=== PATIENT | female | born 1935 | race Caucasian/White ===

== ENCOUNTER → 2016-06-01 | Outpatient (CLI) | payer MEDICARE ==
[2016-01-25 19:45] VITALS: BP 131/50
[~2016-06-01] MED LIST: ASPI81TA50 PO; BUDE10.2 IH; FURO-68 PO; HYDR12.53 PO; LOSA100T6 PO; METO25TA4 PO; MORP15TA3 PO; MORP30TA83 PO; NITR0.4T SL; POLY255P PO; PROAIR HFA8.5 GM IH; SERT100T PO; TEMA15CA PO; TRAM50TA PO
--- NOTE | 2016-06-01 11:06 | KCIC ---
PROCEDURE Left breast diagnostic mammogram; left breast sonogram. HISTORY 80-year-old female presents for six-month followup evaluation a suspected lymph node within the posterior lateral left breast demonstrate on a mammogram and sonogram dated 09/30/2015. TECHNIQUE Full field digital craniocaudal and mediolateral oblique views of the left breast are obtained. Sonographic imaging of the left breast targeted to the 3 o'clock position was also performed. COMPARISON 09/30/2015, 09/18/2015 FINDINGS Breast parenchymal composition: Level B - Scattered fibroglandular densities. There is nodular density with indistinct margins within the posterior 3 o'clock position of the left breast. This is slightly more prominent compared to the prior studies. There is no new suspicious mass. There are benign calcifications. There is no architectural distortion. Sonographic imaging of the left breast demonstrates a hypoechoic lesion at the posterior 3 o'clock position 12 cm from the nipple, measuring 9 x 8 x 4 mm. There is a focus of increased echogenicity within this lesion. This is slightly more conspicuous compared to the prior study. There is no suspicious posterior shadowing. No additional lesion is seen. IMPRESSION 1. Slight interval increase in nodular density within the posterior 3 o'clock position of the left breast, with sonographic features favoring a lymph node. Given the slight interval change and indistinct margins of this lesion, repeat short-term follow-up is recommended to to confirm benignity. 2. BI-RADS Category 3: Probably benign finding. Short-term follow-up with a bilateral diagnostic mammogram and left breast sonogram in 4 months is recommended to correspond with a previously established bilateral mammography interval. Electronically signed by: Anna Marks (Jun 01, 2016 11:04:26)
== END | disposition home or self-care (01) ==
LOC: KCIC MAMMO 09:17
PROVIDERS: ATTEND Internal Medicine
DX: R92.8 Other abnormal and inconclusive findings on diagnostic imaging of breast (principal); N63 Unspecified lump in breast
CPT/HCPCS: 76641; G0206; 77065

== ENCOUNTER 2016-10-13 21:00 | Emergency (ER) | payer MEDICARE ==
[2016-10-13 23:00] VITALS: BP 177/81
[2016-10-13] MEDS ORDERED: KETOROLAC TROMETHAMINE 30 MG/ML INJ. IV ONE (23:30)
--- NOTE | 2016-10-13 23:54 | RAD ---
Left lower extremity venous duplex study 10/13/2016 Clinical History: Left leg pain. Technique: Using a combination of real time ultrasound imaging and color-flow and pulse Doppler imaging techniques along with graded compression and augmentation, duplex evaluation of the deep venous system of the left lower extremity was performed. Multiple images were obtained. Findings: There is no sonographic evidence of deep venous thrombosis involving the visualized deep venous structures of left lower extremity. Impression: Negative study. Electronically signed by: Dov Palmer MD (10/13/2016 11:51 PM) [facility]
[2016-10-14] MEDS ORDERED: PRED50TA PO (00:15)
--- NOTE | 2016-10-14 00:16 | PHYS DOC ---
Past Medical History Past Medical History: Anxiety, Arthritis, Bronchitis, CAD, COPD, CVA, Depression, Heart Disease, Hypertension, Liver Disease, ID, Pneumonia, Stroke, Other Additional Past Medical Histor: LEGALLY BLIND Past Surgical History: Angioplasty, Coronary Bypass Surgery, Hysterectomy, Tonsillectomy, Other Additional Past Surgical Histo: cysts and tumors removed from stomach Alcohol Use: None Drug Use: None Adult General Chief Complaint Chief Complaint: HIP PAIN HPI HPI 80-year-old female with a past medical history of anxiety depression coronary artery disease with ID CVA COPD hypertension now presents to the emergency department complaining of pain in the left low back area radiating down her left leg. She had no injury. It does not hurt to bear weight. She denies a known history of sciatica however she states and told she had some herniated disks. Patient denies numbness or weakness of the legs. No incontinence. Normal bowel and bladder habits Review of Systems Review of Systems Constitutional: Denies fever or chills [] Eyes: Denies change in visual acuity, redness, or eye pain [] HENT: Denies nasal congestion or sore throat [] Respiratory: Denies cough or shortness of breath [] Cardiovascular: No additional information not addressed in HPI [] GI: Denies abdominal pain, nausea, vomiting, bloody stools or diarrhea [] : Denies dysuria or hematuria [] Musculoskeletal: Denies back pain or joint pain [] Integument: Denies rash or skin lesions [] Neurologic: Denies headache, focal weakness or sensory changes [] Endocrine: Denies polyuria or polydipsia [] Current Medications Current Medications Current Medications Medications (Trade) Dose Ordered Sig/Conrad Start Time Stop Time Status Last Admin Dose Admin Ketorolac Tromethamine (Toradol) 30 mg 1X ONCE 10/13/16 23:30 10/13/16 23:31 DC 10/13/16 22:59 30 MG Allergies Allergies Allergies Coded Allergies Type Severity Reaction Last Updated Verified MIGUEL ANGEL Inhibitors Allergy Intermediate Unknown 04/25/14 Yes Penicillins Allergy Intermediate 03/11/14 Yes Sulfa (Sulfonamide Antibiotics) Allergy Intermediate Unknown 04/25/14 Yes adhesive Allergy Intermediate 03/11/14 Yes influenza virus vaccine, specific Allergy Intermediate 03/11/14 Yes mercury (elemental) Allergy Intermediate 03/11/14 Yes methylprednisolone Allergy Intermediate 03/11/14 Yes trazodone Allergy Intermediate Unknown 04/25/14 Yes zolpidem Allergy Intermediate 03/11/14 Yes Physical Exam Physical Exam Well-appearing elderly female no acute distress. Nontender stable pelvis no hip tenderness. Mild soft tissue tenderness left lumbar paraspinal. Positive straight leg raise left lower extremity. Soft compartments of the leg with no abnormality of that extremity. No cords. Normal color neurovascularly intact Constitutional: Well developed, well nourished, no acute distress, non-toxic appearance. [] HENT: Normocephalic, atraumatic, bilateral external ears normal, oropharynx moist, no oral exudates, nose normal. [] Eyes: PERRLA, EOMI, conjunctiva normal, no discharge. [] Neck: Normal range of motion, no tenderness, supple, no stridor. [] Cardiovascular:Heart rate regular rhythm, no murmur [] Lungs & Thorax: Bilateral breath sounds clear to auscultation [] Abdomen: Bowel sounds normal, soft, no tenderness, no masses, no pulsatile masses. [] Skin: Warm, dry, no erythema, no rash. [] Back: Left lumbar paraspinal soft tissue tenderness no midline or bony tenderness., no CVA tenderness. [] Extremities: No tenderness, no cyanosis, no clubbing, ROM intact, no edema. [] Neurologic: Alert and oriented X 3, normal motor function, normal sensory function, no focal deficits noted. [] Psychologic: Affect normal, judgement normal, mood normal. [] Current Patient Data Vital Signs Vital Signs Date Time Temp Pulse Resp B/P (MAP) Pulse Ox O2 Delivery O2 Flow Rate FiO2 10/13/16 21:00 98.8 54 20 165/80 (108) 97 Room Air 98.8 EKG EKG [] Radiology/Procedures Radiology/Procedures [] Course & Med Decision Making Course & Med Decision Making Pertinent Labs and Imaging studies reviewed. (See chart for details) Signs and symptoms consistent with sciatica left lower extremity. Normal left lower extremity exam positive straight leg raise. Neurovascularly intact. Pelvis x-ray done which was unremarkable. Doppler left lower extremity negative. No further workup or treatment indicated. We'll prescribe a short course of prednisone and patient were to use NSAIDs and follow up with PCP for reevaluation and further workup and treatment as needed. She agrees with outpatient follow-up and strict return precautions given [] Dragon Disclaimer Dragon Disclaimer This electronic medical record was generated, in whole or in part, using a voice recognition dictation system. Departure Departure Impression: Primary Impression: Sciatica of left side Disposition: 01 HOME, SELF-CARE Condition: STABLE Referrals: PRITESH BRAGA MD (PCP) Patient Instructions: Sciatica Additional Instructions: The pain radiating down her left leg is consistent with sciatica. This means inflammation of the sciatic nerve in the low back or buttock which causes pain in the leg him in this case her left leg. Take ibuprofen every 6 hours and finish prednisone as prescribed once a day for the next 5 days. Follow-up with your doctor for reevaluation and to discuss further workup and treatment including possible MRI of the low back as needed. Scripts Prednisone (PREDNISONE) 50 Mg Tablet 1 TAB PO DAILY, #5 TAB Prov: TJ LÓPEZ MD 10/14/16 TJ LÓPEZ MD Oct 14, 2016 00:16
[2016-10-14] MEDS ORDERED: predniSONE 20 MG TABLET PO ONE (01:00)
--- NOTE | 2016-10-14 08:06 | RAD ---
Portable pelvis, 10/13/2016: History: Left hip pain No fracture or dislocation is identified. There is moderate narrowing of the left hip joint with subchondral sclerosis and mild spurring. There is mild narrowing of the right hip joint. Surgical clips are present medially in the left upper thigh. IMPRESSION: Moderate osteoarthritis at the left hip.
== END 2016-10-14 00:50 | disposition home or self-care (01) ==
LOC: ER 21:00
DX: M54.42 Lumbago with sciatica, left side (principal); M79.605 Pain in left leg; F41.9 Anxiety disorder, unspecified; M19.90 Unspecified osteoarthritis, unspecified site; I25.10 Atherosclerotic heart disease of native coronary artery without angina pectoris; J44.9 Chronic obstructive pulmonary disease, unspecified; I11.9 Hypertensive heart disease without heart failure; I25.2 Old myocardial infarction; F32.9 Major depressive disorder, single episode, unspecified; H54.8 Legal blindness, as defined in USA; Z87.01 Personal history of pneumonia (recurrent); Z95.1 Presence of aortocoronary bypass graft; Z90.710 Acquired absence of both cervix and uterus; Z98.61 Coronary angioplasty status; Z88.5 Allergy status to narcotic agent; Z86.73 Personal history of transient ischemic attack (TIA), and cerebral infarction without residual deficits; Z88.8 Allergy status to other drugs, medicaments and biological substances; Z91.048 Other nonmedicinal substance allergy status; Z88.0 Allergy status to penicillin; Z88.2 Allergy status to sulfonamides
CPT/HCPCS: 72170; 93971; 96374; 99284; J1885; J7512

== ENCOUNTER → 2016-11-09 | Outpatient (CLI) | payer MEDICARE ==
[2016-10-25 10:49] VITALS: BP 132/63
[~2016-11-09] MED LIST changes: +AMLO10TA2 PO; +GABA600T2 PO; +IOHEXOL 180 MG/ML 10 ML VIAL. ONE; +MELA3TAB2 PO; +OXYC-323 PO; +POTA20TA82 PO; +PRED50TA PO; +SIMV20TA3 PO; +methylPREDNISolone ACETATE 40 MG/ML VIAL. ONE; +methylPREDNISolone ACETATE 80 MG/ML VIAL. ONE
--- NOTE | 2016-11-10 00:18 | PAIN ---
DATE OF SERVICE: 11/09/2016 PROGRESS NOTE FOR PAIN CLINIC DIAGNOSES: Lumbar radiculopathy with lumbar degenerative disk disease and lumbar spinal stenosis. HISTORY OF PRESENT ILLNESS: The patient is a 80-year-old female who returns for followup status post lumbar epidural steroid injection x 1 as inpatient on 10/24/2016. The patient did very well with about a 50% improvement in her pain in low back and left lower extremity. The patient reports still some significant pain returning now over the past week or so, increasing in the low back radiating to the posterior gluteus, posterolateral thigh, lateral anterior thigh, medial thigh, medial lower leg into the ankle and foot on the left side. The patient reports it is a 6 on a scale 10 currently. It can be as high as 10 on scale of 10. It has been waking her from sleep occasionally, but much better with lying down. The patient reports not every night this is a bother. The patient reports no new motor or sensory deficits, no new bowel or bladder incontinence, describes pain as aching, dull, radiating, constant and becoming more unbearable, worse with activity, standing and walking. PHYSICAL EXAMINATION: VITAL SIGNS: The patient's blood pressure 111/66, pulse is ____, respirations 18, temperature 99.0 degrees Fahrenheit, weight is 139 pounds. GENERAL: The patient is awake, alert, oriented, appropriate, very pleasant demeanor. HEENT: Shows normocephalic, atraumatic. Extraocular movements are intact and symmetrical. Oral cavity, mucous membranes are moist and pink. Dentition intact. NECK: Shows anterior throat supple without palpable lymphadenopathy noted. Swallow reflex is symmetrical. CHEST: Shows normal on inspection. Breath sounds clear to auscultation bilaterally. HEART: Shows S1 and S2 clear. ABDOMEN: Soft, nontender, nondistended. No palpable organomegaly. No rebound or guarding demonstrated. BACK: Shows spine grossly in the midline. Normal appearing thoracic kyphosis and lumbar lordotic curvature. Well-healed surgical scars are noted in the upper part of the lumbar distribution as well as over the right gluteus, with palpation shows moderate tenderness with inferior aspect of the lumbar paraspinous musculature bilaterally with palpation diffusely without radiation, without trigger points. No tenderness over the sacrum or sacroiliac regions. The patient has good rotational motion of the lumbar spine, both laterally as well as extension and flexion without difficulty. EXTREMITIES: Lower extremities showed deep tendon reflexes at 1+ in the patellar and tendo calcaneus tendons are equal. Motor exam is 4 on a scale 5 with left dorsiflexion and extension and 5/5 on the right. Peripheral pulses are 1+ posterior tibial bilaterally. Options were discussed with the patient. We will proceed with a second lumbar epidural steroid injection today with fluoroscopic guidance. Risks were again discussed including, but not limited to bleeding, infection, possibility of epidural hematoma and subsequent neurologic compromise, dural puncture, headaches, spinal cord and/or nerve damage, side effects of steroid medication and poor results regarding pain control. The patient understands and wishes to proceed. The patient will return to the clinic in approximately 2 weeks for followup, was counseled on return appointment, activity level and side effects to be aware of. DIAGNOSIS: Lumbar radiculopathy with lumbar spinal stenosis, lumbar degenerative disk disease. PROCEDURE: Lumbar epidural steroid injection in translaminar approach at the L4-L5 level, using C-arm fluoroscopic guidance under sterile prep and drape using local anesthetic. MEDICATIONS INJECTED: Total of 120 mg of Depo-Medrol, plus 10 mL of preservative-free normal saline and 2 mL of Isovue for contrast. CONDITION AT DISCHARGE: Stable. The patient tolerated procedure well, had no complications. JAK RO MD DR: JUDY/cathryn JOB#: [id number] / [id number]
== END | disposition home or self-care (01) ==
LOC: PNCL 13:41
PROVIDERS: ATTEND Nurse Anesthetist, Certified Registered
DX: M51.16 Intervertebral disc disorders with radiculopathy, lumbar region (principal); M48.06 Spinal stenosis, lumbar region; I25.10 Atherosclerotic heart disease of native coronary artery without angina pectoris; I10 Essential (primary) hypertension; J44.9 Chronic obstructive pulmonary disease, unspecified; K21.9 Gastro-esophageal reflux disease without esophagitis; M19.90 Unspecified osteoarthritis, unspecified site; F32.9 Major depressive disorder, single episode, unspecified; Z86.69 Personal history of other diseases of the nervous system and sense organs; Z98.41 Cataract extraction status, right eye; Z98.42 Cataract extraction status, left eye; Z86.73 Personal history of transient ischemic attack (TIA), and cerebral infarction without residual deficits; Z87.39 Personal history of other diseases of the musculoskeletal system and connective tissue; Z88.0 Allergy status to penicillin; Z88.2 Allergy status to sulfonamides; Z88.7 Allergy status to serum and vaccine; Z88.8 Allergy status to other drugs, medicaments and biological substances; Z91.048 Other nonmedicinal substance allergy status
CPT/HCPCS: 62323; J1030; J1040

== ENCOUNTER 2017-02-21 18:48 | Inpatient (IN) | payer MEDICARE ==
[~2017-02-21] VITALS: Ht 149.9 cm; Wt 65.9 kg
[~2017-02-21 18:48] MED LIST changes: -IOHEXOL 180 MG/ML 10 ML VIAL. ONE; -methylPREDNISolone ACETATE 40 MG/ML VIAL. ONE; -methylPREDNISolone ACETATE 80 MG/ML VIAL. ONE
--- NOTE | 2017-02-21 19:21 | PHYS DOC ---
Past Medical History Past Medical History: Anxiety, Arthritis, Bronchitis, CAD, COPD, CVA, Depression, Heart Disease, Hypertension, NC, Stroke, Other Additional Past Medical Histor: LEGALLY BLIND Past Surgical History: Angioplasty, Coronary Bypass Surgery, Hysterectomy, Tonsillectomy, Other Additional Past Surgical Histo: cysts and tumors removed from stomach Alcohol Use: None Drug Use: None Adult General Chief Complaint Chief Complaint: CHEST PAIN HPI HPI Patient is a 81 year old F who presents with chest pain and cough. Patient states she was seen by her PCP last week as diagnosed with a viral URI however today it hurts take deep breaths and she's having rib pain on both sides she states. Patient had an operative cough. Patient denies any fevers. Patient is a cardiac history with bypass surgery. Patient states this pain is not similar to her previous cardiac disease. Patient denies any shortness of breath. Patient denies any nausea/vomiting/diarrhea. Patient has no other complaints. Review of Systems Review of Systems GEN: Denies fevers, chills, sweats HEENT: Denies blurred vision, sore throat CV: Chest pain RESP cough GI: Denies n/v/d NEURO: Denies confusion, dizziness MSK: Denies weakness, joint pain/swelling All other systems were reviewed and found to be within normal limits, except as documented in this note. Allergies Allergies Allergies Coded Allergies Type Severity Reaction Last Updated Verified MIGUEL ANGEL Inhibitors Allergy Intermediate Unknown 04/25/14 Yes Penicillins Allergy Intermediate 03/11/14 Yes Sulfa (Sulfonamide Antibiotics) Allergy Intermediate Unknown 04/25/14 Yes adhesive Allergy Intermediate 03/11/14 Yes influenza virus vaccine, specific Allergy Intermediate 03/11/14 Yes mercury (elemental) Allergy Intermediate 03/11/14 Yes methylprednisolone Allergy Intermediate 03/11/14 Yes trazodone Allergy Intermediate Unknown 04/25/14 Yes zolpidem Allergy Intermediate 03/11/14 Yes Physical Exam Physical Exam GEN.: No apparent distress. Alert and oriented. HEENT: Head is normocephalic, atraumatic NECK: Supple. LUNGS: CTAB. HEART: RRR, S1, S2 present. Peripheral pulses intact ABDOMEN: Soft, nontender. Positive bowel sounds. EXTREMITIES: Without any cyanosis. NEUROLOGIC: Normal speech, normal tone PSYCHIATRIC: Normal affect, normal mood. SKIN: No ulcerations Current Patient Data Vital Signs Vital Signs Date Time Temp Pulse Resp B/P (MAP) Pulse Ox O2 Delivery O2 Flow Rate FiO2 02/21/17 18:56 98.1 64 18 143/65 (91) 98 Room Air 98.1 Lab Values Laboratory Tests Test 02/21/17 19:34 02/21/17 20:45 White Blood Count 5.4 x10^3/uL (4.0-11.0) Red Blood Count 4.26 x10^6/uL (3.50-5.40) Hemoglobin 12.7 g/dL (12.0-15.5) Hematocrit 38.1 % (36.0-47.0) Mean Corpuscular Volume 89 fL (79-100) Mean Corpuscular Hemoglobin 30 pg (25-35) Mean Corpuscular Hemoglobin Concent 33 g/dL (31-37) Red Cell Distribution Width 13.2 % (11.5-14.5) Platelet Count 220 x10^3/uL (140-400) Neutrophils (%) (Auto) 55 % (31-73) Lymphocytes (%) (Auto) 27 % (24-48) Monocytes (%) (Auto) 17 % (0-9) H Eosinophils (%) (Auto) 1 % (0-3) Basophils (%) (Auto) 1 % (0-3) Neutrophils # (Auto) 3.0 x10^3uL (1.8-7.7) Lymphocytes # (Auto) 1.5 x10^3/uL (1.0-4.8) Monocytes # (Auto) 0.9 x10^3/uL (0.0-1.1) Eosinophils # (Auto) 0.0 x10^3/uL (0.0-0.7) Basophils # (Auto) 0.0 x10^3/uL (0.0-0.2) Sodium Level 141 mmol/L (136-145) Potassium Level 3.8 mmol/L (3.5-5.1) Chloride Level 103 mmol/L (98-107) Carbon Dioxide Level 31 mmol/L (21-32) Anion Gap 7 (6-14) Blood Urea Nitrogen 24 mg/dL (7-20) H Creatinine 0.7 mg/dL (0.6-1.0) Estimated GFR (Cockcroft-Gault) 80.5 BUN/Creatinine Ratio 34 (6-20) H Glucose Level 130 mg/dL (70-99) H Calcium Level 9.5 mg/dL (8.5-10.1) Total Bilirubin 0.2 mg/dL (0.2-1.0) Aspartate Amino Transferase (AST) 17 U/L (15-37) Alanine Aminotransferase (ALT) 17 U/L (14-59) Alkaline Phosphatase 80 U/L (46-116) Troponin I Quantitative < 0.017 ng/mL (0.000-0.055) Total Protein 7.9 g/dL (6.4-8.2) Albumin 3.5 g/dL (3.4-5.0) Albumin/Globulin Ratio 0.8 (1.0-1.7) L Urine Collection Type Unknown Urine Color Yellow Urine Clarity Clear Urine pH 6.5 Urine Specific [place] 1.020 Urine Protein Negative mg/dL (NEG-TRACE) Urine Glucose (UA) Negative mg/dL (NEG) Urine Ketones (Stick) Negative mg/dL (NEG) Urine Blood Small (NEG) Urine Nitrite Negative (NEG) Urine Bilirubin Negative (NEG) Urine Urobilinogen Dipstick 0.2 mg/dL (0.2 mg/dL) Urine Leukocyte Esterase Moderate (NEG) Urine RBC 6-10 /HPF (0-2) Urine WBC 11-20 /HPF (0-4) Urine Squamous Epithelial Cells Occ /LPF Urine Bacteria Moderate /HPF (0-FEW) Urine Hyaline Casts Moderate /HPF Urine Mucus Mod /LPF Laboratory Tests 02/21/17 19:34 Laboratory Tests 02/21/17 19:34 EKG EKG 1850: EKG shows normal sinus rhythm rate of 62 no STEMI[] Radiology/Procedures Radiology/Procedures Chest x-ray NAD[] Course & Med Decision Making Course & Med Decision Making Pertinent Labs and Imaging studies reviewed. (See chart for details) ED course: Patient was seen and examined emergency room cardiac workup is ordered along with UA 2125: On reexamination the patient still having chest pain and updated her on her UA and the plan to admit, Dr. 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 Ibarra and recommends admit [] MDM: After reviewing the chart, CC/HPI/PMH, physical exam, [lab results], [ radiological results], I do not believe the patient's having a STEMI however given the patient's cardiac risk factors I believe the patient needs to be minute for further cardiac workup. I have low suspicion for PE with a well's score of 0, and low suspicion for acute thoracic aortic dissection. Patient will be started on IV antibiotics for her UTI. Dragon Disclaimer Dragon Disclaimer This electronic medical record was generated, in whole or in part, using a voice recognition dictation system. Departure Departure Impression: Primary Impression: Chest pain Additional Impression: UTI (urinary tract infection) Disposition: ADMITTED INPATIENT Admitting Physician: Renetta Ibarra Condition: STABLE Referrals: PRITESH BRAGA MD (PCP) Problem Qualifiers RICHARD CRAWLEY DO Feb 21, 2017 19:21
[2017-02-21 20:05] LABS: BASO % 1 % (0-3); EOS % 1 % (0-3); HEMATOCRIT 38.1 % (36.0-47.0); HEMOGLOBIN 12.7 g/dL (12.0-15.5); LYMPH # 1.5 x10^3/uL (1.0-4.8); LYMPH % 27 % (24-48); MEAN CORPUSCULAR HEMOGLOBIN 30 pg (25-35); MEAN CORPUSCULAR HGB CONC 33 g/dL (31-37); MEAN CORPUSCULAR VOLUME 89 fL (79-100); MONO % 17 % (0-9); NEUT % 55 % (31-73); PLATELET COUNT 220 x10^3/uL (140-400); RED BLOOD COUNT 4.26 x10^6/uL (3.50-5.40); RED CELL DISTRIBUTION WIDTH 13.2 % (11.5-14.5); WHITE BLOOD COUNT 5.4 x10^3/uL (4.0-11.0)
[2017-02-21 20:11] LABS: CALCIUM 9.5 mg/dL (8.5-10.1); CREATININE 0.7 mg/dL (0.6-1.0); GFR 80.5; POTASSIUM 3.8 mmol/L (3.5-5.1)
[2017-02-21 20:18] LABS: ALBUMIN 3.5 g/dL (3.4-5.0); ALBUMIN/GLOBULIN RATIO 0.8 (1.0-1.7); TOTAL BILIRUBIN 0.2 mg/dL (0.2-1.0); TOTAL PROTEIN 7.9 g/dL (6.4-8.2)
[2017-02-21 20:51] LABS: BILIRUBIN,URINE NEGATIVE (NEG); GLUCOSE,URINE NEGATIVE (NEG); NITRITE,URINE NEGATIVE (NEG); PH,URINE 6.5; PROTEIN,URINE NEGATIVE (NEG-TRACE); UROBILINOGEN,URINE 0.2 mg/dL (0.2 mg/dL)
[2017-02-21 21:01] LABS: BACTERIA,URINE MODERATE /HPF (0-FEW); SQUAMOUS EPITHELIAL CELL,UR OCC /LPF
[2017-02-21] MEDS ORDERED: ONDANSETRON PF 4 MG/2 ML VIAL. IV PRN (21:45)
[2017-02-21] MEDS ORDERED: NITROGLYCERIN SUBLINGUAL 0.4 MG BOTTLE OF 25. SL PRN ×2 (21:45→22:45)
[2017-02-21] MEDS ORDERED: ACETAMINOPHEN 325 MG TABLET. PO PRN (21:45)
[2017-02-21] MEDS ORDERED: ASPIRIN CHEWABLE 81 MG TABLET. PO ONE (22:00)
[2017-02-21 22:20] VITALS: BP 165/66
[2017-02-21] MEDS ORDERED: GABAPENTIN 100 MG CAPSULE. PO ONE (23:00)
[2017-02-21] MEDS ORDERED: METOPROLOL TART IMMED RELEASE 25 MG TABLET. PO ONE (23:00)
[2017-02-21] MEDS: GABAPENTIN 300 MG CAPSULE. PO SCH (23:08)
[2017-02-21] MEDS: METOPROLOL TART IMMED RELEASE 25 MG TABLET. PO SCH (23:09)
[2017-02-21] MEDS: traMADol 50 MG TABLET PO SCH (23:09)
[2017-02-21] MEDS: ATORVASTATIN CALCIUM 10 MG TABLET. PO SCH (23:09)
[2017-02-22] MEDS ORDERED: PNEUMOCOCCAL VAX SCREEN BY RX. MC PRN (01:30)
[2017-02-22 03:10] VITALS: BP 133/57
[2017-02-22 06:30] LABS: BASO % 1 % (0-3); EOS % 3 % (0-3); HEMATOCRIT 34.8 % (36.0-47.0); HEMOGLOBIN 11.5 g/dL (12.0-15.5); LYMPH # 2.2 x10^3/uL (1.0-4.8); LYMPH % 44 % (24-48); MEAN CORPUSCULAR HEMOGLOBIN 29 pg (25-35); MEAN CORPUSCULAR HGB CONC 33 g/dL (31-37); MEAN CORPUSCULAR VOLUME 89 fL (79-100); MONO % 13 % (0-9); NEUT % 40 % (31-73); PLATELET COUNT 205 x10^3/uL (140-400); RED BLOOD COUNT 3.91 x10^6/uL (3.50-5.40); RED CELL DISTRIBUTION WIDTH 13.2 % (11.5-14.5); WHITE BLOOD COUNT 5.1 x10^3/uL (4.0-11.0)
[2017-02-22 06:39] LABS: CALCIUM 9.1 mg/dL (8.5-10.1); CREATININE 0.6 mg/dL (0.6-1.0); GFR 96.2; POTASSIUM 3.4 mmol/L (3.5-5.1)
--- NOTE | 2017-02-22 06:48 | EKG ---
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
--- NOTE | 2017-02-22 07:15 | PDOC1 ---
HISTORY AND PHYSICAL Chief Complaint Chief Complaint This 81 year old male has been admitted with a chief complaint of chest pain. She had been seeing another PCP and recently returned to our office to re-establish medical care. She reported a cough that had been ongoing for years. Her symptoms were positive for allergic rhinitis and Singulair was added to her current Zyrtec 10mg at [facility]. She also reported a burning type cough. Several days later she contacted this MUSIC EDUCATION DIRECTOR with report she was not able to tolerate Singulair and had stopped it. The cough continued and she was hoarse. The cough was non productive, there were no fever, chills or body aches. She was offered an appointment and declined. Tessalon Perles were prescribed and she was to make appointment if her symptoms persisted. She presented to the ED last evening with c/o chest pain and cough. Upon interview this morning she has poor memory recall of events from appointment and phone call. She reports a fever 100.5F when she checked her temperature after our phone call. She attempted to call this to the office but did not leave a message. Her cough has been persistent and she is able to cough up a scant amount of light green sputum. Her chest pain is bilateral lower rib pain anteriorly. This is a chronic pain that has been going on for years. The pain is reproducible with palpation. Labs in the ED were unremarkable. Troponin and EKG negative for acute changes. She is admitted to the [facility] for ongoing treatment. Problem List Problems Medical Problems: (1) Chest pain Status: Acute (2) UTI (urinary tract infection) Status: Acute Past Medical History Cardiovascular: CAD, HTN, AR, Hyperlipidemia Pulmonary: COPD CENTRAL NERVOUS SYSTEM: Other GI: GERD Musculoskeletal: low back pain (chronic ), Osteoarthritis (multiple joints) Past Surgical History Past Surgical History: Total hip replacement Past Family History Family History: Hypertension Past Social History PSH She lives alone. No h/o tobacco, ETOH, or illicit drug use. Review of Symptoms Review of Symptoms A 14 point ROS was completed with the following noted as positive: Other systems reviewed and negative. Medications Medications reviewed and reconciled. Allergy Allergies Coded Allergies Type Severity Reaction Last Updated Verified MIGUEL ANGEL Inhibitors Allergy Intermediate 02/21/17 Yes Penicillins Allergy Intermediate 03/11/14 Yes Sulfa (Sulfonamide Antibiotics) Allergy Intermediate 02/21/17 Yes adhesive Allergy Intermediate 03/11/14 Yes influenza virus vaccine, specific Allergy Intermediate 03/11/14 Yes mercury (elemental) Allergy Intermediate 03/11/14 Yes methylprednisolone Allergy Intermediate 03/11/14 Yes trazodone Allergy Intermediate 02/21/17 Yes zolpidem Allergy Intermediate 03/11/14 Yes Physical Exam Physical Exam General appearance - alert, chronically ill appearing, and in mild distress Mental Status - alert, oriented to person, place, and time, anxious Head - normal Chest - clear to auscultation, no wheezes, rales or rhonchi, symmetric air entry Heart - S1 and S2 normal Abdomen - soft, nontender, nondistended, BS+ Neurological -no acute focal neurological deficit noted. Poor memory recall chronic Musculoskeletal - no muscular tenderness noted Extremities - no pedal edema Skin - warm and dry VTE Prophylaxis Ordered VTE Prophylaxis Devices: Yes VTE Pharmacological Prophylaxi: No Assessment Labs Laboratory Tests Test 02/21/17 19:34 02/21/17 20:45 02/22/17 05:35 White Blood Count 5.4 x10^3/uL (4.0-11.0) 5.1 x10^3/uL (4.0-11.0) Red Blood Count 4.26 x10^6/uL (3.50-5.40) 3.91 x10^6/uL (3.50-5.40) Hemoglobin 12.7 g/dL (12.0-15.5) 11.5 g/dL (12.0-15.5) Hematocrit 38.1 % (36.0-47.0) 34.8 % (36.0-47.0) Mean Corpuscular Volume 89 fL (79-100) 89 fL (79-100) Mean Corpuscular Hemoglobin 30 pg (25-35) 29 pg (25-35) Mean Corpuscular Hemoglobin Concent 33 g/dL (31-37) 33 g/dL (31-37) Red Cell Distribution Width 13.2 % (11.5-14.5) 13.2 % (11.5-14.5) Platelet Count 220 x10^3/uL (140-400) 205 x10^3/uL (140-400) Neutrophils (%) (Auto) 55 % (31-73) 40 % (31-73) Lymphocytes (%) (Auto) 27 % (24-48) 44 % (24-48) Monocytes (%) (Auto) 17 % (0-9) 13 % (0-9) Eosinophils (%) (Auto) 1 % (0-3) 3 % (0-3) Basophils (%) (Auto) 1 % (0-3) 1 % (0-3) Neutrophils # (Auto) 3.0 x10^3uL (1.8-7.7) 2.0 x10^3uL (1.8-7.7) Lymphocytes # (Auto) 1.5 x10^3/uL (1.0-4.8) 2.2 x10^3/uL (1.0-4.8) Monocytes # (Auto) 0.9 x10^3/uL (0.0-1.1) 0.7 x10^3/uL (0.0-1.1) Eosinophils # (Auto) 0.0 x10^3/uL (0.0-0.7) 0.1 x10^3/uL (0.0-0.7) Basophils # (Auto) 0.0 x10^3/uL (0.0-0.2) 0.0 x10^3/uL (0.0-0.2) Sodium Level 141 mmol/L (136-145) 143 mmol/L (136-145) Potassium Level 3.8 mmol/L (3.5-5.1) 3.4 mmol/L (3.5-5.1) Chloride Level 103 mmol/L (98-107) 107 mmol/L (98-107) Carbon Dioxide Level 31 mmol/L (21-32) 29 mmol/L (21-32) Anion Gap 7 (6-14) 7 (6-14) Blood Urea Nitrogen 24 mg/dL (7-20) 19 mg/dL (7-20) Creatinine 0.7 mg/dL (0.6-1.0) 0.6 mg/dL (0.6-1.0) Estimated GFR (Cockcroft-Gault) 80.5 96.2 BUN/Creatinine Ratio 34 (6-20) Glucose Level 130 mg/dL (70-99) 101 mg/dL (70-99) Calcium Level 9.5 mg/dL (8.5-10.1) 9.1 mg/dL (8.5-10.1) Total Bilirubin 0.2 mg/dL (0.2-1.0) Aspartate Amino Transf (AST/SGOT) 17 U/L (15-37) Alanine Aminotransferase (ALT/SGPT) 17 U/L (14-59) Alkaline Phosphatase 80 U/L (46-116) Troponin I Quantitative < 0.017 ng/mL (0.000-0.055) Total Protein 7.9 g/dL (6.4-8.2) Albumin 3.5 g/dL (3.4-5.0) Albumin/Globulin Ratio 0.8 (1.0-1.7) Urine Collection Type Unknown Urine Color Yellow Urine Clarity Clear Urine pH 6.5 Urine Specific [place] 1.020 Urine Protein Negative mg/dL (NEG-TRACE) Urine Glucose (UA) Negative mg/dL (NEG) Urine Ketones (Stick) Negative mg/dL (NEG) Urine Blood Small (NEG) Urine Nitrite Negative (NEG) Urine Bilirubin Negative (NEG) Urine Urobilinogen Dipstick 0.2 mg/dL (0.2 mg/dL) Urine Leukocyte Esterase Moderate (NEG) Urine RBC 6-10 /HPF (0-2) Urine WBC 11-20 /HPF (0-4) Urine Squamous Epithelial Cells Occ /LPF Urine Bacteria Moderate /HPF (0-FEW) Urine Hyaline Casts Moderate /HPF Urine Mucus Mod /LPF Laboratory Tests Test 02/21/17 19:34 02/21/17 20:45 02/22/17 05:35 White Blood Count 5.4 x10^3/uL (4.0-11.0) 5.1 x10^3/uL (4.0-11.0) Red Blood Count 4.26 x10^6/uL (3.50-5.40) 3.91 x10^6/uL (3.50-5.40) Hemoglobin 12.7 g/dL (12.0-15.5) 11.5 g/dL (12.0-15.5) Hematocrit 38.1 % (36.0-47.0) 34.8 % (36.0-47.0) Mean Corpuscular Volume 89 fL (79-100) 89 fL (79-100) Mean Corpuscular Hemoglobin 30 pg (25-35) 29 pg (25-35) Mean Corpuscular Hemoglobin Concent 33 g/dL (31-37) 33 g/dL (31-37) Red Cell Distribution Width 13.2 % (11.5-14.5) 13.2 % (11.5-14.5) Platelet Count 220 x10^3/uL (140-400) 205 x10^3/uL (140-400) Neutrophils (%) (Auto) 55 % (31-73) 40 % (31-73) Lymphocytes (%) (Auto) 27 % (24-48) 44 % (24-48) Monocytes (%) (Auto) 17 % (0-9) 13 % (0-9) Eosinophils (%) (Auto) 1 % (0-3) 3 % (0-3) Basophils (%) (Auto) 1 % (0-3) 1 % (0-3) Neutrophils # (Auto) 3.0 x10^3uL (1.8-7.7) 2.0 x10^3uL (1.8-7.7) Lymphocytes # (Auto) 1.5 x10^3/uL (1.0-4.8) 2.2 x10^3/uL (1.0-4.8) Monocytes # (Auto) 0.9 x10^3/uL (0.0-1.1) 0.7 x10^3/uL (0.0-1.1) Eosinophils # (Auto) 0.0 x10^3/uL (0.0-0.7) 0.1 x10^3/uL (0.0-0.7) Basophils # (Auto) 0.0 x10^3/uL (0.0-0.2) 0.0 x10^3/uL (0.0-0.2) Sodium Level 141 mmol/L (136-145) 143 mmol/L (136-145) Potassium Level 3.8 mmol/L (3.5-5.1) 3.4 mmol/L (3.5-5.1) Chloride Level 103 mmol/L (98-107) 107 mmol/L (98-107) Carbon Dioxide Level 31 mmol/L (21-32) 29 mmol/L (21-32) Anion Gap 7 (6-14) 7 (6-14) Blood Urea Nitrogen 24 mg/dL (7-20) 19 mg/dL (7-20) Creatinine 0.7 mg/dL (0.6-1.0) 0.6 mg/dL (0.6-1.0) Estimated GFR (Cockcroft-Gault) 80.5 96.2 BUN/Creatinine Ratio 34 (6-20) Glucose Level 130 mg/dL (70-99) 101 mg/dL (70-99) Calcium Level 9.5 mg/dL (8.5-10.1) 9.1 mg/dL (8.5-10.1) Total Bilirubin 0.2 mg/dL (0.2-1.0) Aspartate Amino Transf (AST/SGOT) 17 U/L (15-37) Alanine Aminotransferase (ALT/SGPT) 17 U/L (14-59) Alkaline Phosphatase 80 U/L (46-116) Troponin I Quantitative < 0.017 ng/mL (0.000-0.055) Total Protein 7.9 g/dL (6.4-8.2) Albumin 3.5 g/dL (3.4-5.0) Albumin/Globulin Ratio 0.8 (1.0-1.7) Urine Collection Type Unknown Urine Color Yellow Urine Clarity Clear Urine pH 6.5 Urine Specific [place] 1.020 Urine Protein Negative mg/dL (NEG-TRACE) Urine Glucose (UA) Negative mg/dL (NEG) Urine Ketones (Stick) Negative mg/dL (NEG) Urine Blood Small (NEG) Urine Nitrite Negative (NEG) Urine Bilirubin Negative (NEG) Urine Urobilinogen Dipstick 0.2 mg/dL (0.2 mg/dL) Urine Leukocyte Esterase Moderate (NEG) Urine RBC 6-10 /HPF (0-2) Urine WBC 11-20 /HPF (0-4) Urine Squamous Epithelial Cells Occ /LPF Urine Bacteria Moderate /HPF (0-FEW) Urine Hyaline Casts Moderate /HPF Urine Mucus Mod /LPF Plan Plan IMPRESSION: 1. chest pain 2. Acute bronchitis post Viral URI 3. UTI suspected 3. Anterior lower rib MS tenderness PLAN: chest pain - cardiology consult - ER eval negative AB - continue Rocephin IV - nebulizer treatment - mucinex UTI - continue Rocephin IV Rib pain - continue out patient pain meds. She has a h/o narcotic abuse. LBP - chronic - had to cancel appt with Dr. Pagan for injection. hypokalemia - Admit 3.8 - K 3.4 this AM. chronic K replacement. Give additional 10meq x 1 For more details regarding further plans, please refer to the orders. JADE JAMES APRN Feb 22, 2017 07:14
[2017-02-22 07:46] VITALS: BP 142/60
--- NOTE | 2017-02-22 07:52 | RAD ---
Chest, 2 views, 02/21/2017: History: Chest pain Comparison is made to a study from 03/07/2014. There has been a previous median sternotomy. The heart size is normal. A coronary artery stent overlies the left side of the heart. There is calcific plaquing of the aorta. The pulmonary vascularity is normal. A lateral right upper lobe opacity is probably a granuloma. No acute infiltrates are seen. There is flattening of the hemidiaphragms compatible with hyperexpansion due to COPD. No pleural fluid is evident. The bony structures are demineralized. IMPRESSION: 1. Chronic findings as described above. 2. No acute cardiopulmonary abnormality is detected.
[2017-02-22] MEDS: ALBUTEROL SULFATE 2.5 MG/3 ML NEBU. NEB SCH ×2 (08:00→12:06)
[2017-02-22] MEDS ORDERED: POTASSIUM CHLORIDE 10 MEQ TABLET.ER. PO ONE (08:30)
[2017-02-22] MEDS: GABAPENTIN 300 MG CAPSULE. PO SCH ×2 (09:25→20:51)
[2017-02-22] MEDS: BENZONATATE 100 MG CAPSULE. PO SCH ×3 (09:26→20:51)
[2017-02-22] MEDS: SERTRALINE 50 MG TABLET. PO SCH (09:26)
[2017-02-22] MEDS: ASPIRIN ENTERIC COATED 81 MG TABLET.DR. PO SCH (09:26)
[2017-02-22] MEDS: FUROSEMIDE 40 MG TABLET. PO SCH (09:26)
[2017-02-22] MEDS: amLODIPine BESYLATE 10 MG TABLET PO SCH (09:26)
[2017-02-22] MEDS: traMADol 50 MG TABLET PO SCH ×2 (09:27→20:51)
[2017-02-22] MEDS: LOSARTAN POTASSIUM 50 MG TABLET. PO SCH (09:27)
[2017-02-22] MEDS: POTASSIUM CHLORIDE 20 MEQ TABLET.ER. PO SCH (09:28)
[2017-02-22] MEDS: POLYETHYLENE GLYCOL 3350 17 GM PACKET. PO SCH (09:30)
--- NOTE | 2017-02-22 09:41 | RAD ---
CT chest without contrast 02/22/2017 Clinical indication: Cough. Comparison: CT chest 05/02/2006, chest radiograph 02/21/2017 Technique: Multiple CT images of the chest were obtained without contrast according to standard protocol. PQRS Compliance Statement: One or more of the following individualized dose reduction techniques were utilized for this examination: 1. Automated exposure control 2. Adjustment of the mA and/or kV according to patient size 3. Use of iterative reconstruction technique Findings: There is mild generalized cardiomegaly without significant pericardial effusion. Prior median sternotomy and CABG. There are retained mediastinal cardiac pacer wires. Three-vessel sun'aq coronary artery calcifications. No axillary, mediastinal or obvious hilar lymphadenopathy, though evaluation is limited in the absence of intravenous contrast. There are mediastinal and right hilar calcified granulomas. The central airways are patent. Development of clustered tree-in-bud opacities in the deep left lower lobe as seen on series 2/image 37 and to a lesser extent in the dependent right lower lobe series 2/30 image. There is a stable calcified pleural plaque at the right upper lobe. There are no destructive osseous lesions. Limited images of the upper abdomen grossly unremarkable part from calcified atheromatous disease of the abdominal aorta and sequela of prior granulomatous disease. Impression: 1. Mild dependent lower lobe tree in bud opacities which may represent aspiration or infectious bronchiolitis. 2. Mild generalized cardiomegaly and prior CABG.
--- NOTE | 2017-02-22 10:02 | PDOC ---
Provider Note Provider Note Patient seen. see History and Physical. Acute bronchitis UTI Anxiety Opioid use disorder. The patient was seen and examined by me. Chart reviewed and plan of care formulated. Discussed with, reviewed and agree with ELECT[employer] OFFICER's notes, plan of care and orders with modifications as necessary. For more details regarding further plans, please refer to the orders. KAI WHITFIELD MD Feb 22, 2017 10:02
[2017-02-22 10:24] VITALS: BP 133/59
[2017-02-22] MEDS ORDERED: ALBUTEROL SULFATE 2.5 MG/3 ML NEBU. NEB PRN (13:00)
[2017-02-22 14:43] VITALS: BP 140/68
--- NOTE | 2017-02-22 14:51 | PDOC ---
PROGRESS NOTES Subjective Subjective Ms. Castro is an 81 year old female patient who presents with chest pain and cough. Patient seen in cardiology clinic before and has a cardiac history of CAD , MS. HTN, [employer], and is s/p bypass surgery. States that she came to the hospital due to pain around both her of her ribs. The pain occurs when patient tries to take a deep breath. She was recently diagnosed with a viral URI last week and continues to have a cough and green sputum. She denies any chest pain or shortness of breath. Patient does not believe that this pain is similar to pain she has had in previous cardiac episodes. She was worked up in the ER and was found to have a sinus rhythm on ECG with non specific ST/T changes. Troponin was normal. No additional concerns at this time. Objective Objective Vital Signs Date Time Temp Pulse Resp B/P (MAP) Pulse Ox O2 Delivery O2 Flow Rate FiO2 02/22/17 12:08 93 Room Air 02/22/17 10:27 16 02/22/17 10:24 97.8 66 133/59 (83) 97.8 Intake and Output 02/22/17 07:00 Intake Total 240 ml Output Total 250 ml Balance -10 ml Intake Oral 240 ml Output Urine Total 250 ml Physical Exam Heart: Regular rate, Normal S1, Normal S2 Extremities: No cyanosis, No edema General: Alert, Oriented X3, No acute distress Lungs: Normal air movement MUSCULOSKELETAL: Other (tender to palpation of anterior and lateral aspects of middle/lower rib cage bilaterally) Neck: No JVD Neuro: Normal speech Diagnosis RESPIRATORY INFECTION: Sinusitis Assessment Assessment Problems Medical Problems: (1) Chest pain Status: Acute (2) UTI (urinary tract infection) Status: Acute Plan Plan of Care 1. Chest Pain- ECG and cardiac workup all negative at this time. Unlikely STEMI or other cardiac issue. Patient is TTP on anterior/lateral aspects of ribs bilaterally. Chest pain likely musculoskeletal in origin due to continued coughing from acute bronchitis. Tylenol prn for msk pain. Cardiology will continue to follow patient during hospitalization given cardiac history. 2. Acute Bronchitis- Continue IV Rocephin 3. UTI- Continue IV Rocephin Thank you for asking me to participate in the care of this pt. Comment Review of Relevant I have reviewed the following items saji (where applicable) has been applied. Labs Laboratory Tests Test 02/21/17 19:34 02/21/17 20:45 02/22/17 05:35 White Blood Count 5.4 x10^3/uL (4.0-11.0) 5.1 x10^3/uL (4.0-11.0) Red Blood Count 4.26 x10^6/uL (3.50-5.40) 3.91 x10^6/uL (3.50-5.40) Hemoglobin 12.7 g/dL (12.0-15.5) 11.5 g/dL (12.0-15.5) Hematocrit 38.1 % (36.0-47.0) 34.8 % (36.0-47.0) Mean Corpuscular Volume 89 fL (79-100) 89 fL (79-100) Mean Corpuscular Hemoglobin 30 pg (25-35) 29 pg (25-35) Mean Corpuscular Hemoglobin Concent 33 g/dL (31-37) 33 g/dL (31-37) Red Cell Distribution Width 13.2 % (11.5-14.5) 13.2 % (11.5-14.5) Platelet Count 220 x10^3/uL (140-400) 205 x10^3/uL (140-400) Neutrophils (%) (Auto) 55 % (31-73) 40 % (31-73) Lymphocytes (%) (Auto) 27 % (24-48) 44 % (24-48) Monocytes (%) (Auto) 17 % (0-9) 13 % (0-9) Eosinophils (%) (Auto) 1 % (0-3) 3 % (0-3) Basophils (%) (Auto) 1 % (0-3) 1 % (0-3) Neutrophils # (Auto) 3.0 x10^3uL (1.8-7.7) 2.0 x10^3uL (1.8-7.7) Lymphocytes # (Auto) 1.5 x10^3/uL (1.0-4.8) 2.2 x10^3/uL (1.0-4.8) Monocytes # (Auto) 0.9 x10^3/uL (0.0-1.1) 0.7 x10^3/uL (0.0-1.1) Eosinophils # (Auto) 0.0 x10^3/uL (0.0-0.7) 0.1 x10^3/uL (0.0-0.7) Basophils # (Auto) 0.0 x10^3/uL (0.0-0.2) 0.0 x10^3/uL (0.0-0.2) Sodium Level 141 mmol/L (136-145) 143 mmol/L (136-145) Potassium Level 3.8 mmol/L (3.5-5.1) 3.4 mmol/L (3.5-5.1) Chloride Level 103 mmol/L (98-107) 107 mmol/L (98-107) Carbon Dioxide Level 31 mmol/L (21-32) 29 mmol/L (21-32) Anion Gap 7 (6-14) 7 (6-14) Blood Urea Nitrogen 24 mg/dL (7-20) 19 mg/dL (7-20) Creatinine 0.7 mg/dL (0.6-1.0) 0.6 mg/dL (0.6-1.0) Estimated GFR (Cockcroft-Gault) 80.5 96.2 BUN/Creatinine Ratio 34 (6-20) Glucose Level 130 mg/dL (70-99) 101 mg/dL (70-99) Calcium Level 9.5 mg/dL (8.5-10.1) 9.1 mg/dL (8.5-10.1) Total Bilirubin 0.2 mg/dL (0.2-1.0) Aspartate Amino Transf (AST/SGOT) 17 U/L (15-37) Alanine Aminotransferase (ALT/SGPT) 17 U/L (14-59) Alkaline Phosphatase 80 U/L (46-116) Troponin I Quantitative < 0.017 ng/mL (0.000-0.055) Total Protein 7.9 g/dL (6.4-8.2) Albumin 3.5 g/dL (3.4-5.0) Albumin/Globulin Ratio 0.8 (1.0-1.7) Urine Collection Type Unknown Urine Color Yellow Urine Clarity Clear Urine pH 6.5 Urine Specific [place] 1.020 Urine Protein Negative mg/dL (NEG-TRACE) Urine Glucose (UA) Negative mg/dL (NEG) Urine Ketones (Stick) Negative mg/dL (NEG) Urine Blood Small (NEG) Urine Nitrite Negative (NEG) Urine Bilirubin Negative (NEG) Urine Urobilinogen Dipstick 0.2 mg/dL (0.2 mg/dL) Urine Leukocyte Esterase Moderate (NEG) Urine RBC 6-10 /HPF (0-2) Urine WBC 11-20 /HPF (0-4) Urine Squamous Epithelial Cells Occ /LPF Urine Bacteria Moderate /HPF (0-FEW) Urine Hyaline Casts Moderate /HPF Urine Mucus Mod /LPF Laboratory Tests Test 02/21/17 19:34 02/21/17 20:45 02/22/17 05:35 White Blood Count 5.4 x10^3/uL (4.0-11.0) 5.1 x10^3/uL (4.0-11.0) Red Blood Count 4.26 x10^6/uL (3.50-5.40) 3.91 x10^6/uL (3.50-5.40) Hemoglobin 12.7 g/dL (12.0-15.5) 11.5 g/dL (12.0-15.5) Hematocrit 38.1 % (36.0-47.0) 34.8 % (36.0-47.0) Mean Corpuscular Volume 89 fL (79-100) 89 fL (79-100) Mean Corpuscular Hemoglobin 30 pg (25-35) 29 pg (25-35) Mean Corpuscular Hemoglobin Concent 33 g/dL (31-37) 33 g/dL (31-37) Red Cell Distribution Width 13.2 % (11.5-14.5) 13.2 % (11.5-14.5) Platelet Count 220 x10^3/uL (140-400) 205 x10^3/uL (140-400) Neutrophils (%) (Auto) 55 % (31-73) 40 % (31-73) Lymphocytes (%) (Auto) 27 % (24-48) 44 % (24-48) Monocytes (%) (Auto) 17 % (0-9) 13 % (0-9) Eosinophils (%) (Auto) 1 % (0-3) 3 % (0-3) Basophils (%) (Auto) 1 % (0-3) 1 % (0-3) Neutrophils # (Auto) 3.0 x10^3uL (1.8-7.7) 2.0 x10^3uL (1.8-7.7) Lymphocytes # (Auto) 1.5 x10^3/uL (1.0-4.8) 2.2 x10^3/uL (1.0-4.8) Monocytes # (Auto) 0.9 x10^3/uL (0.0-1.1) 0.7 x10^3/uL (0.0-1.1) Eosinophils # (Auto) 0.0 x10^3/uL (0.0-0.7) 0.1 x10^3/uL (0.0-0.7) Basophils # (Auto) 0.0 x10^3/uL (0.0-0.2) 0.0 x10^3/uL (0.0-0.2) Sodium Level 141 mmol/L (136-145) 143 mmol/L (136-145) Potassium Level 3.8 mmol/L (3.5-5.1) 3.4 mmol/L (3.5-5.1) Chloride Level 103 mmol/L (98-107) 107 mmol/L (98-107) Carbon Dioxide Level 31 mmol/L (21-32) 29 mmol/L (21-32) Anion Gap 7 (6-14) 7 (6-14) Blood Urea Nitrogen 24 mg/dL (7-20) 19 mg/dL (7-20) Creatinine 0.7 mg/dL (0.6-1.0) 0.6 mg/dL (0.6-1.0) Estimated GFR (Cockcroft-Gault) 80.5 96.2 BUN/Creatinine Ratio 34 (6-20) Glucose Level 130 mg/dL (70-99) 101 mg/dL (70-99) Calcium Level 9.5 mg/dL (8.5-10.1) 9.1 mg/dL (8.5-10.1) Total Bilirubin 0.2 mg/dL (0.2-1.0) Aspartate Amino Transf (AST/SGOT) 17 U/L (15-37) Alanine Aminotransferase (ALT/SGPT) 17 U/L (14-59) Alkaline Phosphatase 80 U/L (46-116) Troponin I Quantitative < 0.017 ng/mL (0.000-0.055) Total Protein 7.9 g/dL (6.4-8.2) Albumin 3.5 g/dL (3.4-5.0) Albumin/Globulin Ratio 0.8 (1.0-1.7) Urine Collection Type Unknown Urine Color Yellow Urine Clarity Clear Urine pH 6.5 Urine Specific [place] 1.020 Urine Protein Negative mg/dL (NEG-TRACE) Urine Glucose (UA) Negative mg/dL (NEG) Urine Ketones (Stick) Negative mg/dL (NEG) Urine Blood Small (NEG) Urine Nitrite Negative (NEG) Urine Bilirubin Negative (NEG) Urine Urobilinogen Dipstick 0.2 mg/dL (0.2 mg/dL) Urine Leukocyte Esterase Moderate (NEG) Urine RBC 6-10 /HPF (0-2) Urine WBC 11-20 /HPF (0-4) Urine Squamous Epithelial Cells Occ /LPF Urine Bacteria Moderate /HPF (0-FEW) Urine Hyaline Casts Moderate /HPF Urine Mucus Mod /LPF Microbiology 02/21/17 Urine Culture - Preliminary, Resulted 02/21/17 Urine Culture Result 1 (CRISTIANO) - Preliminary, Resulted Medications Current Medications Ondansetron HCl (Zofran) 4 mg PRN Q8HRS PRN IV NAUSEA/VOMITING; Start at 21:45; Stop 02/22/17 at 21:44 Acetaminophen (Tylenol) 650 mg PRN Q4HRS PRN PO FEVER; Start 02/21/17 at 21:45 ; Stop 02/22/17 at 21:44 Nitroglycerin (Nitrostat) 0.4 mg PRN Q5MIN PRN SL CHEST PAIN; Start 02/21/17 at 21:45; Stop 02/21/17 at 22:58; Status DC Aspirin (Children'S Aspirin) 324 mg 1X ONCE PO Last administered on 21:46; Start 02/21/17 at 22:00; Stop 02/21/17 at 22:01; Status DC Ceftriaxone Sodium 50 ml @ 100 mls/hr 1X ONCE IV Last administered on 21:47; Start 02/21/17 at 22:00; Stop 02/21/17 at 22:29; Status DC Amlodipine Besylate (Norvasc) 10 mg DAILY PO Last administered on 02/22/17 09 :26; Start 02/22/17 at 09:00 Aspirin (Ecotrin) 81 mg DAILY PO Last administered on 02/22/17 09:26; Start 02/22/17 at 09:00 Furosemide (Lasix) 40 mg DAILY PO Last administered on 02/22/17 09:26; Start 02/22/17 at 09:00 Metoprolol Tartrate (Lopressor) 25 mg HS PO Last administered on 02/21/17 23: 09; Start 02/21/17 at 23:00 Nitroglycerin (Nitrostat) 0.4 mg PRN Q5MIN PRN SL CHEST PAIN; Start 02/21/17 at 22:45 Polyethylene Glycol (miraLAX PACKET) 17 gm DAILY PO Last administered on 09:30; Start 02/22/17 at 09:00 Atorvastatin Calcium (Lipitor) 10 mg QHS PO Last administered on 02/21/17 23: 09; Start 02/21/17 at 23:00 Tramadol HCl (Ultram) 100 mg BID PO Last administered on 02/22/17 09:27; Start 02/21/17 at 23:00 Gabapentin (Neurontin) 600 mg BID PO Last administered on 02/22/17 09:25; Start 02/21/17 at 23:00 Losartan Potassium (Cozaar) 100 mg DAILY PO Last administered on 02/22/17 09: 27; Start 02/22/17 at 09:00 Non-Formulary Medication 20 mg HS PO ; Start 02/22/17 at 21:00; Status UNV Potassium Chloride (Klor-Con) 20 meq DAILYWBKFT PO Last administered on 09:28; Start 02/22/17 at 08:00 Sertraline HCl (Zoloft) 100 mg DAILY PO Last administered on 02/22/17 09:26; Start 02/22/17 at 09:00 Gabapentin (Neurontin) 600 mg 1X ONCE PO ; Start 02/21/17 at 23:00; Stop at 23:01; Status UNV Metoprolol Tartrate (Lopressor) 25 mg 1X ONCE PO ; Start 02/21/17 at 23:00; Stop 02/21/17 at 23:01; Status UNV Pneumococcal Polyvalent Vaccine (Do NOT chart on this placeholder) 1 each PRN DAILY PRN MC CONFLICTING INFORMATION; Start 02/22/17 at 01:30; Status Cancel Ceftriaxone Sodium 1 gm/ Dextrose 50 ml @ 100 mls/hr Q24H IV ; Start 02/22/17 at 07:30; Status UNV Guaifenesin (Mucinex) 600 mg BID PO Last administered on 02/22/17 09:26; Start 02/22/17 at 09:00 Albuterol Sulfate (Ventolin Neb Soln) 2.5 mg RTQID NEB Last administered on 12:06; Start 02/22/17 at 08:00; Stop 02/22/17 at 12:38; Status DC Cetirizine HCl (ZyrTEC) 10 mg HS PO ; Start 02/22/17 at 21:00 Montelukast Sodium (Singulair) 10 mg QHS PO ; Start 02/22/17 at 21:00 Benzonatate (Tessalon Perle) 100 mg [id number] PO Last administered on 02/22/17 14:01; Start 02/22/17 at 09:00 Ceftriaxone Sodium (Rocephin) 1 gm Q24H IVP ; Start 02/22/17 at 22:00 Potassium Chloride (Klor-Con) 10 meq 1X ONCE PO Last administered on 09:25; Start 02/22/17 at 08:30; Stop 02/22/17 at 08:31; Status DC Albuterol Sulfate (Ventolin Neb Soln) 2.5 mg PRN Q6HRS PRN NEB SHORTNESS OF BREATH; Start 02/22/17 at 13:00 Active Scripts Active Reported Melatonin 3 Mg Tablet 20 Mg PO HS Simvastatin 20 Mg Tablet 1 Tab PO QHS Gabapentin 600 Mg Tablet 600 Mg PO TID Potassium Chloride 20 Meq Tablet.er 20 Meq PO DAILY Amlodipine Besylate 10 Mg Tablet 10 Mg PO DAILY Tramadol Hcl 50 Mg Tablet 2 Tab PO BID Lasix (Furosemide) 40 Mg Tablet 1 Tab PO DAILY Nitrostat (Nitroglycerin) 0.4 Mg Tab.subl 1 Tab SL UD PRN Polyethylene Glycol 3350 255 Gm Powder 17 Gm PO DAILY Losartan Potassium 100 Mg Tablet 1 Tab PO DAILY Metoprolol Tartrate 25 Mg Tablet 1 Tab PO HS Aspir-Low (Aspirin) 81 Mg Tablet.dr 1 Tab PO DAILY Zoloft (Sertraline Hcl) 100 Mg Tablet 1 Tab PO DAILY Vitals/I & O Vital Sign - Last 24 Hours 02/21/17 02/21/17 02/21/17 02/21/17 18:56 19:36 19:56 20:26 Temp 98.1 98.1 Pulse 64 54 54 54 Resp 18 15 20 16 B/P (MAP) 143/65 (91) 155/69 (97) 143/67 (92) 149/70 (96) Pulse Ox 98 97 96 95 O2 Delivery Room Air Room Air Room Air Room Air 02/21/17 02/21/17 02/21/17 02/21/17 20:56 21:11 21:50 22:20 Temp 98.3 98.3 Pulse 56 50 62 65 Resp 22 17 13 18 B/P (MAP) 160/71 (100) 147/65 (92) 159/74 (102) 165/66 (99) Pulse Ox 97 96 97 98 O2 Delivery Room Air Room Air Room Air Room Air 02/21/17 02/21/17 02/21/17 02/22/17 22:20 23:09 23:53 03:10 Temp 98.3 97.8 98.3 97.8 Pulse 65 65 49 Resp 18 18 B/P (MAP) 165/66 (99) 165/66 133/57 (82) Pulse Ox 98 97 O2 Delivery Room Air Room Air Room Air 02/22/17 02/22/17 02/22/17 02/22/17 07:46 08:00 09:26 09:27 Temp 98.4 98.4 Pulse 56 72 Resp 18 18 B/P (MAP) 142/60 (87) 142/60 Pulse Ox 96 O2 Delivery Room Air Room Air Room Air 02/22/17 02/22/17 02/22/17 02/22/17 09:27 10:24 10:27 12:08 Temp 97.8 97.8 Pulse 72 66 Resp 19 16 B/P (MAP) 142/60 133/59 (83) Pulse Ox 96 93 O2 Delivery Room Air Room Air Room Air Intake and Output 02/21/17 02/21/17 02/22/17 15:00 23:00 07:00 Intake Total 240 ml Output Total 100 ml 150 ml Balance -100 ml 90 ml ARACELI HERNANDEZ MD Feb 22, 2017 14:51
[2017-02-22 19:00] VITALS: BP 142/59
[2017-02-22] MEDS: METOPROLOL TART IMMED RELEASE 25 MG TABLET. PO SCH (20:51)
[2017-02-22] MEDS: LACTOBACILLUS RHAMNOSUS GG 1 CAPSULE. PO SCH (20:51)
[2017-02-22] MEDS: ATORVASTATIN CALCIUM 10 MG TABLET. PO SCH (20:51)
[2017-02-22] MEDS ORDERED: NON FORMULARY ITEM (Melatonin 20 MG) PO SCH (21:00)
[2017-02-22] MEDS ORDERED: CETIRIZINE HCL 10 MG TABLET. PO SCH (21:00)
[2017-02-22] MEDS ORDERED: MONTELUKAST SODIUM 10 MG TABLET. PO SCH (21:00)
[2017-02-22] MEDS ORDERED: cefTRIAXone IV Push 1 GM VIAL. IVP SCH (22:00)
[2017-02-22 23:18] VITALS: BP 141/54
[2017-02-23 03:30] VITALS: BP 139/58
[2017-02-23 07:00] VITALS: BP 139/59
--- NOTE | 2017-02-23 07:05 | PDOC3 ---
ESTELITAAntoinetteJADE JOHN MANAGER OPERATIONS AND PROCUREMENT 02/23/17 0705: IM DISCHARGE & PROGRESS NOTES Date of Admission Date of Admission Date of Admission: Feb 21, 2017 at 21:36 Date of Discharge Date of Discharge 02/23/17 Primary Diagnosis Primary Diagnosis Final Diagnosis 1. chest pain - MS secondary to coughing 2. Acute bronchitis post Viral URI 3. UTI negative 3. Anterior lower rib MS tenderness secondary to coughing 4. CAD with h/o CO CABG 5. CKD II 6. chronic pain syndrome back and multiple joints 7. anxiety/depression 8. anemia CD 9. moderate chronic PCL malnutrition 10. allergic rhinitis 11. GERD 12. polyarthralgia 13. memory loss short term and superintendent terminal chronic -work up in process out patient Consults Consults Erick Vásquez MD Procedures Procedures None Labs Labs Laboratory Tests Test 02/21/17 19:34 02/21/17 20:45 02/22/17 05:35 White Blood Count 5.4 x10^3/uL (4.0-11.0) 5.1 x10^3/uL (4.0-11.0) Red Blood Count 4.26 x10^6/uL (3.50-5.40) 3.91 x10^6/uL (3.50-5.40) Hemoglobin 12.7 g/dL (12.0-15.5) 11.5 g/dL (12.0-15.5) Hematocrit 38.1 % (36.0-47.0) 34.8 % (36.0-47.0) Mean Corpuscular Volume 89 fL (79-100) 89 fL (79-100) Mean Corpuscular Hemoglobin 30 pg (25-35) 29 pg (25-35) Mean Corpuscular Hemoglobin Concent 33 g/dL (31-37) 33 g/dL (31-37) Red Cell Distribution Width 13.2 % (11.5-14.5) 13.2 % (11.5-14.5) Platelet Count 220 x10^3/uL (140-400) 205 x10^3/uL (140-400) Neutrophils (%) (Auto) 55 % (31-73) 40 % (31-73) Lymphocytes (%) (Auto) 27 % (24-48) 44 % (24-48) Monocytes (%) (Auto) 17 % (0-9) 13 % (0-9) Eosinophils (%) (Auto) 1 % (0-3) 3 % (0-3) Basophils (%) (Auto) 1 % (0-3) 1 % (0-3) Neutrophils # (Auto) 3.0 x10^3uL (1.8-7.7) 2.0 x10^3uL (1.8-7.7) Lymphocytes # (Auto) 1.5 x10^3/uL (1.0-4.8) 2.2 x10^3/uL (1.0-4.8) Monocytes # (Auto) 0.9 x10^3/uL (0.0-1.1) 0.7 x10^3/uL (0.0-1.1) Eosinophils # (Auto) 0.0 x10^3/uL (0.0-0.7) 0.1 x10^3/uL (0.0-0.7) Basophils # (Auto) 0.0 x10^3/uL (0.0-0.2) 0.0 x10^3/uL (0.0-0.2) Sodium Level 141 mmol/L (136-145) 143 mmol/L (136-145) Potassium Level 3.8 mmol/L (3.5-5.1) 3.4 mmol/L (3.5-5.1) Chloride Level 103 mmol/L (98-107) 107 mmol/L (98-107) Carbon Dioxide Level 31 mmol/L (21-32) 29 mmol/L (21-32) Anion Gap 7 (6-14) 7 (6-14) Blood Urea Nitrogen 24 mg/dL (7-20) 19 mg/dL (7-20) Creatinine 0.7 mg/dL (0.6-1.0) 0.6 mg/dL (0.6-1.0) Estimated GFR (Cockcroft-Gault) 80.5 96.2 BUN/Creatinine Ratio 34 (6-20) Glucose Level 130 mg/dL (70-99) 101 mg/dL (70-99) Calcium Level 9.5 mg/dL (8.5-10.1) 9.1 mg/dL (8.5-10.1) Total Bilirubin 0.2 mg/dL (0.2-1.0) Aspartate Amino Transf (AST/SGOT) 17 U/L (15-37) Alanine Aminotransferase (ALT/SGPT) 17 U/L (14-59) Alkaline Phosphatase 80 U/L (46-116) Troponin I Quantitative < 0.017 ng/mL (0.000-0.055) Total Protein 7.9 g/dL (6.4-8.2) Albumin 3.5 g/dL (3.4-5.0) Albumin/Globulin Ratio 0.8 (1.0-1.7) Urine Collection Type Unknown Urine Color Yellow Urine Clarity Clear Urine pH 6.5 Urine Specific [place] 1.020 Urine Protein Negative mg/dL (NEG-TRACE) Urine Glucose (UA) Negative mg/dL (NEG) Urine Ketones (Stick) Negative mg/dL (NEG) Urine Blood Small (NEG) Urine Nitrite Negative (NEG) Urine Bilirubin Negative (NEG) Urine Urobilinogen Dipstick 0.2 mg/dL (0.2 mg/dL) Urine Leukocyte Esterase Moderate (NEG) Urine RBC 6-10 /HPF (0-2) Urine WBC 11-20 /HPF (0-4) Urine Squamous Epithelial Cells Occ /LPF Urine Bacteria Moderate /HPF (0-FEW) Urine Hyaline Casts Moderate /HPF Urine Mucus Mod /LPF Medications Medications Medications reviewed and reconciled for discharge. Brief hospital course Brief hospital course This 81 year old female who presented with chest pain and cough was admitted. CT chest 02/22/17: Impression: 1. Mild dependent lower lobe tree in bud opacities which may represent aspiration or infectious bronchiolitis. 2. Mild generalized cardiomegaly and prior CABG. PLAN: 02/23/17 chest pain - lower anterior rib pain secondary to cough - cardiac eval negative per cardiology note AB - rocephin IV - CT chest AB - ?aspiration (suspect due to paroxysmal cough and near vomiting)- speech therapy to eval prior to discharge - did not tolerate nebulizer - vantin at DC and continue mucinex - repeat CT chest to eval out patient UTI - culture negative -no UTI hypokalemia - lab pending anemia - lab pending Plan DC home with HHN PT OT- please see DC orders. 02/22/17 chest pain - cardiology consult - ER eval negative AB - continue Rocephin IV - nebulizer treatment - mucinex -CT chest UTI - continue Rocephin IV Rib pain - continue out patient pain meds. She has a h/o narcotic abuse. LBP - chronic - had to cancel appt with Dr. Pagan for injection. hypokalemia - Admit 3.8 - K 3.4 this AM. chronic K replacement. Give additional 10meq x 1 For more details regarding the past history, family history, social history, surgical history and other details, please refer to History and Physical. Please see discharge orders. Subjective did not tolerate albuterol treatment - shaking all over. cough is better. Objective no distress Vitals Vital Signs Date Time Temp Pulse Resp B/P (MAP) Pulse Ox O2 Delivery O2 Flow Rate FiO2 02/23/17 03:30 98.1 58 20 139/58 (85) 97 Room Air 98.1 Physical Exam General appearance - alert, chronically ill appearing, and in no distress Mental Status - alert, oriented to person, place, and time, affect appropriate to mood Head - normal Chest - clear to auscultation, no wheezes, rales or rhonchi Heart - S1 and S2 normal Abdomen - soft, nontender, nondistended, no masses or organomegaly Neurological - no acute neurological deficits noted. Poor recall of pre hospital admit-chronic memory loss Musculoskeletal - bilateral anterior costal margin tenderness with palpation Extremities - no pedal edema Skin - warm and dry Medications Medications reviewed. Allergy Allergies Coded Allergies Type Severity Reaction Last Updated Verified MIGUEL ANGEL Inhibitors Allergy Intermediate 02/21/17 Yes Penicillins Allergy Intermediate 02/22/17 Yes Sulfa (Sulfonamide Antibiotics) Allergy Intermediate 02/21/17 Yes adhesive Allergy Intermediate 03/11/14 Yes influenza virus vaccine, specific Allergy Intermediate 03/11/14 Yes mercury (elemental) Allergy Intermediate 03/11/14 Yes methylprednisolone Allergy Intermediate 03/11/14 Yes trazodone Allergy Intermediate 02/21/17 Yes zolpidem Allergy Intermediate 03/11/14 Yes albuterol Adverse Reaction Intermediate 02/22/17 Yes Follow up Monday Disposition: Home health services Comments Discharge Management - 35 minutes. For other details please refer to discharge instructions KAI WHITFIELD MD 02/23/17 1029: IM DISCHARGE & PROGRESS NOTES Brief hospital course Brief hospital course Patient does not want to go home stating she has lot of cardiac issues.D/w her about her tests and condition. Discharge today when ok with . See in office Monday.- in 5 days. Speech Terapy evaluation is normal. The patient was seen and examined by me. Chart reviewed and plan of care formulated. Discussed with, reviewed and agree with AUTOBODY TECHNICIAN's notes, plan of care and orders with modifications as necessary. For more details regarding further plans, please refer to the orders. JADE JAMES APRN Feb 23, 2017 07:05 KAI WHITFIELD MD Feb 23, 2017 10:29
--- NOTE | 2017-02-23 07:25 | DISCH ---
DISCHARGE FINAL DIAGNOSIS Problems Medical Problems: (1) Chest pain Status: Acute (2) UTI (urinary tract infection) Status: Acute CONDITION ON DISCHARGE: Stable HOME HEALTH: Yes PT. HAS FUNCTIONAL LIMITATIONS: Yes FACE TO FACE ENCOUNTER: Yes POST DISCHARGE ORDERS ACTIVITY ORDERS: Activity as tolerated WEIGHT BEARING STATUS: As tolerated DIET AFTER DISCHARGE: Cardiac WOUND/INCISION CARE: May get incision wet FOLLOW-UP PHYSICIAN FOLLOW-UP: Dr. Fred Brock Monday TREATMENT/EQUIPMENT ORDERS ADAPTIVE EQUIPMENT NEEDED: JADE Real APRN Feb 23, 2017 07:25
[2017-02-23] MEDS ORDERED: CEFP200T PO (07:26)
[2017-02-23] MEDS ORDERED: GUAI-108 PO (07:27)
--- NOTE | 2017-02-23 07:30 | DISCH ---
DISCHARGE WITH HOME HEALTH DISCHARGE INFORMATION: Final Diagnosis: Problems Medical Problems: (1) Chest pain Status: Acute (2) UTI (urinary tract infection) Status: Acute Condition on Discharge: Stable HOME HEALTH: Face to Face: I certify this patient is under my care and that I or my nurse praticitioner working with me, had a face to face encounter that meets the physician face to face encounter requirements with this patient on [02/23/17]. Medical Condition(s): COPD Fpc For: Assess/Skilled Observatio Physical Therapy For: Evalulation/Treatment Occupational Therapy For: Evaluation/Treatment Patient meets Homebound Statu: Limited distance walking FOLLOW-UP: Follow up with: Dr. Ibarra or Vinod Monday TREATMENT/EQUIPMENT ORDERS Adaptive Equipment Issued: Wally CERTIFICATION STATEMENT: Certification Statement: Certification Statement: Based on the above finding, I certify that this patient is confined to the home and needs intermittent nursing home care, physical therapy and/or speech therapy, or continues to need occupational therapy.~ This patient is under my care, and I have initiated the establishment of the plan of care.~ This patient will be followed by myself or a community physician who will periodically review the plan of care. JADE JAMES APRN Feb 23, 2017 07:30
[2017-02-23 08:01] LABS: BASO % 1 % (0-3); EOS % 4 % (0-3); HEMATOCRIT 38.6 % (36.0-47.0); HEMOGLOBIN 12.3 g/dL (12.0-15.5); LYMPH # 2.8 x10^3/uL (1.0-4.8); LYMPH % 43 % (24-48); MEAN CORPUSCULAR HEMOGLOBIN 29 pg (25-35); MEAN CORPUSCULAR HGB CONC 32 g/dL (31-37); MEAN CORPUSCULAR VOLUME 91 fL (79-100); MONO % 12 % (0-9); NEUT % 41 % (31-73); PLATELET COUNT 210 x10^3/uL (140-400); RED BLOOD COUNT 4.23 x10^6/uL (3.50-5.40); RED CELL DISTRIBUTION WIDTH 13.3 % (11.5-14.5); WHITE BLOOD COUNT 6.4 x10^3/uL (4.0-11.0)
[2017-02-23 09:41] LABS: CALCIUM 9.1 mg/dL (8.5-10.1); CREATININE 0.6 mg/dL (0.6-1.0); GFR 96.2; POTASSIUM 4.4 mmol/L (3.5-5.1)
[2017-02-23] MEDS: BENZONATATE 100 MG CAPSULE. PO SCH ×2 (10:17→14:38)
[2017-02-23] MEDS: GABAPENTIN 300 MG CAPSULE. PO SCH (10:17)
[2017-02-23] MEDS: FUROSEMIDE 40 MG TABLET. PO SCH (10:17)
[2017-02-23] MEDS: traMADol 50 MG TABLET PO SCH (10:18)
[2017-02-23] MEDS: ASPIRIN ENTERIC COATED 81 MG TABLET.DR. PO SCH (10:18)
[2017-02-23] MEDS: LACTOBACILLUS RHAMNOSUS GG 1 CAPSULE. PO SCH (10:18)
[2017-02-23] MEDS: POTASSIUM CHLORIDE 20 MEQ TABLET.ER. PO SCH (10:19)
[2017-02-23] MEDS: LOSARTAN POTASSIUM 50 MG TABLET. PO SCH (10:21)
[2017-02-23] MEDS: POLYETHYLENE GLYCOL 3350 17 GM PACKET. PO SCH (10:22)
[2017-02-23] MEDS: amLODIPine BESYLATE 10 MG TABLET PO SCH (10:22)
--- NOTE | 2017-02-23 10:22 | RAD ---
Chest single view 02/23/2017 Clinical indication: Chest pain Comparison: Chest 02/21/2017 Findings: Heart size upper limits of normal without pulmonary venous congestion. Coronary arterial calcifications noted. Calcified atheromatous disease of the thoracic aorta. No pleural effusion, pneumothorax or focal consolidation. Impression: 1. No acute cardiopulmonary abnormality. 2. Stable mild cardiomegaly and coronary artery calcifications.
[2017-02-23] MEDS: SERTRALINE 50 MG TABLET. PO SCH (10:30)
[2017-02-23 11:00] VITALS: BP 128/80
[2017-02-23 15:00] VITALS: BP 123/79
--- NOTE | 2017-02-23 16:41 | PDOC ---
PROGRESS NOTES Subjective Subjective Patient is feeling better today. Continues to have a cough and it hurts to cough. Objective Objective Vital Signs Date Time Temp Pulse Resp B/P (MAP) Pulse Ox O2 Delivery O2 Flow Rate FiO2 02/23/17 15:00 98.5 56 16 123/79 (94) 96 Room Air 98.5 Physical Exam Physical Exam No significant changes in cardiac exam Assessment Assessment The patient is stable cardiac-thomas. Her chest pain is secondary to vascular skeletal muscle from all the coughing that she has been doing with her bronchitis. From a cardiac standpoint she may be discharged today. Problems Medical Problems: (1) Chest pain Status: Acute (2) UTI (urinary tract infection) Status: Acute Comment Review of Relevant I have reviewed the following items saji (where applicable) has been applied. Labs Laboratory Tests Test 02/21/17 19:34 02/21/17 20:45 02/22/17 05:35 02/23/17 07:30 White Blood Count 5.4 x10^3/uL (4.0-11.0) 5.1 x10^3/uL (4.0-11.0) 6.4 x10^3/uL (4.0-11.0) Red Blood Count 4.26 x10^6/uL (3.50-5.40) 3.91 x10^6/uL (3.50-5.40) 4.23 x10^6/uL (3.50-5.40) Hemoglobin 12.7 g/dL (12.0-15.5) 11.5 g/dL (12.0-15.5) 12.3 g/dL (12.0-15.5) Hematocrit 38.1 % (36.0-47.0) 34.8 % (36.0-47.0) 38.6 % (36.0-47.0) Mean Corpuscular Volume 89 fL (79-100) 89 fL (79-100) 91 fL (79-100) Mean Corpuscular Hemoglobin 30 pg (25-35) 29 pg (25-35) 29 pg (25-35) Mean Corpuscular Hemoglobin Concent 33 g/dL (31-37) 33 g/dL (31-37) 32 g/dL (31-37) Red Cell Distribution Width 13.2 % (11.5-14.5) 13.2 % (11.5-14.5) 13.3 % (11.5-14.5) Platelet Count 220 x10^3/uL (140-400) 205 x10^3/uL (140-400) 210 x10^3/uL (140-400) Neutrophils (%) (Auto) 55 % (31-73) 40 % (31-73) 41 % (31-73) Lymphocytes (%) (Auto) 27 % (24-48) 44 % (24-48) 43 % (24-48) Monocytes (%) (Auto) 17 % (0-9) 13 % (0-9) 12 % (0-9) Eosinophils (%) (Auto) 1 % (0-3) 3 % (0-3) 4 % (0-3) Basophils (%) (Auto) 1 % (0-3) 1 % (0-3) 1 % (0-3) Neutrophils # (Auto) 3.0 x10^3uL (1.8-7.7) 2.0 x10^3uL (1.8-7.7) 2.6 x10^3uL (1.8-7.7) Lymphocytes # (Auto) 1.5 x10^3/uL (1.0-4.8) 2.2 x10^3/uL (1.0-4.8) 2.8 x10^3/uL (1.0-4.8) Monocytes # (Auto) 0.9 x10^3/uL (0.0-1.1) 0.7 x10^3/uL (0.0-1.1) 0.7 x10^3/uL (0.0-1.1) Eosinophils # (Auto) 0.0 x10^3/uL (0.0-0.7) 0.1 x10^3/uL (0.0-0.7) 0.2 x10^3/uL (0.0-0.7) Basophils # (Auto) 0.0 x10^3/uL (0.0-0.2) 0.0 x10^3/uL (0.0-0.2) 0.0 x10^3/uL (0.0-0.2) Sodium Level 141 mmol/L (136-145) 143 mmol/L (136-145) Potassium Level 3.8 mmol/L (3.5-5.1) 3.4 mmol/L (3.5-5.1) Chloride Level 103 mmol/L (98-107) 107 mmol/L (98-107) Carbon Dioxide Level 31 mmol/L (21-32) 29 mmol/L (21-32) Anion Gap 7 (6-14) 7 (6-14) Blood Urea Nitrogen 24 mg/dL (7-20) 19 mg/dL (7-20) Creatinine 0.7 mg/dL (0.6-1.0) 0.6 mg/dL (0.6-1.0) Estimated GFR (Cockcroft-Gault) 80.5 96.2 BUN/Creatinine Ratio 34 (6-20) Glucose Level 130 mg/dL (70-99) 101 mg/dL (70-99) Calcium Level 9.5 mg/dL (8.5-10.1) 9.1 mg/dL (8.5-10.1) Total Bilirubin 0.2 mg/dL (0.2-1.0) Aspartate Amino Transf (AST/SGOT) 17 U/L (15-37) Alanine Aminotransferase (ALT/SGPT) 17 U/L (14-59) Alkaline Phosphatase 80 U/L (46-116) Troponin I Quantitative < 0.017 ng/mL (0.000-0.055) Total Protein 7.9 g/dL (6.4-8.2) Albumin 3.5 g/dL (3.4-5.0) Albumin/Globulin Ratio 0.8 (1.0-1.7) Urine Collection Type Unknown Urine Color Yellow Urine Clarity Clear Urine pH 6.5 Urine Specific [place] 1.020 Urine Protein Negative mg/dL (NEG-TRACE) Urine Glucose (UA) Negative mg/dL (NEG) Urine Ketones (Stick) Negative mg/dL (NEG) Urine Blood Small (NEG) Urine Nitrite Negative (NEG) Urine Bilirubin Negative (NEG) Urine Urobilinogen Dipstick 0.2 mg/dL (0.2 mg/dL) Urine Leukocyte Esterase Moderate (NEG) Urine RBC 6-10 /HPF (0-2) Urine WBC 11-20 /HPF (0-4) Urine Squamous Epithelial Cells Occ /LPF Urine Bacteria Moderate /HPF (0-FEW) Urine Hyaline Casts Moderate /HPF Urine Mucus Mod /LPF Test 02/23/17 09:00 Sodium Level 142 mmol/L (136-145) Potassium Level 4.4 mmol/L (3.5-5.1) Chloride Level 104 mmol/L (98-107) Carbon Dioxide Level 32 mmol/L (21-32) Anion Gap 6 (6-14) Blood Urea Nitrogen 15 mg/dL (7-20) Creatinine 0.6 mg/dL (0.6-1.0) Estimated GFR (Cockcroft-Gault) 96.2 Glucose Level 92 mg/dL (70-99) Calcium Level 9.1 mg/dL (8.5-10.1) Laboratory Tests Test 02/23/17 07:30 02/23/17 09:00 White Blood Count 6.4 x10^3/uL (4.0-11.0) Red Blood Count 4.23 x10^6/uL (3.50-5.40) Hemoglobin 12.3 g/dL (12.0-15.5) Hematocrit 38.6 % (36.0-47.0) Mean Corpuscular Volume 91 fL (79-100) Mean Corpuscular Hemoglobin 29 pg (25-35) Mean Corpuscular Hemoglobin Concent 32 g/dL (31-37) Red Cell Distribution Width 13.3 % (11.5-14.5) Platelet Count 210 x10^3/uL (140-400) Neutrophils (%) (Auto) 41 % (31-73) Lymphocytes (%) (Auto) 43 % (24-48) Monocytes (%) (Auto) 12 % (0-9) Eosinophils (%) (Auto) 4 % (0-3) Basophils (%) (Auto) 1 % (0-3) Neutrophils # (Auto) 2.6 x10^3uL (1.8-7.7) Lymphocytes # (Auto) 2.8 x10^3/uL (1.0-4.8) Monocytes # (Auto) 0.7 x10^3/uL (0.0-1.1) Eosinophils # (Auto) 0.2 x10^3/uL (0.0-0.7) Basophils # (Auto) 0.0 x10^3/uL (0.0-0.2) Sodium Level 142 mmol/L (136-145) Potassium Level 4.4 mmol/L (3.5-5.1) Chloride Level 104 mmol/L (98-107) Carbon Dioxide Level 32 mmol/L (21-32) Anion Gap 6 (6-14) Blood Urea Nitrogen 15 mg/dL (7-20) Creatinine 0.6 mg/dL (0.6-1.0) Estimated GFR (Cockcroft-Gault) 96.2 Glucose Level 92 mg/dL (70-99) Calcium Level 9.1 mg/dL (8.5-10.1) Microbiology 02/21/17 Urine Culture - Preliminary, Resulted 02/21/17 Urine Culture Result 1 (CRISTIANO) - Preliminary, Resulted Medications Current Medications Ondansetron HCl (Zofran) 4 mg PRN Q8HRS PRN IV NAUSEA/VOMITING; Start at 21:45; Stop 02/22/17 at 21:44; Status DC Acetaminophen (Tylenol) 650 mg PRN Q4HRS PRN PO FEVER; Start 02/21/17 at 21:45 ; Stop 02/22/17 at 21:44; Status DC Nitroglycerin (Nitrostat) 0.4 mg PRN Q5MIN PRN SL CHEST PAIN; Start 02/21/17 at 21:45; Stop 02/21/17 at 22:58; Status DC Aspirin (Children'S Aspirin) 324 mg 1X ONCE PO Last administered on 21:46; Start 02/21/17 at 22:00; Stop 02/21/17 at 22:01; Status DC Ceftriaxone Sodium 50 ml @ 100 mls/hr 1X ONCE IV Last administered on 21:47; Start 02/21/17 at 22:00; Stop 02/21/17 at 22:29; Status DC Amlodipine Besylate (Norvasc) 10 mg DAILY PO Last administered on 02/23/17 10 :22; Start 02/22/17 at 09:00 Aspirin (Ecotrin) 81 mg DAILY PO Last administered on 02/23/17 10:18; Start 02/22/17 at 09:00 Furosemide (Lasix) 40 mg DAILY PO Last administered on 02/23/17 10:17; Start 02/22/17 at 09:00 Metoprolol Tartrate (Lopressor) 25 mg HS PO Last administered on 02/22/17 20: 51; Start 02/21/17 at 23:00 Nitroglycerin (Nitrostat) 0.4 mg PRN Q5MIN PRN SL CHEST PAIN; Start 02/21/17 at 22:45 Polyethylene Glycol (miraLAX PACKET) 17 gm DAILY PO Last administered on 10:22; Start 02/22/17 at 09:00 Atorvastatin Calcium (Lipitor) 10 mg QHS PO Last administered on 02/22/17 20: 51; Start 02/21/17 at 23:00 Tramadol HCl (Ultram) 100 mg BID PO Last administered on 02/23/17 10:18; Start 02/21/17 at 23:00 Gabapentin (Neurontin) 600 mg BID PO Last administered on 02/23/17 10:17; Start 02/21/17 at 23:00 Losartan Potassium (Cozaar) 100 mg DAILY PO Last administered on 02/23/17 10: 21; Start 02/22/17 at 09:00 Non-Formulary Medication 20 mg HS PO ; Start 02/22/17 at 21:00; Status UNV Potassium Chloride (Klor-Con) 20 meq DAILYWBKFT PO Last administered on 10:19; Start 02/22/17 at 08:00 Sertraline HCl (Zoloft) 100 mg DAILY PO Last administered on 02/23/17 10:30; Start 02/22/17 at 09:00 Gabapentin (Neurontin) 600 mg 1X ONCE PO ; Start 02/21/17 at 23:00; Stop at 23:01; Status UNV Metoprolol Tartrate (Lopressor) 25 mg 1X ONCE PO ; Start 02/21/17 at 23:00; Stop 02/21/17 at 23:01; Status UNV Pneumococcal Polyvalent Vaccine (Do NOT chart on this placeholder) 1 each PRN DAILY PRN MC CONFLICTING INFORMATION; Start 02/22/17 at 01:30; Status Cancel Ceftriaxone Sodium 1 gm/ Dextrose 50 ml @ 100 mls/hr Q24H IV ; Start 02/22/17 at 07:30; Status UNV Guaifenesin (Mucinex) 600 mg BID PO Last administered on 02/23/17 10:18; Start 02/22/17 at 09:00 Albuterol Sulfate (Ventolin Neb Soln) 2.5 mg RTQID NEB Last administered on 12:06; Start 02/22/17 at 08:00; Stop 02/22/17 at 12:38; Status DC Cetirizine HCl (ZyrTEC) 10 mg HS PO Last administered on 02/22/17 20:51; Start 02/22/17 at 21:00 Montelukast Sodium (Singulair) 10 mg QHS PO Last administered on 02/22/17 20: 51; Start 02/22/17 at 21:00 Benzonatate (Tessalon Perle) 100 mg [id number] PO Last administered on 02/23/17 14:38; Start 02/22/17 at 09:00 Ceftriaxone Sodium (Rocephin) 1 gm Q24H IVP Last administered on 02/22/17 21: 08; Start 02/22/17 at 22:00 Potassium Chloride (Klor-Con) 10 meq 1X ONCE PO Last administered on 09:25; Start 02/22/17 at 08:30; Stop 02/22/17 at 08:31; Status DC Albuterol Sulfate (Ventolin Neb Soln) 2.5 mg PRN Q6HRS PRN NEB SHORTNESS OF BREATH; Start 02/22/17 at 13:00 Lactobacillus Rhamnosus (Culturelle) 1 cap BID PO Last administered on 10:18; Start 02/22/17 at 21:00 Active Scripts Active Mucinex Dm Er 600-30 Mg Tablet (Guaifenesin/Dextromethorphan) 1 Each Tab.er.12h 1 Each PO BID Cefpodoxime Proxetil 200 Mg Tablet 1 Tab PO BID Reported Melatonin 3 Mg Tablet 20 Mg PO HS Simvastatin 20 Mg Tablet 1 Tab PO QHS Gabapentin 600 Mg Tablet 600 Mg PO TID Potassium Chloride 20 Meq Tablet.er 20 Meq PO DAILY Amlodipine Besylate 10 Mg Tablet 10 Mg PO DAILY Tramadol Hcl 50 Mg Tablet 2 Tab PO BID Lasix (Furosemide) 40 Mg Tablet 1 Tab PO DAILY Nitrostat (Nitroglycerin) 0.4 Mg Tab.subl 1 Tab SL UD PRN Polyethylene Glycol 3350 255 Gm Powder 17 Gm PO DAILY Losartan Potassium 100 Mg Tablet 1 Tab PO DAILY Metoprolol Tartrate 25 Mg Tablet 1 Tab PO HS Aspir-Low (Aspirin) 81 Mg Tablet.dr 1 Tab PO DAILY Zoloft (Sertraline Hcl) 100 Mg Tablet 1 Tab PO DAILY Vitals/I & O Vital Sign - Last 24 Hours 02/22/17 02/22/17 02/22/17 02/22/17 19:00 20:05 20:51 23:18 Temp 98.7 98.4 98.7 98.4 Pulse 67 67 61 Resp 22 B/P (MAP) 142/59 (86) 142/59 141/54 (83) Pulse Ox 97 97 O2 Delivery Room Air Room Air Room Air 02/23/17 02/23/17 02/23/17 02/23/17 03:30 07:00 08:00 10:18 Temp 98.1 97.2 98.1 97.2 Pulse 58 55 Resp 20 18 16 B/P (MAP) 139/58 (85) 139/59 (85) Pulse Ox 97 98 O2 Delivery Room Air Room Air Room Air Room Air 02/23/17 02/23/17 02/23/17 02/23/17 10:21 10:22 11:00 11:18 Temp 98.3 98.3 Pulse 58 58 55 Resp 16 16 B/P (MAP) 188/97 188/97 128/80 (96) Pulse Ox 96 O2 Delivery Room Air Room Air 02/23/17 15:00 Temp 98.5 98.5 Pulse 56 Resp 16 B/P (MAP) 123/79 (94) Pulse Ox 96 O2 Delivery Room Air ARACELI HERNANDEZ MD Feb 23, 2017 16:41
== END 2017-02-23 17:36 | disposition home health service (06) | DRG 202 ==
LOC: ER 18:48 → 2 SOUTH 21:36
PROVIDERS: ADMIT Internal Medicine; ATTEND Internal Medicine
DX: J20.9 Acute bronchitis, unspecified (principal); N39.0 Urinary tract infection, site not specified; E44.0 Moderate protein-calorie malnutrition; I12.0 Hypertensive chronic kidney disease with stage 5 chronic kidney disease or end stage renal disease; J44.0 Chronic obstructive pulmonary disease with (acute) lower respiratory infection; D63.8 Anemia in other chronic diseases classified elsewhere; I25.10 Atherosclerotic heart disease of native coronary artery without angina pectoris; N18.2 Chronic kidney disease, stage 2 (mild); G89.4 Chronic pain syndrome; F32.9 Major depressive disorder, single episode, unspecified; F41.9 Anxiety disorder, unspecified; J30.9 Allergic rhinitis, unspecified; K21.9 Gastro-esophageal reflux disease without esophagitis; M25.50 Pain in unspecified joint; R41.3 Other amnesia; M19.90 Unspecified osteoarthritis, unspecified site; E78.5 Hyperlipidemia, unspecified; Z96.649 Presence of unspecified artificial hip joint; M17.0 Bilateral primary osteoarthritis of knee; M51.26 Other intervertebral disc displacement, lumbar region; Z96.1 Presence of intraocular lens; F11.90 Opioid use, unspecified, uncomplicated; H54.8 Legal blindness, as defined in USA; M46.02 Spinal enthesopathy, cervical region; E87.6 Hypokalemia; Z95.1 Presence of aortocoronary bypass graft; I25.2 Old myocardial infarction; Z86.73 Personal history of transient ischemic attack (TIA), and cerebral infarction without residual deficits; Z90.710 Acquired absence of both cervix and uterus; Z90.89 Acquired absence of other organs; Z95.5 Presence of coronary angioplasty implant and graft; Z88.8 Allergy status to other drugs, medicaments and biological substances; Z88.2 Allergy status to sulfonamides; Z88.0 Allergy status to penicillin; Z88.7 Allergy status to serum and vaccine; Z91.048 Other nonmedicinal substance allergy status; Z82.49 Family history of ischemic heart disease and other diseases of the circulatory system; Z98.42 Cataract extraction status, left eye; Z98.41 Cataract extraction status, right eye; R07.89 Other chest pain
CPT/HCPCS: 36415; 71010; 71020; 71250; 80048; 80053; 81001; 84484; 85025; 87086; 93005; 94640; J0690; J0696; J7613; 92610; 99285-25

== ENCOUNTER → 2017-03-15 | Outpatient (CLI) | payer MEDICARE ==
[2017-02-23 15:00] VITALS: BP 123/79
[~2017-03-15] MED LIST changes: +CEFP200T PO; +GUAI-108 PO; +IOHEXOL 180 MG/ML 10 ML VIAL. ONE; +methylPREDNISolone ACETATE 40 MG/ML VIAL. ONE; +methylPREDNISolone ACETATE 80 MG/ML VIAL. ONE
--- NOTE | 2017-03-16 06:14 | PAIN ---
DATE OF SERVICE: 03/15/2017 PROGRESS NOTE FOR PAIN CLINIC DIAGNOSES: Lumbar radiculopathy with lumbar degenerative disk disease and lumbar spinal stenosis. HISTORY OF PRESENT ILLNESS: The patient is an 81-year-old female who returns for followup status post lumbar epidural steroid injection x 2, most recent injection was 11/09/2016. The patient did very well with this with near 100% improvement with the pain returning to about 50% level that is over the past month or so. The patient had rescheduled due to some illness and now returns with significant report of pain in the low back and the bilateral lower extremities, left mildly greater than right, but present bilaterally in the lateral anterior aspect of the thighs, medial thighs, medial lower leg to the ankle and across the low back bilaterally. The patient reports it is 10 on a scale of 10 at its worst, 9 on average and 8 at its least and is an 8 on a scale of 10 today. The patient reports it is sharp, stabbing, radiating, constant, becoming more stabbing and burning at times as well, worse with standing, walking and changing positions, better with lying down, but sporadically awakens her from sleep, but not every night. Usually she sleeps about 6-8 hours at night without difficulty. The patient does have a history of insomnia, which does not help as well. The patient reports no new motor or sensory deficits, no new bowel or bladder incontinence or other complaints. OBJECTIVE: VITAL SIGNS: Today, blood pressure is 114/76, pulse 56, respirations are 16, temperature is 98.5 degrees Fahrenheit and weight is 139 pounds. GENERAL: The patient is awake, alert, oriented, appropriate, very pleasant demeanor. HEENT: Head shows normocephalic and atraumatic. Extraocular movements are intact, symmetrical. Oral cavity: Mucous membranes are moist and pink. NECK: Shows anterior throat supple without palpable lymphadenopathy noted. Swallow reflex symmetrical. CHEST: Shows normal on inspection. Breath sounds are clear to auscultation bilaterally. HEART: Shows S1 and S2 clear. No murmurs are auscultated. ABDOMEN: Soft, nontender and nondistended. No palpable organomegaly is noted. No rebound or guarding demonstrated. MUSCULOSKELETAL: Back shows spine grossly in the midline. The patient's neck shows normal cervical lordotic curvature, normal thoracic kyphotic curvature with a slight exaggeration of the kyphosis and normal lumbar lordotic curvature. No previous bruises, lesions, rashes or scars are noted. Lumbar paraspinous musculature shows symmetrical on inspection with palpation shows some mild tenderness to moderate tenderness in the low lumbar distribution only without radiation and without trigger points. The patient shows good rotational motion of the lumbar spine both laterally as well as extension and flexion without difficulty or pain reported. Lower extremities show deep tendon reflexes of 1+ in the patellar and tendo calcaneus tendons. Motor exam is approximately 4 on a scale of 5 with left dorsiflexion and extension, 5/5 with right dorsiflexion and extension and quadriceps and hamstring flexion are 5/5 and equal bilaterally. Peripheral pulses are 1+ posterior tibial. No peripheral edema is noted. No clubbing and no cyanosis. Lower extremities are warm and dry to touch, equal in color and appearance. Options were discussed with the patient. The patient's old chart was reviewed as her current medication regimen updated. Current review of systems updated today as well. We will proceed with a third in the series of lumbar epidural steroid injection today with fluoroscopic guidance. Risks were again discussed including, but not limited to bleeding, infection, possibility of epidural hematoma, subsequent neurologic compromise, dural puncture, headaches, spinal cord and/or nerve damage, side effects of steroid medication and poor results regarding pain control. The patient understands and wished to proceed. The patient will return to the clinic in approximately 2 weeks for followup. She was counseled as to return appointment, activity level and side effects to be aware of. DIAGNOSIS: Lumbar radiculopathy with lumbar degenerative disk disease, lumbar spinal stenosis. PROCEDURE: Lumbar epidural steroid injection, translaminar approach at the L4-L5 level using C-arm fluoroscopic guidance under sterile prep and drape using local anesthetic. Medication injected a total of 120 mg of Depo-Medrol plus 10 mL of preservative free normal saline and 2 mL of Isovue for contrast. CONDITION AT DISCHARGE: Stable. The patient tolerated the procedure well and had no complications. JAK RO MD DR: JUDY/cathryn JOB#: [id number] / [id number]
== END | disposition home or self-care (01) ==
LOC: PNCL 13:56
PROVIDERS: ATTEND Anesthesiology
DX: M51.16 Intervertebral disc disorders with radiculopathy, lumbar region (principal); M48.061 Spinal stenosis, lumbar region without neurogenic claudication; J44.9 Chronic obstructive pulmonary disease, unspecified; I10 Essential (primary) hypertension; M19.91 Primary osteoarthritis, unspecified site; F32.9 Major depressive disorder, single episode, unspecified; Z86.69 Personal history of other diseases of the nervous system and sense organs; Z86.73 Personal history of transient ischemic attack (TIA), and cerebral infarction without residual deficits; Z95.1 Presence of aortocoronary bypass graft; Z98.890 Other specified postprocedural states; Z90.710 Acquired absence of both cervix and uterus; Z87.39 Personal history of other diseases of the musculoskeletal system and connective tissue; Z88.0 Allergy status to penicillin; Z88.2 Allergy status to sulfonamides; Z88.8 Allergy status to other drugs, medicaments and biological substances; Z91.048 Other nonmedicinal substance allergy status
CPT/HCPCS: 62323; J1030; J1040

== ENCOUNTER → 2017-03-16 | Outpatient (CLI) | payer MEDICARE ==
[2017-02-23 15:00] VITALS: BP 123/79
[~2017-03-16] MED LIST changes: -IOHEXOL 180 MG/ML 10 ML VIAL. ONE; -methylPREDNISolone ACETATE 40 MG/ML VIAL. ONE; -methylPREDNISolone ACETATE 80 MG/ML VIAL. ONE
--- NOTE | 2017-03-16 13:36 | KCIC ---
Left breast diagnostic ultrasound History: Follow-up benign-appearing lesion 3:00 left breast Sonographic examination was performed of the 3:00 left breast and left axilla and multiple static images are obtained. Direct Comparison is made to the June 01, 2016 study. There is a normal-appearing lymph node in the 3:00 left breast.. This is much easier seen than in the prior study. There are normal-appearing lymph nodes in the left axilla as well. Impression: Normal lymph node. Recommend the patient return to routine screening with bilateral mammogram in one year. These results were given to the patient in person. BI-RADS 2: Benign.
--- NOTE | 2017-03-16 13:40 | KCIC ---
DATE: March 16, 2017 EXAM: MAMMO LATHA DIAG BILAT HISTORY: Follow-up asymmetric tissue density left breast COMPARISON: September 18, 2015 TECHNIQUE: 3D tomographic digital mammographic views were obtained. This study was interpreted with the benefit of Computerized Aided Detection (CAD). The breast parenchyma shows scattered fibroglandular densities. Breast parenchyma level B. FINDINGS: There is no suspicious findings. IMPRESSION: No suspicious findings. Recommend the patient return to routine screening mammography. BI-RADS CATEGORY: 1 NEGATIVE RECOMMENDED FOLLOW-UP: 12M 12 MONTH FOLLOW-UP PQRS compliance statement: Patient information was entered into a reminder system with a target due date March 16, 2018 for the next mammogram. Mammography is a sensitive method for finding small breast cancers, but it does not detect them all and is not a substitute for careful clinical examination. A negative mammogram does not negate a clinically suspicious finding and should not result in delay in biopsying a clinically suspicious abnormality. "Our facility is accredited by the [employer] Mammography Program."
== END | disposition home or self-care (01) ==
LOC: KCIC MAMMO 12:10
PROVIDERS: ATTEND Internal Medicine
DX: N64.89 Other specified disorders of breast (principal); R92.8 Other abnormal and inconclusive findings on diagnostic imaging of breast
CPT/HCPCS: 76641; G0204; G0279; 77062; 77066

== ENCOUNTER → 2017-05-09 | Outpatient (CLI) | payer MEDICARE ==
[~2017-05-09] MED LIST changes: -AMLO10TA2 PO; -ASPI81TA50 PO; -BUDE10.2 IH; -CEFP200T PO; -FURO-68 PO; -GABA600T2 PO; -GUAI-108 PO; -HYDR12.53 PO; +IOHEXOL 180 MG/ML 10 ML VIAL.; -LOSA100T6 PO; -MELA3TAB2 PO; -METO25TA4 PO; -MORP15TA3 PO; -MORP30TA83 PO; -NITR0.4T SL; -OXYC-323 PO; -POLY255P PO; -POTA20TA82 PO; -PRED50TA PO; -PROAIR HFA8.5 GM IH; -SERT100T PO; -SIMV20TA3 PO; -TEMA15CA PO; -TRAM50TA PO; +methylPREDNISolone ACETATE 40 MG/ML VIAL.; +methylPREDNISolone ACETATE 80 MG/ML VIAL.
== END | disposition home or self-care (01) ==
LOC: PNCL 12:47
DX: M50.123 Cervical disc disorder at C6-C7 level with radiculopathy (principal); M51.16 Intervertebral disc disorders with radiculopathy, lumbar region; M48.061 Spinal stenosis, lumbar region without neurogenic claudication; I25.10 Atherosclerotic heart disease of native coronary artery without angina pectoris; I10 Essential (primary) hypertension; J44.9 Chronic obstructive pulmonary disease, unspecified; M19.90 Unspecified osteoarthritis, unspecified site; F32.9 Major depressive disorder, single episode, unspecified; Z87.39 Personal history of other diseases of the musculoskeletal system and connective tissue; Z86.69 Personal history of other diseases of the nervous system and sense organs; Z86.73 Personal history of transient ischemic attack (TIA), and cerebral infarction without residual deficits; Z90.710 Acquired absence of both cervix and uterus; Z98.890 Other specified postprocedural states; Z88.0 Allergy status to penicillin; Z88.2 Allergy status to sulfonamides; Z88.7 Allergy status to serum and vaccine; Z91.048 Other nonmedicinal substance allergy status
CPT/HCPCS: 62321; J1030; J1040

== ENCOUNTER 2017-05-17 17:36 | Inpatient (IN) | payer MEDICARE ==
[2017-05-17 19:00] LABS: ADD MAN DIFF? NO
[2017-05-17 19:04] LABS: BASO # 0.1 x10^3/uL (0.0-0.2); BASO % 1 % (0-3); EOS # 0.1 x10^3/uL (0.0-0.7); EOS % 1 % (0-3); HEMOGLOBIN 12.2 g/dL (12.0-15.5); LYMPH # 1.7 x10^3/uL (1.0-4.8); LYMPH % 18 % (24-48); MEAN CORPUSCULAR HEMOGLOBIN 29 pg (25-35); MEAN CORPUSCULAR HGB CONC 33 g/dL (31-37); MEAN CORPUSCULAR VOLUME 86 fL (79-100); MONO # 0.8 x10^3/uL (0.0-1.1); MONO % 8 % (0-9); NEUT # 6.9 x10^3uL (1.8-7.7); NEUT % 72 % (31-73); PLATELET COUNT 189 x10^3/uL (140-400); RED CELL DISTRIBUTION WIDTH 15.8 % (11.5-14.5); WHITE BLOOD COUNT 9.6 x10^3/uL (4.0-11.0)
[2017-05-17 19:13] LABS: PROTHROMBIN TIME PATIENT 12.7 SEC (11.7-14.0)
[2017-05-17 19:23] LABS: TROPONINI < 0.017 ng/mL (0.000-0.055)
[2017-05-17 19:26] LABS: CKMB MASS 0.9 ng/mL (0.0-3.6)
[2017-05-17 19:26] LABS: NT-PRO BNP 459 pg/mL (0-449)
[2017-05-17 19:27] LABS: CREATINE KINASE 48 U/L (26-192)
[2017-05-17 19:59] LABS: ANION GAP 7 (6-14); BLOOD UREA NITROGEN 30 mg/dL (7-20); BUN/CREATININE RATIO 33 (6-20); CALCIUM 9.2 mg/dL (8.5-10.1); CARBON DIOXIDE 31 mmol/L (21-32); CHLORIDE 99 mmol/L (98-107); CREATININE 0.9 mg/dL (0.6-1.0); GFR 60.2; GLUCOSE 115 mg/dL (70-99); POTASSIUM 5.1 mmol/L (3.5-5.1); SODIUM 137 mmol/L (136-145)
[2017-05-17 20:05] LABS: ALBUMIN 3.6 g/dL (3.4-5.0); ALBUMIN/GLOBULIN RATIO 0.9 (1.0-1.7); ALK PHOS 71 U/L (46-116); ALT (SGPT) 17 U/L (14-59); AST (SGOT) 16 U/L (15-37); TOTAL BILIRUBIN 0.2 mg/dL (0.2-1.0); TOTAL PROTEIN 7.5 g/dL (6.4-8.2)
[2017-05-18 04:41] LABS: TROPONINI < 0.017 ng/mL (0.000-0.055)
[2017-05-18] MEDS: traMADol 50 MG TABLET PO ×2 (06:01→13:08)
[2017-05-18] MEDS ORDERED: NITROGLYCERIN SUBLINGUAL 0.4 MG BOTTLE OF 25. SL (09:30)
[2017-05-18] MEDS: FLUTICASONE 50MCG/NASAL SPRAY 16GM BOTTLE. NS (09:42)
[2017-05-18] MEDS: POLYETHYLENE GLYCOL 3350 17 GM PACKET. PO (09:42)
[2017-05-18] MEDS: amLODIPine BESYLATE 10 MG TABLET PO (09:43)
[2017-05-18] MEDS: MULTIVITAMIN with MINERAL TABLET. PO (09:43)
[2017-05-18] MEDS: ASPIRIN ENTERIC COATED 81 MG TABLET.DR. PO (09:43)
[2017-05-18] MEDS: FUROSEMIDE 40 MG TABLET. PO (09:44)
[2017-05-18] MEDS: GABAPENTIN 300 MG CAPSULE. PO ×2 (09:44→13:08)
[2017-05-18] MEDS: CETIRIZINE HCL 10 MG TABLET. PO (09:44)
[2017-05-18] MEDS: LOSARTAN POTASSIUM 50 MG TABLET. PO (09:44)
[2017-05-18] MEDS: METOPROLOL TART IMMED RELEASE 25 MG TABLET. PO (09:44)
[2017-05-18 10:12] LABS: TROPONINI < 0.017 ng/mL (0.000-0.055)
[2017-05-18] MEDS ORDERED: SERTRALINE 50 MG TABLET. PO (21:00)
[2017-05-18] MEDS ORDERED: SIMVASTATIN 20 MG TABLET PO (21:00)
[2017-05-19] MEDS ORDERED: POTASSIUM CHLORIDE 10 MEQ TABLET.ER. PO (08:00)
== END 2017-05-18 18:38 | disposition home or self-care (01) | DRG 552 ==
LOC: ER 17:36 → 6 SOUTH 20:02
DX: M54.6 Pain in thoracic spine (principal); E46 Unspecified protein-calorie malnutrition; G62.9 Polyneuropathy, unspecified; I13.0 Hypertensive heart and chronic kidney disease with heart failure and stage 1 through stage 4 chronic kidney disease, or unspecified chronic kidney disease; I50.9 Heart failure, unspecified; D64.9 Anemia, unspecified; J44.9 Chronic obstructive pulmonary disease, unspecified; E78.5 Hyperlipidemia, unspecified; Z68.27 Body mass index [BMI] 27.0-27.9, adult; G89.4 Chronic pain syndrome; H54.8 Legal blindness, as defined in USA; I25.10 Atherosclerotic heart disease of native coronary artery without angina pectoris; I25.2 Old myocardial infarction; F32.9 Major depressive disorder, single episode, unspecified; F41.9 Anxiety disorder, unspecified; M19.90 Unspecified osteoarthritis, unspecified site; J30.9 Allergic rhinitis, unspecified; K21.9 Gastro-esophageal reflux disease without esophagitis; Z96.649 Presence of unspecified artificial hip joint; M17.0 Bilateral primary osteoarthritis of knee; N18.2 Chronic kidney disease, stage 2 (mild); Z96.1 Presence of intraocular lens; Z82.49 Family history of ischemic heart disease and other diseases of the circulatory system; Z86.73 Personal history of transient ischemic attack (TIA), and cerebral infarction without residual deficits; Z90.710 Acquired absence of both cervix and uterus; Z95.1 Presence of aortocoronary bypass graft; Z95.5 Presence of coronary angioplasty implant and graft; Z88.6 Allergy status to analgesic agent; Z88.1 Allergy status to other antibiotic agents; Z88.0 Allergy status to penicillin; Z88.2 Allergy status to sulfonamides; Z88.7 Allergy status to serum and vaccine; Z88.8 Allergy status to other drugs, medicaments and biological substances; Z98.42 Cataract extraction status, left eye; Z98.41 Cataract extraction status, right eye
CPT/HCPCS: 36415; 71045; 72072; 80053; 82553; 83880; 84484; 85025; 85610; 93005; 99285-25

== ENCOUNTER → 2017-06-15 | Outpatient (CLI) | payer MEDICARE | END | disposition home or self-care (01) | LOC: PNCL 13:36 | DX: M51.16 Intervertebral disc disorders with radiculopathy, lumbar region (principal); Z88.8 Allergy status to other drugs, medicaments and biological substances; Z88.0 Allergy status to penicillin; Z88.1 Allergy status to other antibiotic agents; Z88.2 Allergy status to sulfonamides; I63.9 Cerebral infarction, unspecified; F03.90 Unspecified dementia, unspecified severity, without behavioral disturbance, psychotic disturbance, mood disturbance, and anxiety; I50.9 Heart failure, unspecified; I25.10 Atherosclerotic heart disease of native coronary artery without angina pectoris; Z95.1 Presence of aortocoronary bypass graft; I10 Essential (primary) hypertension; J44.9 Chronic obstructive pulmonary disease, unspecified; Z90.49 Acquired absence of other specified parts of digestive tract; K21.9 Gastro-esophageal reflux disease without esophagitis; Z90.710 Acquired absence of both cervix and uterus; Z90.721 Acquired absence of ovaries, unilateral; M19.90 Unspecified osteoarthritis, unspecified site; M81.0 Age-related osteoporosis without current pathological fracture; F32.9 Major depressive disorder, single episode, unspecified | CPT/HCPCS: 62323; J1030; J1040; Q9965 ==

== ENCOUNTER → 2017-06-26 | Outpatient (CLI) | payer MEDICARE | END | disposition home or self-care (01) | LOC: PNCL 10:44 | DX: M51.16 Intervertebral disc disorders with radiculopathy, lumbar region (principal); M50.10 Cervical disc disorder with radiculopathy, unspecified cervical region; Z88.8 Allergy status to other drugs, medicaments and biological substances; Z88.0 Allergy status to penicillin; Z88.1 Allergy status to other antibiotic agents; Z88.2 Allergy status to sulfonamides; I63.9 Cerebral infarction, unspecified; F03.90 Unspecified dementia, unspecified severity, without behavioral disturbance, psychotic disturbance, mood disturbance, and anxiety; I25.10 Atherosclerotic heart disease of native coronary artery without angina pectoris; Z95.1 Presence of aortocoronary bypass graft; I10 Essential (primary) hypertension; J44.9 Chronic obstructive pulmonary disease, unspecified; J40 Bronchitis, not specified as acute or chronic; Z90.49 Acquired absence of other specified parts of digestive tract; K21.9 Gastro-esophageal reflux disease without esophagitis; Z90.710 Acquired absence of both cervix and uterus; Z90.721 Acquired absence of ovaries, unilateral; M19.90 Unspecified osteoarthritis, unspecified site; M81.0 Age-related osteoporosis without current pathological fracture; F32.9 Major depressive disorder, single episode, unspecified | CPT/HCPCS: 62323; J1030; J1040; Q9965 ==

== ENCOUNTER → 2017-12-01 | Outpatient (CLI) | payer MEDICARE ==
[2017-05-18 15:27] VITALS: BP 111/51
[~2017-12-01] MED LIST changes: +AMLO10TA2 PO; +ASPI81TA50 PO; +BUDE10.2 IH; +CEFP200T PO; +CETI10TA22 PO; +FLUT9.9S NS; +FURO-68 PO; +GABA600T2 PO; +GUAI-108 PO; +HYDR12.53 PO; -IOHEXOL 180 MG/ML 10 ML VIAL.; +LOSA100T6 PO; +MELA3TAB2 PO; +METO25TA4 PO; +MORP15TA3 PO; +MORP30TA83 PO; +MULT-496 PO; +NITR0.4T SL; +OXYC-323 PO; +POLY255P PO; +POTA10TA12 PO; +POTA20TA82 PO; +PRED50TA PO; +PROAIR HFA8.5 GM IH; +SERT100T PO; +SIMV20TA3 PO; +TEMA15CA PO; +TRAM50TA PO; -methylPREDNISolone ACETATE 40 MG/ML VIAL.; -methylPREDNISolone ACETATE 80 MG/ML VIAL.
[2017-12-01] MEDS: REGADENOSON 0.4 MG/5 ML DISP.SYRIN. IV ONE (10:15)
--- NOTE | 2017-12-01 12:26 | RAD ---
MR#: [id number] Date of Study: 12/01/2017 Ordering Physician: ARACELI HERNNADEZ, Referring Physician: JASWINDER BOONE Tech: RT Nica (R) (N) APPROVED REPORT Test Type: Pharmacological Stress Nurse/Tech: Stefany Boyd RN Test Indications: chest pain, dyspnea Cardiac History: COPD, CAD, [place], CABG, HTN, CVA Medications: See Electronic Medical Record Medical History: See Electronic Medical Record Resting ECG: SR Resting Heart Rate: 55 bpm Resting Blood Pressure: 142/56mmHg Pretest Chest Pain: None Nurse/Tech Notes Lungs CTA, S1S2 Consent: The procedure was explained to the patient in lay terms. Informed consent was witnessed. Justino eout was entered into [facility] [facility]. History and Stress Test performed by Stefany Boyd RN Pharm. Details Pharmacologic stress testing was performed using 0.4mg per 5ml of regadenoson given intravenously ove r 7-10 seconds. Stress Symptoms nausea, no chest pain POST EXERCISE Reason for Termination: Infusion complete Max HR: 81 bpm Max Blood Pressure: 140/45mmHg Blood Pressure response to exercise: Normal blood pressure response during stress. Heart Rate response to exercise: normal response Chest Pain: No. Arrhythmia: Yes. PVC ST Change: No. INTERPRETATION Stress EKG Conclusion: Baseline EKG showed sinus rhythm with RBBB. No ischemic changes at peak stres s. No arrhythmias. Imaging Protocol IMAGE PROTOCOL: Rest Tc-99m/stress Tc-99m 1 day Rest: Stress: Viability: Radiopharm.Tc99m [id number] Sestamibi [id number] 34mCi Duration 13min. 12min. Img Date 12/01/2017 12/01/2017 Inj-Img [id number]. 60min. Rest Admin Site:IV - Right AntecubitalAdministrator:Scott Hernandez RT (R)(N) Stress Admin Site: IV - Right AntecubitalAdministrator: RT Beto (R)(N) STRESS DATA End Diast. Vol.93.0mlLVEDV index BSA59.0ml End Syst. Vol.26.0mlLVESV index BSA16.0ml Myocardial Fdup365.0gEject. Tywuvdwj61.0% Stress Scores Regional WT0.00Summed WT5.00 Regional WM0.00Summed WM0.00 LV Perfusion Scintigraphic images showed small predominantly fixed defect involving the apical wall consistent wi th previous myocardial infarction with very small amount of reversibility consistent with brisa-infarc t ischemia. Wall Motion Normal left ventricle systolic function with ejection fraction calculated at 72%. LV Perf. Quant 17 Seg. SSS2.00 17 Seg. SRS5.00 17 Seg. SDS0.00 Stress Defect Extent (% LAD)15.00Rest Defect Extent (% LAD)18.10Rev. Defect Extent (% LAD)5.60 Stress Defect Extent (% LCX) 0.00Rest Defect Extent (% LCX)0.00Rev. Defect Extent (% LCX)0.00 Stress Defect Extent (% RCA)0.00Rest Defect Extent (% RCA)0.00Rev. Defect Extent (% RCA)0.00 Stress Defect Extent (% ELLY)6.50Rest Defect Extent (% ELLY)10.70Rev. Defect Extent (% ELLY)2.40 Conclusion 1. Regadenoson cardioisotope stress test showed small apical wall infarct with very small amount of p nico-infarct ischemia. 2. Normal left ventricular systolic function with ejection fraction calculated at 72%. 3. Low risk for cardiac events. Signed by : Robin Kaur, Electronically Approved : 12/01/2017 12:26:10
== END | disposition home or self-care (01) ==
LOC: NM 08:50
PROVIDERS: ATTEND Internal Medicine Cardiovascular Disease
DX: I25.10 Atherosclerotic heart disease of native coronary artery without angina pectoris (principal); M62.28 Nontraumatic ischemic infarction of muscle, other site; I25.2 Old myocardial infarction; I13.2 Hypertensive heart and chronic kidney disease with heart failure and with stage 5 chronic kidney disease, or end stage renal disease; E11.22 Type 2 diabetes mellitus with diabetic chronic kidney disease; I50.9 Heart failure, unspecified; N18.5 Chronic kidney disease, stage 5; K21.9 Gastro-esophageal reflux disease without esophagitis; E87.6 Hypokalemia; E78.00 Pure hypercholesterolemia, unspecified; Z86.73 Personal history of transient ischemic attack (TIA), and cerebral infarction without residual deficits; Z87.39 Personal history of other diseases of the musculoskeletal system and connective tissue; Z86.69 Personal history of other diseases of the nervous system and sense organs; Z90.49 Acquired absence of other specified parts of digestive tract; Z90.710 Acquired absence of both cervix and uterus; Z88.2 Allergy status to sulfonamides; Z88.6 Allergy status to analgesic agent; Z88.8 Allergy status to other drugs, medicaments and biological substances; Z88.5 Allergy status to narcotic agent; Z88.1 Allergy status to other antibiotic agents; Z88.0 Allergy status to penicillin; Z88.7 Allergy status to serum and vaccine; Z82.49 Family history of ischemic heart disease and other diseases of the circulatory system
CPT/HCPCS: 78452; 93017; 96374; 96375; 96376; A9500; J2785

== ENCOUNTER → 2018-04-13 | Outpatient (CLI) | payer MEDICARE ==
[2017-05-18 15:27] VITALS: BP 111/51
[~2018-04-13] MED LIST changes: +ALBU2.5V8 IH; -AMLO10TA2 PO; +AMLO10TA6 PO; -HYDR12.53 PO; +HYDR12.575 PO; +LOSA100T14 PO; -LOSA100T6 PO; -OXYC-323 PO; +OXYC1TAB15 PO; -POLY255P PO; +POLY255P11 PO; -PROAIR HFA8.5 GM IH
--- NOTE | 2018-04-13 18:03 | PAIN ---
DATE OF SERVICE: 04/13/2018 DIAGNOSES: 1. Lumbar radiculopathy with lumbar degenerative disk disease, lumbar spinal stenosis. 2. Cervical radiculopathy with cervical degenerative disk disease. HISTORY OF PRESENT ILLNESS: The patient is an 82-year-old female who returns for followup status post both cervical and lumbar epidural steroid injections, most recently had lumbar epidural steroid injection in 06/26/2017. The patient did very well with about 75% improvement, but the pain has returned now since roughly 01/2018. The patient has had difficulty with transportation issues and getting back to the office, presents today and would like to proceed with additional lumbar epidural steroid injections as her low back is her main complaint, radiating to her left lower extremity greater than right, but present bilaterally, mostly in the posterior gluteus, posterior thigh, lateral thigh, lateral anterior thigh, medial thigh, medial lower leg into the foot and toes, worse on the left than the right, but present bilaterally. The patient reports it is stabbing, shooting, radiating, unbearable at times, worse with walking, standing, better with sitting or lying down, does awakening her from sleep about every 3-4 hours, however, when the pain in the low back and left or right leg. The patient reports she is using a walker. She feels unstable because the pain is limiting her ability to walk effectively and disturbing her gait fairly significantly. The patient does have a walker with her today. The patient reports the pain is a 10 on a scale of 10 at average, worst and at least and is a 10/10 today as well. PHYSICAL EXAMINATION: VITAL SIGNS: The patient's blood pressure is 157/92, pulse 66, respirations 18, temperature 98.1 degrees Fahrenheit, height is 4 feet 11 inches, weighs 140 pounds. GENERAL: The patient is awake, alert, oriented, appropriate, very pleasant demeanor. HEENT: Shows normocephalic, atraumatic. Extraocular movements are intact and symmetrical. Oral cavity: Mucous membranes moist and pink. Dentition is intact. NECK: Shows anterior throat supple without palpable lymphadenopathy noted. Swallow reflex is symmetrical. CHEST: Shows normal on inspection. Breath sounds are clear to auscultation bilaterally. HEART: Shows S1, S2 clear. No murmurs auscultated. ABDOMEN: Soft, nontender, nondistended. No palpable organomegaly is noted. No rebound or guarding demonstrated. BACK: Shows spine grossly in the midline. Slight exaggeration of thoracic kyphosis and minor flattening of lumbar lordotic curvature. Lumbar paraspinous muscle shows symmetrical on inspection. On palpation, shows some moderate tenderness diffusely bilaterally, but only diffusely without radiation. EXTREMITIES: The patient's lower extremities show deep tendon reflexes at 1+ in the patellar and tendo calcaneus tendons are equal. Motor exam is approximately 4 on a scale of 5, but equal and symmetrical dorsiflexion and extension bilaterally. Peripheral pulses are 1+ posterior tibia. No peripheral edema is noted bilaterally. Options were discussed with the patient. The patient's old chart was reviewed as is her current medication regimen updated. Current review of systems is updated today as well. We proceed with lumbar epidural steroid injection today with fluoroscopic guidance. Risks were again discussed including, but not limited to bleeding, infection, possibility of epidural hematoma, subsequent neurological compromise, dural puncture, headaches, spinal cord and/or nerve damage, side effects of steroid medication and poor results regarding pain control. The patient understands and wished to proceed. The patient will return to the clinic in approximately 2 weeks for followup, was counseled on return appointment, activity level, and side effects to be aware of. DIAGNOSIS: Lumbar radiculopathy with lumbar degenerative disk disease, lumbar spinal stenosis. PROCEDURE: Lumbar epidural steroid injection, translaminar approach at L4-L5 level using C-arm fluoroscopic guidance under sterile prep and drape using local anesthetic. MEDICATION INJECTED: A total of 120 mg Depo-Medrol plus 10 mL of preservative-free normal saline and 2 mL of Isovue for contrast. CONDITION AT DISCHARGE: Stable. The patient tolerated the procedure well, had no complications. JAK RO MD DR: JUDY/cathryn JOB#: [id number] / [id number]
== END | disposition home or self-care (01) ==
LOC: PNCL 10:15
PROVIDERS: ATTEND Anesthesiology
DX: M51.16 Intervertebral disc disorders with radiculopathy, lumbar region (principal); M48.061 Spinal stenosis, lumbar region without neurogenic claudication; M50.10 Cervical disc disorder with radiculopathy, unspecified cervical region; Z88.0 Allergy status to penicillin; Z88.2 Allergy status to sulfonamides; Z88.7 Allergy status to serum and vaccine; Z88.8 Allergy status to other drugs, medicaments and biological substances
CPT/HCPCS: 62323

== ENCOUNTER → 2018-04-30 | Outpatient (CLI) | payer MEDICARE ==
[2017-05-18 15:27] VITALS: BP 111/51
[~2018-04-30] MED LIST changes: +AMLO5TAB7 PO; +ATOR20TA58 PO; +GABA300C18 PO; +IOHEXOL 180 MG/ML 10 ML VIAL. ONE; +methylPREDNISolone ACETATE 40 MG/ML VIAL. ONE; +methylPREDNISolone ACETATE 80 MG/ML VIAL. ONE
--- NOTE | 2018-04-30 12:19 | PAIN ---
DATE OF SERVICE: 04/30/2018 PROGRESS NOTE FOR PAIN CLINIC DIAGNOSES: 1. Lumbar radiculopathy with lumbar degenerative disk disease and lumbar spinal stenosis. 2. Cervical radiculopathy with cervical degenerative disk disease. HISTORY OF PRESENT ILLNESS: The patient is an 82-year-old female who returns for followup status post lumbar epidural steroid injection x 1 on 04/13/2018. The patient did very well, with about a 60% improvement. The patient reports pain is still doing better, but for the first 4-5 days, it had been doing much better. The patient reports she has increased her activity around the house, walking greater distances, sleeping well and continues to sleep well without disturbing her sleep from the pain. The patient reports the pain is a 9 on a scale of 10 at its worst, 8 on average, 8 at its least and is an 8 today in the low back, left lower extremity, posterior gluteus, posterior lateral thigh, lateral anterior thigh, medial thigh, into the medial lower leg on the left side as well as in the calf and the foot with numbness and tingling in the toes. The patient reports it as radiating, severe, sharp, aching, dull in the back itself. The patient reports no new motor or sensory deficits. No new bowel or bladder incontinence or other complaints. PHYSICAL EXAMINATION: VITAL SIGNS: The patient's blood pressure is 123/53, pulse 59, respirations 20 and temperature is 98.4 degrees Fahrenheit. Weight is 132 pounds. GENERAL: The patient is awake, alert, oriented, appropriate, very pleasant demeanor. The patient is accompanied by her daughter. HEENT EXAMINATION: Shows normocephalic, atraumatic. Extraocular movements are intact and symmetrical. Oral cavity, mucous membranes moist and pink. Dentition is intact. NECK: Shows anterior throat supple, without palpable lymphadenopathy noted. Swallow reflex is symmetrical. CHEST: Shows normal on inspection. Breath sounds clear to auscultation bilaterally. HEART: Shows S1, S2 clear. No murmurs auscultated. ABDOMEN: Soft, nontender and nondistended. No palpable organomegaly is noted. No rebound or guarding demonstrated. BACK: Shows spine grossly in the midline. Some slight exaggeration of the thoracic kyphosis actually and some minor flattening of lumbar lordotic curvature. Lumbar paraspinous muscle shows symmetrical on inspection. On palpation, it shows some moderate tenderness only diffusely without radiation. EXTREMITIES: The patient's lower extremities show deep tendon reflexes at 1+ in the patellar and tendo calcaneus tendons and equal. Motor exam is approximately 4 on a scale of 5, but symmetrical and equal with dorsiflexion, extension, quadriceps and hamstring flexion bilaterally. Options were discussed with the patient. The patient's old chart was reviewed as was her current medication regimen updated. Current review of system updated as well. We will proceed with a lumbar epidural steroid injections today, a second in series with fluoroscopic guidance. Risks were again discussed including, but not limited to bleeding, infection, possibility of epidural hematoma, subsequent neurologic compromise, dural puncture, headaches, spinal cord and/or nerve damage, side effects of steroid medication and poor results regarding pain control. The patient understands and wishes to proceed. The patient will return to the clinic in approximately 2 weeks for followup. She was counseled on her return appointment, activity level and side effects to be aware of. DIAGNOSES: Lumbar radiculopathy with lumbar degenerative disk disease and lumbar spinal stenosis. PROCEDURE: Lumbar epidural steroid injection in translaminar approach at L4-L5 level using C-arm fluoroscopic guidance under sterile prep and drape using local anesthetic. MEDICATION INJECTED: A total of 120 mg Depo-Medrol plus 10 mL of preservative-free normal saline and 2 mL of Isovue for contrast. CONDITION AT DISCHARGE: Stable. The patient tolerated the procedure well, had no complications. JAK RO MD DR: JUDY/cathryn JOB#: [id number] / [id number]
== END | disposition home or self-care (01) ==
LOC: PNCL 10:26
PROVIDERS: ATTEND Anesthesiology
DX: M51.16 Intervertebral disc disorders with radiculopathy, lumbar region (principal); M48.061 Spinal stenosis, lumbar region without neurogenic claudication; M50.10 Cervical disc disorder with radiculopathy, unspecified cervical region; Z88.0 Allergy status to penicillin; Z88.2 Allergy status to sulfonamides; Z88.7 Allergy status to serum and vaccine; Z88.8 Allergy status to other drugs, medicaments and biological substances
CPT/HCPCS: 62323; J1030; J1040; Q9965

== ENCOUNTER 2018-06-12 08:54 | Emergency (ER) | payer MEDICARE ==
[~2018-06-12] VITALS: Ht 152.4 cm; Wt 61.2 kg
[~2018-06-12 08:54] MED LIST changes: -AMLO10TA6 PO; +AMLO10TA8 PO; +AMLO5TAB10 PO; -AMLO5TAB7 PO; -GABA600T2 PO; +GABA600T7 PO; -IOHEXOL 180 MG/ML 10 ML VIAL. ONE; -methylPREDNISolone ACETATE 40 MG/ML VIAL. ONE; -methylPREDNISolone ACETATE 80 MG/ML VIAL. ONE
[2018-06-12 09:26] LABS: BASO % 1 % (0-3); EOS # 0.1 x10^3/uL (0.0-0.7); EOS % 2 % (0-3); HEMATOCRIT 32.5 % (36.0-47.0); HEMOGLOBIN 10.8 g/dL (12.0-15.5); LYMPH # 1.7 x10^3/uL (1.0-4.8); LYMPH % 35 % (24-48); MEAN CORPUSCULAR HEMOGLOBIN 29 pg (25-35); MEAN CORPUSCULAR HGB CONC 33 g/dL (31-37); MEAN CORPUSCULAR VOLUME 88 fL (79-100); MONO # 0.6 x10^3/uL (0.0-1.1); MONO % 12 % (0-9); NEUT # 2.5 x10^3uL (1.8-7.7); NEUT % 51 % (31-73); PLATELET COUNT 159 x10^3/uL (140-400); RED CELL DISTRIBUTION WIDTH 16.1 % (11.5-14.5); WHITE BLOOD COUNT 4.9 x10^3/uL (4.0-11.0)
--- NOTE | 2018-06-12 09:31 | RAD ---
EXAM: PA and Lateral Views of the Chest DATE: 06/12/2018 9:06 AM INDICATION: CHEST PAIN AND SHORTNESS OF BREATH COMPARISON: 02/23/2017 FINDINGS: The heart is not enlarged. Atherosclerotic calcifications of the tortuous aorta are seen. Changes of cardiothoracic surgery are seen with median sternotomy wires and associated surgical clips. Patchy right perihilar opacities are seen, possibly developing consolidation. Radiographic follow-up to resolution is recommended. Right midlung pleural-based calcifications are seen, stable. No pleural effusion or pneumothorax. Diffusely decreased bone mineral density. IMPRESSION: Patchy right perihilar opacities are seen, possibly developing consolidation. Radiographic follow-up to resolution is recommended. Electronically signed by: Sudeep Martinez MD (06/12/2018 9:28 AM) [facility], [place]
[2018-06-12 09:37] LABS: CALCIUM 9.1 mg/dL (8.5-10.1); CREATININE 0.8 mg/dL (0.6-1.0); GFR 68.8; POTASSIUM 3.8 mmol/L (3.5-5.1)
[2018-06-12 09:41] LABS: ALBUMIN 3.5 g/dL (3.4-5.0); ALBUMIN/GLOBULIN RATIO 0.9 (1.0-1.7); MAGNESIUM 2.3 mg/dL (1.8-2.4); TOTAL BILIRUBIN 0.4 mg/dL (0.2-1.0); TOTAL PROTEIN 7.6 g/dL (6.4-8.2)
[2018-06-12] MEDS ORDERED: ASPIRIN CHEWABLE 81 MG TABLET. PO ONE (09:45)
[2018-06-12 09:48] LABS: CREATINE KINASE 72 U/L (26-192)
--- NOTE | 2018-06-12 09:54 | EKG ---
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
[2018-06-12 09:56] LABS: PROTHROMBIN TIME PATIENT 12.9 SEC (11.7-14.0)
[2018-06-12 09:59] LABS: D-DIMER 0.92 ug/mlFEU (0.00-0.50)
[2018-06-12 10:04] LABS: INFLUENZA A PATIENT NEGATIVE (NEGATIVE); INFLUENZA B PATIENT NEGATIVE (NEGATIVE)
[2018-06-12] MEDS ORDERED: IV NORMAL SALINE 500ML BAG 500 ML IV ONE (11:00)
[2018-06-12 11:25] VITALS: BP 182/79
[2018-06-12] MEDS ORDERED: AZIT250T PO (11:29)
[2018-06-12] MEDS ORDERED: METH4TAB2 PO (11:29)
[2018-06-12] MEDS ORDERED: ALBU2.5V8 INH (11:29)
[2018-06-12] MEDS ORDERED: cefTRIAXone IV Push 1 GM VIAL. IVP ONE (11:30)
--- NOTE | 2018-06-12 11:30 | PHYS DOC ---
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 Patient states for the last 1 week she has had episodes of exertional wheezing and shortness of breath without cough. Patient complaining of nasal congestion, sore throat, earache, subjective fever and chills, generalized weakness. Patient's daughter stated that she had audible wheezing the last few days. Patient complaining of episodes of substernal tightness with shortness of breath that last for a few seconds. Patient denies focal neuro deficit, diarrhea and constipation, nausea and vomiting. Review of Systems Review of Systems Constitutional: Denies fever or chills [] Eyes: Denies change in visual acuity, redness, or eye pain [] HENT: Reports nasal congestion or sore throat Respiratory: Denies cough, reports shortness of breath [] Cardiovascular: No additional information not addressed in HPI [] GI: Denies abdominal pain, nausea, vomiting, bloody stools or diarrhea [] : Denies dysuria or hematuria [] Musculoskeletal: Denies back pain or joint pain [] Integument: Denies rash or skin lesions [] Neurologic: Denies headache, focal weakness or sensory changes [] Endocrine: Denies polyuria or polydipsia [] All other systems were reviewed and found to be within normal limits, except as documented in this note. Current Medications Current Medications Current Medications Medications (Trade) Dose Ordered Sig/Conrad Start Time Stop Time Status Last Admin Dose Admin Aspirin (Children'S Aspirin) 324 mg 1X ONCE 06/12/18 09:45 06/12/18 09:46 DC 06/12/18 09:36 324 MG Ceftriaxone Sodium (Rocephin) 1 gm 1X ONCE 06/12/18 11:30 06/12/18 11:31 DC 06/12/18 11:33 1 GM Sodium Chloride 500 ml @ 500 mls/hr 1X ONCE 06/12/18 11:00 06/12/18 11:59 DC 06/12/18 11:34 500 MLS/HR Allergies Allergies Allergies Coded Allergies Type Severity Reaction Last Updated Verified MIGUEL ANGEL Inhibitors Allergy Intermediate 02/21/17 Yes Penicillins Allergy Intermediate 02/22/17 Yes Sulfa (Sulfonamide Antibiotics) Allergy Intermediate 02/21/17 Yes adhesive Allergy Intermediate 03/11/14 Yes influenza virus vaccine, specific Allergy Intermediate 03/11/14 Yes mercury (elemental) Allergy Intermediate 03/11/14 Yes methadone Allergy Intermediate 05/17/17 Yes methylprednisolone Allergy Intermediate 03/11/14 Yes theophylline Allergy Intermediate 05/17/17 Yes trazodone Allergy Intermediate 02/21/17 Yes zolpidem Allergy Intermediate 03/11/14 Yes albuterol Adverse Reaction Intermediate 02/22/17 Yes Physical Exam Physical Exam Constitutional: Well developed, well nourished, no acute distress, non-toxic appearance. [] HENT: Normocephalic, atraumatic, bilateral external ears normal, oropharynx moist, no oral exudates, nose normal. [] Eyes: PERRLA, EOMI, conjunctiva normal, no discharge. [] Neck: Normal range of motion, no tenderness, supple, no stridor. [] Cardiovascular: Bradycardia, no murmur [] Lungs & Thorax: Bilateral mild expiratory wheezing without respiratory distress Abdomen: Bowel sounds normal, soft, no tenderness, no masses, no pulsatile masses. [] Skin: Warm, dry, no erythema, no rash. [] Back: No tenderness, no CVA tenderness. [] Extremities: No tenderness, no cyanosis, no clubbing, ROM intact, no edema. [] Neurologic: Alert and oriented X 3, normal motor function, normal sensory function, no focal deficits noted. [] Psychologic: Affect normal, judgement normal, mood normal. [] Current Patient Data Vital Signs Vital Signs Date Time Temp Pulse Resp B/P (MAP) Pulse Ox O2 Delivery O2 Flow Rate FiO2 06/12/18 11:25 46 182/79 (113) 97 Room Air 06/12/18 11:15 16 06/12/18 09:10 97.8 97.8 Lab Values Laboratory Tests Test 06/12/18 09:18 06/12/18 09:30 06/12/18 09:40 White Blood Count 4.9 x10^3/uL (4.0-11.0) Red Blood Count 3.70 x10^6/uL (3.50-5.40) Hemoglobin 10.8 g/dL (12.0-15.5) L Hematocrit 32.5 % (36.0-47.0) L Mean Corpuscular Volume 88 fL (79-100) Mean Corpuscular Hemoglobin 29 pg (25-35) Mean Corpuscular Hemoglobin Concent 33 g/dL (31-37) Red Cell Distribution Width 16.1 % (11.5-14.5) H Platelet Count 159 x10^3/uL (140-400) Neutrophils (%) (Auto) 51 % (31-73) Lymphocytes (%) (Auto) 35 % (24-48) Monocytes (%) (Auto) 12 % (0-9) H Eosinophils (%) (Auto) 2 % (0-3) Basophils (%) (Auto) 1 % (0-3) Neutrophils # (Auto) 2.5 x10^3uL (1.8-7.7) Lymphocytes # (Auto) 1.7 x10^3/uL (1.0-4.8) Monocytes # (Auto) 0.6 x10^3/uL (0.0-1.1) Eosinophils # (Auto) 0.1 x10^3/uL (0.0-0.7) Basophils # (Auto) 0.0 x10^3/uL (0.0-0.2) Prothrombin Time 12.9 SEC (11.7-14.0) Prothrombin Time INR 1.0 (0.8-1.1) D-Dimer (Juanita) 0.92 ug/mlFEU (0.00-0.50) H Sodium Level 142 mmol/L (136-145) Potassium Level 3.8 mmol/L (3.5-5.1) Chloride Level 102 mmol/L (98-107) Carbon Dioxide Level 29 mmol/L (21-32) Anion Gap 11 (6-14) Blood Urea Nitrogen 21 mg/dL (7-20) H Creatinine 0.8 mg/dL (0.6-1.0) Estimated GFR (Cockcroft-Gault) 68.8 BUN/Creatinine Ratio 26 (6-20) H Glucose Level 113 mg/dL (70-99) H Calcium Level 9.1 mg/dL (8.5-10.1) Magnesium Level 2.3 mg/dL (1.8-2.4) Total Bilirubin 0.4 mg/dL (0.2-1.0) Aspartate Amino Transferase (AST) 17 U/L (15-37) Alanine Aminotransferase (ALT) 18 U/L (14-59) Alkaline Phosphatase 87 U/L (46-116) Creatine Kinase 72 U/L (26-192) Creatine Kinase MB (Mass) 0.8 ng/mL (0.0-3.6) Creatine Kinase MB Relative Index % (0-4) Troponin I Quantitative < 0.017 ng/mL (0.000-0.055) XI-Aon-W-Type Natriuretic Peptide 1232 pg/mL (0-449) H Total Protein 7.6 g/dL (6.4-8.2) Albumin 3.5 g/dL (3.4-5.0) Albumin/Globulin Ratio 0.9 (1.0-1.7) L Lipase 86 U/L (73-393) Lactic Acid Level 0.9 mmol/L (0.4-2.0) Influenza Type A Antigen Negative (NEGATIVE) Influenza Type B Antigen Negative (NEGATIVE) Laboratory Tests 06/12/18 09:18 Laboratory Tests 06/12/18 09:18 EKG EKG EKG interpreted by me. EKG at 0909 showed sinus bradycardia at rate of 42, abnormal left axis deviation, left anterior fascicular block, right bundle branch block, bifascicular block, Q waves in inferior leads, no acute ST and T- wave abnormalities. Radiology/Procedures Radiology/Procedures [][facility] [address] [place] [address] IMAGING REPORT Signed PATIENT: PRUDENCE SALINAS ACCOUNT: [id number] : 1935 LOCATION: ER AGE: 82 SEX: F EXAM STATUS: PRE ER ORD. PHYSICIAN: ROBYN DUNCAN MD REASON: chest pain and shortness of breath PROCEDURE: CHEST PA & LATERAL EXAM: PA and Lateral Views of the Chest DATE: 06/12/2018 9:06 AM INDICATION: CHEST PAIN AND SHORTNESS OF BREATH COMPARISON: 02/23/2017 FINDINGS: The heart is not enlarged. Atherosclerotic calcifications of the tortuous aorta are seen. Changes of cardiothoracic surgery are seen with median sternotomy wires and associated surgical clips. Patchy right perihilar opacities are seen, possibly developing consolidation. Radiographic follow-up to resolution is recommended. Right midlung pleural-based calcifications are seen, stable. No pleural effusion or pneumothorax. Diffusely decreased bone mineral density. IMPRESSION: Patchy right perihilar opacities are seen, possibly developing consolidation. Radiographic follow-up to resolution is recommended. Electronically signed by: Sudeep Salazar MD (06/12/2018 9:28 AM) [facility] DICTATED and SIGNED BY: SUDEEP SALAZAR MD DATE: 06/12/18924 Course & Med Decision Making Course & Med Decision Making Pertinent Labs and Imaging studies reviewed. (See chart for details) Evaluation of patient in ER showed 82-year-old female patient brought in by EMS because of audible wheezing and shortness of breath. Patient had stable vital signs except for bradycardia and currently taking metoprolol. Patient had negative flu test and lactic acid without leukocytosis. Chest x-ray showing consolidation. Patient hospitalization or outpatient treatment for any pneumonia and she decided to go home and follow up with her primary care physician. Patient treated with IV fluid and Rocephin in ER and plan to give prescription of Zithromax and albuterol inhaler. Patient had mild elevation of d -dimer that could be related to pneumonia without concern for PE. 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 Dragon Disclaimer Dragon Disclaimer This electronic medical record was generated, in whole or in part, using a voice recognition dictation system. Departure Departure Impression: Primary Impression: CAP (community acquired pneumonia) Additional Impressions: COPD exacerbation Dehydration Sinus bradycardia Disposition: HOME, SELF-CARE (at 1127) Condition: IMPROVED Referrals: PRITESH BRAGA MD (PCP) Patient Instructions: Dehydration, Adult, Pneumonia, Adult Additional Instructions: Drink plenty of liquids Follow-up with your primary care physician in 2-3 days Return to ER if not getting better Scripts Azithromycin (ZITHROMAX) 250 Mg Tablet 1 PKG PO UD for infection, #1 PKG Prov: ROBYN DUNCAN MD 06/12/18 Albuterol Sulfate (PROAIR HFA INHALER) 8.5 Gm Hfa.aer.ad 2 PUFF INH PRN Q6HRS PRN for SHORTNESS OF BREATH, #1 INHALER 0 Refills Prov: ROBYN DUNCAN MD 06/12/18 Methylprednisolone (MEDROL) 4 Mg Tab.ds.pk 1 PKG PO UD for inflammation, #1 PKG Prov: ROBYN DUNCAN MD 06/12/18 Problem Qualifiers Primary Impression: CAP (community acquired pneumonia) Laterality: unspecified laterality Qualified Codes: J18.9 - Pneumonia, unspecified organism ROBYN DUNCAN MD Jun 12, 2018 11:30
== END 2018-06-12 12:15 | disposition home or self-care (01) ==
LOC: ER 08:54
DX: J18.9 Pneumonia, unspecified organism (principal); J44.1 Chronic obstructive pulmonary disease with (acute) exacerbation; E86.0 Dehydration; R00.1 Bradycardia, unspecified; I25.10 Atherosclerotic heart disease of native coronary artery without angina pectoris; I11.0 Hypertensive heart disease with heart failure; I50.9 Heart failure, unspecified; Z86.73 Personal history of transient ischemic attack (TIA), and cerebral infarction without residual deficits; I25.2 Old myocardial infarction; Z95.5 Presence of coronary angioplasty implant and graft; Z95.1 Presence of aortocoronary bypass graft; Z90.710 Acquired absence of both cervix and uterus; Z88.0 Allergy status to penicillin; Z88.2 Allergy status to sulfonamides; Z88.8 Allergy status to other drugs, medicaments and biological substances; Z88.7 Allergy status to serum and vaccine
CPT/HCPCS: 36415; 71046; 80053; 82553; 83605; 83690; 83735; 83880; 84484; 85025; 85379; 85610; 87040; 87804; 93005; 96361; 96374; 99284; J0696; J7040

== ENCOUNTER → 2018-06-27 | Outpatient (CLI) | payer MEDICARE ==
[2018-06-12 11:25] VITALS: BP 182/79
[~2018-06-27] MED LIST changes: +ALBU2.5V8 INH; +AZIT250T PO; +IOHEXOL 180 MG/ML 10 ML VIAL. ONE; +METH4TAB2 PO; +methylPREDNISolone ACETATE 40 MG/ML VIAL. ONE; +methylPREDNISolone ACETATE 80 MG/ML VIAL. ONE
--- NOTE | 2018-06-27 20:29 | PAIN ---
DATE OF SERVICE: 06/27/2018 DIAGNOSES: Lumbar radiculopathy with lumbar degenerative disk disease and lumbar spinal stenosis. HISTORY OF PRESENT ILLNESS: The patient is an 82-year-old female who returns for followup status post lumbar epidural steroid injection x 2. The patient reports about 65% improvement for about the first 7 weeks. The patient reports pain is returning now in the low back, left lower extremity, mostly in the posterior gluteus, posterior lateral thigh, lateral anterior thigh, anterior medial thigh and lower leg to the ankle and foot on the left side greater than right, but across the low back as well as some pain in the mid back. The patient reports it is 8 on a scale of 10 at its worst, 8 on average, 6 at its least and is 8 today. The patient reports it is stabbing, sharp, shooting, radiating, becoming more severe, more noticeable and unbearable with walking and standing. Initially, the patient was walking greater distances, doing activities at home, sleeping better at night and is still sleeping well without disturbance from sleep at night for the pain. The patient reports no new motor or sensory deficits, no new bowel or bladder incontinence or other complaints. PHYSICAL EXAMINATION: VITAL SIGNS: The patient's blood pressure 117/52, pulse 44, respirations 18, temperature 98.2 degrees Fahrenheit. Height is 4 feet 11 inches, weighs 134 pounds. GENERAL: The patient is awake, alert, oriented, appropriate, very pleasant demeanor. HEENT: Head shows normocephalic, atraumatic. Extraocular movements are intact and symmetrical. Oral cavity: Mucous membranes moist and pink. Dentition is intact. NECK: Shows anterior throat supple without palpable lymphadenopathy noted. Swallow reflex is symmetrical. Neck shows full rotational motion of the cervical spine without difficulty or pain reported. CHEST: Shows breath sounds clear to auscultation bilaterally, normal on inspection. HEART: Shows S1, S2 clear. No murmurs auscultated. ABDOMEN: Soft, nontender, nondistended. No palpable organomegaly is noted. No rebound or guarding demonstrated. BACK: The patient's back shows spine grossly in the midline. Slight exaggeration of thoracic kyphosis and minor flattening of the lordotic curvature. The patient's back shows good rotational motion of lumbar spine, both laterally as well as extension and flexion without significant difficulty. EXTREMITIES: Lower extremities show deep tendon reflexes 1+ in the patellar and tendo-calcaneus tendons. Motor exam is approximately 4 on a scale 5, but equal and symmetrical with dorsiflexion and extension bilaterally. Peripheral pulses are 1+ posterior tibial. No peripheral edema is noted. Options were discussed with the patient. The patient's old chart was reviewed as was her current medication regimen updated. Current review of systems updated today as well. We will proceed with a third in the series of lumbar epidural steroid injection today with fluoroscopic guidance. Risks were again discussed including, but not limited to bleeding, infection, possibility of epidural hematoma and subsequent neurological compromise, dural puncture, headaches, spinal cord and/or nerve damage, side effects of steroid medication and poor results regarding pain control. The patient understands and wished to proceed. The patient to return to clinic in approximately 2 weeks for followup, was counseled on return appointment, activity level and side effects to be aware of. DIAGNOSIS: Lumbar radiculopathy with lumbar degenerative disk disease, lumbar spinal stenosis. PROCEDURE: Lumbar epidural steroid injection, translaminar approach at L4-L5 level using C-arm fluoroscopic guidance under sterile prep and drape using local anesthetic. MEDICATION INJECTED: A total of 120 mg Depo-Medrol plus 10 mL of preservative-free normal saline and 2 mL of Isovue for contrast. CONDITION AT DISCHARGE: Stable. The patient tolerated procedure well, had no complications. JAK RO MD DR: JUDY/cathryn JOB#: [id number] / [id number]
== END | disposition home or self-care (01) ==
LOC: PNCL 10:10
PROVIDERS: ATTEND Anesthesiology
DX: M51.16 Intervertebral disc disorders with radiculopathy, lumbar region (principal); M48.061 Spinal stenosis, lumbar region without neurogenic claudication; M54.5 Low back pain; Z98.890 Other specified postprocedural states; Z88.0 Allergy status to penicillin; Z88.1 Allergy status to other antibiotic agents; Z88.8 Allergy status to other drugs, medicaments and biological substances
CPT/HCPCS: 62323; J1030; J1040; Q9965

== ENCOUNTER 2018-07-11 12:00 | Emergency (ER) | payer MEDICARE ==
[~2018-07-11] VITALS: Ht 149.9 cm; Wt 61.2 kg
[~2018-07-11 12:00] MED LIST changes: -IOHEXOL 180 MG/ML 10 ML VIAL. ONE; -methylPREDNISolone ACETATE 40 MG/ML VIAL. ONE; -methylPREDNISolone ACETATE 80 MG/ML VIAL. ONE
[2018-07-11 13:40] LABS: BASO % 0 % (0-3); EOS # 0.2 x10^3/uL (0.0-0.7); EOS % 3 % (0-3); HEMATOCRIT 38.3 % (36.0-47.0); HEMOGLOBIN 12.8 g/dL (12.0-15.5); LYMPH # 1.4 x10^3/uL (1.0-4.8); LYMPH % 22 % (24-48); MEAN CORPUSCULAR HEMOGLOBIN 30 pg (25-35); MEAN CORPUSCULAR HGB CONC 33 g/dL (31-37); MEAN CORPUSCULAR VOLUME 89 fL (79-100); MONO # 0.5 x10^3/uL (0.0-1.1); MONO % 7 % (0-9); NEUT # 4.4 x10^3uL (1.8-7.7); NEUT % 68 % (31-73); PLATELET COUNT 209 x10^3/uL (140-400); RED BLOOD COUNT 4.33 x10^6/uL (3.50-5.40); RED CELL DISTRIBUTION WIDTH 15.3 % (11.5-14.5); WHITE BLOOD COUNT 6.5 x10^3/uL (4.0-11.0)
[2018-07-11 13:50] LABS: PROTHROMBIN TIME PATIENT 12.5 SEC (11.7-14.0)
[2018-07-11 13:50] LABS: BILIRUBIN,URINE NEGATIVE (NEG); CLARITY,URINE CLEAR; COLOR,URINE YELLOW; NITRITE,URINE NEGATIVE (NEG); PH,URINE 7.5; PROTEIN,URINE NEGATIVE (NEG-TRACE); UROBILINOGEN,URINE 0.2 mg/dL (0.2 mg/dL)
[2018-07-11 14:02] LABS: BACTERIA,URINE 0 /HPF (0-FEW)
[2018-07-11 14:03] LABS: WBC,URINE RARE /HPF (0-4)
--- NOTE | 2018-07-11 14:06 | RAD ---
Portable chest, 07/11/2018: HISTORY: Weakness, cough Comparison is made to a study from 06/12/2018. There has been a previous median sternotomy. The heart is enlarged. There is calcific plaquing the aorta. The pulmonary vascularity is normal. No pulmonary infiltrate is seen. The vague right parahilar shadow seen on the previous study has resolved. There is no evidence of pleural fluid. IMPRESSION: 1. Cardiomegaly and aortic atherosclerosis. 2. No acute infiltrates. Electronically signed by: Tim Phillips MD (07/11/2018 2:03 PM) [facility]
--- NOTE | 2018-07-11 14:07 | PHYS DOC ---
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 She is accompanied by her daughter who provides additional history. She reports that she recently was placed on Versicare for bladder incontinence, however, she was has stopped this medication following direction from her PCP. Today she is in pain and uncomfortable, with lower abdominal/pelvic distention and tenderness. She reports that she has had retention before, but never this bad. She states that previous episodes were relieved with catheterization. She does not catheterize at home. She reports chills and shakes but denies fever, n/ v. She also reports increased shortness of breath and increased thick, white, mucus production. She reports that she has a history of COPD. [] Review of Systems Review of Systems Constitutional: Reports chills. Denies fever. [] Eyes: Denies change in visual acuity, redness, or eye pain [] HENT: Denies nasal congestion or sore throat [] Respiratory: Reports productive cough and shortness of breath [] Cardiovascular: Reports CABG x3, CHF[] GI: Reports lower abdominal pain, lower abdominal distention. Denies nausea, vomiting, bloody stools or diarrhea [] : Reports retention, denies dysuria or hematuria [] Musculoskeletal: Reports chronic back pain [] Integument: Reports facial flushing[] Neurologic: Denies headache, focal weakness or sensory changes [] Endocrine: Denies polydipsia[] All other systems were reviewed and found to be within normal limits, except as documented in this note. Current Medications Current Medications See medication list Allergies Allergies Allergies Coded Allergies Type Severity Reaction Last Updated Verified MIGUEL ANGEL Inhibitors Allergy Intermediate 02/21/17 Yes Penicillins Allergy Intermediate 02/22/17 Yes Sulfa (Sulfonamide Antibiotics) Allergy Intermediate 02/21/17 Yes adhesive Allergy Intermediate 03/11/14 Yes influenza virus vaccine, specific Allergy Intermediate 03/11/14 Yes mercury (elemental) Allergy Intermediate 03/11/14 Yes methadone Allergy Intermediate 05/17/17 Yes methylprednisolone Allergy Intermediate 03/11/14 Yes theophylline Allergy Intermediate 05/17/17 Yes trazodone Allergy Intermediate 02/21/17 Yes zolpidem Allergy Intermediate 03/11/14 Yes albuterol Adverse Reaction Intermediate 02/22/17 Yes Physical Exam Physical Exam Constitutional: Well developed, well nourished, appears uncomfortable, non- toxic appearance. [] HENT: Normocephalic, atraumatic, bilateral external ears normal, oropharynx moist, no oral exudates, nose normal. [] Eyes: PERRLA, EOMI, conjunctiva normal, no discharge. [] Neck: Normal range of motion, no tenderness, supple, no stridor. [] Cardiovascular:Heart rate regular rate and rhythm, 2/6 systolic murmur [] Lungs & Thorax: Bilateral breath sounds clear to auscultation, no wheezes, rales, crackles[] Abdomen: Bowel sounds normal, soft, TTP for supra pubic, lower abdominal distention. [] Skin: Warm, dry, with facial flushing, no rash. [] Back: No tenderness, no CVA tenderness. [] Extremities: No tenderness, no cyanosis, no clubbing, ROM intact, 1/4 b/l LE edema. [] Neurologic: Alert and oriented X 3, normal motor function, normal sensory function, no focal deficits noted. [] Psychologic: Affect normal, judgement normal, mood normal. [] Current Patient Data Vital Signs Vital Signs Date Time Temp Pulse Resp B/P (MAP) Pulse Ox O2 Delivery O2 Flow Rate FiO2 07/11/18 12:31 98.2 72 18 211/84 (126) 98 Room Air 98.2 Lab Values Laboratory Tests Test 07/11/18 12:27 07/11/18 13:40 07/11/18 13:50 White Blood Count 6.5 x10^3/uL (4.0-11.0) Red Blood Count 4.33 x10^6/uL (3.50-5.40) Hemoglobin 12.8 g/dL (12.0-15.5) Hematocrit 38.3 % (36.0-47.0) Mean Corpuscular Volume 89 fL (79-100) Mean Corpuscular Hemoglobin 30 pg (25-35) Mean Corpuscular Hemoglobin Concent 33 g/dL (31-37) Red Cell Distribution Width 15.3 % (11.5-14.5) H Platelet Count 209 x10^3/uL (140-400) Neutrophils (%) (Auto) 68 % (31-73) Lymphocytes (%) (Auto) 22 % (24-48) L Monocytes (%) (Auto) 7 % (0-9) Eosinophils (%) (Auto) 3 % (0-3) Basophils (%) (Auto) 0 % (0-3) Neutrophils # (Auto) 4.4 x10^3uL (1.8-7.7) Lymphocytes # (Auto) 1.4 x10^3/uL (1.0-4.8) Monocytes # (Auto) 0.5 x10^3/uL (0.0-1.1) Eosinophils # (Auto) 0.2 x10^3/uL (0.0-0.7) Basophils # (Auto) 0.0 x10^3/uL (0.0-0.2) Prothrombin Time 12.5 SEC (11.7-14.0) Prothrombin Time INR 1.0 (0.8-1.1) Urine Collection Type Unknown Urine Color Yellow Urine Clarity Clear Urine pH 7.5 Urine Specific [place] 1.010 Urine Protein Negative mg/dL (NEG-TRACE) Urine Glucose (UA) Negative mg/dL (NEG) Urine Ketones (Stick) Negative mg/dL (NEG) Urine Blood Trace (NEG) Urine Nitrite Negative (NEG) Urine Bilirubin Negative (NEG) Urine Urobilinogen Dipstick 0.2 mg/dL (0.2 mg/dL) Urine Leukocyte Esterase Negative (NEG) Urine RBC 3-5 /HPF (0-2) Urine WBC Rare /HPF (0-4) Urine Squamous Epithelial Cells None /LPF Urine Bacteria 0 /HPF (0-FEW) Sodium Level 143 mmol/L (136-145) Potassium Level 3.7 mmol/L (3.5-5.1) Chloride Level 104 mmol/L (98-107) Carbon Dioxide Level 27 mmol/L (21-32) Anion Gap 12 (6-14) Blood Urea Nitrogen 13 mg/dL (7-20) Creatinine 0.5 mg/dL (0.6-1.0) L Estimated GFR (Cockcroft-Gault) 118.4 BUN/Creatinine Ratio 26 (6-20) H Glucose Level 106 mg/dL (70-99) H Calcium Level 9.1 mg/dL (8.5-10.1) Total Bilirubin 0.3 mg/dL (0.2-1.0) Aspartate Amino Transferase (AST) 22 U/L (15-37) Alanine Aminotransferase (ALT) 19 U/L (14-59) Alkaline Phosphatase 88 U/L (46-116) Troponin I Quantitative < 0.017 ng/mL (0.000-0.055) BY-Mwl-J-Type Natriuretic Peptide 1412 pg/mL (0-449) H Total Protein 7.3 g/dL (6.4-8.2) Albumin 3.8 g/dL (3.4-5.0) Albumin/Globulin Ratio 1.1 (1.0-1.7) Laboratory Tests 07/11/18 12:27 Laboratory Tests 07/11/18 13:50 EKG EKG [] her office. Normal sinus rhythm rate of 70 normal sinus rhythm right bundle branch block pattern Radiology/Procedures Radiology/Procedures [] Impressions: IMPRESSION: 1. Cardiomegaly and aortic atherosclerosis. 2. No acute infiltrates. Electronically signed by: Tim Phillips MD (07/11/2018 2:03 PM) [facility] DICTATED and SIGNED BY: TIM PHILLIPS MD DATE: 07/11/18 1407 Course & Med Decision Making Course & Med Decision Making Pertinent Labs and Imaging studies reviewed. (See chart for details) Urinary retention per bladder scan 325 ML's on a straight catheter. We checked labs this is a 82-year-old female with a history of overactive bladder COPD recent pneumonia presenting with leaking of urine some dribbling and then also a cough and started just not feeling that well over the last few days. Workup in the emergency room showed no acute pathology creatinine is essentially normal no pneumonia troponin negative urinalysis showed no infection I spoke with Larisa Carmichael a nurse practitioner from urology who did suggest that we try to see if the patient can urinate fairly well in the emergency room and if so probably no Barcenas is okay although if she is having trouble urinating a Barcenas would also be reasonable really no right answer exactly. I get the patient up to the bathroom she never urinated another 50 ML and she felt like her bladder was pretty empty and so as such no Barcenas was placed. I recommended that she stop Vesicare and follow-up with urology. Anastacioon Disclaimer Dragon Disclaimer This electronic medical record was generated, in whole or in part, using a voice recognition dictation system. Departure Departure Impression: Primary Impression: Urinary retention Disposition: HOME, SELF-CARE Condition: STABLE Referrals: GEOFF FERREIRA M.D. (PCP) ELIAZAR BROWN MD Jul 11, 2018 14:07
[2018-07-11 14:12] LABS: CALCIUM 9.1 mg/dL (8.5-10.1); CREATININE 0.5 mg/dL (0.6-1.0); GFR 118.4; POTASSIUM 3.7 mmol/L (3.5-5.1)
[2018-07-11 14:18] LABS: ALBUMIN 3.8 g/dL (3.4-5.0); ALBUMIN/GLOBULIN RATIO 1.1 (1.0-1.7); TOTAL BILIRUBIN 0.3 mg/dL (0.2-1.0); TOTAL PROTEIN 7.3 g/dL (6.4-8.2)
[2018-07-11 15:30] VITALS: BP 168/77
--- NOTE | 2018-07-11 16:08 | EKG ---
[facility] [address] [place] [address] Test Date: 2018-07-11 Test Time: 14:06:33 Pat Name: PRUDENCE SALINAS Department: Room: Gender: F Rn Child: : 1935 Requested By: ELIAZAR BROWN Order Number: [id number] Reading MD: Taj Blankenship MD Measurements Intervals Horatio Rate: 70 P: 90 [place]: 156 QRS: -74 QRSD: 130 T: 47 QT: 440 QTc: 478 Interpretive Statements SR RBBB LAFB Electronically Signed On 07-12-2018 9:56:48 CDT by Taj Blankenship MD
== END 2018-07-11 16:00 | disposition home or self-care (01) ==
LOC: ER 12:00
DX: R33.9 Retention of urine, unspecified (principal); I51.7 Cardiomegaly; I70.0 Atherosclerosis of aorta; I11.0 Hypertensive heart disease with heart failure; I50.9 Heart failure, unspecified; I25.2 Old myocardial infarction; I25.10 Atherosclerotic heart disease of native coronary artery without angina pectoris; F32.9 Major depressive disorder, single episode, unspecified; F41.9 Anxiety disorder, unspecified; J44.9 Chronic obstructive pulmonary disease, unspecified; Z95.1 Presence of aortocoronary bypass graft; Z95.5 Presence of coronary angioplasty implant and graft; Z90.710 Acquired absence of both cervix and uterus; Z88.0 Allergy status to penicillin; Z88.2 Allergy status to sulfonamides; Z88.5 Allergy status to narcotic agent; Z88.8 Allergy status to other drugs, medicaments and biological substances; Z88.7 Allergy status to serum and vaccine
CPT/HCPCS: 36415; 71045; 80053; 81001; 83880; 84484; 85025; 85610; 93005; 99285-25

== ENCOUNTER → 2018-07-24 | Outpatient (CLI) | payer MEDICARE ==
[2018-07-11 15:30] VITALS: BP 168/77
--- NOTE | 2018-07-24 11:04 | CARD ---
MR#: [id number] Date of Study: 07/24/2018 Ordering Physician: ERIKA MURRAY, Referring Physician: ERIKA MURRAY, Tech: Florence Murray APPROVED REPORT EXAM: Two-dimensional and M-mode echocardiogram with Doppler and color Doppler. Other Information Quality : AverageHR: 79bpm INDICATION COPD CAD Surgery/Intervention CABG: RISK FACTORS Hypertension Hyperlipidemia 2D DIMENSIONS RVDd2.4 (2.9-3.5cm)Left Atrium(2D)3.5 (1.6-4.0cm) IVSd0.9 (0.7-1.1cm)Aortic Root(2D)2.8 (2.0-3.7cm) LVDd4.9 (3.9-5.9cm)LVOT Diameter1.8 (1.8-2.4cm) PWd1.0 (0.7-1.1cm)LVDs2.7 (2.5-4.0cm) FS (%) 45.6 %SV86.6 ml LVEF(%)76.8 (>50%) Aortic Valve AoV Peak Ramesh.153.5cm/sAoV VTI30.5cm AO Peak GR.9.4mmHgLVOT Peak Ramesh.107.4cm/s LVOT VTI 24.12cmAO Mean GR.5mmHg ANAYELI (VMAX)1.51za9OLS (VTI)1.93cm2 Mitral Valve MV E Jugnpcgf49.4cm/sMV DECEL [id number] MV A Zvnxmqva91.0cm/sMV IBR95zt E/A Ratio1.5MVA (PHT)5.18cm2 TDI E/Lateral E'9.8E/Medial E'14.7 Pulmonary Valve PV Peak Jbtvqmra051.8cm/sPV Peak Grad.6mmHg Tricuspid Valve TR P. Praaeurc786ug/sRAP COVHNBTU1njXj TR Peak Gr.96svUzQQUA69wdLx Pulmonary Vein S1 Kdxxrmhn05.8cm/sD2 Ewfhaufp13.4cm/s PVa [id number] LEFT VENTRICLE The left ventricle is normal size. There is normal left ventricular wall thickness. The left ventricu lar systolic function is normal. The Ejection Fraction is 55%. Abnormal septal motion probably from p ost-op state. Transmitral Doppler flow pattern is Grade II-pseudonormal filling dynamics. RIGHT VENTRICLE The right ventricle is normal size. There is normal right ventricular wall thickness. The right ventr icular systolic function is normal. ATRIA The left atrium is mildly dilated. The right atrium size is normal. The interatrial septum is intact with no evidence for an atrial septal defect or patent foramen ovale as noted on 2-D or Doppler imagi ng. AORTIC VALVE The aortic valve is thickened but opens well. Doppler and Color Flow revealed no significant aortic r egurgitation. There is no significant aortic valvular stenosis. MITRAL VALVE The mitral valve is thickened but opens well. There is no evidence of mitral valve prolapse. There is no mitral valve stenosis. Doppler and Color-flow revealed trace mitral regurgitation. TRICUSPID VALVE The tricuspid valve is normal in structure and function. Doppler and Color Flow revealed trace tricus pid regurgitation with an estimated PAP of 40 mmHg. There is mild pulmonary hypertension. There is no tricuspid valve stenosis. PULMONIC VALVE The pulmonic valve is not well visualized. Doppler and Color Flow revealed no pulmonic valvular regur gitation. GREAT VESSELS The aortic root is normal in size. The IVC is normal in size and collapses >50% with inspiration. PERICARDIAL EFFUSION There is no evidence of significant pericardial effusion. Critical Notification Critical Value: No <Conclusion> The left ventricular systolic function is normal. The Ejection Fraction is 55%. Abnormal septal motion probably from post-op state. The left atrium is mildly dilated. Trace mitral regurgitation. Trace tricuspid regurgitation with an estimated PAP of 40 mmHg. There is no evidence of significant pericardial effusion. Signed by : Robin Kaur, Electronically Approved : 07/24/2018 11:04:02
== END | disposition home or self-care (01) ==
LOC: ECHO 09:48
PROVIDERS: ATTEND Internal Medicine Cardiovascular Disease
DX: I27.20 Pulmonary hypertension, unspecified (principal); I25.708 Atherosclerosis of coronary artery bypass graft(s), unspecified, with other forms of angina pectoris
CPT/HCPCS: 93306

== ENCOUNTER → 2018-11-08 | Outpatient (CLI) | payer MEDICARE ==
[~2018-11-08] MED LIST changes: +IOHEXOL 180 MG/ML 10 ML VIAL. ONE; +methylPREDNISolone ACETATE 40 MG/ML VIAL. ONE; +methylPREDNISolone ACETATE 80 MG/ML VIAL. ONE
--- NOTE | 2018-11-09 03:49 | PAIN ---
DATE OF SERVICE: 11/08/2018 PROGRESS NOTE FOR PAIN CLINIC DIAGNOSES: Lumbar radiculopathy with lumbar degenerative disk disease and lumbar spinal stenosis. HISTORY OF PRESENT ILLNESS: The patient is an 82-year-old female who returns for followup status post lumbar epidural steroid injections, most recently seen in June of this year, did very well with about a 50% improvement at least in the low back and left lower extremity. The patient reports the pain is returning now over the past 2-3 weeks in the low back, lower hip on the left side, lateral anterior thigh, anterior medial thigh, medial lower leg into the ankle on the left side, some pain in the right but mostly on the left. The patient reports it is sharp, shooting, constant, severe, unbearable with walking, standing, better with sitting or lying down, does not awaken her from sleep at night generally. The patient reports it is a 10 on a scale of 10 at its worst over the past week, 8 on average, 2 at its least and is a 4 today. The patient reports no new motor or sensory deficits and no new bowel or bladder incontinence or other complaints. PHYSICAL EXAMINATION: VITAL SIGNS: The patient's blood pressure 151/91, pulse 54, respirations 16 and temperature 97.4 degrees Fahrenheit. Weight is 139 pounds. GENERAL: The patient is awake, alert, oriented, appropriate and very pleasant demeanor. HEENT: Head is normocephalic and atraumatic. Extraocular movements are intact and symmetrical. Oral cavity, mucous membranes are moist and pink. Dentition intact. NECK: Shows anterior throat supple without palpable lymphadenopathy noted. Swallow reflex symmetrical. CHEST: Shows normal on inspection. Breath sounds are clear to auscultation bilaterally. HEART: Shows S1 and S2 clear. No murmurs auscultated. ABDOMEN: Soft, nontender and nondistended. No palpable organomegaly is noted. No rebound or guarding demonstrated. BACK: Shows spine grossly in the midline. Normal appearing thoracic kyphosis and some minor flattening of lumbar lordotic curvature. Lumbar paraspinous musculature shows symmetrical on inspection with palpation shows some moderate tenderness diffusely bilaterally without radiation. The patient shows good rotational motion of the lumbar spine laterally as well as extension and flexion without difficulty. EXTREMITIES: Lower extremities show deep tendon reflexes at 1+ in the patellar and tendo-calcaneus tendons. Motor exam is approximately 4 on a scale 5 but symmetrical with dorsiflexion, extension, quadriceps and hamstring flexion and equal. Peripheral pulses are 1+ posterior tibia. No peripheral edema is noted. Options were discussed with the patient. The patient's old chart was reviewed as well as her current medication regimen updated. Current review of systems updated today as well. We will proceed with a first in this series of lumbar epidural steroid injection today with fluoroscopic guidance. Risks were again discussed including, but not limited to bleeding, infection, possibility of epidural hematoma, subsequent neurologic compromise, dural puncture, headaches, spinal cord and/or nerve damage, side effects of steroid medication and poor results regarding pain control. The patient understands and wished to proceed. The patient will return to the clinic in approximately 2 weeks for followup, was counseled as to return appointment, activity level and side effects to be aware of. DIAGNOSES: Lumbar radiculopathy with lumbar degenerative disk disease and lumbar spinal stenosis. PROCEDURE: Lumbar epidural steroid injection, translaminar approach at the L4-L5 level using C-arm fluoroscopic guidance under sterile prep and drape using local anesthetic. MEDICATION INJECTED: A total of 120 mg Depo-Medrol plus 10 mL of preservative-free normal saline and 2 mL of contrast. CONDITION AT DISCHARGE: Stable. The patient tolerated the procedure well and had no complications. JAK RO MD DR: JUDY/cathryn JOB#: [id number] / [id number]
== END ==
LOC: PNCL 14:03
PROVIDERS: ATTEND Anesthesiology
DX: M51.16 Intervertebral disc disorders with radiculopathy, lumbar region (principal); M48.061 Spinal stenosis, lumbar region without neurogenic claudication
CPT/HCPCS: 62323; J1030; J1040; Q9965

== ENCOUNTER → 2018-12-24 | Outpatient (CLI) | payer MEDICARE ==
[~2018-12-24] MED LIST changes: +CHOL10003 PO; +LACT20SO PO; -MELA3TAB2 PO; +MELA3TAB56 PO; +MORP-15 PO; -MORP15TA3 PO; +SERT50TA8 PO
--- NOTE | 2018-12-25 06:56 | PN ---
DATE: 12/24/2018 PROGRESS NOTE FOR PAIN CLINIC DIAGNOSES: Lumbar radiculopathy with lumbar degenerative disk disease and lumbar spinal stenosis. HISTORY OF PRESENT ILLNESS: The patient is an 83-year-old female, who returns for followup status post lumbar epidural steroid injection x 1. The patient reports she got 1-1/2 weeks of decreased pain, but only about 50% in the low back and bilateral lower extremities. The patient reports that last summer, her left side was much worse, but now the right side is equally as painful in the low back and bilateral lower extremity, posterior gluteus, posterolateral thigh, lateral anterior thigh, anterior right thigh, medial right lower leg with numbness and tingling in both feet. The patient reports it is tight, burning, radiating, becoming more constant, more severe and unbearable. The patient has fallen twice at home in her bathroom. She fell on the hard tile floor she reports and indeed has some significant bruising about the eyes and the forehead as well as her left lower anterior leg and her right arm. The patient reports her pain is a 9 on a scale of 10 at its worst over the past week, 3 at its least and is 6 on average and is 6 today. PHYSICAL EXAMINATION: VITAL SIGNS: The patient's blood pressure is 121/55, pulse 59, respirations are 24, temperature 98.4 degrees Fahrenheit, and weight 140 pounds. GENERAL: The patient is awake, alert, oriented, appropriate, very pleasant demeanor. HEENT: Shows normocephalic, atraumatic. Extraocular movements are intact and symmetrical. Oral cavity, mucous membranes are moist and pink. Dentition is intact. NECK: Shows anterior throat supple without palpable lymphadenopathy noted. Swallow reflex symmetrical. CHEST: Shows normal on inspection. Breath sounds clear to auscultation bilaterally. HEART: Shows S1, S2 clear. No murmurs auscultated. ABDOMEN: Soft, nontender, nondistended. No palpable organomegaly is noted. No rebound or guarding demonstrated. BACK: Shows spine grossly in the midline. Normal appearing thoracic kyphosis and some flattening of lumbar lordotic curvature. Lumbar paraspinous muscle shows symmetrical on inspection and with palpation shows some moderate tenderness diffusely bilaterally, but only diffusely without radiation. The patient shows good rotational motion of the lumbar spine, both laterally as well as extension and flexion without significant difficulty. EXTREMITIES: Lower extremities show deep tendon reflexes at 1+ in the patellar and tendo calcaneus tendons. Motor exam is approximately 4 on a scale of 5, but equal and symmetrical with dorsiflexion, extension, quadriceps, and hamstring flexion. Peripheral pulses are 1+ at posterior tibial. There is some significant bruising over the left anterior tibia as well as bruising on the right arm and bruising on the bilateral inferior occipital regions and the right side of the forehead. Options were discussed with the patient. The patient's old chart was reviewed as her current medication regimen updated. Current review of systems updated today as well. We will proceed with a lumbar epidural steroid injection, a second in a series today with fluoroscopic guidance. Risks were again discussed including, but not limited to bleeding, infection, possibility of epidural hematoma, subsequent neurological compromise, dural puncture, headaches, spinal cord and/or nerve damage, side effects of steroid medication, and poor results regarding pain control. The patient understands and wished to proceed. The patient will return to clinic in approximately 2 weeks for followup. She was counseled on return appointment, activity level, and side effects to be aware of. DIAGNOSES: Lumbar radiculopathy with lumbar degenerative disk disease, lumbar spinal stenosis. PROCEDURE: Lumbar epidural steroid injection, translaminar approach at L4-5 level using C-arm fluoroscopic guidance under sterile prep and drape using local anesthetic. MEDICATION INJECTED: A total of 120 mg Depo-Medrol plus 10 mL of preservative-free normal saline and 2 mL of contrast. CONDITION AT DISCHARGE: Stable. The patient tolerated the procedure well, had no complications. JAK RO MD DR: JUDY/cathryn JOB#: [id number] / [id number]
== END ==
LOC: PNCL 14:40
PROVIDERS: ATTEND Anesthesiology
DX: M51.16 Intervertebral disc disorders with radiculopathy, lumbar region (principal); M48.061 Spinal stenosis, lumbar region without neurogenic claudication
CPT/HCPCS: 62323; J1030; J1040; Q9965

== ENCOUNTER → 2019-01-02 | Outpatient (CLI) | payer MEDICARE ==
[~2019-01-02] MED LIST changes: -IOHEXOL 180 MG/ML 10 ML VIAL. ONE; -NITR0.4T SL; +NITR0.4T24 SL; -methylPREDNISolone ACETATE 40 MG/ML VIAL. ONE; -methylPREDNISolone ACETATE 80 MG/ML VIAL. ONE
--- NOTE | 2019-01-04 13:53 | CARD ---
MR#: [id number] Date of Study: 01/02/2019 Ordering Physician: ERIKA MURRAY, Referring Physician: ERIKA MURRAY, Tech: Sunshine Altman COLE APPROVED REPORT EXAM: Two-dimensional and M-mode echocardiogram with Doppler and color Doppler. Other Information Quality : Good INDICATION Murmur 2D DIMENSIONS RVDd3.0 (2.9-3.5cm)Left Atrium(2D)3.6 (1.6-4.0cm) IVSd0.9 (0.7-1.1cm)Aortic Root(2D)2.7 (2.0-3.7cm) LVDd4.4 (3.9-5.9cm)LVOT Diameter1.7 (1.8-2.4cm) PWd0.8 (0.7-1.1cm)LVDs2.3 (2.5-4.0cm) FS (%) 30.0 %SV69.7 ml LVEF(%)60.0 (>50%) Aortic Valve AoV Peak Ramesh.170.3cm/sAoV VTI36.0cm AO Peak GR.11.6mmHgLVOT Peak Ramesh.119.8cm/s LVOT VTI 27.37cmAO Mean GR.6mmHg ANAYELI (VMAX)1.06in5WZI (VTI)1.82cm2 Mitral Valve MV E Ilkbnfrt200.4cm/sMV DECEL YYVM107hs MV A Kdwxnrwr51.8cm/sMV GCN38fy E/A Ratio1.6MVA (PHT)4.10cm2 TDI E/Lateral E'26.3E/Medial E'20.0 Tricuspid Valve TR P. Ywklorgh865zg/sRAP PNSXZADF2doMc TR Peak Gr.36mfOtKQKO45uqBp Pulmonary Vein S1 Ciqobkxt56.6cm/sD2 Mjljiogr65.3cm/s LEFT VENTRICLE The left ventricle is normal size. There is normal left ventricular wall thickness. The left ventricu lar systolic function is normal. The Ejection Fraction is 55-60%. There is normal LV segmental wall m otion. Transmitral Doppler flow pattern is Grade II-pseudonormal filling dynamics. RIGHT VENTRICLE The right ventricle is normal size. The right ventricular systolic function is normal. ATRIA The left atrium size is normal. The right atrium size is normal. The interatrial septum is intact wit h no evidence for an atrial septal defect or patent foramen ovale as noted on 2-D or Doppler imaging. AORTIC VALVE The aortic valve is calcified but opens well. Doppler and Color Flow revealed no significant aortic r egurgitation. There is no significant aortic valvular stenosis. MITRAL VALVE The mitral valve is calcified but opens well. There is no evidence of mitral valve prolapse. There is no mitral valve stenosis. Doppler and Color-flow revealed trace to mild mitral regurgitation. TRICUSPID VALVE The tricuspid valve is normal in structure and function. Doppler and Color Flow revealed mild tricusp id regurgitation. There is moderate pulmonary hypertension. The PA pressure was estimated at 48 mmHg. There is no tricuspid valve stenosis. PULMONIC VALVE The pulmonic valve is not well visualized. Doppler and Color Flow revealed no pulmonic valvular regur gitation. There is no pulmonic valvular stenosis. GREAT VESSELS The aortic root is normal in size. The ascending aorta is not well seen. The IVC is normal in size an d collapses >50% with inspiration. PERICARDIAL EFFUSION There is no evidence of significant pericardial effusion. Critical Notification Critical Value: No <Conclusion> The left ventricular systolic function is normal. The Ejection Fraction is 55-60%. There is normal LV segmental wall motion. Trace to mild mitral regurgitation. Mild tricuspid regurgitation. There is moderate pulmonary hypertension. The PA pressure was estimated at 48 mmHg. There is no evidence of significant pericardial effusion. Signed by : Robin Kaur, Electronically Approved : 01/02/2019 16:22:50
== END | disposition home or self-care (01) ==
LOC: ECHO 13:41
PROVIDERS: ATTEND Internal Medicine Cardiovascular Disease
DX: I08.3 Combined rheumatic disorders of mitral, aortic and tricuspid valves (principal); I27.20 Pulmonary hypertension, unspecified
CPT/HCPCS: 93306

== ENCOUNTER 2019-01-21 16:28 | Inpatient (IN) | payer MEDICARE ==
[~2019-01-21] VITALS: Ht 149.9 cm; Wt 65.3 kg
--- NOTE | 2019-01-21 16:47 | PHYS DOC ---
Past Medical History Past Medical History: Anxiety, Arthritis, Bronchitis, CAD, CHF, COPD, CVA, Depression, Heart Disease, Hypertension, GA, Stroke, Other Additional Past Medical Histor: LEGALLY BLIND, NEUROPATHY, HERNIATED DISC, SPURS NECK, DDD Past Surgical History: Angioplasty, Coronary Bypass Surgery, Hysterectomy, T onsillectomy, Other Additional Past Surgical Histo: cysts and tumors removed from stomach, SINUS Alcohol Use: None Drug Use: None Adult General Chief Complaint Chief Complaint: CHEST PAIN HPI HPI 83-year-old female presents to the emergency Department complaints of chest pain, shortness of breath. She describes the pain was a pressure sensation across his inner aspect of her chest without radiation. Patient denies any nausea, vomiting or diaphoresis. She states her pain is worse with exertion. She takes aspirin 81 mg daily, patient was provided with a 324 mg of aspirin and a spray of nitroglycerin per EMS. Patient with a history of HTN, CAD, CABG. Review of Systems Review of Systems Constitutional: Denies fever or chills [] HENT: Denies nasal congestion or sore throat [] Respiratory: Positive shortness of breath Cardiovascular: No additional information not addressed in HPI [] GI: Denies abdominal pain, nausea, vomiting, bloody stools or diarrhea [] : Denies dysuria or hematuria [] Musculoskeletal: Denies back pain or joint pain [] Neurologic: Denies headache, focal weakness or sensory changes [] All other systems were reviewed and found to be within normal limits, except as documented in this note. Current Medications Current Medications Current Medications Medications (Trade) Dose Ordered Sig/Conrad Start Time Stop Time Status Last Admin Dose Admin Nitroglycerin (Nitrostat) 0.4 mg PRN Q5MIN PRN 01/21/19 17:30 01/22/19 17:29 UNV Allergies Allergies Allergies Coded Allergies Type Severity Reaction Last Updated Verified MIGUEL ANGEL Inhibitors Allergy Intermediate 02/21/17 Yes Penicillins Allergy Intermediate 02/22/17 Yes Sulfa (Sulfonamide Antibiotics) Allergy Intermediate 02/21/17 Yes adhesive Allergy Intermediate 03/11/14 Yes influenza virus vaccine, specific Allergy Intermediate 03/11/14 Yes mercury (elemental) Allergy Intermediate 03/11/14 Yes methadone Allergy Intermediate 05/17/17 Yes methylprednisolone Allergy Intermediate 03/11/14 Yes theophylline Allergy Intermediate 05/17/17 Yes trazodone Allergy Intermediate 02/21/17 Yes zolpidem Allergy Intermediate 03/11/14 Yes albuterol Adverse Reaction Intermediate 02/22/17 Yes Physical Exam Physical Exam Constitutional: Well developed, well nourished, no acute distress, non-toxic appearance. [] HENT: Normocephalic, atraumatic, bilateral external ears normal, oropharynx moist, no oral exudates, nose normal. [] Eyes: PERRLA, EOMI, conjunctiva normal, no discharge. [] Cardiovascular:Heart rate regular rhythm, no murmur [] Lungs & Thorax: Bilateral breath sounds clear to auscultation [] Abdomen: Bowel sounds normal, soft, no tenderness, no masses, no pulsatile masses. [] Skin: Warm, dry, no erythema, no rash. [] Extremities: No tenderness, no edema. [] Neurologic: Alert and oriented X 3, no focal deficits noted. [] Psychologic: Affect normal, judgement normal, mood normal. [] Current Patient Data Vital Signs Vital Signs Date Time Temp Pulse Resp B/P (MAP) Pulse Ox O2 Delivery O2 Flow Rate FiO2 01/21/19 16:38 98.6 48 14 152/68 (96) 96 Room Air 98.6 Lab Values Laboratory Tests Test 01/21/19 16:45 White Blood Count 7.0 x10^3/uL (4.0-11.0) Red Blood Count 3.87 x10^6/uL (3.50-5.40) Hemoglobin 12.1 g/dL (12.0-15.5) Hematocrit 35.1 % (36.0-47.0) L Mean Corpuscular Volume 91 fL (79-100) Mean Corpuscular Hemoglobin 31 pg (25-35) Mean Corpuscular Hemoglobin Concent 34 g/dL (31-37) Red Cell Distribution Width 16.5 % (11.5-14.5) H Platelet Count 173 x10^3/uL (140-400) Neutrophils (%) (Auto) 57 % (31-73) Lymphocytes (%) (Auto) 30 % (24-48) Monocytes (%) (Auto) 11 % (0-9) H Eosinophils (%) (Auto) 1 % (0-3) Basophils (%) (Auto) 1 % (0-3) Neutrophils # (Auto) 4.0 x10^3/uL (1.8-7.7) Lymphocytes # (Auto) 2.1 x10^3/uL (1.0-4.8) Monocytes # (Auto) 0.8 x10^3/uL (0.0-1.1) Eosinophils # (Auto) 0.1 x10^3/uL (0.0-0.7) Basophils # (Auto) 0.0 x10^3/uL (0.0-0.2) Sodium Level 143 mmol/L (136-145) Potassium Level 4.1 mmol/L (3.5-5.1) Chloride Level 104 mmol/L (98-107) Carbon Dioxide Level 33 mmol/L (21-32) H Anion Gap 6 (6-14) Blood Urea Nitrogen 22 mg/dL (7-20) H Creatinine 0.8 mg/dL (0.6-1.0) Estimated GFR (Cockcroft-Gault) 68.7 BUN/Creatinine Ratio 28 (6-20) H Glucose Level 116 mg/dL (70-99) H Calcium Level 8.6 mg/dL (8.5-10.1) Total Bilirubin 0.2 mg/dL (0.2-1.0) Aspartate Amino Transferase (AST) 16 U/L (15-37) Alanine Aminotransferase (ALT) 20 U/L (14-59) Alkaline Phosphatase 62 U/L (46-116) Troponin I Quantitative < 0.017 ng/mL (0.000-0.055) Total Protein 6.5 g/dL (6.4-8.2) Albumin 3.3 g/dL (3.4-5.0) L Albumin/Globulin Ratio 1.0 (1.0-1.7) Laboratory Tests 01/21/19 16:45 Laboratory Tests 01/21/19 16:45 EKG EKG EKG reviewed, heart rate 54, no evidence of acute elevation GA left axis deviation appreciated[] Interpretation Time: Interpretation time 1641 Radiology/Procedures Radiology/Procedures [facility] [address] [place] [address] IMAGING REPORT Signed PATIENT: PRUDENCE SALINASCOUNT: [id number] : 1935 LOCATION: ER AGE: 83 SEX: F EXAM STATUS: REG ER ORD. PHYSICIAN: HANS SEWELL MD REASON: chest pain PROCEDURE: CHEST AP ONLY AP chest x-ray HISTORY: Chest pain. COMPARISON: Chest x-ray July 11, 2018. FINDINGS: Median sternotomy and coronary bypass. Cardiomegaly stable. Left coronary stents. Aortic arch calcified plaque. Calcified granuloma right upper lobe. No pneumothorax, pulmonary opacities or pleural effusions. Left shoulder rotator cuff calcific tendinitis stable. IMPRESSION: No acute process. Stable exam. Electronically signed by: Johnny Mcclain MD (01/21/2019 5:28 PM) [facility] DICTATED and SIGNED BY: JOHNNY MCCLAIN MD DATE: 01/21/191727 [] Course & Med Decision Making Course & Med Decision Making Pertinent Labs and Imaging studies reviewed. (See chart for details) []83-year-old female presents to the emergency Department complaints of chest pain, shortness of breath. She describes the pain was a pressure sensation across his inner aspect of her chest without radiation. Patient denies any nausea, vomiting or diaphoresis. She states her pain is worse with exertion. She takes aspirin 81 mg daily, patient was provided with a 24 mg of aspirin and a spray of nitroglycerin per EMS. Patient received NTG/ASA prior to her arrival Labs reviewed without evidence of elevated troponin CXR negative for acute process Discussed admission with Hospitalist for admission Consult cardiology HEART Score 6 Dragon Disclaimer Dragon Disclaimer This electronic medical record was generated, in whole or in part, using a voice recognition dictation system. The HEART Score for CP Pts HEART Score for Chest Pain: HEART Score for Chest Pain Response (Comments) Value History Moderately Suspicious 1 ECG Nonspecific Repolarizatio 1 Age > 65 2 Risk Factors >3 Risk Factors or Hx CAD 2 Troponin < Normal Limit 0 Total 6 Risk Factors: Risk Factors: DM, Current or recent (<one month) smoker, HTN, HLP, family history of CAD, obesity. Risk Scores: Score 0 - 3: 2.5% MACE over next 6 weeks - Discharge Home Score 4 - 6: 20.3% MACE over next 6 weeks - Admit for Clinical Observation Score 7 - 10: 72.7% MACE over next 6 weeks - Early Invasive Strategies Departure Departure Impression: Primary Impression: Chest pain Disposition: 09 ADMITTED INPATIENT Admitting Physician: TIERA Condition: STABLE Referrals: HARI KNOWLES MD (PCP) Problem Qualifiers Primary Impression: Chest pain Chest pain type: unspecified Qualified Codes: R07.9 - Chest pain, unspecified HANS SEWELL MD Jan 21, 2019 16:47
[2019-01-21 16:53] LABS: BASO % 1 % (0-3); EOS # 0.1 x10^3/uL (0.0-0.7); EOS % 1 % (0-3); HEMATOCRIT 35.1 % (36.0-47.0); HEMOGLOBIN 12.1 g/dL (12.0-15.5); LYMPH # 2.1 x10^3/uL (1.0-4.8); LYMPH % 30 % (24-48); MEAN CORPUSCULAR HEMOGLOBIN 31 pg (25-35); MEAN CORPUSCULAR HGB CONC 34 g/dL (31-37); MEAN CORPUSCULAR VOLUME 91 fL (79-100); MONO # 0.8 x10^3/uL (0.0-1.1); MONO % 11 % (0-9); NEUT % 57 % (31-73); PLATELET COUNT 173 x10^3/uL (140-400); RED BLOOD COUNT 3.87 x10^6/uL (3.50-5.40); RED CELL DISTRIBUTION WIDTH 16.5 % (11.5-14.5)
[2019-01-21 17:11] LABS: CALCIUM 8.6 mg/dL (8.5-10.1); CREATININE 0.8 mg/dL (0.6-1.0); GFR 68.7; POTASSIUM 4.1 mmol/L (3.5-5.1)
[2019-01-21 17:21] LABS: ALBUMIN 3.3 g/dL (3.4-5.0); TOTAL BILIRUBIN 0.2 mg/dL (0.2-1.0); TOTAL PROTEIN 6.5 g/dL (6.4-8.2)
--- NOTE | 2019-01-21 17:29 | EKG ---
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
[2019-01-21] MEDS ORDERED: NITROGLYCERIN SUBLINGUAL 0.4 MG BOTTLE OF 25. SL PRN (17:30)
[2019-01-21] MEDS ORDERED: MORPHINE SULFATE 2 MG/ML VIAL. IV ONE (17:30)
--- NOTE | 2019-01-21 17:30 | RAD ---
AP chest x-ray HISTORY: Chest pain. COMPARISON: Chest x-ray July 11, 2018. FINDINGS: Median sternotomy and coronary bypass. Cardiomegaly stable. Left coronary stents. Aortic arch calcified plaque. Calcified granuloma right upper lobe. No pneumothorax, pulmonary opacities or pleural effusions. Left shoulder rotator cuff calcific tendinitis stable. IMPRESSION: No acute process. Stable exam. Electronically signed by: Puneet Mcclain MD (01/21/2019 5:28 PM) [facility]
[2019-01-21] MEDS ORDERED: ONDANSETRON PF 4 MG/2 ML VIAL. IV PRN (17:45)
[2019-01-21] MEDS ORDERED: ACETAMINOPHEN 325 MG TABLET. PO PRN (17:45)
[2019-01-21 19:00] VITALS: BP 148/76
[2019-01-21 19:50] VITALS: BP 135/51
--- NOTE | 2019-01-21 19:59 | HP ---
ADMIT DATE: 01/21/2019 CHIEF COMPLAINT: Chest pain. HISTORY OF PRESENT ILLNESS: The patient is a pleasant middle-aged female who presented with chest pain. She has a previous known history of bypass surgery 15 years ago. I discussed the case with the ER physician. We are going to admit the patient and consult Cardiology. PAST MEDICAL HISTORY: Bypass surgery 15 years ago, hypertension, hyperlipidemia, bronchitis, arthritis, anxiety, CHF, COPD, stroke, depression, myocardial infarction, legally blind, neuropathy, herniated disk She has spurs on her neck, degenerative joint disease, hysterectomy, tonsillectomy, stomach cyst and tumors removed, sinus surgery. ALLERGIES: MULTIPLE INCLUDING MIGUEL ANGEL INHIBITORS, PENICILLIN, SULFA, ADHESIVE, ALBUTEROL, INFLUENZA, VACCINE, MERCURY, METHADONE, METHYLPREDNISOLONE, THEOPHYLLINE, TRAZODONE, AND AMBIEN. FAMILY HISTORY: Coronary artery disease. SOCIAL HISTORY: She is retired. She does not drink, smoke or take drugs. MEDICATIONS: Reviewed, please refer to the MRAD. REVIEW OF SYSTEMS: GENERAL: No history of weight change, weakness or fevers. SKIN: No bruising, hair changes or rashes. EYES: No blurred, double or loss of vision. NOSE AND THROAT: No history of nosebleeds, hoarseness or sore throat. HEART: No history of palpitations, or shortness of breath on exertion. She complains of chest. LUNGS: Denies cough, hemoptysis, wheezing or shortness of breath. GASTROINTESTINAL: Denies changes in appetite, nausea, vomiting, diarrhea or constipation. GENITOURINARY: No history of frequency, urgency, hesitancy or nocturia. NEUROLOGIC: Denies history of numbness, tingling, tremor or weakness. PSYCHIATRIC: No history of panic, anxiety or depression. ENDOCRINE: No history of heat or cold intolerance, polyuria or polydipsia. EXTREMITIES: Denies muscle weakness, joint pain, pain on walking or stiffness. PHYSICAL EXAMINATION: VITALS: Within normal limits and are stable. GENERAL: No apparent distress. Alert and oriented. HEENT: Head is normocephalic, atraumatic, pupils were equally round and reactive to light and accommodation. She has some bruising both eyes. NECK: Supple, no JVD, no thyromegaly was noted. LUNGS: Clear to auscultation in all lung dinh without rhonchi or wheezing. HEART: RRR, S1, S2 present. Peripheral pulses intact, no obvious murmurs were noted. ABDOMEN: Soft, nontender. Positive bowel sounds no organomegaly, normal bowel sounds. EXTREMITIES: Without any cyanosis, clubbing, or edema. Pedal pulses intact, Homans sign is negative. NEUROLOGIC: Normal speech, normal tone. A & O x3, moves all extremities, no obvious focal deficits. PSYCHIATRIC: Normal affect, normal mood. Stable. SKIN: No ulcerations or rashes, good skin turgor, no jaundice. VASCULAR: Good capillary refill, neurovascular bundle appears to be intact. LABORATORY DATA: Hematology is normal. Electrolytes are normal. Troponin is 0. ASSESSMENT AND PLAN: Chest pain in a middle-aged female who has known coronary artery disease. The patient is being admitted. We will consult Cardiology, serial enzymes, serial EKGs, echocardiogram. DVT prophylaxis, home meds. Full code. SHARONA MARTI DO DR: RANDI/cathryn JOB#: [id number] / [id number]
--- NOTE | 2019-01-21 20:00 | NUR ---
Admit from ED via [facility] to room 248. A/O x 4. VSS. Transferred from [place] to bed with 3 person lift. Patient has history of arthritis and DDD. Admits to being able to stand for short periods of time but has become unsteady on her feet. Lives at [place] in [facility], a retirement apartment. States that she started having chest pain prior to arrival to ED. Denies CP at this time. History of CAD with Cardiac stents and CABG. Orientated to unit and call light. Reviewed POC to include serial troponins and tele monitor. Patient verbalized understanding. Resting in bed with call light at hand.
[2019-01-21] MEDS ORDERED: GABA-585 PO (22:02)
[2019-01-21] MEDS ORDERED: GABA300C18 PO (22:04)
[2019-01-21] MEDS ORDERED: ALBUTEROL SULFATE 2.5 MG/3 ML NEBU. INH PRN ×2 (22:30→23:00)
[2019-01-21] MEDS ORDERED: METOPROLOL TART IMMED RELEASE 25 MG TABLET. PO PRN (22:30)
[2019-01-21] MEDS ORDERED: LACTULOSE 20 GM/30 ML SOLUTION. PO PRN (22:30)
[2019-01-21 23:00] VITALS: BP 104/39
[2019-01-21] MEDS: GABAPENTIN 300 MG CAPSULE. PO SCH (23:05)
[2019-01-21] MEDS: traMADol 50 MG TABLET PO PRN (23:05)
[2019-01-21] MEDS: ATORVASTATIN CALCIUM 20 MG TABLET PO SCH (23:05)
[2019-01-22 03:00] VITALS: BP 145/52
[2019-01-22 04:57] LABS: BASO % 0 % (0-3); EOS # 0.1 x10^3/uL (0.0-0.7); EOS % 2 % (0-3); HEMATOCRIT 34.7 % (36.0-47.0); HEMOGLOBIN 11.7 g/dL (12.0-15.5); LYMPH # 1.8 x10^3/uL (1.0-4.8); LYMPH % 34 % (24-48); MEAN CORPUSCULAR HEMOGLOBIN 31 pg (25-35); MEAN CORPUSCULAR HGB CONC 34 g/dL (31-37); MEAN CORPUSCULAR VOLUME 91 fL (79-100); MONO # 0.7 x10^3/uL (0.0-1.1); MONO % 14 % (0-9); NEUT # 2.6 x10^3/uL (1.8-7.7); NEUT % 50 % (31-73); PLATELET COUNT 149 x10^3/uL (140-400); RED CELL DISTRIBUTION WIDTH 16.7 % (11.5-14.5); WHITE BLOOD COUNT 5.1 x10^3/uL (4.0-11.0)
[2019-01-22 05:17] LABS: ALBUMIN/GLOBULIN RATIO 0.9 (1.0-1.7); CALCIUM 8.7 mg/dL (8.5-10.1); CREATININE 0.8 mg/dL (0.6-1.0); GFR 68.7; POTASSIUM 3.9 mmol/L (3.5-5.1); TOTAL BILIRUBIN 0.1 mg/dL (0.2-1.0); TOTAL PROTEIN 6.4 g/dL (6.4-8.2)
[2019-01-22 07:00] VITALS: BP 167/67
[2019-01-22] MEDS: traMADol 50 MG TABLET PO PRN ×3 (07:17→20:37)
--- NOTE | 2019-01-22 08:14 | PDOC ---
PROGRESS NOTES Chief Complaint Chief Complaint A/P: Chest pain CAD s/p CABG 15 years ago Hypertension Hyperlipidemia Arthritis Anxiety with depression chronic diastoli CHF COPD H/o stroke Legally blind Peripheral neuropathy herniated disk History of Present Illness History of Present Illness Ms Castro is an 83yo F w/ PMHx CAD s/p CABG 15 years ago, hypertension, hyperlipidemia, bronchitis, arthritis, anxiety, CHF, COPD, stroke, depression, legally blind, neuropathy, herniated disk who presented with acute onset chest pain on 01/21 that was relieved with NTG. Her EKG showed bradycardia with no ST segment or Twave changes, did show left axis deviation. Negative troponin x2 Still having some substernal CP today. She has not c/o shortness of breath or GI symptoms. Tolerating food well. Vitals Vitals Vital Signs Date Time Temp Pulse Resp B/P (MAP) Pulse Ox O2 Delivery O2 Flow Rate FiO2 01/22/19 07:17 18 96 Room Air 01/22/19 03:00 97.8 49 145/52 (83) 97.8 Physical Exam General: Alert, Cooperative Heart: Normal S1 Lungs: Clear Abdomen: Normal bowel sounds, Soft Labs LABS Laboratory Tests Test 01/21/19 16:45 01/21/19 20:15 01/22/19 04:25 White Blood Count 7.0 x10^3/uL (4.0-11.0) 5.1 x10^3/uL (4.0-11.0) Red Blood Count 3.87 x10^6/uL (3.50-5.40) 3.80 x10^6/uL (3.50-5.40) Hemoglobin 12.1 g/dL (12.0-15.5) 11.7 g/dL (12.0-15.5) Hematocrit 35.1 % (36.0-47.0) 34.7 % (36.0-47.0) Mean Corpuscular Volume 91 fL (79-100) 91 fL (79-100) Mean Corpuscular Hemoglobin 31 pg (25-35) 31 pg (25-35) Mean Corpuscular Hemoglobin Concent 34 g/dL (31-37) 34 g/dL (31-37) Red Cell Distribution Width 16.5 % (11.5-14.5) 16.7 % (11.5-14.5) Platelet Count 173 x10^3/uL (140-400) 149 x10^3/uL (140-400) Neutrophils (%) (Auto) 57 % (31-73) 50 % (31-73) Lymphocytes (%) (Auto) 30 % (24-48) 34 % (24-48) Monocytes (%) (Auto) 11 % (0-9) 14 % (0-9) Eosinophils (%) (Auto) 1 % (0-3) 2 % (0-3) Basophils (%) (Auto) 1 % (0-3) 0 % (0-3) Neutrophils # (Auto) 4.0 x10^3/uL (1.8-7.7) 2.6 x10^3/uL (1.8-7.7) Lymphocytes # (Auto) 2.1 x10^3/uL (1.0-4.8) 1.8 x10^3/uL (1.0-4.8) Monocytes # (Auto) 0.8 x10^3/uL (0.0-1.1) 0.7 x10^3/uL (0.0-1.1) Eosinophils # (Auto) 0.1 x10^3/uL (0.0-0.7) 0.1 x10^3/uL (0.0-0.7) Basophils # (Auto) 0.0 x10^3/uL (0.0-0.2) 0.0 x10^3/uL (0.0-0.2) Sodium Level 143 mmol/L (136-145) 144 mmol/L (136-145) Potassium Level 4.1 mmol/L (3.5-5.1) 3.9 mmol/L (3.5-5.1) Chloride Level 104 mmol/L (98-107) 106 mmol/L (98-107) Carbon Dioxide Level 33 mmol/L (21-32) 32 mmol/L (21-32) Anion Gap 6 (6-14) 6 (6-14) Blood Urea Nitrogen 22 mg/dL (7-20) 21 mg/dL (7-20) Creatinine 0.8 mg/dL (0.6-1.0) 0.8 mg/dL (0.6-1.0) Estimated GFR (Cockcroft-Gault) 68.7 68.7 BUN/Creatinine Ratio 28 (6-20) 26 (6-20) Glucose Level 116 mg/dL (70-99) 104 mg/dL (70-99) Calcium Level 8.6 mg/dL (8.5-10.1) 8.7 mg/dL (8.5-10.1) Total Bilirubin 0.2 mg/dL (0.2-1.0) 0.1 mg/dL (0.2-1.0) Aspartate Amino Transf (AST/SGOT) 16 U/L (15-37) 13 U/L (15-37) Alanine Aminotransferase (ALT/SGPT) 20 U/L (14-59) 18 U/L (14-59) Alkaline Phosphatase 62 U/L (46-116) 58 U/L (46-116) Troponin I Quantitative < 0.017 ng/mL (0.000-0.055) < 0.017 ng/mL (0.000-0.055) Total Protein 6.5 g/dL (6.4-8.2) 6.4 g/dL (6.4-8.2) Albumin 3.3 g/dL (3.4-5.0) 3.0 g/dL (3.4-5.0) Albumin/Globulin Ratio 1.0 (1.0-1.7) 0.9 (1.0-1.7) Assessment and Plan Assessmemt and Plan Problems Medical Problems: (1) Chest pain Status: Acute Comment Review of Relevant I have reviewed the following items saji (where applicable) has been applied. Labs Laboratory Tests Test 01/21/19 16:45 01/21/19 20:15 01/22/19 04:25 White Blood Count 7.0 x10^3/uL (4.0-11.0) 5.1 x10^3/uL (4.0-11.0) Red Blood Count 3.87 x10^6/uL (3.50-5.40) 3.80 x10^6/uL (3.50-5.40) Hemoglobin 12.1 g/dL (12.0-15.5) 11.7 g/dL (12.0-15.5) Hematocrit 35.1 % (36.0-47.0) 34.7 % (36.0-47.0) Mean Corpuscular Volume 91 fL (79-100) 91 fL (79-100) Mean Corpuscular Hemoglobin 31 pg (25-35) 31 pg (25-35) Mean Corpuscular Hemoglobin Concent 34 g/dL (31-37) 34 g/dL (31-37) Red Cell Distribution Width 16.5 % (11.5-14.5) 16.7 % (11.5-14.5) Platelet Count 173 x10^3/uL (140-400) 149 x10^3/uL (140-400) Neutrophils (%) (Auto) 57 % (31-73) 50 % (31-73) Lymphocytes (%) (Auto) 30 % (24-48) 34 % (24-48) Monocytes (%) (Auto) 11 % (0-9) 14 % (0-9) Eosinophils (%) (Auto) 1 % (0-3) 2 % (0-3) Basophils (%) (Auto) 1 % (0-3) 0 % (0-3) Neutrophils # (Auto) 4.0 x10^3/uL (1.8-7.7) 2.6 x10^3/uL (1.8-7.7) Lymphocytes # (Auto) 2.1 x10^3/uL (1.0-4.8) 1.8 x10^3/uL (1.0-4.8) Monocytes # (Auto) 0.8 x10^3/uL (0.0-1.1) 0.7 x10^3/uL (0.0-1.1) Eosinophils # (Auto) 0.1 x10^3/uL (0.0-0.7) 0.1 x10^3/uL (0.0-0.7) Basophils # (Auto) 0.0 x10^3/uL (0.0-0.2) 0.0 x10^3/uL (0.0-0.2) Sodium Level 143 mmol/L (136-145) 144 mmol/L (136-145) Potassium Level 4.1 mmol/L (3.5-5.1) 3.9 mmol/L (3.5-5.1) Chloride Level 104 mmol/L (98-107) 106 mmol/L (98-107) Carbon Dioxide Level 33 mmol/L (21-32) 32 mmol/L (21-32) Anion Gap 6 (6-14) 6 (6-14) Blood Urea Nitrogen 22 mg/dL (7-20) 21 mg/dL (7-20) Creatinine 0.8 mg/dL (0.6-1.0) 0.8 mg/dL (0.6-1.0) Estimated GFR (Cockcroft-Gault) 68.7 68.7 BUN/Creatinine Ratio 28 (6-20) 26 (6-20) Glucose Level 116 mg/dL (70-99) 104 mg/dL (70-99) Calcium Level 8.6 mg/dL (8.5-10.1) 8.7 mg/dL (8.5-10.1) Total Bilirubin 0.2 mg/dL (0.2-1.0) 0.1 mg/dL (0.2-1.0) Aspartate Amino Transf (AST/SGOT) 16 U/L (15-37) 13 U/L (15-37) Alanine Aminotransferase (ALT/SGPT) 20 U/L (14-59) 18 U/L (14-59) Alkaline Phosphatase 62 U/L (46-116) 58 U/L (46-116) Troponin I Quantitative < 0.017 ng/mL (0.000-0.055) < 0.017 ng/mL (0.000-0.055) Total Protein 6.5 g/dL (6.4-8.2) 6.4 g/dL (6.4-8.2) Albumin 3.3 g/dL (3.4-5.0) 3.0 g/dL (3.4-5.0) Albumin/Globulin Ratio 1.0 (1.0-1.7) 0.9 (1.0-1.7) Laboratory Tests Test 01/21/19 16:45 01/21/19 20:15 01/22/19 04:25 White Blood Count 7.0 x10^3/uL (4.0-11.0) 5.1 x10^3/uL (4.0-11.0) Red Blood Count 3.87 x10^6/uL (3.50-5.40) 3.80 x10^6/uL (3.50-5.40) Hemoglobin 12.1 g/dL (12.0-15.5) 11.7 g/dL (12.0-15.5) Hematocrit 35.1 % (36.0-47.0) 34.7 % (36.0-47.0) Mean Corpuscular Volume 91 fL (79-100) 91 fL (79-100) Mean Corpuscular Hemoglobin 31 pg (25-35) 31 pg (25-35) Mean Corpuscular Hemoglobin Concent 34 g/dL (31-37) 34 g/dL (31-37) Red Cell Distribution Width 16.5 % (11.5-14.5) 16.7 % (11.5-14.5) Platelet Count 173 x10^3/uL (140-400) 149 x10^3/uL (140-400) Neutrophils (%) (Auto) 57 % (31-73) 50 % (31-73) Lymphocytes (%) (Auto) 30 % (24-48) 34 % (24-48) Monocytes (%) (Auto) 11 % (0-9) 14 % (0-9) Eosinophils (%) (Auto) 1 % (0-3) 2 % (0-3) Basophils (%) (Auto) 1 % (0-3) 0 % (0-3) Neutrophils # (Auto) 4.0 x10^3/uL (1.8-7.7) 2.6 x10^3/uL (1.8-7.7) Lymphocytes # (Auto) 2.1 x10^3/uL (1.0-4.8) 1.8 x10^3/uL (1.0-4.8) Monocytes # (Auto) 0.8 x10^3/uL (0.0-1.1) 0.7 x10^3/uL (0.0-1.1) Eosinophils # (Auto) 0.1 x10^3/uL (0.0-0.7) 0.1 x10^3/uL (0.0-0.7) Basophils # (Auto) 0.0 x10^3/uL (0.0-0.2) 0.0 x10^3/uL (0.0-0.2) Sodium Level 143 mmol/L (136-145) 144 mmol/L (136-145) Potassium Level 4.1 mmol/L (3.5-5.1) 3.9 mmol/L (3.5-5.1) Chloride Level 104 mmol/L (98-107) 106 mmol/L (98-107) Carbon Dioxide Level 33 mmol/L (21-32) 32 mmol/L (21-32) Anion Gap 6 (6-14) 6 (6-14) Blood Urea Nitrogen 22 mg/dL (7-20) 21 mg/dL (7-20) Creatinine 0.8 mg/dL (0.6-1.0) 0.8 mg/dL (0.6-1.0) Estimated GFR (Cockcroft-Gault) 68.7 68.7 BUN/Creatinine Ratio 28 (6-20) 26 (6-20) Glucose Level 116 mg/dL (70-99) 104 mg/dL (70-99) Calcium Level 8.6 mg/dL (8.5-10.1) 8.7 mg/dL (8.5-10.1) Total Bilirubin 0.2 mg/dL (0.2-1.0) 0.1 mg/dL (0.2-1.0) Aspartate Amino Transf (AST/SGOT) 16 U/L (15-37) 13 U/L (15-37) Alanine Aminotransferase (ALT/SGPT) 20 U/L (14-59) 18 U/L (14-59) Alkaline Phosphatase 62 U/L (46-116) 58 U/L (46-116) Troponin I Quantitative < 0.017 ng/mL (0.000-0.055) < 0.017 ng/mL (0.000-0.055) Total Protein 6.5 g/dL (6.4-8.2) 6.4 g/dL (6.4-8.2) Albumin 3.3 g/dL (3.4-5.0) 3.0 g/dL (3.4-5.0) Albumin/Globulin Ratio 1.0 (1.0-1.7) 0.9 (1.0-1.7) Medications Current Medications Nitroglycerin (Nitrostat) 0.4 mg PRN Q5MIN PRN SL CP RATING > 1/10; Start 01/21/19 at 17:30; Stop 01/22/19 at 17:29 Morphine Sulfate (Morphine Sulfate) 2 mg 1X ONCE IV Last administered on 01/21/19at 18:08; Start 01/21/19 at 17:30; Stop 01/21/19 at 17:31; Status DC Ondansetron HCl (Zofran) 4 mg PRN Q8HRS PRN IV NAUSEA/VOMITING; Start 01/21/19 at 17:45; Stop 01/22/19 at 17:44 Acetaminophen (Tylenol) 650 mg PRN Q4HRS PRN PO FEVER; Start 01/21/19 at 17:45; Stop 01/22/19 at 17:44 Albuterol Sulfate (Ventolin Neb Soln) 0.5 mg PRN Q6HRS PRN INH SHORTNESS OF BREATH; Start 01/21/19 at 22:30; Stop 01/21/19 at 22:47; Status DC Amlodipine Besylate (Norvasc) 10 mg DAILY PO ; Start 01/22/19 at 09:00 Aspirin (Ecotrin) 81 mg DAILY PO ; Start 01/22/19 at 09:00 Atorvastatin Calcium (Lipitor) 20 mg HS PO ; Start 01/22/19 at 21:00; Stop 01/21/19 at 22:29; Status DC Cetirizine HCl (ZyrTEC) 10 mg DAILY PO ; Start 01/22/19 at 09:00 Vitamin D (Vitamin D3) 2,000 unit DAILY PO ; Start 01/22/19 at 09:00 Furosemide (Lasix) 40 mg DAILY PO ; Start 01/22/19 at 09:00 Gabapentin (Neurontin) 300 mg TID PO ; Start 01/22/19 at 09:00; Stop 01/21/19 at 22:29; Status DC Lactulose (Lactulose) 10 gm PRN BID PRN PO CONSTIPATION 1ST CHOICE; Start 01/21/19 at 22:30 Metoprolol Tartrate (Lopressor) 25 mg DAILY PRN PO TACHYCARDIA; Start 01/21/19 at 22:30; Status UNV Sertraline HCl (Zoloft) 50 mg DAILY PO ; Start 01/22/19 at 09:00 Tramadol HCl (Ultram) 100 mg PRN Q6HRS PRN PO MODERATE PAIN 4-6 Last adminis tered on 01/22/19at 07:17; Start 01/21/19 at 22:30 Losartan Potassium (Cozaar) 100 mg DAILY PO ; Start 01/22/19 at 09:00 Potassium Chloride (Klor-Con) 20 meq DAILYWBKFT PO ; Start 01/22/19 at 08:00 Atorvastatin Calcium (Lipitor) 20 mg HS PO ; Start 01/22/20 at 23:00; Status Cancel Gabapentin (Neurontin) 300 mg BID PO Last administered on 01/21/19at 23:05; Start 01/21/19 at 23:00 Albuterol Sulfate (Ventolin Neb Soln) 2.5 mg PRN Q6HRS PRN INH SHORTNESS OF BREATH; Start 01/21/19 at 23:00 Atorvastatin Calcium (Lipitor) 20 mg HS PO Last administered on 01/21/19at 23:05; Start 01/21/19 at 23:30 Active Scripts Active Proair Hfa Inhaler (Albuterol Sulfate) 8.5 Gm Hfa.aer.ad 2 Puff INH PRN Q6HRS PRN Reported Gabapentin (Gabapentin) 300 Mg Capsule 300 Mg PO TID Lactulose 20 Gm/30 Ml Solution 10 Gm PO BID PRN Vitamin D3 (Cholecalciferol (Vitamin D3)) 1,000 Unit Tablet 2,000 Unit PO DAILY Potassium Chloride 20 Meq Tablet.er 20 Meq PO DAILY Amlodipine Besylate 10 Mg Tablet 10 Mg PO DAILY Sertraline Hcl 50 Mg Tablet 50 Mg PO DAILY Atorvastatin Calcium 20 Mg Tablet 1 Tab PO HS Zyrtec (Cetirizine Hcl) 10 Mg Tablet 1 Tab PO DAILY Tramadol Hcl 50 Mg Tablet 2 Tab PO PRN Q6HRS PRN Lasix (Furosemide) 40 Mg Tablet 1 Tab PO DAILY Losartan Potassium 100 Mg Tablet 1 Tab PO DAILY Metoprolol Tartrate 25 Mg Tablet 1 Tab PO DAILY PRN Take as needed for HR greater then 50 bpm Aspir-Low (Aspirin) 81 Mg Tablet. 1 Tab PO DAILY Vitals/I & O Vital Sign - Last 24 Hours 01/21/19 01/21/19 01/21/19 01/21/19 16:38 16:47 17:17 18:08 Temp 98.6 98.6 Pulse 48 100 98 Resp 14 14 14 B/P (MAP) 152/68 (96) 153/73 (99) 140/81 (100) Pulse Ox 96 100 100 O2 Delivery Room Air Room Air Room Air Room Air 01/21/19 01/21/19 01/21/19 01/21/19 19:00 19:50 20:00 23:00 Temp 97.9 98.4 98.1 97.9 98.4 98.1 Pulse 70 53 51 Resp 18 18 18 B/P (MAP) 148/76 (100) 135/51 (79) 104/39 (60) Pulse Ox 98 96 95 O2 Delivery Room Air Room Air Room Air Room Air 01/21/19 01/22/19 01/22/19 01/22/19 23:05 00:05 03:00 07:17 Temp 97.8 97.8 Pulse 49 Resp 18 18 18 18 B/P (MAP) 145/52 (83) Pulse Ox 96 96 96 96 O2 Delivery Room Air Room Air Room Air Room Air Intake and Output 01/21/19 01/21/19 01/22/19 15:00 23:00 07:00 Intake Total 200 ml 400 ml Output Total 250 ml 300 ml Balance -50 ml 100 ml DANE VILLASEÑOR MD Jan 22, 2019 08:14
[2019-01-22] MEDS ORDERED: GABAPENTIN 300 MG CAPSULE. PO SCH (09:00)
[2019-01-22] MEDS: amLODIPine BESYLATE 10 MG TABLET PO SCH (09:29)
[2019-01-22] MEDS: CETIRIZINE HCL 10 MG TABLET. PO SCH (09:29)
[2019-01-22] MEDS: FUROSEMIDE 40 MG TABLET. PO SCH (09:29)
[2019-01-22] MEDS: LOSARTAN POTASSIUM 50 MG TABLET. PO SCH (09:29)
[2019-01-22] MEDS: SERTRALINE 50 MG TABLET. PO SCH (09:30)
[2019-01-22] MEDS: ASPIRIN ENTERIC COATED 81 MG TABLET.DR. PO SCH (09:30)
[2019-01-22] MEDS: POTASSIUM CHLORIDE 20 MEQ TABLET.ER. PO SCH (09:30)
[2019-01-22] MEDS: GABAPENTIN 300 MG CAPSULE. PO SCH ×2 (09:30→20:37)
[2019-01-22] MEDS: CHOLECALCIFEROL (VITAMIN D3) 1,000 UNIT TABLET PO SCH (09:30)
[2019-01-22 11:00] VITALS: BP 110/53
--- NOTE | 2019-01-22 12:24 | PDOC2 ---
CARDIAC CONSULT DATE OF CONSULT Date of Consult DATE: 01/22/19 TIME: 12:18 REASON FOR CONSULT Reason for Consult: Chest pain REFERRING PHYSICIAN Referring Physician: Dr. Rogers SOURCE Source: Chart review, Patient HISTORY OF PRESENT ILLNESS HISTORY OF PRESENT ILLNESS This is an 83 yo female who presented secondary to chest pain and shortness of breath. Patient reports pain began yesterday while talking of the phone. Located across her central chest. Describes as stabbing in nature. Was associated with shortness of breath and dizziness. No palpitations, diaphoresis, or nausea/vomiting. Pain persisted so she came to the ED for further evaluation and treatment. Pain resolved with morphine. No further pain overnight. PAST MEDICAL HISTORY Cardiovascular: CAD, CHF, HTN, Hyperlipidemia Pulmonary: COPD CENTRAL NERVOUS SYSTEM: CVA, Dementia GI: GERD Psych: Anxiety, Depression Musculoskeletal: Osteoarthritis PAST SURGICAL HISTORY Past Surgical History: CABG (2001), Tonsillectomy, Hysterectomy FAMILY HISTORY Family History: Coronary Artery Disease (mother ) SOCIAL HISTORY Smoke: No ALCOHOL: none Drugs: None Lives: Alone CURRENT MEDICATIONS CURRENT MEDICATIONS Current Medications Medications (Trade) Dose Ordered Sig/Conrad Route PRN Reason Start Time Stop Time Status Last Admin Dose Admin Morphine Sulfate (Morphine Sulfate) 2 mg 1X ONCE IV 01/21/19 17:30 01/21/19 17:31 DC 01/21/19 18:08 Amlodipine Besylate (Norvasc) 10 mg DAILY PO 01/22/19 09:00 01/22/19 09:29 Aspirin (Ecotrin) 81 mg DAILY PO 01/22/19 09:00 01/22/19 09:30 Cetirizine HCl (ZyrTEC) 10 mg DAILY PO 01/22/19 09:00 01/22/19 09:29 Vitamin D (Vitamin D3) 2,000 unit DAILY PO 01/22/19 09:00 01/22/19 09:30 Furosemide (Lasix) 40 mg DAILY PO 01/22/19 09:00 01/22/19 09:29 Sertraline HCl (Zoloft) 50 mg DAILY PO 01/22/19 09:00 01/22/19 09:30 Tramadol HCl (Ultram) 100 mg PRN Q6HRS PRN PO MODERATE PAIN 4-6 01/21/19 22:30 01/22/19 07:17 Losartan Potassium (Cozaar) 100 mg DAILY PO 01/22/19 09:00 01/22/19 09:29 Potassium Chloride (Klor-Con) 20 meq DAILYWBKFT PO 01/22/19 08:00 01/22/19 09:30 Gabapentin (Neurontin) 300 mg BID PO 01/21/19 23:00 01/22/19 09:30 Atorvastatin Calcium (Lipitor) 20 mg HS PO 01/21/19 23:30 01/21/19 23:05 ALLERGIES ALLERGIES: Coded Allergies: MIGUEL ANGEL Inhibitors (Verified Allergy, Intermediate, 02/21/17) Penicillins (Verified Allergy, Intermediate, 02/22/17) TOLERATES ROCEPHIN Sulfa (Sulfonamide Antibiotics) (Verified Allergy, Intermediate, 02/21/17) adhesive (Verified Allergy, Intermediate, 03/11/14) influenza virus vaccine, specific (Verified Allergy, Intermediate, 03/11/14) mercury (elemental) (Verified Allergy, Intermediate, 03/11/14) methadone (Verified Allergy, Intermediate, 05/17/17) methylprednisolone (Verified Allergy, Intermediate, 03/11/14) theophylline (Verified Allergy, Intermediate, 05/17/17) trazodone (Verified Allergy, Intermediate, 02/21/17) zolpidem (Verified Allergy, Intermediate, 03/11/14) albuterol (Verified Adverse Reaction, Intermediate, 02/22/17) Shaking ROS Review of System 14 point ROS conducted with pertinent positives noted above in HPI PHYSICAL EXAM General: Alert, Oriented X3, Cooperative, No acute distress HEENT: Atraumatic, Mucous membr. moist/pink Lungs: Clear to auscultation Heart: Regular rate, Normal S1, Normal S2, Other (2/6 systolic murmur ) Abdomen: Soft, No tenderness Extremities: No edema, Normal pulses Skin: No significant lesion Neuro: Normal speech, Sensation intact Psych/Mental Status: Mental status NL, Mood NL MUSCULOSKELETAL: Osteoarthritic changes both hands VITALS/I&O VITALS/I&O: Vital Signs Date Time Temp Pulse Resp B/P (MAP) Pulse Ox O2 Delivery O2 Flow Rate FiO2 01/22/19 11:00 97.9 50 18 110/53 (72) 97 Room Air 97.9 I & O 01/21/19 01/21/19 01/22/19 14:59 22:59 06:59 Intake Total 200 ml 400 ml Output Total 250 ml 300 ml Balance -50 ml 100 ml LABS Lab: Laboratory Tests Test 01/21/19 16:45 01/21/19 20:15 01/22/19 04:25 White Blood Count 7.0 x10^3/uL (4.0-11.0) 5.1 x10^3/uL (4.0-11.0) Red Blood Count 3.87 x10^6/uL (3.50-5.40) 3.80 x10^6/uL (3.50-5.40) Hemoglobin 12.1 g/dL (12.0-15.5) 11.7 g/dL (12.0-15.5) L Hematocrit 35.1 % (36.0-47.0) L 34.7 % (36.0-47.0) L Mean Corpuscular Volume 91 fL (79-100) 91 fL (79-100) Mean Corpuscular Hemoglobin 31 pg (25-35) 31 pg (25-35) Mean Corpuscular Hemoglobin Concent 34 g/dL (31-37) 34 g/dL (31-37) Red Cell Distribution Width 16.5 % (11.5-14.5) H 16.7 % (11.5-14.5) H Platelet Count 173 x10^3/uL (140-400) 149 x10^3/uL (140-400) Neutrophils (%) (Auto) 57 % (31-73) 50 % (31-73) Lymphocytes (%) (Auto) 30 % (24-48) 34 % (24-48) Monocytes (%) (Auto) 11 % (0-9) H 14 % (0-9) H Eosinophils (%) (Auto) 1 % (0-3) 2 % (0-3) Basophils (%) (Auto) 1 % (0-3) 0 % (0-3) Neutrophils # (Auto) 4.0 x10^3/uL (1.8-7.7) 2.6 x10^3/uL (1.8-7.7) Lymphocytes # (Auto) 2.1 x10^3/uL (1.0-4.8) 1.8 x10^3/uL (1.0-4.8) Monocytes # (Auto) 0.8 x10^3/uL (0.0-1.1) 0.7 x10^3/uL (0.0-1.1) Eosinophils # (Auto) 0.1 x10^3/uL (0.0-0.7) 0.1 x10^3/uL (0.0-0.7) Basophils # (Auto) 0.0 x10^3/uL (0.0-0.2) 0.0 x10^3/uL (0.0-0.2) Sodium Level 143 mmol/L (136-145) 144 mmol/L (136-145) Potassium Level 4.1 mmol/L (3.5-5.1) 3.9 mmol/L (3.5-5.1) Chloride Level 104 mmol/L (98-107) 106 mmol/L (98-107) Carbon Dioxide Level 33 mmol/L (21-32) H 32 mmol/L (21-32) Anion Gap 6 (6-14) 6 (6-14) Blood Urea Nitrogen 22 mg/dL (7-20) H 21 mg/dL (7-20) H Creatinine 0.8 mg/dL (0.6-1.0) 0.8 mg/dL (0.6-1.0) Estimated GFR (Cockcroft-Gault) 68.7 68.7 BUN/Creatinine Ratio 28 (6-20) H 26 (6-20) H Glucose Level 116 mg/dL (70-99) H 104 mg/dL (70-99) H Calcium Level 8.6 mg/dL (8.5-10.1) 8.7 mg/dL (8.5-10.1) Total Bilirubin 0.2 mg/dL (0.2-1.0) 0.1 mg/dL (0.2-1.0) L Aspartate Amino Transferase (AST) 16 U/L (15-37) 13 U/L (15-37) L Alanine Aminotransferase (ALT) 20 U/L (14-59) 18 U/L (14-59) Alkaline Phosphatase 62 U/L (46-116) 58 U/L (46-116) Troponin I Quantitative < 0.017 ng/mL (0.000-0.055) < 0.017 ng/mL (0.000-0.055) Total Protein 6.5 g/dL (6.4-8.2) 6.4 g/dL (6.4-8.2) Albumin 3.3 g/dL (3.4-5.0) L 3.0 g/dL (3.4-5.0) L Albumin/Globulin Ratio 1.0 (1.0-1.7) 0.9 (1.0-1.7) L Laboratory Tests 01/21/19 16:45 01/22/19 04:25 Laboratory Tests 01/21/19 16:45 01/22/19 04:25 ECHOCARDIOGRAM ECHOCARDIOGRAM <Conclusion> The left ventricular systolic function is normal. The Ejection Fraction is 55-60%. There is normal LV segmental wall motion. Trace to mild mitral regurgitation. Mild tricuspid regurgitation. There is moderate pulmonary hypertension. The PA pressure was estimated at 48 mmHg. There is no evidence of significant pericardial effusion. DATE: 01/02/19 1451 STRESS TEST STRESS TEST Conclusion 1. Regadenoson cardioisotope stress test showed small apical wall infarct with very small amount of brisa-infarct ischemia. 2. Normal left ventricular systolic function with ejection fraction calculated at 72%. 3. Low risk for cardiac events. DATE: 12/01/17 1226 HEART CATH HEART CATH Coronary Angiography The patient's coronary anatomy is right dominant. The left main coronary artery is a large size vessel free of disease. The left main trifurcates to the left anterior descending, circumflex, and ramus. The left anterior descending artery is a medium size vessel with stenosis. There is a 100% stenosis in the proximal segment. The first diagonal branch is a small size vessel with mild diffused disease. The second diagonal branch is a small size vessel with mild-moderate diffused disease. The circumflex artery is a medium size vessel with stenosis. There is a 50% stenosis in the proximal segment. The first obtuse marginal branch is a medium size vessel free of disease. The second obtuse marginal branch is a small size vessel free of disease. The ramus intermedius artery is a small size vessel with mild diffused disease. The right coronary artery is a medium size vessel with stenosis. There is a 100% stenosis in the proximal segment. The right posterior descending artery is a medium size vessel with mild diffused disease. The right posterolateral branch is a small size vessel with mild diffused disease. The left internal mammary artery to the mid left anterior descending artery segment is patent . The saphenous vein graft to the distal right coronary artery is patent there is a 50% mid third stenosis. The saphenous vein graft to the first obtuse marginal branch segment is occluded . Left Ventriculography The left ventricle is mildly dilated in size with decreased contractility. The left ventricular ejection fraction is estimated to be 35%. The left ventricular end diastolic pressure is 22 mmHg. There was no gradient across the aortic valve upon pullback. Valves The LA is dilated and it looks like moderate MR but may need to do a DMITRIY to verify Conclusion This pt with severe [place] vessel CAD and an ischemic cardiomyopathy has disease of small vessels and I would recommend medical treatment Recommendations Medical Therapy DATE: 01/25/161811 ASSESSMENT/PLAN ASSESSMENT/PLAN 1. Chest pain, mixed features. AMI ruled out. EKG without significant acute changes 2. CAD s/p remote CABG. Cath in 2016 with small vessel disease as noted above 3. Accelerated hypertension; better controlled 4. Chronic diastolic CHF; clinically compensated 5. Hyperlipidemia; statin 6. H/o CVA 7. Sinus bradycardia. lowest 42. No pauses Recommendations Lipids ASA Avoid AV shashank blocking agents Secondary prevention measures. NPO p MN D/w primary cardiology, will proceed with MPI in am to r/o ischemia KASH RUSS APRN Jan 22, 2019 12:24
[2019-01-22 13:33] LABS: CHOLESTEROL/HDL RATIO 3.3
--- NOTE | 2019-01-22 14:26 | NUR ---
SS following for discharge planning. SS reviewed pt chart. Pt is from detention apartment at [place] in [place] and previously had services with [facility], ; fax [phone]. PT/OT recommended nursing home unit at discharge. SS met with pt to discuss discuss discharge planning and nursing home unit. Pt reported that she cannot go to nursing home unit and will not do the therapy. Pt requesting to return to her apartment at this time with home healthcare services. Pt's RN notified. SS will continue to follow for discharge planning.
[2019-01-22 15:00] VITALS: BP 111/43
[2019-01-22 19:00] VITALS: BP_SYST 127; BP_SYST 138; BP_DIAS 41; BP_DIAS 47
[2019-01-22] MEDS: ATORVASTATIN CALCIUM 20 MG TABLET PO SCH (20:37)
[2019-01-22] MEDS ORDERED: ATORVASTATIN CALCIUM 20 MG TABLET PO SCH (21:00)
[2019-01-22 23:00] VITALS: BP 127/41
[2019-01-23] MEDS: traMADol 50 MG TABLET PO PRN ×2 (02:49→11:35)
[2019-01-23 03:00] VITALS: BP 121/49
[2019-01-23 07:00] VITALS: BP 142/62
[2019-01-23] MEDS ORDERED: REGADENOSON 0.4 MG/5 ML DISP.SYRIN. IV ONE (08:30)
[2019-01-23] MEDS: CETIRIZINE HCL 10 MG TABLET. PO SCH (09:00)
--- NOTE | 2019-01-23 09:18 | NUR ---
Patient left the floor for procedure at approx 0900.
--- NOTE | 2019-01-23 10:04 | PDOC ---
CARDIO Progress Notes Date and Time Date of Service 01/23/2019 Time of Evaluation 0940 Subjective Subjective: No Chest Pain, No shortness of breath, No Palpitations Vitals Vitals Vital Signs Date Time Temp Pulse Resp B/P (MAP) Pulse Ox O2 Delivery O2 Flow Rate FiO2 01/23/19 07:00 98.1 63 142/62 (88) 95 Room Air 98.1 01/23/19 03:49 18 Weight Weight [ ] Input and Output Intake and Output Intake and Output 01/23/19 07:00 Intake Total 360 ml Output Total 1300 ml Balance -940 ml Intake Oral 360 ml Output Urine Total 1300 ml # Voids 3 Physical Exam HEENT: Neck Supple W Full Motion Chest: Symmetric LUNGS: Clear to Auscultation Heart: S1S2, RRR (SR) Abdomen: Soft N/T Extremities: No Edema, No Calf Tenderness, Other (leg bruises with improved inferoorbital ecchymoses ) Neurology: alert, oriented, follow commands Assessment Assessment 1. Chest pain, mixed features 2. CAD s/p remote CABG. Cath in 2016 with small vessel disease as noted above 3. Accelerated hypertension; controlled 4. Chronic diastolic CHF; clinically compensated 5. Hyperlipidemia; statin 6. H/o CVA 7. Asymptomatic SB: no pauses, lowest 40s. 8. Syncope with mechanical fall Recommendations 1. MPI today, if no prefusion defects then may DC and follow up in office. 2. Intensify statin 3. Continue with secondary prevention measures. Continue norvasc and losartan 4. Avoid AV shashank blocking agents 5. Arrange for outpt event monitor. DIANNA SCOTT APRN Jan 23, 2019 10:03
--- NOTE | 2019-01-23 10:05 | NUR ---
pt returned to the floor at approx 1000.
--- NOTE | 2019-01-23 11:28 | RAD ---
MR#: [id number] Date of Study: 01/23/2019 Ordering Physician: KASH RUSS, Referring Physician: JASWINDER HARRISON Tech: RT Beto (R) (N) APPROVED REPORT Test Type: Pharmacological Stress Nurse/Tech: Anamaria Story RN Test Indications: CAD, Chest Pain Cardiac History: Hypertension,stroke,COPD Medications: See Electronic Medical Record Medical History: See Electronic Medical Record Resting ECG: SB with BBB Resting Heart Rate: 59 bpm Resting Blood Pressure: 156/63mmHg Pretest Chest Pain: Atypical angina Nurse/Tech Notes S1,S2 and lungs slightly diminished in the bases. Patient stated she had chest pain during pictures but felt better now. Consent: The procedure was explained to the patient in lay terms. Informed consent was witnessed. Justino eout was entered into [employer]. History and Stress Test performed by RT Nica (R) (N) Pharm. Details Pharmacologic stress testing was performed using 0.4mg per 5ml of regadenoson given intravenously ove r 7-10 seconds. Stress Symptoms No chest pain or symptoms. POST EXERCISE Reason for Termination: Infusion complete Target HR: No Max HR: 82 bpm Max Blood Pressure: 153/58mmHg Blood Pressure response to exercise: Normal blood pressure response during stress. Heart Rate response to exercise: WNL Chest Pain: No. Arrhythmia: Yes. PVC's ST Change: No. INTERPRETATION Stress EKG Conclusion: Baseline EKG showed sinus rhythm. No ischemic changes at peak stress. No arr hythmias. Imaging Protocol IMAGE PROTOCOL: Rest Tc-99m/stress Tc-99m 1 day Rest: Stress: Viability: Radiopharm.Tc99m [id number] Sestamibi Fffw35kUf 32mCi Duration 13min. 13min. Img Date 01/23/2019 01/23/2019 Inj-Img Spsy36htv. 60min. Rest Admin Site:IV - Left WristAdministrator:GISELLE Balderas, ARRT (R)(N) Stress Admin Site: IV - Left WristAdministrator: GISELLE Balderas, ARRT (R)(N) STRESS DATA End Diast. Vol.70.0mlLVEDV index BSA43.0ml End Syst. Vol.21.0mlLVESV index BSA13.0ml Myocardial Uqvj693.0gEject. Hbdyjyqq16.0% Stress Scores Regional WT0.00Summed WT1.00 Regional WM0.00Summed WM11.00 LV Perfusion scintigraphic images showed small predominantly fixed defect involving the apical wall consistent wit h previous myocardial infarction with very small amount of reversibility consistent with brisa-infarct ischemia. Wall Motion Normal left ventricle systolic function with ejection fraction calculated at 70%. LV Perf. Quant 17 Seg. SSS5.00 17 Seg. SRS2.00 17 Seg. SDS3.00 Stress Defect Extent (% LAD)15.60Rest Defect Extent (% LAD)6.30Rev. Defect Extent (% LAD)0.00 Stress Defect Extent (% LCX) 5.00Rest Defect Extent (% LCX)0.00Rev. Defect Extent (% LCX)3.80 Stress Defect Extent (% RCA)0.00Rest Defect Extent (% RCA)0.00Rev. Defect Extent (% RCA)0.00 Stress Defect Extent (% ELLY)8.70Rest Defect Extent (% ELLY)2.20Rev. Defect Extent (% ELLY)0.70 Conclusion 1. Regadenoson cardioisotope stress test showed small apical wall infarct with very small amount of p nico-infarct ischemia. 2. Normal left ventricular systolic function with ejection fraction calculated at 70%. 3. Low risk for cardiac events. Signed by : Robin Kaur, Electronically Approved : 01/23/2019 11:27:36
[2019-01-23] MEDS: CHOLECALCIFEROL (VITAMIN D3) 1,000 UNIT TABLET PO SCH (11:29)
[2019-01-23] MEDS: GABAPENTIN 300 MG CAPSULE. PO SCH (11:30)
[2019-01-23] MEDS: ASPIRIN ENTERIC COATED 81 MG TABLET.DR. PO SCH (11:30)
[2019-01-23] MEDS: FUROSEMIDE 40 MG TABLET. PO SCH (11:30)
[2019-01-23] MEDS: amLODIPine BESYLATE 10 MG TABLET PO SCH (11:30)
[2019-01-23] MEDS: SERTRALINE 50 MG TABLET. PO SCH (11:31)
[2019-01-23] MEDS: LOSARTAN POTASSIUM 50 MG TABLET. PO SCH (11:31)
[2019-01-23] MEDS: POTASSIUM CHLORIDE 20 MEQ TABLET.ER. PO SCH (11:34)
[2019-01-23] MEDS ORDERED: POLYETHYLENE GLYCOL 3350 17 GM PACKET. PO SCH (13:00)
--- NOTE | 2019-01-23 13:03 | PDOC ---
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 She reports no acute complaints and would like to go home. She reports having access to a walker at home to ambulate. 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 Her EKG showed bradycardia with no ST segment or Twave changes, did show left axis deviation. Negative troponin x2 Still having some substernal CP today. She has not c/o shortness of breath or GI symptoms. Tolerating food well. Vitals/I&O Vitals/I&O: Vital Signs Date Time Temp Pulse Resp B/P (MAP) Pulse Ox O2 Delivery O2 Flow Rate FiO2 01/23/19 12:35 95 Room Air 01/23/19 11:31 63 142/62 01/23/19 07:00 98.1 98.1 01/23/19 03:49 18 I & O 01/22/19 01/22/19 01/23/19 15:00 23:00 07:00 Intake Total 360 ml Output Total 800 ml 300 ml 200 ml Balance -800 ml 60 ml -200 ml Physical Exam General: Alert, Oriented X3, Cooperative, No acute distress Heart: Regular rate, Normal S1, Normal S2, Other (2/6 systolic murmur ) Lungs: Clear Abdomen: Soft, No tenderness Extremities: No edema, Normal pulses Skin: No significant lesion Review of Systems Review of Systems: Denies N/V/D Denies CP Denies SOB Assessment and Plan Assessmemt and Plan Problems Medical Problems: (1) Chest pain Status: Acute A/P: Chest pain 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 Comment Review of Relevant I have reviewed the following items saji (where applicable) has been applied. Medications: Current Medications Medications (Trade) Dose Ordered Sig/Conrad Route PRN Reason Start Time Stop Time Status Last Admin Dose Admin Regadenoson (Lexiscan) 0.4 mg 1X ONCE IV 01/23/19 08:30 01/23/19 08:33 DC 01/23/19 08:30 SHARONA MARTI III DO Jan 23, 2019 13:03
[2019-01-23 15:32] VITALS: BP 120/54
[2019-01-23] MEDS ORDERED: ATORVASTATIN CALCIUM 20 MG TABLET PO SCH (21:00)
--- NOTE | 2019-01-24 08:05 | NUR ---
LATE ENTRY: SS phoned and faxed discharge orders and referral to [facility], ; fax [phone]. Pt's RN notified.
[2020-01-22] MEDS ORDERED: ATORVASTATIN CALCIUM 20 MG TABLET PO SCH (23:00)
== END 2019-01-23 19:45 | disposition home health service (06) | DRG 392 ==
LOC: ER 16:28 → 2 SOUTH 17:41
PROVIDERS: ADMIT Internal Medicine; ATTEND Internal Medicine
DX: K21.9 Gastro-esophageal reflux disease without esophagitis (principal); I50.32 Chronic diastolic (congestive) heart failure; E78.5 Hyperlipidemia, unspecified; F03.90 Unspecified dementia, unspecified severity, without behavioral disturbance, psychotic disturbance, mood disturbance, and anxiety; F41.8 Other specified anxiety disorders; G62.9 Polyneuropathy, unspecified; H54.8 Legal blindness, as defined in USA; I11.0 Hypertensive heart disease with heart failure; I25.10 Atherosclerotic heart disease of native coronary artery without angina pectoris; I25.2 Old myocardial infarction; I73.9 Peripheral vascular disease, unspecified; J44.9 Chronic obstructive pulmonary disease, unspecified; M19.90 Unspecified osteoarthritis, unspecified site; Z79.82 Long term (current) use of aspirin; Z82.49 Family history of ischemic heart disease and other diseases of the circulatory system; Z86.73 Personal history of transient ischemic attack (TIA), and cerebral infarction without residual deficits; Z95.1 Presence of aortocoronary bypass graft; Z90.710 Acquired absence of both cervix and uterus; Z88.0 Allergy status to penicillin; Z88.2 Allergy status to sulfonamides; Z88.8 Allergy status to other drugs, medicaments and biological substances; Z91.048 Other nonmedicinal substance allergy status
CPT/HCPCS: 36415; 71045; 78452; 80053; 80061; 84484; 85025; 93005; 93017; 96374; A9500; J2270; J2785; 99285-25; G0378

== ENCOUNTER → 2019-02-11 | Outpatient (CLI) | payer MEDICARE ==
[2019-01-23 15:32] VITALS: BP 120/54
[~2019-02-11] MED LIST changes: +GABA-585 PO; +SIMV20TA18 PO; -SIMV20TA3 PO
--- NOTE | 2019-02-11 19:32 | PAIN ---
DATE OF SERVICE: 02/11/2019 PROGRESS NOTE FOR PAIN CLINIC DIAGNOSES: 1. Lumbar radiculopathy with lumbar degenerative disk disease, lumbar spinal stenosis. 2. Cervical radiculopathy with cervical degenerative disk disease. HISTORY OF PRESENT ILLNESS: The patient is an 83-year-old female who returns for followup status post lumbar epidural steroid injections x 3, most recently 12/24/2018. The patient did very well with about a 50% improvement overall with the pain is returning now in the low back, bilateral lower extremities for about the past 2 weeks. The patient reports it is increasing in low back, posterior gluteus, posterior thigh, lateral thighs, anterior thighs, medial thighs and lower leg, and also there is pain in the anterior pelvis. The patient reports she was recently in the hospital for a cardiac checkup and she was being moved from one bed to another and the social science research assistant helping to move her, hold her left leg without the right leg and it caused some stretching in the groin area. She has had some significant pain in that region since. The patient reports the pain is a 9 on a scale of 10 at its worst, 9 on average and a 9 at its least and is a 9 today. The patient reports it is stabbing, sharp, shooting in the low back radiating to the groin, especially on the left side as well as in the low back itself. The patient reports no new motor or sensory deficits, no bowel or bladder incontinence. PHYSICAL EXAMINATION: VITAL SIGNS: The patient's blood pressure 120/52, pulse 60, respirations 18, temperature is 98.5 degrees Fahrenheit, height is 4 feet 11 inches and weight is 147 pounds. GENERAL: The patient is awake, alert, oriented, appropriate, very pleasant demeanor. HEENT: Shows normocephalic, atraumatic. Extraocular movements are intact and symmetrical. Oral cavity: Mucous membranes moist and pink. Dentition is intact. NECK: Shows anterior throat is supple without palpable lymphadenopathy noted. Swallow reflex symmetrical. CHEST: Shows normal on inspection. Breath sounds clear to auscultation bilaterally. HEART: Shows S1, S2 clear. No murmurs auscultated. ABDOMEN: Soft, nontender, nondistended. BACK: Shows spine grossly in the midline. Slight exaggeration of thoracic kyphosis and minor flattening of lumbar lordotic curvature. Lumbar paraspinous muscle shows symmetrical on inspection, with palpation shows some moderate tenderness diffusely throughout the upper and lower distribution of the paraspinous muscles, with very firm musculature, very tender again diffusely throughout without any specific trigger points or atrophy or hypertrophy. EXTREMITIES: The patient's lower extremities show deep tendon reflexes 1+ in the patellar and tendo calcaneus tendons. Motor exam is 4 on a scale of 5, but equal with dorsiflexion, extension, quadriceps and hamstring flexion. Peripheral pulses are 1+ posterior tibia. No peripheral edema is noted. PLAN: Options were discussed with the patient. The patient's old chart was reviewed as her current medication regimen updated. Current review of systems updated today as well. We will try Medrol Dosepak. The patient was given instruction as well as side effects to be aware of with the medication. If not significantly improved, we will have the patient return for reexamination at that time. We discussed this with her as well. She also was encouraged to maintain stretching and strengthening exercises, heat application to the low back with the stretching and continued walking as she reports she is doing daily in her apartment. I encouraged her to maintain this and tried heat and stretching therapies and return if not significantly improved as scheduled. JAK RO MD DR: JUDY/cathryn JOB#: [id number] / [id number]
== END ==
LOC: PNCL 13:45
PROVIDERS: ATTEND Anesthesiology
DX: M51.16 Intervertebral disc disorders with radiculopathy, lumbar region (principal); M50.10 Cervical disc disorder with radiculopathy, unspecified cervical region; M48.061 Spinal stenosis, lumbar region without neurogenic claudication; I10 Essential (primary) hypertension; I25.10 Atherosclerotic heart disease of native coronary artery without angina pectoris; K21.9 Gastro-esophageal reflux disease without esophagitis; F32.9 Major depressive disorder, single episode, unspecified; J44.9 Chronic obstructive pulmonary disease, unspecified; Z88.2 Allergy status to sulfonamides; Z88.0 Allergy status to penicillin; Z88.7 Allergy status to serum and vaccine; Z88.8 Allergy status to other drugs, medicaments and biological substances; Z91.09 Other allergy status, other than to drugs and biological substances; M19.90 Unspecified osteoarthritis, unspecified site; Z90.710 Acquired absence of both cervix and uterus; Z98.890 Other specified postprocedural states
CPT/HCPCS: G0463

== ENCOUNTER → 2019-05-13 | Outpatient (CLI) | payer MEDICARE ==
[~2019-05-13] MED LIST changes: +ACET-704 PO; -CETI10TA22 PO; +CETI10TA24 PO; +HYDR-3164 PO; +MELA10TA PO; +POLY2500 PO; +POTA20TA4 PO; -POTA20TA82 PO
[2019-05-13 09:32] LABS: BASO % 1 % (0-3); EOS # 0.1 x10^3/uL (0.0-0.7); EOS % 2 % (0-3); HEMATOCRIT 38.4 % (36.0-47.0); HEMOGLOBIN 12.7 g/dL (12.0-15.5); LYMPH # 2.3 x10^3/uL (1.0-4.8); LYMPH % 54 % (24-48); MEAN CORPUSCULAR HEMOGLOBIN 29 pg (25-35); MEAN CORPUSCULAR HGB CONC 33 g/dL (31-37); MEAN CORPUSCULAR VOLUME 89 fL (79-100); MONO # 0.4 x10^3/uL (0.0-1.1); MONO % 10 % (0-9); NEUT # 1.4 x10^3/uL (1.8-7.7); NEUT % 33 % (31-73); PLATELET COUNT 209 x10^3/uL (140-400); RED BLOOD COUNT 4.31 x10^6/uL (3.50-5.40); RED CELL DISTRIBUTION WIDTH 14.2 % (11.5-14.5); WHITE BLOOD COUNT 4.3 x10^3/uL (4.0-11.0)
[2019-05-13 09:49] LABS: PROTHROMBIN TIME PATIENT 13.1 SEC (11.7-14.0)
[2019-05-13 09:56] LABS: ALBUMIN 3.7 g/dL (3.4-5.0); CALCIUM 9.4 mg/dL (8.5-10.1); CREATININE 0.6 mg/dL (0.6-1.0); GFR 95.7; POTASSIUM 3.7 mmol/L (3.5-5.1)
== END | disposition home or self-care (01) ==
LOC: SURGPAT 13:10
PROVIDERS: ATTEND Orthopaedic Surgery
DX: Z01.818 Encounter for other preprocedural examination (principal); I50.9 Heart failure, unspecified; M16.12 Unilateral primary osteoarthritis, left hip; Z79.899 Other long term (current) drug therapy
CPT/HCPCS: 36415; 80048; 82040; 82306; 85025; 85610; 85651; 85730; 87641

== ENCOUNTER 2019-06-17 21:24 | Inpatient (IN) | payer MEDICARE ==
[~2019-06-17] VITALS: Ht 149.9 cm; Wt 66.1 kg
[~2019-06-17 21:24] MED LIST changes: +MELA3TAB4 PO; -MELA3TAB56 PO; +WARF3TAB54 PO
--- NOTE | 2019-06-17 21:46 | PHYS DOC ---
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 Hu on May 28. She was the [facility] facility until Monday and then was discharged home where she has been having home health. She is getting around in a wheelchair. She reports that sometime over the weekend she was told she had a fever but isn't sure if it was when she was the rehab center on Monday or at [facility]. EMS was called tonight due to pt feeling SOB, feverish and having a cough. She denies chest pain but states her chest feels heavy. Pt has significant CAD history with a triple bypass at the age of 66. Pt is on Warfarin. Review of Systems Review of Systems Constitutional: Reports fevers and chills. HENT: Reports nasal congestion and sore throat. Respiratory: Reports cough and SOB. Cardiovascular: Reports chest "heaviness" GI: Denies abdominal pain, nausea, vomiting, bloody stools or diarrhea : Denies dysuria or hematuria Musculoskeletal: Denies back pain. Reports L hip pain from recent surgery. Integument: Denies rash or skin lesions Neurologic: Denies headache, focal weakness or sensory changes All other systems were reviewed and found to be within normal limits, except as documented in this note. Allergies Allergies Allergies Coded Allergies Type Severity Reaction Last Updated Verified MIGUEL ANGEL Inhibitors Allergy Intermediate 05/28/19 Yes Penicillins Allergy Intermediate 05/28/19 Yes Sulfa (Sulfonamide Antibiotics) Allergy Intermediate 05/28/19 Yes adhesive Allergy Intermediate 05/28/19 Yes influenza virus vaccine, specific Allergy Intermediate 05/28/19 Yes mercury (elemental) Allergy Intermediate 05/28/19 Yes methadone Allergy Intermediate 05/28/19 Yes methylprednisolone Allergy Intermediate 05/28/19 Yes theophylline Allergy Intermediate 05/28/19 Yes trazodone Allergy Intermediate 05/28/19 Yes zolpidem Allergy Intermediate 05/28/19 Yes albuterol Adverse Reaction Intermediate 05/28/19 Yes estradiol Adverse Reaction Intermediate Unknown 05/28/19 Yes oxycodone Adverse Reaction Intermediate Unknown 05/28/19 Yes Physical Exam Physical Exam Constitutional: Well developed, well nourished, no acute distress, non-toxic appearance. HENT: Normocephalic, atraumatic, bilateral external ears normal, nose normal. Mild erythema of oropharynx. Neck: Normal range of motion, no tenderness, supple, no stridor. Cardiovascular:Heart rate regular rhythm, no murmur Lungs & Thorax: Wheezing B, decreased breath sounds B, no respiratory distress noted. Abdomen: Bowel sounds normal, soft, no tenderness, no masses, no pulsatile masses. Skin: Warm, dry, no erythema, no rash. Healing surgical incision on L hip. Appears well, no signs of infection. Back: No tenderness, no CVA tenderness. Extremities: No cyanosis, no clubbing, ROM intact, no edema. Decreased ROM of L hip due to recent surgery. Neurologic: Alert and oriented X 3, normal motor function, normal sensory function, no focal deficits noted. Psychologic: Affect normal, judgement normal, mood normal. Current Patient Data Vital Signs Vital Signs Date Time Temp Pulse Resp B/P (MAP) Pulse Ox O2 Delivery O2 Flow Rate FiO2 06/17/19 22:35 72 12 146/67 (93) Room Air 06/17/19 22:05 93 06/17/19 21:25 100.2 100.2 Lab Values Laboratory Tests Test 06/17/19 21:35 White Blood Count 4.4 x10^3/uL (4.0-11.0) Red Blood Count 3.31 x10^6/uL (3.50-5.40) L Hemoglobin 9.8 g/dL (12.0-15.5) L Hematocrit 29.3 % (36.0-47.0) L Mean Corpuscular Volume 89 fL (79-100) Mean Corpuscular Hemoglobin 30 pg (25-35) Mean Corpuscular Hemoglobin Concent 33 g/dL (31-37) Red Cell Distribution Width 15.2 % (11.5-14.5) H Platelet Count 386 x10^3/uL (140-400) Neutrophils (%) (Auto) 55 % (31-73) Lymphocytes (%) (Auto) 28 % (24-48) Monocytes (%) (Auto) 16 % (0-9) H Eosinophils (%) (Auto) 1 % (0-3) Basophils (%) (Auto) 1 % (0-3) Neutrophils # (Auto) 2.4 x10^3/uL (1.8-7.7) Lymphocytes # (Auto) 1.2 x10^3/uL (1.0-4.8) Monocytes # (Auto) 0.7 x10^3/uL (0.0-1.1) Eosinophils # (Auto) 0.0 x10^3/uL (0.0-0.7) Basophils # (Auto) 0.0 x10^3/uL (0.0-0.2) Prothrombin Time 21.3 SEC (11.7-14.0) H Prothrombin Time INR 1.9 (0.8-1.1) H Activated Partial Thromboplast Time 36 SEC (24-38) D-Dimer (Juanita) 3.68 ug/mlFEU (0.00-0.50) H Sodium Level 139 mmol/L (136-145) Potassium Level 4.0 mmol/L (3.5-5.1) Chloride Level 99 mmol/L (98-107) Carbon Dioxide Level 29 mmol/L (21-32) Anion Gap 11 (6-14) Blood Urea Nitrogen 14 mg/dL (7-20) Creatinine 1.3 mg/dL (0.6-1.0) H Estimated GFR (Cockcroft-Gault) 39.2 BUN/Creatinine Ratio 11 (6-20) Glucose Level 113 mg/dL (70-99) H Lactic Acid Level 1.1 mmol/L (0.4-2.0) Calcium Level 8.6 mg/dL (8.5-10.1) Total Bilirubin 0.3 mg/dL (0.2-1.0) Aspartate Amino Transferase (AST) 24 U/L (15-37) Alanine Aminotransferase (ALT) 23 U/L (14-59) Alkaline Phosphatase 121 U/L (46-116) H Creatine Kinase 96 U/L (26-192) Creatine Kinase MB (Mass) 1.9 ng/mL (0.0-3.6) Creatine Kinase MB Relative Index 2.0 % (0-4) Troponin I Quantitative 0.062 ng/mL (0.000-0.055) MW-Ful-C-Type Natriuretic Peptide 2500 pg/mL (0-449) H Total Protein 6.9 g/dL (6.4-8.2) Albumin 3.4 g/dL (3.4-5.0) Albumin/Globulin Ratio 1.0 (1.0-1.7) Influenza Type A Antigen Negative (NEGATIVE) Influenza Type B Antigen Negative (NEGATIVE) Laboratory Tests 06/17/19 21:35 Laboratory Tests 06/17/19 21:35 EKG EKG NSR, rate 75bpm, No STEMI, evaluated by Dr. Perez Radiology/Procedures Radiology/Procedures [] Course & Med Decision Making Course & Med Decision Making Pt was not able to have a CT angio chest due to her kidney function. She is at high risk for PE, however she is on Coumadin with an INR of 1.9. She does have an elevated troponin, with chest pressure, but no acute findings currently on EKG. Will order a VQ scan and admit to trend her enzymes. Pt does have low grade temperature and some haziness on CXR which could be early infiltrate. She is allergic to PCN and Sulfa and unsure of cephalosporins, so will give a one time dose of Levaquin. Pt has a headache and body aches when I went to talk with her about her results so tylenol ordered. Discussed admission for further care. Pt in agreement with plan. Dragon Disclaimer Dragon Disclaimer This electronic medical record was generated, in whole or in part, using a voice recognition dictation system. Departure Departure Impression: Primary Impression: Elevated troponin Additional Impressions: Cough Fever Disposition: ADMITTED INPATIENT Admitting Physician: TIERA Condition: STABLE Referrals: HARI KNOWLES MD (PCP) Problem Qualifiers DEVAN ZAVALA Jun 17, 2019 21:46
[2019-06-17 21:52] LABS: BASO % 1 % (0-3); EOS % 1 % (0-3); HEMATOCRIT 29.3 % (36.0-47.0); HEMOGLOBIN 9.8 g/dL (12.0-15.5); LYMPH # 1.2 x10^3/uL (1.0-4.8); LYMPH % 28 % (24-48); MEAN CORPUSCULAR HEMOGLOBIN 30 pg (25-35); MEAN CORPUSCULAR HGB CONC 33 g/dL (31-37); MEAN CORPUSCULAR VOLUME 89 fL (79-100); MONO # 0.7 x10^3/uL (0.0-1.1); MONO % 16 % (0-9); NEUT # 2.4 x10^3/uL (1.8-7.7); NEUT % 55 % (31-73); PLATELET COUNT 386 x10^3/uL (140-400); RED BLOOD COUNT 3.31 x10^6/uL (3.50-5.40); RED CELL DISTRIBUTION WIDTH 15.2 % (11.5-14.5); WHITE BLOOD COUNT 4.4 x10^3/uL (4.0-11.0)
[2019-06-17 21:59] LABS: PROTHROMBIN TIME PATIENT 21.3 SEC (11.7-14.0)
[2019-06-17 22:04] LABS: CALCIUM 8.6 mg/dL (8.5-10.1); CREATININE 1.3 mg/dL (0.6-1.0); GFR 39.2
[2019-06-17 22:08] LABS: INFLUENZA A PATIENT NEGATIVE (NEGATIVE); INFLUENZA B PATIENT NEGATIVE (NEGATIVE)
[2019-06-17 22:10] LABS: ALBUMIN 3.4 g/dL (3.4-5.0); TOTAL BILIRUBIN 0.3 mg/dL (0.2-1.0); TOTAL PROTEIN 6.9 g/dL (6.4-8.2)
[2019-06-17] MEDS ORDERED: ACETAMINOPHEN 500 MG TABLET PO ONE (23:15)
[2019-06-18] VITALS (7 sets, daily range): BP systolic 119–145; BP diastolic 54–90
--- NOTE | 2019-06-18 00:02 | RAD ---
AP chest. HISTORY: Chest pressure, cough, fever AP view was taken of the chest. Comparison is made with a study from January 2019. Patient had previous coronary bypass. Heart upper normal in size. There is no pleural effusion. There are no confluent infiltrates. There is not evidence of heart failure. IMPRESSION: 1. No acute infiltrates. Electronically signed by: Jens Walter MD (06/17/2019 11:58 PM) [id number]
[2019-06-18 02:16] LABS: BILIRUBIN,URINE NEGATIVE (NEG); CLARITY,URINE CLEAR; COLOR,URINE YELLOW; NITRITE,URINE NEGATIVE (NEG); PROTEIN,URINE NEGATIVE (NEG-TRACE); UROBILINOGEN,URINE 0.2 mg/dL (0.2 mg/dL)
--- NOTE | 2019-06-18 02:26 | NUR ---
[facility]. Alert on arrival. Orientated to room and call light. Reviewed POC to include tele monitor and out of bed with assist. Verbalized understanding. Resting in bed watching TV. Call light at hand.
[2019-06-18 02:33] LABS: BACTERIA,URINE FEW /HPF (0-FEW); HYALINE CASTS, URINE MODERATE /HPF; RBC,URINE OCC /HPF (0-2); SQUAMOUS EPITHELIAL CELL,UR MOD /LPF; WBC,URINE TNTC /HPF (0-4)
[2019-06-18 02:58] LABS: BASO % 1 % (0-3); EOS % 1 % (0-3); HEMATOCRIT 28.6 % (36.0-47.0); HEMOGLOBIN 9.7 g/dL (12.0-15.5); LYMPH # 1.4 x10^3/uL (1.0-4.8); LYMPH % 32 % (24-48); MEAN CORPUSCULAR HEMOGLOBIN 30 pg (25-35); MEAN CORPUSCULAR HGB CONC 34 g/dL (31-37); MEAN CORPUSCULAR VOLUME 89 fL (79-100); MONO # 0.8 x10^3/uL (0.0-1.1); MONO % 17 % (0-9); NEUT # 2.1 x10^3/uL (1.8-7.7); NEUT % 49 % (31-73); PLATELET COUNT 342 x10^3/uL (140-400); RED BLOOD COUNT 3.24 x10^6/uL (3.50-5.40); RED CELL DISTRIBUTION WIDTH 15.3 % (11.5-14.5); WHITE BLOOD COUNT 4.4 x10^3/uL (4.0-11.0)
[2019-06-18 03:05] LABS: CALCIUM 8.2 mg/dL (8.5-10.1); CREATININE 1.2 mg/dL (0.6-1.0); POTASSIUM 3.9 mmol/L (3.5-5.1)
[2019-06-18] MEDS: HYDROcodone/APAP 5/325MG 1 TAB TABLET PO PRN ×3 (04:22→18:46)
[2019-06-18] MEDS ORDERED: LACTULOSE 20 GM/30 ML SOLUTION. PO PRN (09:00)
[2019-06-18] MEDS ORDERED: HYDROcodone/APAP 5/325MG 1 TAB TABLET PO PRN (09:00)
[2019-06-18] MEDS ORDERED: POLYETHYLENE GLYCOL 3350 17 GM PACKET. PO SCH (09:00)
[2019-06-18] MEDS ORDERED: METOPROLOL TART IMMED RELEASE 25 MG TABLET. PO PRN (09:00)
--- NOTE | 2019-06-18 09:10 | PDOC1 ---
History and Physical Date of Admission Date of Admission DATE: 06/18/19 TIME: 09:08 Source Source: Chart review, Patient History of Present Illness History of Present Illness Ms. Castro, is a 83 year old F who underwent a L total hip surgery by Dr. Hu on May 28. She was the [facility] facility until Monday and she has worse shortness of breath ocer the last few days. she feels she got a cold while getting in the shower at rehab, and was discharged home and has gotten more short of breath. She has been getting around in a wheelchair, her hip pain is OK, . She reports that sometime over the weekend she was told she had a fever but isn't sure if it was when she was the rehab center on Monday or at home. EMS was called last night, due to pt feeling SOB, feverish and having a cough. Past Medical History Cardiovascular: CAD, CHF, HTN, Hyperlipidemia Pulmonary: COPD CENTRAL NERVOUS SYSTEM: CVA, Dementia GI: GERD Psych: Anxiety, Depression Musculoskeletal: Osteoarthritis Past Surgical History Past Surgical History: CABG, Tonsillectomy, Hysterectomy Family History Family History: Coronary Artery Disease Social History Smoke: No ALCOHOL: none Drugs: None Current Problem List Problem List Problems Medical Problems: (1) Cough Status: Acute (2) Elevated troponin Status: Acute (3) Fever Status: Acute Current Medications Current Medications Current Medications Levofloxacin/ Dextrose 100 ml @ 100 mls/hr 1X ONCE IV Last administered on 06/17/19at 23:26; Start 06/17/19 at 23:15; Stop 06/18/19 at 00:14; Status DC Acetaminophen (Tylenol) 500 mg 1X ONCE PO Last administered on 06/17/19at 23:26; Start 06/17/19 at 23:15; Stop 06/17/19 at 23:16; Status DC Enoxaparin Sodium (Lovenox 60mg Syringe) 60 mg 1X ONCE SQ Last administered on 06/17/19at 23:30; Start 06/17/19 at 23:15; Stop 06/17/19 at 23:17; Status DC Acetaminophen/ Hydrocodone Bitart (Lortab 5/325) 2 tab PRN Q6HRS PRN PO PAIN Last administered on 06/18/19at 04:22; Start 3/10/20 at 03:45 Amlodipine Besylate (Norvasc) 10 mg DAILY PO ; Start 06/18/19 at 09:00 Aspirin (Ecotrin) 81 mg DAILY PO ; Start 06/18/19 at 09:00 Atorvastatin Calcium (Lipitor) 20 mg HS PO ; Start 06/18/19 at 21:00 Vitamin D (Vitamin D3) 1,000 unit DAILY PO ; Start 06/18/19 at 09:00 Furosemide (Lasix) 40 mg DAILY PO ; Start 06/18/19 at 09:00 Gabapentin (Neurontin) 600 mg TID PO ; Start 06/18/19 at 09:00 Acetaminophen/ Hydrocodone Bitart (Lortab 5/325) 1 tab QIDPRN PRN PO pain; Start 06/18/19 at 09:00 Lactulose (Lactulose) 20 gm PRN DAILY PRN PO CONSTIPATION; Start 06/18/19 at 09:00 Metoprolol Tartrate (Lopressor) 25 mg DAILY PRN PO TACHYCARDIA; Start 06/18/19 at 09:00; Status UNV Potassium Chloride (Klor-Con) 20 meq DAILY PO ; Start 06/18/19 at 09:00 Warfarin Sodium (Coumadin) 3 mg 1X WARF PO ; Start 06/18/19 at 16:00 Non-Formulary Medication (Melatonin ) 10 mg QHS PO ; Start 06/18/19 at 21:00; Status UNV Non-Formulary Medication (Polyethylene Glycol 3350 ) 17 gm DAILY PO ; Start 06/18/19 at 09:00; Status UNV Active Scripts Active [place] 5-325 Tablet (Acetaminophen/Hydrocodone Bitart) 1 Each Tablet 1-2 Tab PO Q4-6HRS Coumadin (Warfarin Sodium) 3 Mg Tablet 3 Mg PO 1X WARF 42 Days Warfarin 3 mg daily or as directed by pharmacy per anticoagulation testing and laboratory results Reported Lactulose 20 Gm/30 Ml Solution 20 Gm PO PRN DAILY PRN Polyethylene Glycol 3350 2,500 Gm Powder 17 Gm PO DAILY 30 Days Melatonin 10 Mg Tablet 10 Mg PO QHS Gabapentin (Gabapentin) 300 Mg Capsule 600 Mg PO TID Vitamin D3 (Cholecalciferol (Vitamin D3)) 1,000 Unit Tablet 1,000 Unit PO DAILY Potassium Chloride (Potassium Chloride) 20 Meq Tablet.er 20 Meq PO DAILY Amlodipine Besylate 10 Mg Tablet 10 Mg PO DAILY Atorvastatin Calcium 20 Mg Tablet 1 Tab PO HS Lasix (Furosemide) 40 Mg Tablet 1 Tab PO DAILY Losartan Potassium 100 Mg Tablet 1 Tab PO DAILY Metoprolol Tartrate 25 Mg Tablet 1 Tab PO DAILY PRN Take as needed for HR greater then 50 bpm Aspir-Low (Aspirin) 81 Mg Tablet. 1 Tab PO DAILY Allergies Allergies: Coded Allergies: MIGUEL ANGEL Inhibitors (Verified Allergy, Intermediate, 05/28/19) Penicillins (Verified Allergy, Intermediate, 05/28/19) TOLERATES ROCEPHIN Sulfa (Sulfonamide Antibiotics) (Verified Allergy, Intermediate, 05/28/19) adhesive (Verified Allergy, Intermediate, 05/28/19) influenza virus vaccine, specific (Verified Allergy, Intermediate, 05/28/19) mercury (elemental) (Verified Allergy, Intermediate, 05/28/19) methadone (Verified Allergy, Intermediate, 05/28/19) methylprednisolone (Verified Allergy, Intermediate, 05/28/19) theophylline (Verified Allergy, Intermediate, 05/28/19) trazodone (Verified Allergy, Intermediate, 05/28/19) zolpidem (Verified Allergy, Intermediate, 05/28/19) albuterol (Verified Adverse Reaction, Intermediate, 05/28/19) Shaking estradiol (Verified Adverse Reaction, Intermediate, Unknown, 05/28/19) oxycodone (Verified Adverse Reaction, Intermediate, Unknown, 05/28/19) ROS General: YES: Fatigue, Malaise, Appetite PSYCHOLOGICAL ROS: YES: Sleep disturbances; No: Anxiety, Behavioral Disorder, Concentration difficultie, Decreased libido, Depression, Disorientation, Hallucinations, Hostility, Memory difficulties, Mood Swings, Obsessive thoughts, Physical abuse, Sexual abuse, Suicidal ideation, Other Eyes: No Blurry vision, No Decreased vision, No Double vision, No Dry eyes, No Excessive tearing, No Eye Pain, No Itchy Eyes, No Loss of vision, No Photophobia, No Scotomata, No Uses contacts, No Uses glasses, No Other HEENT: No: Heacaches, Visual Changes, Hearing change, Nasal congestion, Nasal discharge, Oral lesions, Sinus pain, Sore Throat, Epistaxis, Sneezing, Snoring, Tinnitus, Vertigo, Vocal changes, Other Respiratory: YES: Cough, Shortness of breath, SOB with excertion, Tachypnea; No: Hemoptysis, Orthopnea, Pleuritic Pain, Sputum Changes, Stridor, Wheezing, Other Cardiovascular: No Chest Pain, No Palpitations, No Orthopnea, No Paroxysmal Noc. Dyspnea, No Edema, No Lt Headedness, No Other Gastrointestinal: Yes Nausea; No Vomiting, No Abdominal Pain, No Diarrhea, No Constipation, No Melena, No Hematochezia, No Other Genitourinary: No Dysuria, No Frequency, No Incontinence, No Hematuria, No Retention, No Discharge, No Urgency, No Pain, No Flank Pain, No Other, No , No , No , No , No , No , No Musculoskeletal: No Gait Disturbance, No Joint Pain, No Joint Stiffness, No Joint Swelling, No Muscle Pain, No Muscular Weakness, No Pain In:, No Swelling In:, No Other Neurological: No Behavorial Changes, No Bowel/Bladder ControlChng, No Confusion, No Dizziness, No Gait Disturbance, No Headaches, No Impaired Coord/balance, No Memory Loss, No Numbness/Tingling, No Seizures, No Speech Problems, No Tremors, No Visual Changes, No Weakness, No Other Skin: No Dry Skin, No Eczema, No Hair Changes, No Lumps, No Mole Changes, No Mottling, No Nail Changes, No Pruritus, No Rash, No Skin Lesion Changes, No Other, No Acne Physical Exam General: Alert, Oriented X3, Cooperative, No acute distress HEENT: Atraumatic, PERRLA, Mucous membr. moist/pink Lungs: Clear to auscultation, Normal air movement Heart: RRR, no gallops, no murmurs Abdomen: Soft, No tenderness Extremities: No clubbing, No edema, Normal pulses Skin: No rashes Neuro: Normal speech, Sensation intact, Cranial nerves 3-12 NL Psych/Mental Status: Mental status NL, Mood NL Vitals Vitals Vital Signs Date Time Temp Pulse Resp B/P (MAP) Pulse Ox O2 Delivery O2 Flow Rate FiO2 06/18/19 05:22 18 92 Room Air 06/18/19 03:50 99.2 76 145/65 (91) 99.2 Labs Labs Laboratory Tests Test 06/17/19 21:35 06/18/19 01:35 06/18/19 01:50 White Blood Count 4.4 x10^3/uL (4.0-11.0) 4.4 x10^3/uL (4.0-11.0) Red Blood Count 3.31 x10^6/uL (3.50-5.40) 3.24 x10^6/uL (3.50-5.40) Hemoglobin 9.8 g/dL (12.0-15.5) 9.7 g/dL (12.0-15.5) Hematocrit 29.3 % (36.0-47.0) 28.6 % (36.0-47.0) Mean Corpuscular Volume 89 fL (79-100) 89 fL (79-100) Mean Corpuscular Hemoglobin 30 pg (25-35) 30 pg (25-35) Mean Corpuscular Hemoglobin Concent 33 g/dL (31-37) 34 g/dL (31-37) Red Cell Distribution Width 15.2 % (11.5-14.5) 15.3 % (11.5-14.5) Platelet Count 386 x10^3/uL (140-400) 342 x10^3/uL (140-400) Neutrophils (%) (Auto) 55 % (31-73) 49 % (31-73) Lymphocytes (%) (Auto) 28 % (24-48) 32 % (24-48) Monocytes (%) (Auto) 16 % (0-9) 17 % (0-9) Eosinophils (%) (Auto) 1 % (0-3) 1 % (0-3) Basophils (%) (Auto) 1 % (0-3) 1 % (0-3) Neutrophils # (Auto) 2.4 x10^3/uL (1.8-7.7) 2.1 x10^3/uL (1.8-7.7) Lymphocytes # (Auto) 1.2 x10^3/uL (1.0-4.8) 1.4 x10^3/uL (1.0-4.8) Monocytes # (Auto) 0.7 x10^3/uL (0.0-1.1) 0.8 x10^3/uL (0.0-1.1) Eosinophils # (Auto) 0.0 x10^3/uL (0.0-0.7) 0.0 x10^3/uL (0.0-0.7) Basophils # (Auto) 0.0 x10^3/uL (0.0-0.2) 0.0 x10^3/uL (0.0-0.2) Prothrombin Time 21.3 SEC (11.7-14.0) Prothromb Time International Ratio 1.9 (0.8-1.1) Activated Partial Thromboplast Time 36 SEC (24-38) D-Dimer (Juanita) 3.68 ug/mlFEU (0.00-0.50) Sodium Level 139 mmol/L (136-145) 139 mmol/L (136-145) Potassium Level 4.0 mmol/L (3.5-5.1) 3.9 mmol/L (3.5-5.1) Chloride Level 99 mmol/L (98-107) 101 mmol/L (98-107) Carbon Dioxide Level 29 mmol/L (21-32) 28 mmol/L (21-32) Anion Gap 11 (6-14) 10 (6-14) Blood Urea Nitrogen 14 mg/dL (7-20) 13 mg/dL (7-20) Creatinine 1.3 mg/dL (0.6-1.0) 1.2 mg/dL (0.6-1.0) Estimated GFR (Cockcroft-Gault) 39.2 43.0 BUN/Creatinine Ratio 11 (6-20) Glucose Level 113 mg/dL (70-99) 99 mg/dL (70-99) Lactic Acid Level 1.1 mmol/L (0.4-2.0) Calcium Level 8.6 mg/dL (8.5-10.1) 8.2 mg/dL (8.5-10.1) Total Bilirubin 0.3 mg/dL (0.2-1.0) Aspartate Amino Transf (AST/SGOT) 24 U/L (15-37) Alanine Aminotransferase (ALT/SGPT) 23 U/L (14-59) Alkaline Phosphatase 121 U/L (46-116) Creatine Kinase 96 U/L (26-192) Creatine Kinase MB (Mass) 1.9 ng/mL (0.0-3.6) Creatine Kinase MB Relative Index 2.0 % (0-4) Troponin I Quantitative 0.062 ng/mL (0.000-0.055) 0.052 ng/mL (0.000-0.055) PN-Cvq-Q-Type Natriuretic Peptide 2500 pg/mL (0-449) Total Protein 6.9 g/dL (6.4-8.2) Albumin 3.4 g/dL (3.4-5.0) Albumin/Globulin Ratio 1.0 (1.0-1.7) Influenza Type A Antigen Negative (NEGATIVE) Influenza Type B Antigen Negative (NEGATIVE) Urine Collection Type Unknown Urine Color Yellow Urine Clarity Clear Urine pH 6.0 (<5.0-8.0) Urine Specific [place] 1.015 (1.000-1.030) Urine Protein Negative mg/dL (NEG-TRACE) Urine Glucose (UA) Negative mg/dL (NEG) Urine Ketones (Stick) Trace mg/dL (NEG) Urine Blood Moderate (NEG) Urine Nitrite Negative (NEG) Urine Bilirubin Negative (NEG) Urine Urobilinogen Dipstick 0.2 mg/dL (0.2 mg/dL) Urine Leukocyte Esterase Moderate (NEG) Urine RBC Occ /HPF (0-2) Urine WBC Tntc /HPF (0-4) Urine Squamous Epithelial Cells Mod /LPF Urine Transitional Epithelial Cells Occ /LPF Urine Renal Epithelial Cells Occ /LPF Urine Bacteria Few /HPF (0-FEW) Urine Hyaline Casts Moderate /HPF Urine Mucus Slight /LPF Laboratory Tests Test 06/17/19 21:35 06/18/19 01:35 06/18/19 01:50 White Blood Count 4.4 x10^3/uL (4.0-11.0) 4.4 x10^3/uL (4.0-11.0) Red Blood Count 3.31 x10^6/uL (3.50-5.40) 3.24 x10^6/uL (3.50-5.40) Hemoglobin 9.8 g/dL (12.0-15.5) 9.7 g/dL (12.0-15.5) Hematocrit 29.3 % (36.0-47.0) 28.6 % (36.0-47.0) Mean Corpuscular Volume 89 fL (79-100) 89 fL (79-100) Mean Corpuscular Hemoglobin 30 pg (25-35) 30 pg (25-35) Mean Corpuscular Hemoglobin Concent 33 g/dL (31-37) 34 g/dL (31-37) Red Cell Distribution Width 15.2 % (11.5-14.5) 15.3 % (11.5-14.5) Platelet Count 386 x10^3/uL (140-400) 342 x10^3/uL (140-400) Neutrophils (%) (Auto) 55 % (31-73) 49 % (31-73) Lymphocytes (%) (Auto) 28 % (24-48) 32 % (24-48) Monocytes (%) (Auto) 16 % (0-9) 17 % (0-9) Eosinophils (%) (Auto) 1 % (0-3) 1 % (0-3) Basophils (%) (Auto) 1 % (0-3) 1 % (0-3) Neutrophils # (Auto) 2.4 x10^3/uL (1.8-7.7) 2.1 x10^3/uL (1.8-7.7) Lymphocytes # (Auto) 1.2 x10^3/uL (1.0-4.8) 1.4 x10^3/uL (1.0-4.8) Monocytes # (Auto) 0.7 x10^3/uL (0.0-1.1) 0.8 x10^3/uL (0.0-1.1) Eosinophils # (Auto) 0.0 x10^3/uL (0.0-0.7) 0.0 x10^3/uL (0.0-0.7) Basophils # (Auto) 0.0 x10^3/uL (0.0-0.2) 0.0 x10^3/uL (0.0-0.2) Prothrombin Time 21.3 SEC (11.7-14.0) Prothromb Time International Ratio 1.9 (0.8-1.1) Activated Partial Thromboplast Time 36 SEC (24-38) D-Dimer (Juanita) 3.68 ug/mlFEU (0.00-0.50) Sodium Level 139 mmol/L (136-145) 139 mmol/L (136-145) Potassium Level 4.0 mmol/L (3.5-5.1) 3.9 mmol/L (3.5-5.1) Chloride Level 99 mmol/L (98-107) 101 mmol/L (98-107) Carbon Dioxide Level 29 mmol/L (21-32) 28 mmol/L (21-32) Anion Gap 11 (6-14) 10 (6-14) Blood Urea Nitrogen 14 mg/dL (7-20) 13 mg/dL (7-20) Creatinine 1.3 mg/dL (0.6-1.0) 1.2 mg/dL (0.6-1.0) Estimated GFR (Cockcroft-Gault) 39.2 43.0 BUN/Creatinine Ratio 11 (6-20) Glucose Level 113 mg/dL (70-99) 99 mg/dL (70-99) Lactic Acid Level 1.1 mmol/L (0.4-2.0) Calcium Level 8.6 mg/dL (8.5-10.1) 8.2 mg/dL (8.5-10.1) Total Bilirubin 0.3 mg/dL (0.2-1.0) Aspartate Amino Transf (AST/SGOT) 24 U/L (15-37) Alanine Aminotransferase (ALT/SGPT) 23 U/L (14-59) Alkaline Phosphatase 121 U/L (46-116) Creatine Kinase 96 U/L (26-192) Creatine Kinase MB (Mass) 1.9 ng/mL (0.0-3.6) Creatine Kinase MB Relative Index 2.0 % (0-4) Troponin I Quantitative 0.062 ng/mL (0.000-0.055) 0.052 ng/mL (0.000-0.055) DW-Eib-A-Type Natriuretic Peptide 2500 pg/mL (0-449) Total Protein 6.9 g/dL (6.4-8.2) Albumin 3.4 g/dL (3.4-5.0) Albumin/Globulin Ratio 1.0 (1.0-1.7) Influenza Type A Antigen Negative (NEGATIVE) Influenza Type B Antigen Negative (NEGATIVE) Urine Collection Type Unknown Urine Color Yellow Urine Clarity Clear Urine pH 6.0 (<5.0-8.0) Urine Specific [place] 1.015 (1.000-1.030) Urine Protein Negative mg/dL (NEG-TRACE) Urine Glucose (UA) Negative mg/dL (NEG) Urine Ketones (Stick) Trace mg/dL (NEG) Urine Blood Moderate (NEG) Urine Nitrite Negative (NEG) Urine Bilirubin Negative (NEG) Urine Urobilinogen Dipstick 0.2 mg/dL (0.2 mg/dL) Urine Leukocyte Esterase Moderate (NEG) Urine RBC Occ /HPF (0-2) Urine WBC Tntc /HPF (0-4) Urine Squamous Epithelial Cells Mod /LPF Urine Transitional Epithelial Cells Occ /LPF Urine Renal Epithelial Cells Occ /LPF Urine Bacteria Few /HPF (0-FEW) Urine Hyaline Casts Moderate /HPF Urine Mucus Slight /LPF VTE Prophylaxis Ordered VTE Prophylaxis Devices: Yes VTE Pharmacological Prophylaxi: No Assessment/Plan Assessment/Plan acute bronchitis, dyspnea, levaquin given in ER, will contineu acute shortness of breath, VQ scan andcv w./u to be completed recent hip surg, consult ortho to follow weakness and debility htn, chf, home meds NATA FRANKLIN MD Jun 18, 2019 09:10
[2019-06-18] MEDS: GABAPENTIN 300 MG CAPSULE. PO SCH ×3 (09:49→22:01)
[2019-06-18] MEDS: ASPIRIN ENTERIC COATED 81 MG TABLET.DR. PO SCH (09:49)
[2019-06-18] MEDS: POTASSIUM CHLORIDE 20 MEQ TABLET.ER. PO SCH (09:49)
[2019-06-18] MEDS: amLODIPine BESYLATE 10 MG TABLET PO SCH (09:50)
[2019-06-18] MEDS: METOPROLOL TART IMMED RELEASE 25 MG TABLET. PO SCH (09:50)
[2019-06-18] MEDS: POLYETHYLENE GLYCOL 3350 17 GM PACKET. PO SCH ×2 (09:51→22:02)
[2019-06-18] MEDS: CHOLECALCIFEROL (VITAMIN D3) 1,000 UNIT TABLET PO SCH (09:51)
[2019-06-18] MEDS: FUROSEMIDE 40 MG TABLET. PO SCH (09:51)
--- NOTE | 2019-06-18 10:20 | EKG ---
[facility] [address] [place] [address] Test Date: 2019-06-17 Test Time: 21:39:23 Pat Name: PRUDENCE SALINAS Department: Room: 260 1 Gender: F Party Plan Demonstrator: : 1935 Requested By: DEVAN ZAVALA Order Number: [id number] Reading MD: Measurements Intervals [place] Rate: 75 P: 90 ME: 144 QRS: -62 QRSD: 122 T: 35 QT: 394 QTc: 443 Interpretive Statements SINUS RHYTHM ABNORMAL LEFT AXIS DEVIATION LEFT ANTERIOR FASCICULAR BLOCK LEFT VENTRICULAR HYPERTROPHY RVH WITH REPOLARIZATION ABNORMALITY ABNORMAL ECG RI6.01 No previous ECG available for comparison
--- NOTE | 2019-06-18 14:00 | NUR ---
SS following for discharge planning. SS reviewed pt chart. Pt is from home ([facility]) and is currently on room air. PT/OT ordered. SS will continue to follow for discharge planning.
--- NOTE | 2019-06-18 14:36 | PDOC ---
PROGRESS NOTES Subjective Subjective Problems overnight: Omayra is follow-up of left total hip arthroplasty and reports getting around very well on the hip and did physical therapy twice today. She has no pain or other complaints associated with the hip Objective Vital Signs Vital Signs Date Time Temp Pulse Resp B/P (MAP) Pulse Ox O2 Delivery O2 Flow Rate FiO2 06/18/19 12:14 Room Air 06/18/19 11:00 98.3 65 18 122/57 (78) 92 98.3 Physical Exam On examination her left hip incision is well-healed is no redness or erythema leg lengths are equal distal neurovascular status intact and she has excellent range of motion Labs Laboratory Tests Test 06/17/19 21:35 06/18/19 01:35 06/18/19 01:50 White Blood Count 4.4 x10^3/uL (4.0-11.0) 4.4 x10^3/uL (4.0-11.0) Red Blood Count 3.31 x10^6/uL (3.50-5.40) 3.24 x10^6/uL (3.50-5.40) Hemoglobin 9.8 g/dL (12.0-15.5) 9.7 g/dL (12.0-15.5) Hematocrit 29.3 % (36.0-47.0) 28.6 % (36.0-47.0) Mean Corpuscular Volume 89 fL (79-100) 89 fL (79-100) Mean Corpuscular Hemoglobin 30 pg (25-35) 30 pg (25-35) Mean Corpuscular Hemoglobin Concent 33 g/dL (31-37) 34 g/dL (31-37) Red Cell Distribution Width 15.2 % (11.5-14.5) 15.3 % (11.5-14.5) Platelet Count 386 x10^3/uL (140-400) 342 x10^3/uL (140-400) Neutrophils (%) (Auto) 55 % (31-73) 49 % (31-73) Lymphocytes (%) (Auto) 28 % (24-48) 32 % (24-48) Monocytes (%) (Auto) 16 % (0-9) 17 % (0-9) Eosinophils (%) (Auto) 1 % (0-3) 1 % (0-3) Basophils (%) (Auto) 1 % (0-3) 1 % (0-3) Neutrophils # (Auto) 2.4 x10^3/uL (1.8-7.7) 2.1 x10^3/uL (1.8-7.7) Lymphocytes # (Auto) 1.2 x10^3/uL (1.0-4.8) 1.4 x10^3/uL (1.0-4.8) Monocytes # (Auto) 0.7 x10^3/uL (0.0-1.1) 0.8 x10^3/uL (0.0-1.1) Eosinophils # (Auto) 0.0 x10^3/uL (0.0-0.7) 0.0 x10^3/uL (0.0-0.7) Basophils # (Auto) 0.0 x10^3/uL (0.0-0.2) 0.0 x10^3/uL (0.0-0.2) Prothrombin Time 21.3 SEC (11.7-14.0) Prothromb Time International Ratio 1.9 (0.8-1.1) Activated Partial Thromboplast Time 36 SEC (24-38) D-Dimer (Juanita) 3.68 ug/mlFEU (0.00-0.50) Sodium Level 139 mmol/L (136-145) 139 mmol/L (136-145) Potassium Level 4.0 mmol/L (3.5-5.1) 3.9 mmol/L (3.5-5.1) Chloride Level 99 mmol/L (98-107) 101 mmol/L (98-107) Carbon Dioxide Level 29 mmol/L (21-32) 28 mmol/L (21-32) Anion Gap 11 (6-14) 10 (6-14) Blood Urea Nitrogen 14 mg/dL (7-20) 13 mg/dL (7-20) Creatinine 1.3 mg/dL (0.6-1.0) 1.2 mg/dL (0.6-1.0) Estimated GFR (Cockcroft-Gault) 39.2 43.0 BUN/Creatinine Ratio 11 (6-20) Glucose Level 113 mg/dL (70-99) 99 mg/dL (70-99) Lactic Acid Level 1.1 mmol/L (0.4-2.0) Calcium Level 8.6 mg/dL (8.5-10.1) 8.2 mg/dL (8.5-10.1) Total Bilirubin 0.3 mg/dL (0.2-1.0) Aspartate Amino Transf (AST/SGOT) 24 U/L (15-37) Alanine Aminotransferase (ALT/SGPT) 23 U/L (14-59) Alkaline Phosphatase 121 U/L (46-116) Creatine Kinase 96 U/L (26-192) Creatine Kinase MB (Mass) 1.9 ng/mL (0.0-3.6) Creatine Kinase MB Relative Index 2.0 % (0-4) Troponin I Quantitative 0.062 ng/mL (0.000-0.055) 0.052 ng/mL (0.000-0.055) KJ-Odb-B-Type Natriuretic Peptide 2500 pg/mL (0-449) Total Protein 6.9 g/dL (6.4-8.2) Albumin 3.4 g/dL (3.4-5.0) Albumin/Globulin Ratio 1.0 (1.0-1.7) Influenza Type A Antigen Negative (NEGATIVE) Influenza Type B Antigen Negative (NEGATIVE) Urine Collection Type Unknown Urine Color Yellow Urine Clarity Clear Urine pH 6.0 (<5.0-8.0) Urine Specific [place] 1.015 (1.000-1.030) Urine Protein Negative mg/dL (NEG-TRACE) Urine Glucose (UA) Negative mg/dL (NEG) Urine Ketones (Stick) Trace mg/dL (NEG) Urine Blood Moderate (NEG) Urine Nitrite Negative (NEG) Urine Bilirubin Negative (NEG) Urine Urobilinogen Dipstick 0.2 mg/dL (0.2 mg/dL) Urine Leukocyte Esterase Moderate (NEG) Urine RBC Occ /HPF (0-2) Urine WBC Tntc /HPF (0-4) Urine Squamous Epithelial Cells Mod /LPF Urine Transitional Epithelial Cells Occ /LPF Urine Renal Epithelial Cells Occ /LPF Urine Bacteria Few /HPF (0-FEW) Urine Hyaline Casts Moderate /HPF Urine Mucus Slight /LPF Laboratory Tests Test 06/17/19 21:35 06/18/19 01:35 3/10/20 01:50 White Blood Count 4.4 x10^3/uL (4.0-11.0) 4.4 x10^3/uL (4.0-11.0) Red Blood Count 3.31 x10^6/uL (3.50-5.40) 3.24 x10^6/uL (3.50-5.40) Hemoglobin 9.8 g/dL (12.0-15.5) 9.7 g/dL (12.0-15.5) Hematocrit 29.3 % (36.0-47.0) 28.6 % (36.0-47.0) Mean Corpuscular Volume 89 fL (79-100) 89 fL (79-100) Mean Corpuscular Hemoglobin 30 pg (25-35) 30 pg (25-35) Mean Corpuscular Hemoglobin Concent 33 g/dL (31-37) 34 g/dL (31-37) Red Cell Distribution Width 15.2 % (11.5-14.5) 15.3 % (11.5-14.5) Platelet Count 386 x10^3/uL (140-400) 342 x10^3/uL (140-400) Neutrophils (%) (Auto) 55 % (31-73) 49 % (31-73) Lymphocytes (%) (Auto) 28 % (24-48) 32 % (24-48) Monocytes (%) (Auto) 16 % (0-9) 17 % (0-9) Eosinophils (%) (Auto) 1 % (0-3) 1 % (0-3) Basophils (%) (Auto) 1 % (0-3) 1 % (0-3) Neutrophils # (Auto) 2.4 x10^3/uL (1.8-7.7) 2.1 x10^3/uL (1.8-7.7) Lymphocytes # (Auto) 1.2 x10^3/uL (1.0-4.8) 1.4 x10^3/uL (1.0-4.8) Monocytes # (Auto) 0.7 x10^3/uL (0.0-1.1) 0.8 x10^3/uL (0.0-1.1) Eosinophils # (Auto) 0.0 x10^3/uL (0.0-0.7) 0.0 x10^3/uL (0.0-0.7) Basophils # (Auto) 0.0 x10^3/uL (0.0-0.2) 0.0 x10^3/uL (0.0-0.2) Prothrombin Time 21.3 SEC (11.7-14.0) Prothromb Time International Ratio 1.9 (0.8-1.1) Activated Partial Thromboplast Time 36 SEC (24-38) D-Dimer (Juanita) 3.68 ug/mlFEU (0.00-0.50) Sodium Level 139 mmol/L (136-145) 139 mmol/L (136-145) Potassium Level 4.0 mmol/L (3.5-5.1) 3.9 mmol/L (3.5-5.1) Chloride Level 99 mmol/L (98-107) 101 mmol/L (98-107) Carbon Dioxide Level 29 mmol/L (21-32) 28 mmol/L (21-32) Anion Gap 11 (6-14) 10 (6-14) Blood Urea Nitrogen 14 mg/dL (7-20) 13 mg/dL (7-20) Creatinine 1.3 mg/dL (0.6-1.0) 1.2 mg/dL (0.6-1.0) Estimated GFR (Cockcroft-Gault) 39.2 43.0 BUN/Creatinine Ratio 11 (6-20) Glucose Level 113 mg/dL (70-99) 99 mg/dL (70-99) Lactic Acid Level 1.1 mmol/L (0.4-2.0) Calcium Level 8.6 mg/dL (8.5-10.1) 8.2 mg/dL (8.5-10.1) Total Bilirubin 0.3 mg/dL (0.2-1.0) Aspartate Amino Transf (AST/SGOT) 24 U/L (15-37) Alanine Aminotransferase (ALT/SGPT) 23 U/L (14-59) Alkaline Phosphatase 121 U/L (46-116) Creatine Kinase 96 U/L (26-192) Creatine Kinase MB (Mass) 1.9 ng/mL (0.0-3.6) Creatine Kinase MB Relative Index 2.0 % (0-4) Troponin I Quantitative 0.062 ng/mL (0.000-0.055) 0.052 ng/mL (0.000-0.055) PF-Eha-U-Type Natriuretic Peptide 2500 pg/mL (0-449) Total Protein 6.9 g/dL (6.4-8.2) Albumin 3.4 g/dL (3.4-5.0) Albumin/Globulin Ratio 1.0 (1.0-1.7) Influenza Type A Antigen Negative (NEGATIVE) Influenza Type B Antigen Negative (NEGATIVE) Urine Collection Type Unknown Urine Color Yellow Urine Clarity Clear Urine pH 6.0 (<5.0-8.0) Urine Specific [place] 1.015 (1.000-1.030) Urine Protein Negative mg/dL (NEG-TRACE) Urine Glucose (UA) Negative mg/dL (NEG) Urine Ketones (Stick) Trace mg/dL (NEG) Urine Blood Moderate (NEG) Urine Nitrite Negative (NEG) Urine Bilirubin Negative (NEG) Urine Urobilinogen Dipstick 0.2 mg/dL (0.2 mg/dL) Urine Leukocyte Esterase Moderate (NEG) Urine RBC Occ /HPF (0-2) Urine WBC Tntc /HPF (0-4) Urine Squamous Epithelial Cells Mod /LPF Urine Transitional Epithelial Cells Occ /LPF Urine Renal Epithelial Cells Occ /LPF Urine Bacteria Few /HPF (0-FEW) Urine Hyaline Casts Moderate /HPF Urine Mucus Slight /LPF Assessment Assessment Omayra is status post left total hip arthroplasty Plan Plan of Care She can continue to mobilize as tolerated with standard total hip precautions weightbearing as tolerated Otherwise stable from an orthopedic standpoint and I can follow up as scheduled BELLE HUDSON MD Jun 18, 2019 14:36
[2019-06-18] MEDS ORDERED: WARFARIN 3 MG TABLET. PO SCH (16:00)
[2019-06-18] MEDS ORDERED: WARFARIN 3 MG TABLET. PO ONE (16:37)
[2019-06-18] MEDS ORDERED: NON FORMULARY ITEM (Melatonin 10 MG) PO SCH (21:00)
[2019-06-18] MEDS: ATORVASTATIN CALCIUM 20 MG TABLET PO SCH (22:01)
[2019-06-18] MEDS: LACTOBACILLUS RHAMNOSUS GG 1 CAPSULE. PO SCH (22:01)
[2019-06-19] MEDS: HYDROcodone/APAP 5/325MG 1 TAB TABLET PO PRN ×3 (00:37→20:42)
[2019-06-19 03:40] VITALS: BP 148/64
[2019-06-19 05:34] LABS: BASO % 1 % (0-3); EOS % 2 % (0-3); HEMATOCRIT 25.5 % (36.0-47.0); HEMOGLOBIN 8.6 g/dL (12.0-15.5); LYMPH # 1.6 x10^3/uL (1.0-4.8); LYMPH % 52 % (24-48); MEAN CORPUSCULAR HEMOGLOBIN 30 pg (25-35); MEAN CORPUSCULAR HGB CONC 34 g/dL (31-37); MEAN CORPUSCULAR VOLUME 88 fL (79-100); MONO # 0.5 x10^3/uL (0.0-1.1); MONO % 15 % (0-9); NEUT % 31 % (31-73); PLATELET COUNT 289 x10^3/uL (140-400); RED BLOOD COUNT 2.91 x10^6/uL (3.50-5.40); RED CELL DISTRIBUTION WIDTH 15.7 % (11.5-14.5); WHITE BLOOD COUNT 3.1 x10^3/uL (4.0-11.0)
[2019-06-19 05:59] LABS: ALBUMIN 2.6 g/dL (3.4-5.0); ALBUMIN/GLOBULIN RATIO 0.9 (1.0-1.7); CALCIUM 8.3 mg/dL (8.5-10.1); GFR 53.1; TOTAL BILIRUBIN 0.2 mg/dL (0.2-1.0); TOTAL PROTEIN 5.6 g/dL (6.4-8.2)
[2019-06-19 06:22] LABS: PROTHROMBIN TIME PATIENT 23.4 SEC (11.7-14.0)
[2019-06-19 07:00] VITALS: BP 168/88
[2019-06-19] MEDS: ASPIRIN ENTERIC COATED 81 MG TABLET.DR. PO SCH (09:58)
[2019-06-19] MEDS: amLODIPine BESYLATE 10 MG TABLET PO SCH (09:59)
[2019-06-19] MEDS: GABAPENTIN 300 MG CAPSULE. PO SCH ×3 (09:59→20:34)
[2019-06-19] MEDS: FUROSEMIDE 40 MG TABLET. PO SCH (09:59)
[2019-06-19] MEDS: CHOLECALCIFEROL (VITAMIN D3) 1,000 UNIT TABLET PO SCH (09:59)
[2019-06-19] MEDS: LACTOBACILLUS RHAMNOSUS GG 1 CAPSULE. PO SCH ×2 (09:59→20:34)
[2019-06-19] MEDS: POTASSIUM CHLORIDE 20 MEQ TABLET.ER. PO SCH (09:59)
[2019-06-19] MEDS: POLYETHYLENE GLYCOL 3350 17 GM PACKET. PO SCH ×2 (10:00→20:34)
[2019-06-19] MEDS: METOPROLOL TART IMMED RELEASE 25 MG TABLET. PO SCH (10:00)
[2019-06-19 11:00] VITALS: BP 173/71
--- NOTE | 2019-06-19 11:51 | NUR ---
SS following up with discharge planning. PT/OT recommended home with home healthcare at discharge. SS met with pt and discussed home healthcare and home healthcare options. Pt reported that she was previously on services with [facility], ; fax [phone]. SS will continue to follow for discharge planning.
[2019-06-19 15:00] VITALS: BP 139/61
--- NOTE | 2019-06-19 16:45 | NUR ---
Pharmacy Warfarin Dosing Note S: Pharmacy consulted to assist with anticoagulation therapy started 05/27/19 O: PRUDENCE SALINAS is a 83 year old F with [facility] LABS: Last INR: 2.1 Last HGB: 8.6 Last HCT: 25.5 Last PLT: 289 Last dose of 3 mg given on 06/18/19 at 1616 Vitamin K given: N Ongoing Drug Interactions: levaquin A:INR of 2.1 is within desired range. Target range for this patient is: 1.6 - 2.5 P: Warfarin dose: 3 mg Today at 1600 Bridge Therapy: none Next INR due tomorrow Pharmacy anticoagulation service will continue to follow. Cuca Christianson RPH, 06/19/19 0498
[2019-06-19] MEDS ORDERED: WARFARIN 3 MG TABLET. PO ONE (17:00)
--- NOTE | 2019-06-19 19:20 | PDOC ---
PROGRESS NOTES Chief Complaint Chief Complaint acute bronchitis, dyspnea, levaquin given in ER, will contineu acute shortness of breath, VQ scan andcv w./u to be completed recent hip surg, consult ortho to follow weakness and debility htn, chf, home meds History of Present Illness History of Present Illness feels a little better, eat some more today still very weak Vitals Vitals Vital Signs Date Time Temp Pulse Resp B/P (MAP) Pulse Ox O2 Delivery O2 Flow Rate FiO2 06/19/19 15:00 98.1 69 18 139/61 (87) 94 Room Air 98.1 Physical Exam General: Alert, Oriented X3, Cooperative, No acute distress Lungs: Clear Abdomen: Soft, No tenderness Extremities: No clubbing, No edema, Normal pulses Skin: No rashes Labs LABS Laboratory Tests Test 06/19/19 03:54 White Blood Count 3.1 x10^3/uL (4.0-11.0) Red Blood Count 2.91 x10^6/uL (3.50-5.40) Hemoglobin 8.6 g/dL (12.0-15.5) Hematocrit 25.5 % (36.0-47.0) Mean Corpuscular Volume 88 fL (79-100) Mean Corpuscular Hemoglobin 30 pg (25-35) Mean Corpuscular Hemoglobin Concent 34 g/dL (31-37) Red Cell Distribution Width 15.7 % (11.5-14.5) Platelet Count 289 x10^3/uL (140-400) Neutrophils (%) (Auto) 31 % (31-73) Lymphocytes (%) (Auto) 52 % (24-48) Monocytes (%) (Auto) 15 % (0-9) Eosinophils (%) (Auto) 2 % (0-3) Basophils (%) (Auto) 1 % (0-3) Neutrophils # (Auto) 1.0 x10^3/uL (1.8-7.7) Lymphocytes # (Auto) 1.6 x10^3/uL (1.0-4.8) Monocytes # (Auto) 0.5 x10^3/uL (0.0-1.1) Eosinophils # (Auto) 0.0 x10^3/uL (0.0-0.7) Basophils # (Auto) 0.0 x10^3/uL (0.0-0.2) Prothrombin Time 23.4 SEC (11.7-14.0) Prothromb Time International Ratio 2.1 (0.8-1.1) Sodium Level 142 mmol/L (136-145) Potassium Level 4.0 mmol/L (3.5-5.1) Chloride Level 104 mmol/L (98-107) Carbon Dioxide Level 30 mmol/L (21-32) Anion Gap 8 (6-14) Blood Urea Nitrogen 12 mg/dL (7-20) Creatinine 1.0 mg/dL (0.6-1.0) Estimated GFR (Cockcroft-Gault) 53.1 BUN/Creatinine Ratio 12 (6-20) Glucose Level 94 mg/dL (70-99) Calcium Level 8.3 mg/dL (8.5-10.1) Total Bilirubin 0.2 mg/dL (0.2-1.0) Aspartate Amino Transf (AST/SGOT) 17 U/L (15-37) Alanine Aminotransferase (ALT/SGPT) 14 U/L (14-59) Alkaline Phosphatase 95 U/L (46-116) Total Protein 5.6 g/dL (6.4-8.2) Albumin 2.6 g/dL (3.4-5.0) Albumin/Globulin Ratio 0.9 (1.0-1.7) Assessment and Plan Assessmemt and Plan Problems Medical Problems: (1) Cough Status: Acute (2) Elevated troponin Status: Acute (3) Fever Status: Acute Comment Review of Relevant I have reviewed the following items saji (where applicable) has been applied. Labs Laboratory Tests Test 06/17/19 21:35 06/18/19 01:35 06/18/19 01:50 06/19/19 03:54 White Blood Count 4.4 x10^3/uL (4.0-11.0) 4.4 x10^3/uL (4.0-11.0) 3.1 x10^3/uL (4.0-11.0) Red Blood Count 3.31 x10^6/uL (3.50-5.40) 3.24 x10^6/uL (3.50-5.40) 2.91 x10^6/uL (3.50-5.40) Hemoglobin 9.8 g/dL (12.0-15.5) 9.7 g/dL (12.0-15.5) 8.6 g/dL (12.0-15.5) Hematocrit 29.3 % (36.0-47.0) 28.6 % (36.0-47.0) 25.5 % (36.0-47.0) Mean Corpuscular Volume 89 fL (79-100) 89 fL (79-100) 88 fL (79-100) Mean Corpuscular Hemoglobin 30 pg (25-35) 30 pg (25-35) 30 pg (25-35) Mean Corpuscular Hemoglobin Concent 33 g/dL (31-37) 34 g/dL (31-37) 34 g/dL (31-37) Red Cell Distribution Width 15.2 % (11.5-14.5) 15.3 % (11.5-14.5) 15.7 % (11.5-14.5) Platelet Count 386 x10^3/uL (140-400) 342 x10^3/uL (140-400) 289 x10^3/uL (140-400) Neutrophils (%) (Auto) 55 % (31-73) 49 % (31-73) 31 % (31-73) Lymphocytes (%) (Auto) 28 % (24-48) 32 % (24-48) 52 % (24-48) Monocytes (%) (Auto) 16 % (0-9) 17 % (0-9) 15 % (0-9) Eosinophils (%) (Auto) 1 % (0-3) 1 % (0-3) 2 % (0-3) Basophils (%) (Auto) 1 % (0-3) 1 % (0-3) 1 % (0-3) Neutrophils # (Auto) 2.4 x10^3/uL (1.8-7.7) 2.1 x10^3/uL (1.8-7.7) 1.0 x10^3/uL (1.8-7.7) Lymphocytes # (Auto) 1.2 x10^3/uL (1.0-4.8) 1.4 x10^3/uL (1.0-4.8) 1.6 x10^3/uL (1.0-4.8) Monocytes # (Auto) 0.7 x10^3/uL (0.0-1.1) 0.8 x10^3/uL (0.0-1.1) 0.5 x10^3/uL (0.0-1.1) Eosinophils # (Auto) 0.0 x10^3/uL (0.0-0.7) 0.0 x10^3/uL (0.0-0.7) 0.0 x10^3/uL (0.0-0.7) Basophils # (Auto) 0.0 x10^3/uL (0.0-0.2) 0.0 x10^3/uL (0.0-0.2) 0.0 x10^3/uL (0.0-0.2) Prothrombin Time 21.3 SEC (11.7-14.0) 23.4 SEC (11.7-14.0) Prothromb Time International Ratio 1.9 (0.8-1.1) 2.1 (0.8-1.1) Activated Partial Thromboplast Time 36 SEC (24-38) D-Dimer (Juanita) 3.68 ug/mlFEU (0.00-0.50) Sodium Level 139 mmol/L (136-145) 139 mmol/L (136-145) 142 mmol/L (136-145) Potassium Level 4.0 mmol/L (3.5-5.1) 3.9 mmol/L (3.5-5.1) 4.0 mmol/L (3.5-5.1) Chloride Level 99 mmol/L (98-107) 101 mmol/L (98-107) 104 mmol/L (98-107) Carbon Dioxide Level 29 mmol/L (21-32) 28 mmol/L (21-32) 30 mmol/L (21-32) Anion Gap 11 (6-14) 10 (6-14) 8 (6-14) Blood Urea Nitrogen 14 mg/dL (7-20) 13 mg/dL (7-20) 12 mg/dL (7-20) Creatinine 1.3 mg/dL (0.6-1.0) 1.2 mg/dL (0.6-1.0) 1.0 mg/dL (0.6-1.0) Estimated GFR (Cockcroft-Gault) 39.2 43.0 53.1 BUN/Creatinine Ratio 11 (6-20) 12 (6-20) Glucose Level 113 mg/dL (70-99) 99 mg/dL (70-99) 94 mg/dL (70-99) Lactic Acid Level 1.1 mmol/L (0.4-2.0) Calcium Level 8.6 mg/dL (8.5-10.1) 8.2 mg/dL (8.5-10.1) 8.3 mg/dL (8.5-10.1) Total Bilirubin 0.3 mg/dL (0.2-1.0) 0.2 mg/dL (0.2-1.0) Aspartate Amino Transf (AST/SGOT) 24 U/L (15-37) 17 U/L (15-37) Alanine Aminotransferase (ALT/SGPT) 23 U/L (14-59) 14 U/L (14-59) Alkaline Phosphatase 121 U/L (46-116) 95 U/L (46-116) Creatine Kinase 96 U/L (26-192) Creatine Kinase MB (Mass) 1.9 ng/mL (0.0-3.6) Creatine Kinase MB Relative Index 2.0 % (0-4) Troponin I Quantitative 0.062 ng/mL (0.000-0.055) 0.052 ng/mL (0.000-0.055) BI-Ius-L-Type Natriuretic Peptide 2500 pg/mL (0-449) Total Protein 6.9 g/dL (6.4-8.2) 5.6 g/dL (6.4-8.2) Albumin 3.4 g/dL (3.4-5.0) 2.6 g/dL (3.4-5.0) Albumin/Globulin Ratio 1.0 (1.0-1.7) 0.9 (1.0-1.7) Influenza Type A Antigen Negative (NEGATIVE) Influenza Type B Antigen Negative (NEGATIVE) Urine Collection Type Unknown Urine Color Yellow Urine Clarity Clear Urine pH 6.0 (<5.0-8.0) Urine Specific [place] 1.015 (1.000-1.030) Urine Protein Negative mg/dL (NEG-TRACE) Urine Glucose (UA) Negative mg/dL (NEG) Urine Ketones (Stick) Trace mg/dL (NEG) Urine Blood Moderate (NEG) Urine Nitrite Negative (NEG) Urine Bilirubin Negative (NEG) Urine Urobilinogen Dipstick 0.2 mg/dL (0.2 mg/dL) Urine Leukocyte Esterase Moderate (NEG) Urine RBC Occ /HPF (0-2) Urine WBC Tntc /HPF (0-4) Urine Squamous Epithelial Cells Mod /LPF Urine Transitional Epithelial Cells Occ /LPF Urine Renal Epithelial Cells Occ /LPF Urine Bacteria Few /HPF (0-FEW) Urine Hyaline Casts Moderate /HPF Urine Mucus Slight /LPF Laboratory Tests Test 06/19/19 03:54 White Blood Count 3.1 x10^3/uL (4.0-11.0) Red Blood Count 2.91 x10^6/uL (3.50-5.40) Hemoglobin 8.6 g/dL (12.0-15.5) Hematocrit 25.5 % (36.0-47.0) Mean Corpuscular Volume 88 fL (79-100) Mean Corpuscular Hemoglobin 30 pg (25-35) Mean Corpuscular Hemoglobin Concent 34 g/dL (31-37) Red Cell Distribution Width 15.7 % (11.5-14.5) Platelet Count 289 x10^3/uL (140-400) Neutrophils (%) (Auto) 31 % (31-73) Lymphocytes (%) (Auto) 52 % (24-48) Monocytes (%) (Auto) 15 % (0-9) Eosinophils (%) (Auto) 2 % (0-3) Basophils (%) (Auto) 1 % (0-3) Neutrophils # (Auto) 1.0 x10^3/uL (1.8-7.7) Lymphocytes # (Auto) 1.6 x10^3/uL (1.0-4.8) Monocytes # (Auto) 0.5 x10^3/uL (0.0-1.1) Eosinophils # (Auto) 0.0 x10^3/uL (0.0-0.7) Basophils # (Auto) 0.0 x10^3/uL (0.0-0.2) Prothrombin Time 23.4 SEC (11.7-14.0) Prothromb Time International Ratio 2.1 (0.8-1.1) Sodium Level 142 mmol/L (136-145) Potassium Level 4.0 mmol/L (3.5-5.1) Chloride Level 104 mmol/L (98-107) Carbon Dioxide Level 30 mmol/L (21-32) Anion Gap 8 (6-14) Blood Urea Nitrogen 12 mg/dL (7-20) Creatinine 1.0 mg/dL (0.6-1.0) Estimated GFR (Cockcroft-Gault) 53.1 BUN/Creatinine Ratio 12 (6-20) Glucose Level 94 mg/dL (70-99) Calcium Level 8.3 mg/dL (8.5-10.1) Total Bilirubin 0.2 mg/dL (0.2-1.0) Aspartate Amino Transf (AST/SGOT) 17 U/L (15-37) Alanine Aminotransferase (ALT/SGPT) 14 U/L (14-59) Alkaline Phosphatase 95 U/L (46-116) Total Protein 5.6 g/dL (6.4-8.2) Albumin 2.6 g/dL (3.4-5.0) Albumin/Globulin Ratio 0.9 (1.0-1.7) Microbiology 06/17/19 Blood Culture - Preliminary, Resulted NO GROWTH AFTER 1 DAY Medications Current Medications Levofloxacin/ Dextrose 100 ml @ 100 mls/hr 1X ONCE IV Last administered on 06/17/19at 23:26; Start 06/17/19 at 23:15; Stop 06/18/19 at 00:14; Status DC Acetaminophen (Tylenol) 500 mg 1X ONCE PO Last administered on 06/17/19at 23:26; Start 06/17/19 at 23:15; Stop 06/17/19 at 23:16; Status DC Enoxaparin Sodium (Lovenox 60mg Syringe) 60 mg 1X ONCE SQ Last administered on 06/17/19at 23:30; Start 06/17/19 at 23:15; Stop 06/17/19 at 23:17; Status DC Acetaminophen/ Hydrocodone Bitart (Lortab 5/325) 2 tab PRN Q6HRS PRN PO MODERATE PAIN, SEVERE PAIN Last administered on 06/19/19at 10:08; Start 06/18/19 at 03:45 Amlodipine Besylate (Norvasc) 10 mg DAILY PO Last administered on 06/19/19 09:59; Start 06/18/19 at 09:00 Aspirin (Ecotrin) 81 mg DAILY PO Last administered on 06/19/19at 09:58; Start 06/18/19 at 09:00 Atorvastatin Calcium (Lipitor) 20 mg HS PO Last administered on 06/18/19at 22:01; Start 06/18/19 at 21:00 Vitamin D (Vitamin D3) 1,000 unit DAILY PO Last administered on 06/19/19at 0 9:59; Start 06/18/19 at 09:00 Furosemide (Lasix) 40 mg DAILY PO Last administered on 06/19/19 09:59; Start 06/18/19 at 09:00 Gabapentin (Neurontin) 600 mg TID PO Last administered on 06/19/19at 14:04; Start 06/18/19 at 09:00 Acetaminophen/ Hydrocodone Bitart (Lortab 5/325) 1 tab QIDPRN PRN PO MILD PAIN 1-3; Start 06/18/19 at 09:00 Lactulose (Lactulose) 20 gm PRN DAILY PRN PO CONSTIPATION; Start 06/18/19 at 09:00 Metoprolol Tartrate (Lopressor) 25 mg DAILY PRN PO TACHYCARDIA; Start 06/18/19 at 09:00; Stop 06/18/19 at 09:17; Status DC Potassium Chloride (Klor-Con) 20 meq DAILY PO Last administered on 06/19/19at 09:59; Start 06/18/19 at 09:00 Warfarin Sodium (Coumadin) 3 mg 1X WARF PO Last administered on 06/18/19at 16:16; Start 06/18/19 at 16:00; Stop 06/18/19 at 16:37; Status DC Non-Formulary Medication (Melatonin ) 10 mg QHS PO ; Start 06/18/19 at 21:00; Status UNV Polyethylene Glycol (miraLAX PACKET) 17 gm DAILY PO ; Start 06/18/19 at 09:00; Stop 06/18/19 at 09:41; Status DC Levofloxacin (Levaquin) 250 mg DAILY06 PO Last administered on 06/19/19at 05:54; Start 06/19/19 at 06:00 Levofloxacin (Levaquin) 500 mg 1X ONCE PO Last administered on 06/18/19at 09:51; Start 06/18/19 at 10:00; Stop 06/18/19 at 10:01; Status DC Metoprolol Tartrate (Lopressor) 25 mg DAILY PO Last administered on 06/19/19at 10:00; Start 06/18/19 at 09:30 Warfarin Sodium (Coumadin Per Pharmacy) 1 each PRN DAILY PRN MC SEE COMMENTS Last administered on 06/19/19at 16:35; Start 06/18/19 at 09:30 Polyethylene Glycol (miraLAX PACKET) 17 gm BID PO Last administered on 06/19/19at 10:00; Start 06/18/19 at 09:45 Warfarin Sodium (Coumadin) 3 mg 1X WARF ONCE PO ; Start 06/18/19 at 16:37; Stop 06/18/19 at 16:38; Status Cancel Lactobacillus Rhamnosus (Culturelle) 1 cap BID PO Last administered on 06/19/19at 09:59; Start 06/18/19 at 21:00 Diclofenac Sodium (Voltaren) 1 elissa BID TP ; Start 06/19/19 at 21:00 Warfarin Sodium (Coumadin) 3 mg 1X ONCE PO Last administered on 06/19/19at 17:06; Start 06/19/19 at 17:00; Stop 06/19/19 at 17:01; Status DC Active Scripts Active [place] 5-325 Tablet (Acetaminophen/Hydrocodone Bitart) 1 Each Tablet 1-2 Tab PO Q4-6HRS Coumadin (Warfarin Sodium) 3 Mg Tablet 3 Mg PO 1X WARF 42 Days Warfarin 3 mg daily or as directed by pharmacy per anticoagulation testing and laboratory results Reported Lactulose 20 Gm/30 Ml Solution 20 Gm PO PRN DAILY PRN Polyethylene Glycol 3350 2,500 Gm Powder 17 Gm PO DAILY 30 Days Melatonin 10 Mg Tablet 10 Mg PO QHS Gabapentin (Gabapentin) 300 Mg Capsule 600 Mg PO TID Vitamin D3 (Cholecalciferol (Vitamin D3)) 1,000 Unit Tablet 1,000 Unit PO DAILY Potassium Chloride (Potassium Chloride) 20 Meq Tablet.er 20 Meq PO DAILY Amlodipine Besylate 10 Mg Tablet 10 Mg PO DAILY Atorvastatin Calcium 20 Mg Tablet 1 Tab PO HS Lasix (Furosemide) 40 Mg Tablet 1 Tab PO DAILY Losartan Potassium 100 Mg Tablet 1 Tab PO DAILY Metoprolol Tartrate 25 Mg Tablet 1 Tab PO DAILY PRN Take as needed for HR greater then 50 bpm Aspir-Low (Aspirin) 81 Mg Tablet.dr 1 Tab PO DAILY Vitals/I & O Vital Sign - Last 24 Hours 06/18/19 06/18/19 06/19/19 06/19/19 22:07 22:40 00:37 03:40 Temp 98.1 97.9 98.1 97.9 Pulse 60 67 Resp 18 18 B/P (MAP) 129/58 (81) 148/64 (92) Pulse Ox 93 94 O2 Delivery Room Air Room Air Room Air Room Air 06/19/19 06/19/19 06/19/19 06/19/19 07:00 08:00 09:59 10:00 Temp 98.3 98.3 Pulse 86 86 86 Resp 16 B/P (MAP) 168/88 (114) 168/88 168/88 Pulse Ox 94 O2 Delivery Room Air Room Air 06/19/19 06/19/19 06/19/19 06/19/19 10:08 11:00 11:17 15:00 Temp 98.3 98.1 98.3 98.1 Pulse 64 69 Resp 18 18 B/P (MAP) 173/71 (105) 139/61 (87) Pulse Ox 94 95 94 94 O2 Delivery Room Air Room Air Room Air Room Air Intake and Output 06/18/19 06/18/19 06/19/19 15:00 23:00 07:00 Intake Total 1220 ml 180 ml 400 ml Output Total 275 ml 450 ml 1150 ml Balance 945 ml -270 ml -750 ml NATA FRANKLIN MD Jun 19, 2019 19:20
[2019-06-19 19:43] VITALS: BP 141/65
[2019-06-19] MEDS: ATORVASTATIN CALCIUM 20 MG TABLET PO SCH (20:34)
[2019-06-19] MEDS: DICLOFENAC SODIUM 1% TOPICAL GEL 100GM TUBE. TP SCH (20:43)
[2019-06-19 23:00] VITALS: BP 144/62
[2019-06-20 03:00] VITALS: BP 150/70
[2019-06-20 07:00] VITALS: BP 152/65
[2019-06-20 07:06] LABS: PROTHROMBIN TIME PATIENT 22.9 SEC (11.7-14.0)
[2019-06-20] MEDS: ASPIRIN ENTERIC COATED 81 MG TABLET.DR. PO SCH (08:51)
[2019-06-20] MEDS: GABAPENTIN 300 MG CAPSULE. PO SCH (08:51)
[2019-06-20] MEDS: POTASSIUM CHLORIDE 20 MEQ TABLET.ER. PO SCH (08:51)
[2019-06-20] MEDS: METOPROLOL TART IMMED RELEASE 25 MG TABLET. PO SCH (08:51)
[2019-06-20] MEDS: CHOLECALCIFEROL (VITAMIN D3) 1,000 UNIT TABLET PO SCH (08:51)
[2019-06-20] MEDS: LACTOBACILLUS RHAMNOSUS GG 1 CAPSULE. PO SCH (08:51)
[2019-06-20] MEDS: HYDROcodone/APAP 5/325MG 1 TAB TABLET PO PRN (08:52)
[2019-06-20] MEDS: amLODIPine BESYLATE 10 MG TABLET PO SCH (08:52)
[2019-06-20] MEDS: FUROSEMIDE 40 MG TABLET. PO SCH (08:52)
[2019-06-20] MEDS: POLYETHYLENE GLYCOL 3350 17 GM PACKET. PO SCH ×2 (08:53→08:54)
[2019-06-20] MEDS: DICLOFENAC SODIUM 1% TOPICAL GEL 100GM TUBE. TP SCH (08:56)
--- NOTE | 2019-06-20 09:34 | PDOC3 ---
Discharge Summary Visit Information Date of Admission: Jun 17, 2019 Date of Discharge: Jun 20, 2019 Admitting Diagnosis: dyspena Final Diagnosis acute bronchitis, dyspnea, levaquin given in ER, will contineu acute shortness of breath, VQ scan andcv w./u to be completed recent hip surg, consult ortho to follow weakness and debility htn, chf, home meds Problems Medical Problems: (1) Cough Status: Acute (2) Elevated troponin Status: Acute (3) Fever Status: Acute Brief Hospital Course Allergies Allergies Coded Allergies Type Severity Reaction Last Updated Verified MIGUEL ANGEL Inhibitors Allergy Intermediate 05/28/19 Yes Penicillins Allergy Intermediate 05/28/19 Yes Sulfa (Sulfonamide Antibiotics) Allergy Intermediate 05/28/19 Yes adhesive Allergy Intermediate 05/28/19 Yes influenza virus vaccine, specific Allergy Intermediate 05/28/19 Yes mercury (elemental) Allergy Intermediate 05/28/19 Yes methadone Allergy Intermediate 05/28/19 Yes methylprednisolone Allergy Intermediate 05/28/19 Yes theophylline Allergy Intermediate 05/28/19 Yes trazodone Allergy Intermediate 05/28/19 Yes zolpidem Allergy Intermediate 05/28/19 Yes albuterol Adverse Reaction Intermediate 05/28/19 Yes estradiol Adverse Reaction Intermediate Unknown 05/28/19 Yes oxycodone Adverse Reaction Intermediate Unknown 05/28/19 Yes Vital Signs Vital Signs Date Time Temp Pulse Resp B/P (MAP) Pulse Ox O2 Delivery O2 Flow Rate FiO2 06/20/19 08:52 99 152/65 06/20/19 08:52 95 Room Air 06/20/19 03:00 97.4 12 97.4 Lab Results Laboratory Tests Test 06/19/19 03:54 06/20/19 05:55 White Blood Count 3.1 x10^3/uL (4.0-11.0) Red Blood Count 2.91 x10^6/uL (3.50-5.40) Hemoglobin 8.6 g/dL (12.0-15.5) Hematocrit 25.5 % (36.0-47.0) Mean Corpuscular Volume 88 fL (79-100) Mean Corpuscular Hemoglobin 30 pg (25-35) Mean Corpuscular Hemoglobin Concent 34 g/dL (31-37) Red Cell Distribution Width 15.7 % (11.5-14.5) Platelet Count 289 x10^3/uL (140-400) Neutrophils (%) (Auto) 31 % (31-73) Lymphocytes (%) (Auto) 52 % (24-48) Monocytes (%) (Auto) 15 % (0-9) Eosinophils (%) (Auto) 2 % (0-3) Basophils (%) (Auto) 1 % (0-3) Neutrophils # (Auto) 1.0 x10^3/uL (1.8-7.7) Lymphocytes # (Auto) 1.6 x10^3/uL (1.0-4.8) Monocytes # (Auto) 0.5 x10^3/uL (0.0-1.1) Eosinophils # (Auto) 0.0 x10^3/uL (0.0-0.7) Basophils # (Auto) 0.0 x10^3/uL (0.0-0.2) Prothrombin Time 23.4 SEC (11.7-14.0) 22.9 SEC (11.7-14.0) Prothromb Time International Ratio 2.1 (0.8-1.1) 2.1 (0.8-1.1) Sodium Level 142 mmol/L (136-145) Potassium Level 4.0 mmol/L (3.5-5.1) Chloride Level 104 mmol/L (98-107) Carbon Dioxide Level 30 mmol/L (21-32) Anion Gap 8 (6-14) Blood Urea Nitrogen 12 mg/dL (7-20) Creatinine 1.0 mg/dL (0.6-1.0) Estimated GFR (Cockcroft-Gault) 53.1 BUN/Creatinine Ratio 12 (6-20) Glucose Level 94 mg/dL (70-99) Calcium Level 8.3 mg/dL (8.5-10.1) Total Bilirubin 0.2 mg/dL (0.2-1.0) Aspartate Amino Transf (AST/SGOT) 17 U/L (15-37) Alanine Aminotransferase (ALT/SGPT) 14 U/L (14-59) Alkaline Phosphatase 95 U/L (46-116) Total Protein 5.6 g/dL (6.4-8.2) Albumin 2.6 g/dL (3.4-5.0) Albumin/Globulin Ratio 0.9 (1.0-1.7) Laboratory Tests Test 06/20/19 05:55 Prothrombin Time 22.9 SEC (11.7-14.0) Prothromb Time International Ratio 2.1 (0.8-1.1) Brief Hospital Course Ms. Castro is a 83 old female, admiw ith acute dyspnea, bronchtiis, hypoxia feels a little better, eat some more today still very weak Discharge Information Condition at Discharge: Improved Follow Up: Weeks Disposition/Orders: D/C to Home w/ HH Scheduled Amlodipine Besylate (Amlodipine Besylate) 10 Mg Tablet, 10 MG PO DAILY for htn, (Reported) Entered as Reported by: AMERICO HERBERT on 12/26/18 1638 Last Action: Continued on 06/18/19 08 by NATA FRANKLIN Aspirin (Aspir-Low) 81 Mg Tablet.dr, 1 TAB PO DAILY for supplement, #30 Ref 3 ( Reported) Entered as Reported by: CELE RAHMAN on 04/25/14 0918 Last Action: Continued on 06/18/19 0858 by NATA FRANKLIN Atorvastatin Calcium (Atorvastatin Calcium) 20 Mg Tablet, 1 TAB PO HS for chol, #30 Ref 5 (Reported) Entered as Reported by: AMERICO HERBERT on 04/30/18 1118 Last Action: Continued on 06/18/19 0858 by NATA FRANKLIN Cholecalciferol (Vitamin D3) (Vitamin D3) 1,000 Unit Tablet, 1,000 UNIT PO DAILY for supplement, (Reported) Entered as Reported by: AMERICO HERBERT on 12/26/18 1638 Last Action: Continued on 06/18/1958 by NATA FRANKLIN Furosemide (Lasix) 40 Mg Tablet, 1 TAB PO DAILY for water pill, #90 Ref 1 (Reported) Entered as Reported by: Yolanda Figueroa on 01/25/16 1129 Last Action: Continued on 06/18/1958 by NATA FRANKLIN Gabapentin (Gabapentin ) 300 Mg Capsule, 600 MG PO TID for NEUROGENIC PAIN, (Reported) Entered as Reported by: GERMÁN RAINEY on 01/21/19 2204 Last Action: Continued on 06/18/1958 by NATA FRANKLIN Hydrocodone/Apap 5-325 ([place] 5-325 Tablet) 1 Each Tablet, 1-2 TAB PO Q4-6HRS for pain, #100 Prescribed by: BELLE HUDSON on 2/21/20 1338 Last Action: Continued on 06/18/19857 by NATA FRANKLIN Levofloxacin (Levofloxacin) 250 Mg Tablet, 250 MG PO DAILY06 for bronchitis, #5 Prescribed by: NATA FRANKLIN on 06/20/19 0936 Losartan Potassium (Losartan Potassium) 100 Mg Tablet, 1 TAB PO DAILY for htn, #30 Ref 5 (Reported) Entered as Reported by: CELE RAHMAN on 04/25/14918 Last Action: HELD on 06/18/19857 by NATA FRANKLIN Melatonin (Melatonin) 10 Mg Tablet, 10 MG PO QHS for insomnia, (Reported) Entered as Reported by: ROC FELDMAN on 05/15/191407 Last Action: Converted on 06/18/19857 by NATA FRANKLIN Polyethylene Glycol 3350 (Polyethylene Glycol 3350) 2,500 Gm Powder, 17 GM PO DAILY for constipation for 30 Days, #527 Ref 0 (Reported) Entered as Reported by: ROC FELDMAN on 05/15/191407 Last Action: Converted on 06/18/19857 by NATA FRANKLIN Potassium Chloride (Potassium Chloride ) 20 Meq Tablet.er, 20 MEQ PO DAILY for low pot, (Reported) Entered as Reported by: AMERICO HERBERT on 12/26/18 1638 Last Action: Continued on 06/18/19857 by NATA FRANKLIN Warfarin Sodium (Coumadin) 3 Mg Tablet, 3 MG PO 1X WARF for DVT prophylaxis for 42 Days, #42 Warfarin 3 mg daily or as directed by pharmacy per anticoagulation testing and laboratory results Prescribed by: BELLE HUDSON on 05/31/191337 Last Action: Continued on 06/18/19857 by NATA FRANKLIN Scheduled PRN Lactulose (Lactulose) 20 Gm/30 Ml Solution, 20 GM PO PRN DAILY PRN for CONSTIPATION, (Reported) Entered as Reported by: GISSELLE STEWART on 05/31/19 1404 Last Action: Continued on 06/18/19857 by NATA FRANKLIN Metoprolol Tartrate (Metoprolol Tartrate) 25 Mg Tablet, 1 TAB PO DAILY PRN for TACHYCARDIA, #180 Ref 1 (Reported) Take as needed for HR greater then 50 bpm Entered as Reported by: CELE RAHMAN on 04/25/14918 Last Action: Continued on 06/18/19857 by NATA FRANKLIN Patient Instructions Patient Instructions > 30 min face to face 2 visits NATA FRANKLIN MD Jun 20, 2019 09:34
[2019-06-20] MEDS ORDERED: LEVO250T7 PO (09:36)
--- NOTE | 2019-06-20 09:39 | SNU/HH DC ---
DISCHARGE WITH HOME HEALTH DISCHARGE INFORMATION: Discharge Date: Jun 20, 2019 Final Diagnosis: Problems Medical Problems: (1) Cough Status: Acute (2) Elevated troponin Status: Acute (3) Fever Status: Acute Condition on Discharge: Stable CODE STATUS: Code Status: Full HOME HEALTH: Face to Face: I certify this patient is under my care and that I, or a nurse practitioner or physician's microbiology lab assistant working with me, had a face to face encounter that meets the physician face to face encounter requirements with this patient on 06/19 Medical Complications: S/P Joint Replacement, Other (bronchitis) Usp For: Pain Management, Other: RN For Eval/Treatment: Yes Physical Therapy For: Evalulation/Treatment Occupational Therapy For: Evaluation/Treatment Pt Meets Homebound Status: Unsteady balance w/ amb, POST DISCHARGE ORDERS: Activity Instructions for Disc: Activity as tolerated Weight Bearing Status after Di: Full weight bearing, As tolerated Bathing Instructions: Shower-keep dressing dry, No Tub Bath until see DIET AFTER DISCHARGE: Cardiac Wound/Incision Care: Ice to area for comfort, Keep wound/cast CDI, Keep wound elevated, Do not change dressing, May get incision wet, Other, see below TREATMENT/EQUIPMENT ORDERS: Adaptive Equipment Issued: Wally CERTIFICATION STATEMENT: Certification Statement: Certification Statement: Based on the above finding, I certify that this patient is confined to the home and needs intermittent longterm care, physical therapy and/or speech therapy, or continues to need occupational therapy.~ This patient is under my care, and I have initiated the establishment of the plan of care.~ This patient will be followed by myself or a community physician who will periodically review the plan of care. Home Meds Active Scripts Levofloxacin (LEVOFLOXACIN) 250 Mg Tablet, 250 MG PO DAILY06 for bronchitis, #5 TAB Prov:NATA FRANKLIN MD 06/20/19 Hydrocodone/Apap 5-325 (NORCO 5-325 TABLET) 1 Each Tablet, 1-2 TAB PO Q4-6HRS for pain, #100 TAB Prov:BELLE HUDSON MD 05/31/19 Warfarin Sodium (COUMADIN) 3 Mg Tablet, 3 MG PO 1X WARF for DVT prophylaxis for 42 Days, #42 TAB Warfarin 3 mg daily or as directed by pharmacy per anticoagulation testing and laboratory results Prov:BELLE HUDSON MD 05/31/19 Reported Medications Lactulose (LACTULOSE) 20 Gm/30 Ml Solution, 20 GM PO PRN DAILY PRN for CONSTIPATION, MISC 05/31/19 Polyethylene Glycol 3350 (POLYETHYLENE GLYCOL 3350) 2,500 Gm Powder, 17 GM PO DAILY for constipation for 30 Days, #527 GM 0 Refills 05/15/19 Melatonin (MELATONIN) 10 Mg Tablet, 10 MG PO QHS for insomnia, TAB 05/15/19 Gabapentin (GABAPENTIN ) 300 Mg Capsule, 600 MG PO TID for NEUROGENIC PAIN, CAP 01/21/19 Cholecalciferol (Vitamin D3) (VITAMIN D3) 1,000 Unit Tablet, 1000 UNIT PO DAILY for supplement, TAB 12/26/18 Potassium Chloride (POTASSIUM CHLORIDE ) 20 Meq Tablet.er, 20 MEQ PO DAILY for low pot, TAB.SR 12/26/18 Amlodipine Besylate (AMLODIPINE BESYLATE) 10 Mg Tablet, 10 MG PO DAILY for htn, TAB 12/26/18 Atorvastatin Calcium (ATORVASTATIN CALCIUM) 20 Mg Tablet, 1 TAB PO HS for chol, #30 TAB 5 Refills 04/30/18 Furosemide (LASIX) 40 Mg Tablet, 1 TAB PO DAILY for water pill, #90 TAB 1 Refill 01/25/16 Losartan Potassium (LOSARTAN POTASSIUM) 100 Mg Tablet, 1 TAB PO DAILY for htn, #30 TAB 5 Refills 04/25/14 Metoprolol Tartrate (METOPROLOL TARTRATE) 25 Mg Tablet, 1 TAB PO DAILY PRN for TACHYCARDIA, #180 TAB 1 Refill Take as needed for HR greater then 50 bpm 04/25/14 Aspirin (ASPIR-LOW) 81 Mg Tablet., 1 TAB PO DAILY for supplement, #30 TAB 3 Refills 04/25/14 NATA FRANKLIN MD Jun 20, 2019 09:39
[2019-06-20] MEDS ORDERED: LACTULOSE 20 GM/30 ML SOLUTION. PO ONE (10:00)
[2019-06-20 11:00] VITALS: BP 148/68
--- NOTE | 2019-06-20 11:47 | NUR ---
Pharmacy Warfarin Dosing Note S: Pharmacy consulted to assist with anticoagulation therapy started 05/27/19 O: PRUDENCE SALINAS is a 83 year old F with LEEROY LABS: Last INR: 2.1 Last HGB: 8.6 Last HCT: 25.5 Last PLT: 289 Last dose of 3 mg given on 06/18/19 at 1616 Vitamin K given: N Ongoing Drug Interactions: levaquin A:INR of 2.1 is within desired range. Target range for this patient is: 1.6 - 2.5 P: Warfarin dose: 3 mg Daily until 07/07 Next INR due Friday 06/23 to be checked by home health RN and results called to [facility] at [phone] Pharmacy anticoagulation service will continue to follow. Cuca Christianson RPH, 06/20/19 1142
--- NOTE | 2019-06-20 12:33 | NUR ---
SS following up with discharge planning. Discharge orders received for home healthcare. SS phoned and faxed discharge orders and referral to [facility], ; fax [phone]. Pt's RN notified.
--- NOTE | 2019-06-20 13:28 | NUR ---
Discharge Note: PRUDENCE SALINAS [address] Discharge instructions and discharge home medications reviewed with Patient and a copy given. All questions have been answered and understanding verbalized. Bernie (daughter) took patient home with her belongings. Prescriptions called into [facility] per patient request.
== END 2019-06-20 13:15 | disposition home health service (06) | DRG 190 ==
LOC: ER 21:24 → ED HOLD 22:40 → 2 SOUTH 06-18 01:05
PROVIDERS: ADMIT Internal Medicine; ATTEND Internal Medicine
DX: J44.0 Chronic obstructive pulmonary disease with (acute) lower respiratory infection (principal); N17.0 Acute kidney failure with tubular necrosis; J20.9 Acute bronchitis, unspecified; E78.5 Hyperlipidemia, unspecified; F03.90 Unspecified dementia, unspecified severity, without behavioral disturbance, psychotic disturbance, mood disturbance, and anxiety; H54.8 Legal blindness, as defined in USA; I11.0 Hypertensive heart disease with heart failure; I25.10 Atherosclerotic heart disease of native coronary artery without angina pectoris; I50.9 Heart failure, unspecified; Z82.49 Family history of ischemic heart disease and other diseases of the circulatory system; Z86.73 Personal history of transient ischemic attack (TIA), and cerebral infarction without residual deficits; Z90.710 Acquired absence of both cervix and uterus; Z95.1 Presence of aortocoronary bypass graft; Z96.642 Presence of left artificial hip joint; F32.9 Major depressive disorder, single episode, unspecified; F41.9 Anxiety disorder, unspecified; G62.9 Polyneuropathy, unspecified; K21.9 Gastro-esophageal reflux disease without esophagitis; M19.90 Unspecified osteoarthritis, unspecified site; I25.2 Old myocardial infarction; Z88.0 Allergy status to penicillin; Z88.2 Allergy status to sulfonamides; Z88.8 Allergy status to other drugs, medicaments and biological substances; Z91.018 Allergy to other foods
CPT/HCPCS: 36415; 71045; 80048; 80053; 81001; 82553; 83605; 83880; 84484; 85025; 85379; 85610; 85730; 87040; 87086; 87804; 93005; 96365; 96372; J1650; J1956; 97530; 97535; 99285-25; G0378

== ENCOUNTER 2019-08-09 14:29 | Emergency (ER) | payer MEDICARE ==
[~2019-08-09] VITALS: Ht 149.9 cm; Wt 61.3 kg
[~2019-08-09 14:29] MED LIST changes: +APIX5TAB PO; +DICL100G54 TP; +LEVO250T7 PO
[2019-08-09 15:05] LABS: BASO % 1 % (0-3); EOS % 1 % (0-3); HEMATOCRIT 35.5 % (36.0-47.0); HEMOGLOBIN 11.4 g/dL (12.0-15.5); LYMPH # 1.4 x10^3/uL (1.0-4.8); LYMPH % 31 % (24-48); MEAN CORPUSCULAR HEMOGLOBIN 28 pg (25-35); MEAN CORPUSCULAR HGB CONC 32 g/dL (31-37); MEAN CORPUSCULAR VOLUME 87 fL (79-100); MONO # 0.4 x10^3/uL (0.0-1.1); MONO % 9 % (0-9); NEUT # 2.7 x10^3/uL (1.8-7.7); NEUT % 59 % (31-73); PLATELET COUNT 164 x10^3/uL (140-400); RED BLOOD COUNT 4.07 x10^6/uL (3.50-5.40); WHITE BLOOD COUNT 4.6 x10^3/uL (4.0-11.0)
[2019-08-09 15:15] LABS: PROTHROMBIN TIME PATIENT 14.2 SEC (11.7-14.0)
[2019-08-09 15:22] LABS: CREATININE 0.8 mg/dL (0.6-1.0); GFR 68.7; POTASSIUM 3.9 mmol/L (3.5-5.1)
[2019-08-09] MEDS ORDERED: SODIUM PHOSPHATES 19/7GM 133 ML ENEMA. ONE (15:23)
[2019-08-09 15:28] LABS: ALBUMIN 3.6 g/dL (3.4-5.0); TOTAL BILIRUBIN 0.4 mg/dL (0.2-1.0); TOTAL PROTEIN 7.3 g/dL (6.4-8.2)
[2019-08-09] MEDS: SODIUM PHOSPHATES 19/7GM 133 ML ENEMA. PR ONE (15:29)
[2019-08-09 15:39] LABS: BILIRUBIN,URINE NEGATIVE (NEG); CLARITY,URINE CLEAR; NITRITE,URINE NEGATIVE (NEG); PH,URINE 5.5 (<5.0-8.0); PROTEIN,URINE NEGATIVE (NEG-TRACE); UROBILINOGEN,URINE 0.2 mg/dL (0.2 mg/dL)
[2019-08-09 15:42] LABS: FECAL OB PT POSITIVE (NEG)
--- NOTE | 2019-08-09 15:44 | PHYS DOC ---
Past Medical History Past Medical History: Anxiety, Arthritis, Bronchitis, CAD, CHF, COPD, CVA, Depression, Heart Disease, Hypertension, [place], Stroke, Other Additional Past Medical Histor: LEGALLY BLIND, NEUROPATHY, HERNIATED DISC, SPURS NECK, DDD Past Surgical History: Angioplasty, Coronary Bypass Surgery, Hysterectomy, T onsillectomy, Other Additional Past Surgical Histo: cysts and tumors removed from stomach, SINUS,left hip Smoking Status: Never Smoker Alcohol Use: None Drug Use: None General Adult EDM: Chief Complaint: RECTAL BLEED HPI: HPI: Patient is a 83 year old female who presents to the emergency department with complaints of having bright red blood in her stool for the last month. Patient states she was sent by her primary care doctor, Dr. Chou, who advised her to go to the emergency room with these complaints. Patient denies any abdominal pain, nausea, vomiting, diarrhea, back pain, hematuria, dysuria, increased urinary frequency, fever, cough, chest pain, palpitations, dizziness, or weakness. She states that she takes blood thinners for her atrial fibrillation. The patient currently denies any pain. She states that this morning only a small amount of blood came out of her rectum when she tried to have a bowel movement. She reports a history of constipation. She states that her last bowel movement was approximately 3 days ago and she describes the stool as small hard balls of poop that had bright red blood in it. Review of Systems: Review of Systems: Constitutional: Denies fever or chills. [] Eyes: Denies change in visual acuity. [] HENT: Denies nasal congestion or sore throat. [] Respiratory: Denies cough or shortness of breath. [] Cardiovascular: Denies chest pain or edema. [] GI: Denies abdominal pain, nausea, vomiting, or diarrhea; see HPI : Denies dysuria. [] Musculoskeletal: Denies back pain or joint pain. [] Integument: Denies rash. [] Neurologic: Denies headache, focal weakness or sensory changes. [] Endocrine: Denies polyuria or polydipsia. [] Lymphatic: Denies swollen glands. [] Psychiatric: Denies depression or anxiety. [] Heart Score: Risk Factors: Risk Factors: DM, Current or recent (<one month) smoker, HTN, HLP, family history of CAD, obesity. Risk Scores: Score 0 - 3: 2.5% MACE over next 6 weeks - Discharge Home Score 4 - 6: 20.3% MACE over next 6 weeks - Admit for Clinical Observation Score 7 - 10: 72.7% MACE over next 6 weeks - Early Invasive Strategies Current Medications: Current Medications Medications (Trade) Dose Ordered Sig/Conrad Start Time Stop Time Status Last Admin Dose Admin Sodium Monofluorophosphate (Fleet Adult) 133 ml 1X ONCE 08/09/19 15:30 08/09/19 15:31 DC 08/09/19 15:29 133 ML Allergies: Allergies: Allergies Coded Allergies Type Severity Reaction Last Updated Verified MIGUEL ANGEL Inhibitors Allergy Intermediate 05/28/19 Yes Penicillins Allergy Intermediate 05/28/19 Yes Sulfa (Sulfonamide Antibiotics) Allergy Intermediate 05/28/19 Yes adhesive Allergy Intermediate 05/28/19 Yes influenza virus vaccine, specific Allergy Intermediate 05/28/19 Yes mercury (elemental) Allergy Intermediate 05/28/19 Yes methadone Allergy Intermediate 05/28/19 Yes methylprednisolone Allergy Intermediate 05/28/19 Yes theophylline Allergy Intermediate 05/28/19 Yes trazodone Allergy Intermediate 05/28/19 Yes zolpidem Allergy Intermediate 05/28/19 Yes albuterol Adverse Reaction Intermediate 05/28/19 Yes estradiol Adverse Reaction Intermediate Unknown 05/28/19 Yes oxycodone Adverse Reaction Intermediate Unknown 05/28/19 Yes Physical Exam: PE: Constitutional: Well developed, well nourished, no acute distress, non-toxic appearance. [] HENT: Normocephalic, atraumatic, bilateral external ears normal, nose normal. [] Eyes: PERRLA, EOMI, conjunctiva normal, no discharge. [] Neck: Normal range of motion, no stridor. [] Cardiovascular:Heart rate regular bradycardic rhythm Lungs & Thorax: Respirations even and unlabored, no retractions, no respiratory distress Abdomen: Bowel sounds normal, soft, no tenderness, no masses, no pulsatile masses Rectal Exam: Normal tone, No mass, Positive control Stool: Impacted in rectum Brown with bright red streaks, very firm and hard Guaiac: Positive Skin: Warm, dry, no erythema, no rash. [] Extremities: No tenderness, no cyanosis, no clubbing, ROM intact, no edema. [] Neurologic: Alert and oriented X 3, no focal deficits noted. [] Psychologic: Affect normal, judgement normal, mood normal. [] Current Patient Data: Labs: Laboratory Tests Test 08/09/19 14:55 White Blood Count 4.6 x10^3/uL (4.0-11.0) Red Blood Count 4.07 x10^6/uL (3.50-5.40) Hemoglobin 11.4 g/dL (12.0-15.5) L Hematocrit 35.5 % (36.0-47.0) L Mean Corpuscular Volume 87 fL (79-100) Mean Corpuscular Hemoglobin 28 pg (25-35) Mean Corpuscular Hemoglobin Concent 32 g/dL (31-37) Red Cell Distribution Width 15.0 % (11.5-14.5) H Platelet Count 164 x10^3/uL (140-400) Neutrophils (%) (Auto) 59 % (31-73) Lymphocytes (%) (Auto) 31 % (24-48) Monocytes (%) (Auto) 9 % (0-9) Eosinophils (%) (Auto) 1 % (0-3) Basophils (%) (Auto) 1 % (0-3) Neutrophils # (Auto) 2.7 x10^3/uL (1.8-7.7) Lymphocytes # (Auto) 1.4 x10^3/uL (1.0-4.8) Monocytes # (Auto) 0.4 x10^3/uL (0.0-1.1) Eosinophils # (Auto) 0.0 x10^3/uL (0.0-0.7) Basophils # (Auto) 0.0 x10^3/uL (0.0-0.2) Prothrombin Time 14.2 SEC (11.7-14.0) H Prothrombin Time INR 1.1 (0.8-1.1) Activated Partial Thromboplast Time 35 SEC (24-38) Sodium Level 141 mmol/L (136-145) Potassium Level 3.9 mmol/L (3.5-5.1) Chloride Level 104 mmol/L (98-107) Carbon Dioxide Level 28 mmol/L (21-32) Anion Gap 9 (6-14) Blood Urea Nitrogen 15 mg/dL (7-20) Creatinine 0.8 mg/dL (0.6-1.0) Estimated GFR (Cockcroft-Gault) 68.7 BUN/Creatinine Ratio 19 (6-20) Glucose Level 99 mg/dL (70-99) Calcium Level 9.0 mg/dL (8.5-10.1) Total Bilirubin 0.4 mg/dL (0.2-1.0) Aspartate Amino Transferase (AST) 15 U/L (15-37) Alanine Aminotransferase (ALT) 15 U/L (14-59) Alkaline Phosphatase 75 U/L (46-116) Total Protein 7.3 g/dL (6.4-8.2) Albumin 3.6 g/dL (3.4-5.0) Albumin/Globulin Ratio 1.0 (1.0-1.7) Laboratory Tests 08/09/19 14:55 Laboratory Tests 08/09/19 14:55 EKG: EKG: [] Radiology/Procedures: Radiology/Procedures: [] Course & Med Decision Making: Course & Med Decision Making Pertinent Labs and Imaging studies reviewed. (See chart for details) Patient is a 83-year-old female who presented to the emergency room for evaluation of blood in her stool for the last month. On physical exam patient was found to have impacted stool in her rectum. Large amount of stool was removed with digital exam. Patient was given a fleets enema, no additional stool was expelled with the enema. CBC revealed a hemoglobin of 11.4 and a hematocrit of 35.5, PT/INR within normal limits, CMP is unremarkable, UA is also unremarkable, fecal occult is positive for blood. Patient's vital signs were stable throughout her emergency room visit.[] 1602-I spoke with Dr. Burton, the patient's PCP and discussed physical exam findings and patient's lab results with him. I advised that a large amount of firm stool was removed with digital examination of the patient's rectum. Patient's abdomen was soft and nontender. No imaging will be done. Will prescribe the patient MiraLAX to take 1 capful twice daily until bowel movements are soft and then to continue taking 1 capful daily. Follow up with Dr. Burton as planned. Advised the patient to fill the prescription and take it as directed. Encouraged the patient to make sure that she is drinking plenty of water, might also try adding the MiraLAX to prune or apple juice for better results. Patient instructed to return to the emergency room if she develops abdominal pain, wor sening bleeding, fever, or weakness. Patient verbalized an understanding of home care, medications, follow-up, and return to ED instructions and was in agreement with the plan of care. Hanna Disclaimer: Hanna Disclaimer: This electronic medical record was generated, in whole or in part, using a voice recognition dictation system. Departure Departure Impression: Primary Impression: Fecal impaction in rectum Additional Impression: Constipation Qualified Codes: K59.00 - Constipation, unspecified Disposition: HOME, SELF-CARE Condition: STABLE Referrals: HARI KNOWLES MD (PCP) Patient Instructions: Constipation, Adult, [id number], Fecal Impaction Additional Instructions: Fill the prescription and take as directed. Add the Miralax to 8 oz of water, apple juice, or prune juice. Take the Miralax twice a day until your bowel movements are soft, then decrease Miralax use to once a day. Folllow up with Dr. Burton as needed. Return to the ER if symptoms worsen or you develop a fever, abdominal pain, or weakness. Scripts Polyethylene Glycol 3350 (MIRALAX) 119 Gm Powder 17 GM PO BID for constipation for 5 Days, #255 GM 0 Refills Drink 1 capful in 8 oz of water/juice twice daily until bowel movements are soft then ontinue medication once daily to keep stools regular. Prov: MICHI RECINOS APRN 08/09/19 MICHI RECINOS APRN August 09, 2019 15:44
[2019-08-09 15:45] LABS: COLOR,URINE STRAW
[2019-08-09 15:47] LABS: BACTERIA,URINE 0 /HPF (0-FEW); RBC,URINE 0 /HPF (0-2); SQUAMOUS EPITHELIAL CELL,UR FEW /LPF; WBC,URINE RARE /HPF (0-4)
[2019-08-09] MEDS ORDERED: POLY119P4 PO (16:14)
[2019-08-09 16:17] VITALS: BP 171/67
== END 2019-08-09 16:22 | disposition home or self-care (01) ==
LOC: ER 14:29
DX: K56.41 Fecal impaction (principal); I11.0 Hypertensive heart disease with heart failure; I50.9 Heart failure, unspecified; J44.9 Chronic obstructive pulmonary disease, unspecified; E11.40 Type 2 diabetes mellitus with diabetic neuropathy, unspecified; I25.10 Atherosclerotic heart disease of native coronary artery without angina pectoris; I25.2 Old myocardial infarction; Z86.73 Personal history of transient ischemic attack (TIA), and cerebral infarction without residual deficits; Z90.710 Acquired absence of both cervix and uterus; Z95.1 Presence of aortocoronary bypass graft; Z95.5 Presence of coronary angioplasty implant and graft; Z88.0 Allergy status to penicillin; Z88.2 Allergy status to sulfonamides; Z88.7 Allergy status to serum and vaccine; Z88.5 Allergy status to narcotic agent; Z88.8 Allergy status to other drugs, medicaments and biological substances
CPT/HCPCS: 36415; 80053; 81001; 82274; 85025; 85610; 85730; 99285-25

== ENCOUNTER 2019-10-20 06:38 | Emergency (ER) | payer MEDICARE ==
[~2019-10-20] VITALS: Ht 149.9 cm; Wt 62.7 kg
[~2019-10-20 06:38] MED LIST changes: +FLUT16SP NS; +ISOS30TA4 PO; +POLY119P4 PO
[2019-10-20] MEDS ORDERED: NAPR-695 PO (06:57)
--- NOTE | 2019-10-20 06:57 | PHYS DOC ---
Past Medical History Past Medical History: Anxiety, Arthritis, Bronchitis, CAD, CHF, COPD, CVA, Depression, Heart Disease, Hypertension, [place], Stroke, Other Additional Past Medical Histor: LEGALLY BLIND, NEUROPATHY, HERNIATED DISC, SPURS NECK, DDD Past Surgical History: Angioplasty, Coronary Bypass Surgery, Hysterectomy, Tonsillectomy, Other Additional Past Surgical Histo: cysts and tumors removed from stomach, SINUS,left hip Smoking Status: Never Smoker Alcohol Use: None Drug Use: None General Adult EDM: Chief Complaint: LOWER EXT PAIN HPI: HPI: Patient is a 83 year old female presents via EMS with report of bilateral knee "hip "and ankle pain that has been ongoing for several years. Patient reports she had similar episodes when she was a youth. Patient reports has been worse over the past year. Reports last night she could not handle the pain and her previously prescribed pain medication was not handling it. Denies recent trauma. Patient reports she has bad knees primarily on the left. Patient reports she has tried Voltaren gel which does not help and is currently prescribed Viola. Patient reports she has not talked to her PCP about this worsening condition. Reports last night the pain got bad enough that she was not able to sleep well and therefore called EMS to present to the ER. Denies swelling. Denies redness. Denies fever or chills. Review of Systems: Review of Systems: Constitutional: Denies fever or chills Eyes: Denies redness or eye pain HENT: Denies nasal congestion or sore throat Respiratory: Denies cough or shortness of breath Cardiovascular: Denies chest pain or palpitations GI: Denies abdominal pain, nausea, or vomiting : Denies dysuria or hematuria Musculoskeletal: Reports chronic ankle, knee, and hip pain Integument: Denies rash, swelling, redness, or skin lesions Neurologic: Denies headache, numbness, focal weakness or sensory changes Complete systems were reviewed and found to be within normal limits, except as documented in this note. Allergies: Allergies: Allergies Coded Allergies Type Severity Reaction Last Updated Verified RJ Inhibitors Allergy Intermediate 05/28/19 Yes Penicillins Allergy Intermediate 05/28/19 Yes Sulfa (Sulfonamide Antibiotics) Allergy Intermediate 05/28/19 Yes adhesive Allergy Intermediate 05/28/19 Yes influenza virus vaccine, specific Allergy Intermediate 05/28/19 Yes mercury (elemental) Allergy Intermediate 05/28/19 Yes methadone Allergy Intermediate 05/28/19 Yes methylprednisolone Allergy Intermediate 05/28/19 Yes theophylline Allergy Intermediate 05/28/19 Yes trazodone Allergy Intermediate 05/28/19 Yes zolpidem Allergy Intermediate 05/28/19 Yes albuterol Adverse Reaction Intermediate 05/28/19 Yes estradiol Adverse Reaction Intermediate 09/02/19 Yes oxycodone Adverse Reaction Intermediate 09/02/19 Yes Physical Exam: PE: Constitutional: Well developed, well nourished, no acute distress, non-toxic appearance HENT: Normocephalic, atraumatic Eyes:Conjunctiva normal, no discharge Neck: Normal range of motion, no tenderness, supple Cardiovascular: Bilateral DP and PT +2, CR bilateral feet < 2 sec Lungs & Thorax: No respiratory distress, equal chest rise and fall Skin: Warm, dry, no erythema, no rash Extremities: Pelvis stable and nontender, no deformity, reports some discomfort to left knee with ROM, joints stable, ROM intact, no edema Neurologic: Alert and oriented X 3, no focal deficits noted Psychologic: Affect normal, judgment normal EKG: EKG: [] Radiology/Procedures: Radiology/Procedures: [] Course & Med Decision Making: Course & Med Decision Making Elderly patient presents with report of arthralgias. History of known arthritis. No recent trauma. No signs of infectious process at this time. Joints stable. Symptomatic treatment provided with a one-time dose of oral dexamethasone. Rj wrap is applied to knees for support. Will start patient on low-dose naproxen. Patient stable for discharge with outpatient follow-up with PCP. Discussed findings and plan with patient, who acknowledges understanding and agreement. Hanna Disclaimer: Hanna Disclaimer: This electronic medical record was generated, in whole or in part, using a voice recognition dictation system. Departure Departure Impression: Primary Impression: Arthralgia Qualified Codes: M25.50 - Pain in unspecified joint Disposition: HOME, SELF-CARE Condition: STABLE Referrals: HARI KNOWLES MD (PCP) Patient Instructions: Arthralgia, [id number] Scripts Naproxen (NAPROXEN) 375 Mg Tablet 375 MG PO TID PRN PRN for PAIN, #30 TAB Prov: TJ LEWIS DO 10/20/19 Justicifation of Admission Dx: Justifications for Admission: Justification of Admission Dx: N/A TJ LEWIS DO Oct 20, 2019 06:57
[2019-10-20] MEDS ORDERED: DEXAMETHASONE 4 MG TABLET PO ONE (07:00)
[2019-10-20 07:14] VITALS: BP 167/78
== END 2019-10-20 08:36 | disposition home or self-care (01) ==
LOC: ER 06:38
DX: M25.562 Pain in left knee (principal); M25.561 Pain in right knee; M25.552 Pain in left hip; M25.551 Pain in right hip; F41.9 Anxiety disorder, unspecified; I25.2 Old myocardial infarction; G89.29 Other chronic pain; M19.90 Unspecified osteoarthritis, unspecified site; I11.0 Hypertensive heart disease with heart failure; I50.9 Heart failure, unspecified; I25.10 Atherosclerotic heart disease of native coronary artery without angina pectoris; Z90.710 Acquired absence of both cervix and uterus; Z90.89 Acquired absence of other organs; Z98.890 Other specified postprocedural states; Z88.0 Allergy status to penicillin; Z88.2 Allergy status to sulfonamides; Z88.5 Allergy status to narcotic agent; Z88.8 Allergy status to other drugs, medicaments and biological substances; Z88.6 Allergy status to analgesic agent; Z88.7 Allergy status to serum and vaccine; G62.9 Polyneuropathy, unspecified; Z95.1 Presence of aortocoronary bypass graft
CPT/HCPCS: 99283

== ENCOUNTER 2019-11-25 05:16 | Inpatient (IN) | payer MEDICARE ==
[~2019-11-25] VITALS: Ht 149.9 cm; Wt 65.0 kg
[2019-11-25] VITALS (11 sets, daily range): BP systolic 106–156; BP diastolic 60–92
[~2019-11-25 05:16] MED LIST changes: -CETI10TA24 PO; +CETI10TA74 PO; +NAPR-695 PO
[2019-11-25] MEDS ORDERED: dilTIAZem IV PUSH 25 MG/5 ML VIAL IVP ONE (06:00)
[2019-11-25 06:18] LABS: CALCIUM 9.1 mg/dL (8.5-10.1); CREATININE 0.7 mg/dL (0.6-1.0); GFR 80.1; POTASSIUM 3.2 mmol/L (3.5-5.1)
[2019-11-25 06:24] LABS: ALBUMIN 3.5 g/dL (3.4-5.0); ALBUMIN/GLOBULIN RATIO 1.1 (1.0-1.7); TOTAL BILIRUBIN 0.4 mg/dL (0.2-1.0); TOTAL PROTEIN 6.8 g/dL (6.4-8.2)
[2019-11-25 06:29] LABS: BASO % 0 % (0-3); EOS % 0 % (0-3); HEMATOCRIT 32.1 % (36.0-47.0); HEMOGLOBIN 10.8 g/dL (12.0-15.5); LYMPH % 18 % (24-48); MEAN CORPUSCULAR HEMOGLOBIN 29 pg (25-35); MEAN CORPUSCULAR HGB CONC 34 g/dL (31-37); MEAN CORPUSCULAR VOLUME 87 fL (79-100); MONO # 0.6 x10^3/uL (0.0-1.1); MONO % 12 % (0-9); NEUT # 3.7 x10^3/uL (1.8-7.7); NEUT % 70 % (31-73); PLATELET COUNT 152 x10^3/uL (140-400); RED CELL DISTRIBUTION WIDTH 17.7 % (11.5-14.5); WHITE BLOOD COUNT 5.2 x10^3/uL (4.0-11.0)
[2019-11-25] MEDS ORDERED: IV NORMAL SALINE 500ML BAG 500 ML IV ONE (06:30)
[2019-11-25] MEDS ORDERED: fentaNYL PF VIAL 100 MCG/2 ML VIAL IV ONE ×2 (06:30→15:30)
[2019-11-25] MEDS ORDERED: DILTIAZEM HCL 125 MG in IV NORMAL SALINE 100ML 100 ML IV PRN (06:30)
[2019-11-25 06:44] LABS: PROTHROMBIN TIME PATIENT 13.4 SEC (11.7-14.0)
[2019-11-25] MEDS ORDERED: NITROGLYCERIN SUBLINGUAL 0.4 MG BOTTLE OF 25. SL PRN (06:45)
[2019-11-25] MEDS ORDERED: ONDANSETRON PF 4 MG/2 ML VIAL. IV PRN ×2 (06:45→08:30)
[2019-11-25] MEDS ORDERED: fentaNYL PF VIAL 100 MCG/2 ML VIAL IV PRN (06:45)
[2019-11-25 07:10] LABS: BILIRUBIN,URINE NEGATIVE (NEG); CLARITY,URINE CLEAR; COLOR,URINE YELLOW; NITRITE,URINE NEGATIVE (NEG); PROTEIN,URINE NEGATIVE (NEG-TRACE); UROBILINOGEN,URINE 0.2 mg/dL (0.2 mg/dL)
--- NOTE | 2019-11-25 07:13 | RAD ---
CHEST AP ONLY INDICATION: Chest pain: . COMPARISON STUDY: 09/02/2019. FINDINGS: Lungs: Normal lung volume. No pulmonary mass or consolidation. The tracheobronchial tree and hilar structures are normal. Pleura: No pleural effusion or pneumothorax. Heart and Mediastinum: Cardiomegaly. Atherosclerosis of the thoracic aorta. CABG. IMPRESSION: No focal airspace disease. Electronically signed by: Tip Reagan MD (11/25/2019 7:10 AM) [id number]
--- NOTE | 2019-11-25 07:17 | PHYS DOC ---
Past Medical History Past Medical History: Anxiety, Arthritis, Bronchitis, CAD, CHF, COPD, CVA, Depression, Heart Disease, Hypertension, [place], Stroke, Other Additional Past Medical Histor: LEGALLY BLIND, NEUROPATHY, HERNIATED DISC, SPURS NECK, DDD Past Surgical History: Angioplasty, Coronary Bypass Surgery, Hysterectomy, T onsillectomy, Other Additional Past Surgical Histo: cysts and tumors removed from stomach, SINUS,left hip Smoking Status: Never Smoker Alcohol Use: None Drug Use: None General Adult EDM: Chief Complaint: CHEST PAIN HPI: HPI: Patient is an 83-year-old female with multiple medical problems including known coronary disease status post remote CABG in 2001 who presents with a relatively sudden onset of chest pain sometime after midnight. She describes the pain is heavy in her chest. She describes shortness of breath. She also states she feels like her heart is racing. She denies any fever chills or sweats. She is had no cough or congestion. She has had some nausea but no vomiting. She was unable to make the pain stop with her medication at home.] Review of Systems: Review of Systems: Constitutional: Denies fever or chills. [] Eyes: Denies change in visual acuity. [] HENT: Denies nasal congestion or sore throat. [] Respiratory: Denies cough or shortness of breath. [] Cardiovascular: Per HPI [] GI: Denies abdominal pain, nausea, vomiting, bloody stools or diarrhea. [] : Denies dysuria. [] Musculoskeletal: Denies back pain or joint pain. [] Integument: Denies rash. [] Neurologic: Denies headache, focal weakness or sensory changes. [] Endocrine: Denies polyuria or polydipsia. [] Lymphatic: Denies swollen glands. [] Psychiatric: Denies depression or anxiety. [] Heart Score: HEART Score for Chest Pain: HEART Score for Chest Pain Response (Comments) Value History Highly Suspicious [address] Depression 2 Age > 65 2 Risk Factors >3 Risk Factors or Hx CAD 2 Troponin < Normal Limit 0 Total 8 Risk Factors: Risk Factors: DM, Current or recent (<one month) smoker, HTN, HLP, family history of CAD, obesity. Risk Scores: Score 0 - 3: 2.5% MACE over next 6 weeks - Discharge Home Score 4 - 6: 20.3% MACE over next 6 weeks - Admit for Clinical Observation Score 7 - 10: 72.7% MACE over next 6 weeks - Early Invasive Strategies Current Medications: Current Medications Medications (Trade) Dose Ordered Sig/Conrad Start Time Stop Time Status Last Admin Dose Admin Diltiazem HCl (Cardizem Iv Push) 16 mg 1X ONCE 11/25/19 06:00 11/25/19 06:01 DC 11/25/19 06:10 16 MG Diltiazem HCl 125 mg/Sodium Chloride 125 ml @ 5 mls/hr CONT PRN 11/25/19 06:30 11/25/19 06:48 5 MLS/HR Fentanyl Citrate (Fentanyl 2ml Vial) 50 mcg PRN Q1HR PRN 11/25/19 06:45 11/26/19 06:44 Nitroglycerin (Nitrostat) 0.4 mg PRN Q5MIN PRN 11/25/19 06:45 11/26/19 06:44 Ondansetron HCl (Zofran) 4 mg PRN Q8HRS PRN 11/25/19 06:45 11/26/19 06:44 Sodium Chloride 500 ml @ 500 mls/hr 1X ONCE 11/25/19 06:30 11/25/19 07:29 11/25/19 06:33 500 MLS/HR Allergies: Allergies: Allergies Coded Allergies Type Severity Reaction Last Updated Verified MIGUEL ANGEL Inhibitors Allergy Intermediate 05/28/19 Yes Penicillins Allergy Intermediate 05/28/19 Yes Sulfa (Sulfonamide Antibiotics) Allergy Intermediate 05/28/19 Yes adhesive Allergy Intermediate 05/28/19 Yes influenza virus vaccine, specific Allergy Intermediate 05/28/19 Yes mercury (elemental) Allergy Intermediate 05/28/19 Yes methadone Allergy Intermediate 05/28/19 Yes methylprednisolone Allergy Intermediate 05/28/19 Yes theophylline Allergy Intermediate 05/28/19 Yes trazodone Allergy Intermediate 05/28/19 Yes zolpidem Allergy Intermediate 05/28/19 Yes albuterol Adverse Reaction Intermediate 05/28/19 Yes estradiol Adverse Reaction Intermediate 09/02/19 Yes oxycodone Adverse Reaction Intermediate 09/02/19 Yes Physical Exam: PE: Constitutional: Frail, elderly mild distress. [] HENT: Normocephalic, atraumatic, bilateral external ears normal, oropharynx moist, no oral exudates, nose normal. [] Eyes: PERRLA, EOMI, conjunctiva normal, no discharge. [] Neck: Normal range of motion, no tenderness, supple, no stridor. [] Cardiovascular: Tachycardic irregularly irregular [] Lungs & Thorax: Bilateral breath sounds clear to auscultation [] Abdomen: Bowel sounds normal, soft, no tenderness, no masses, no pulsatile masses. [] Skin: Warm, dry, no erythema, no rash. [] Back: No tenderness, no CVA tenderness. [] Extremities: No tenderness, no cyanosis, no clubbing, ROM intact, no edema. [] Neurologic: Alert and oriented X 3, normal motor function, normal sensory function, no focal deficits noted. [] Psychologic: Extremely anxious [] Current Patient Data: Labs: Laboratory Tests Test 11/25/19 05:56 White Blood Count 5.2 x10^3/uL (4.0-11.0) Red Blood Count 3.70 x10^6/uL (3.50-5.40) Hemoglobin 10.8 g/dL (12.0-15.5) L Hematocrit 32.1 % (36.0-47.0) L Mean Corpuscular Volume 87 fL (79-100) Mean Corpuscular Hemoglobin 29 pg (25-35) Mean Corpuscular Hemoglobin Concent 34 g/dL (31-37) Red Cell Distribution Width 17.7 % (11.5-14.5) H Platelet Count 152 x10^3/uL (140-400) Neutrophils (%) (Auto) 70 % (31-73) Lymphocytes (%) (Auto) 18 % (24-48) L Monocytes (%) (Auto) 12 % (0-9) H Eosinophils (%) (Auto) 0 % (0-3) Basophils (%) (Auto) 0 % (0-3) Neutrophils # (Auto) 3.7 x10^3/uL (1.8-7.7) Lymphocytes # (Auto) 1.0 x10^3/uL (1.0-4.8) Monocytes # (Auto) 0.6 x10^3/uL (0.0-1.1) Eosinophils # (Auto) 0.0 x10^3/uL (0.0-0.7) Basophils # (Auto) 0.0 x10^3/uL (0.0-0.2) Prothrombin Time 13.4 SEC (11.7-14.0) Prothrombin Time INR 1.1 (0.8-1.1) Activated Partial Thromboplast Time 27 SEC (24-38) Sodium Level 141 mmol/L (136-145) Potassium Level 3.2 mmol/L (3.5-5.1) L Chloride Level 105 mmol/L (98-107) Carbon Dioxide Level 28 mmol/L (21-32) Anion Gap 8 (6-14) Blood Urea Nitrogen 26 mg/dL (7-20) H Creatinine 0.7 mg/dL (0.6-1.0) Estimated GFR (Cockcroft-Gault) 80.1 BUN/Creatinine Ratio 37 (6-20) H Glucose Level 141 mg/dL (70-99) H Calcium Level 9.1 mg/dL (8.5-10.1) Total Bilirubin 0.4 mg/dL (0.2-1.0) Aspartate Amino Transferase (AST) 15 U/L (15-37) Alanine Aminotransferase (ALT) 18 U/L (14-59) Alkaline Phosphatase 76 U/L (46-116) Troponin I Quantitative < 0.017 ng/mL (0.000-0.055) BO-Xoo-Y-Type Natriuretic Peptide 2450 pg/mL (0-449) H Total Protein 6.8 g/dL (6.4-8.2) Albumin 3.5 g/dL (3.4-5.0) Albumin/Globulin Ratio 1.1 (1.0-1.7) Thyroid Stimulating Hormone (TSH) 0.666 uIU/mL (0.358-3.74) Laboratory Tests 11/25/19 05:56 Laboratory Tests 11/25/19 05:56 Vital Signs: Vital Signs Date Time Temp Pulse Resp B/P (MAP) Pulse Ox O2 Delivery O2 Flow Rate FiO2 11/25/19 06:10 17 100 Room Air 11/25/19 06:10 124 133/73 11/25/19 05:20 97.9 97.9 EKG: EKG: EKG: Atrial fibrillation with rapid ventricular response rate of [address]-T changes [] Radiology/Procedures: Radiology/Procedures: [] Course & Med Decision Making: Course & Med Decision Making Pertinent Labs and Imaging studies reviewed. (See chart for details) [ED course: Evaluation reveals an 83-year-old female with multiple medical problems including coronary disease as well as a history of atrial fibrillation who presented in atrial fibrillation with rapid ventricular response this morning. She was given a Cardizem bolus followed by Cardizem drip. Her rate came down from the 170s into the 120s and we have been titrating the Cardizem drip. Her initial troponin was negative. She was continuing to complain of chest discomfort so we gave her some fentanyl IV. We will go ahead and admit her to [facility]. CRITICAL CARE: Time spent was 35 minutes. This includes medical management, evaluation, reevaluation, discussion with consultants and family. Critical Care does NOT include time spent on separately billed procedures.] Dragon Disclaimer: Dragon Disclaimer: This electronic medical record was generated, in whole or in part, using a voice recognition dictation system. Departure Departure Impression: Primary Impression: Atrial fibrillation with RVR Disposition: ADMITTED INPATIENT Admitting Physician: TIERA Condition: GUARDED Referrals: HARI KNOWLES MD (PCP) Justicifation of Admission Dx: Justifications for Admission: Justification of Admission Dx: N/A AAKASH MARCOS DO Nov 25, 2019 07:16
--- NOTE | 2019-11-25 07:27 | PDOC1 ---
History and Physical Date of Admission Date of Admission DATE: 11/25/19 TIME: 07:24 Identification/Chief Complaint Chief Complaint Chest pain Source Source: Patient History of Present Illness History of Present Illness Ms Castro is an 83yo F w/ PMHx CAD s/p CABG 2001, hypertension, hyperlipidemia, bronchitis, arthritis, anxiety, CHF, COPD, stroke, depression, l egally blind, neuropathy, herniated disk with recent left LEEROY this year and hospitalization for bronchitis and afib returns with c/o fluttering in her chest sudden onset of chest pain sometime after midnight. She describes the pain is heavy in her chest. She describes shortness of breath. She also states she feels like her heart is racing. Her EKG showed afib with RVR with no ST segment or Twave changes, did show left axis deviation. Negative troponin x1 CXR with no acute changes, prior sternotomy apparent. She notes on 11/20/2019 she was going to have a heart catheterization with Dr. Blankenship, however due to a cough productive of green sputum this was delayed she has been using Symbicort, duo nebs, prednisone, and levofloxacin since 11/19, did not take them this morning. When she woke at 3 AM she had a tomato and butter sandwich. She notes she has significant insomnia, not ameliorated by Belsomra, notes she only sleeps 2 hours a night, gets up frequently to urinate. No dysuria or pain on urination. Labs significant for INR 1.1, TSH 0.666, BNP 2450, K3.2, BUN 26, creatinine 0.7 WBC 5.2, Hb 10.8, platelets 152. Admitted for further care to CV on Cardizem gtt. Past Medical History Cardiovascular: CAD, CHF, HTN, Hyperlipidemia Pulmonary: COPD CENTRAL NERVOUS SYSTEM: CVA, Dementia GI: GERD Psych: Anxiety, Depression Musculoskeletal: Osteoarthritis Past Surgical History Past Surgical History: CABG, Tonsillectomy, Hysterectomy Family History Family History: Coronary Artery Disease Social History Smoke: No ALCOHOL: none Drugs: None Current Medications Current Medications Current Medications Diltiazem HCl (Cardizem Iv Push) 16 mg 1X ONCE IVP Last administered on 11/25/19at 06:10; Start 11/25/19 at 06:00; Stop 11/25/19 at 06:01; Status DC Fentanyl Citrate (Fentanyl 2ml Vial) 50 mcg 1X ONCE IV Last administered on 11/25/19at 06:10; Start 11/25/19 at 06:30; Stop 11/25/19 at 06:31; Status DC Sodium Chloride 500 ml @ 500 mls/hr 1X ONCE IV Last administered on 11/25/19at 06:33; Start 11/25/19 at 06:30; Stop 11/25/19 at 07:29 Diltiazem HCl 125 mg/Sodium Chloride 125 ml @ 5 mls/hr CONT PRN IV SEE I/O RECORD Last administered on 11/25/19at 06:48; Start 11/25/19 at 06:30 Ondansetron HCl (Zofran) 4 mg PRN Q8HRS PRN IV NAUSEA/VOMITING 1ST CHOICE; Start 11/25/19 at 06:45; Stop 11/26/19 at 06:44 Fentanyl Citrate (Fentanyl 2ml Vial) 50 mcg PRN Q1HR PRN IV SEVERE PAIN 7-10; Start 11/25/19 at 06:45; Stop 11/26/19 at 06:44 Nitroglycerin (Nitrostat) 0.4 mg PRN Q5MIN PRN SL CHEST PAIN; Start 11/25/19 at 06:45; Stop 11/26/19 at 06:44 Active Scripts Active Naproxen 375 Mg Tablet 375 Mg PO TID PRN PRN Isosorbide Mononitrate Er (Isosorbide Mononitrate) 30 Mg Tab.er.24h 30 Mg PO DAILY 30 Days Voltaren (Diclofenac Sodium) 100 Gm Gel..gram. 1 Rajesh TP QID 30 Days [place] 5-325 Tablet (Acetaminophen/Hydrocodone Bitart) 1 Each Tablet 1-2 Tab PO Q4-6HRS Reported Fluticasone Propionate Nasal Ecru (Fluticasone Propionate) 16 Gm Ecru.susp 1 Ecru NS HS Polyethylene Glycol 3350 2,500 Gm Powder 17 Gm PO DAILY 30 Days Melatonin 10 Mg Tablet 10 Mg PO QHS Gabapentin (Gabapentin) 300 Mg Capsule 600 Mg PO TID Vitamin D3 (Cholecalciferol (Vitamin D3)) 1,000 Unit Tablet 2,000 Unit PO DAILY Potassium Chloride (Potassium Chloride) 20 Meq Tablet.er 20 Meq PO DAILY Atorvastatin Calcium 20 Mg Tablet 1 Tab PO HS Lasix (Furosemide) 40 Mg Tablet 1 Tab PO DAILY Losartan Potassium 100 Mg Tablet 1 Tab PO DAILY Aspir-Low (Aspirin) 81 Mg Tablet. 1 Tab PO DAILY Allergies Allergies: Coded Allergies: MIGUEL ANGEL Inhibitors (Verified Allergy, Intermediate, 05/28/19) Penicillins (Verified Allergy, Intermediate, 05/28/19) TOLERATES ROCEPHIN Sulfa (Sulfonamide Antibiotics) (Verified Allergy, Intermediate, 05/28/19) adhesive (Verified Allergy, Intermediate, 05/28/19) influenza virus vaccine, specific (Verified Allergy, Intermediate, 05/28/19) mercury (elemental) (Verified Allergy, Intermediate, 05/28/19) methadone (Verified Allergy, Intermediate, 05/28/19) methylprednisolone (Verified Allergy, Intermediate, 05/28/19) theophylline (Verified Allergy, Intermediate, 05/28/19) trazodone (Verified Allergy, Intermediate, 05/28/19) zolpidem (Verified Allergy, Intermediate, 05/28/19) albuterol (Verified Adverse Reaction, Intermediate, 05/28/19) Shaking estradiol (Verified Adverse Reaction, Intermediate, 09/02/19) oxycodone (Verified Adverse Reaction, Intermediate, 09/02/19) ROS General: YES: Fatigue, Malaise; No: Chills, Night Sweats, Appetite, Other PSYCHOLOGICAL ROS: YES: Anxiety; No: Behavioral Disorder, Concentration difficultie, Decreased libido, Depression, Disorientation, Hallucinations, Hostility, Irritablity, Memory difficulties, Mood Swings, Obsessive thoughts, Physical abuse, Sexual abuse, Sleep disturbances, Suicidal ideation, Other Eyes: No Blurry vision, No Decreased vision, No Double vision, No Dry eyes, No Excessive tearing, No Eye Pain, No Itchy Eyes, No Loss of vision, No Photophobia, No Scotomata, No Uses contacts, No Uses glasses, No Other HEENT: No: Heacaches, Visual Changes, Hearing change, Nasal congestion, Nasal discharge, Oral lesions, Sinus pain, Sore Throat, Epistaxis, Sneezing, Snoring, Tinnitus, Vertigo, Vocal changes, Other ALLERGY AND IMMUNOLOGY: No: Hives, Insect Bite Sensitivity, Itchy/Watery Eyes, Nasal Congestion, Post Nasal Drip, Seasonal Allergies, Other Hematological and Lymphatic: No: Bleeding Problems, Blood Clots, Blood Transfusions, Brusing, Night Sweats, Pallor, Swollen Lymph Nodes, Other ENDOCRINE: No: Breast Changes, Galactorrhea, Hair Pattern Changes, Hot Flashes, Malaise/lethargy, Mood Swings, Palpitations, Polydipsia/polyuria, Skin Changes, Temperature Intolerance, Unexpected Weight Changes, Other Breast: No New/Changing Breast Lumps, No Nipple changes, No Nipple discharge, No Other Respiratory: YES: Cough; No: Hemoptysis, Orthopnea, Pleuritic Pain, Shortness of breath, SOB with excertion, Sputum Changes, Stridor, Tachypnea, Wheezing, Other Cardiovascular: No Chest Pain, No Palpitations, No Orthopnea, No Paroxysmal Noc. Dyspnea, No Edema, No Lt Headedness, No Other Gastrointestinal: No Nausea, No Vomiting, No Abdominal Pain, No Diarrhea, No Constipation, No Melena, No Hematochezia, No Other Genitourinary: No Dysuria, No Frequency, No Incontinence, No Hematuria, No Retention, No Discharge, No Urgency, No Pain, No Flank Pain, No Other, No , No , No , No , No , No , No Musculoskeletal: Yes Gait Disturbance; No Joint Pain, No Joint Stiffness, No Joint Swelling, No Muscle Pain, No Muscular Weakness, No Pain In:, No Swelling In:, No Other Neurological: No Behavorial Changes, No Bowel/Bladder ControlChng, No Confusion, No Dizziness, No Gait Disturbance, No Headaches, No Impaired Coord/balance, No Memory Loss, No Numbness/Tingling, No Seizures, No Speech Problems, No Tremors, No Visual Changes, No Weakness, No Other Skin: No Dry Skin, No Eczema, No Hair Changes, No Lumps, No Mole Changes, No Mottling, No Nail Changes, No Pruritus, No Rash, No Skin Lesion Changes, No Other, No Acne Physical Exam General: Alert, Oriented X3, Cooperative, mild distress HEENT: Atraumatic, PERRLA, EOMI, Mucous membr. moist/pink Lungs: Clear to auscultation, Normal air movement Heart: irregularly irregular Abdomen: Normal bowel sounds, Soft, No tenderness, No hepatosplenomegaly, No masses Rectal Exam: not examined Extremities: No clubbing, No cyanosis, No edema, Normal pulses, No tenderness/swelling Skin: No rashes, No breakdown, No significant lesion Neuro: Normal gait, Normal speech, Strength at 5/5 X4 ext, Normal tone, Sensati on intact, Cranial nerves 3-12 NL, Reflexes 2+ Psych/Mental Status: Mental status NL, Mood NL Vitals Vitals Vital Signs Date Time Temp Pulse Resp B/P (MAP) Pulse Ox O2 Delivery O2 Flow Rate FiO2 11/25/19 06:30 114 18 86/78 (81) 100 Room Air 11/25/19 05:20 97.9 97.9 Labs Labs Laboratory Tests Test 11/25/19 05:56 White Blood Count 5.2 x10^3/uL (4.0-11.0) Red Blood Count 3.70 x10^6/uL (3.50-5.40) Hemoglobin 10.8 g/dL (12.0-15.5) Hematocrit 32.1 % (36.0-47.0) Mean Corpuscular Volume 87 fL (79-100) Mean Corpuscular Hemoglobin 29 pg (25-35) Mean Corpuscular Hemoglobin Concent 34 g/dL (31-37) Red Cell Distribution Width 17.7 % (11.5-14.5) Platelet Count 152 x10^3/uL (140-400) Neutrophils (%) (Auto) 70 % (31-73) Lymphocytes (%) (Auto) 18 % (24-48) Monocytes (%) (Auto) 12 % (0-9) Eosinophils (%) (Auto) 0 % (0-3) Basophils (%) (Auto) 0 % (0-3) Neutrophils # (Auto) 3.7 x10^3/uL (1.8-7.7) Lymphocytes # (Auto) 1.0 x10^3/uL (1.0-4.8) Monocytes # (Auto) 0.6 x10^3/uL (0.0-1.1) Eosinophils # (Auto) 0.0 x10^3/uL (0.0-0.7) Basophils # (Auto) 0.0 x10^3/uL (0.0-0.2) Prothrombin Time 13.4 SEC (11.7-14.0) Prothromb Time International Ratio 1.1 (0.8-1.1) Activated Partial Thromboplast Time 27 SEC (24-38) Sodium Level 141 mmol/L (136-145) Potassium Level 3.2 mmol/L (3.5-5.1) Chloride Level 105 mmol/L (98-107) Carbon Dioxide Level 28 mmol/L (21-32) Anion Gap 8 (6-14) Blood Urea Nitrogen 26 mg/dL (7-20) Creatinine 0.7 mg/dL (0.6-1.0) Estimated GFR (Cockcroft-Gault) 80.1 BUN/Creatinine Ratio 37 (6-20) Glucose Level 141 mg/dL (70-99) Calcium Level 9.1 mg/dL (8.5-10.1) Total Bilirubin 0.4 mg/dL (0.2-1.0) Aspartate Amino Transf (AST/SGOT) 15 U/L (15-37) Alanine Aminotransferase (ALT/SGPT) 18 U/L (14-59) Alkaline Phosphatase 76 U/L (46-116) Troponin I Quantitative < 0.017 ng/mL (0.000-0.055) DR-Bec-O-Type Natriuretic Peptide 2450 pg/mL (0-449) Total Protein 6.8 g/dL (6.4-8.2) Albumin 3.5 g/dL (3.4-5.0) Albumin/Globulin Ratio 1.1 (1.0-1.7) Thyroid Stimulating Hormone (TSH) 0.666 uIU/mL (0.358-3.74) Laboratory Tests Test 11/25/19 05:56 White Blood Count 5.2 x10^3/uL (4.0-11.0) Red Blood Count 3.70 x10^6/uL (3.50-5.40) Hemoglobin 10.8 g/dL (12.0-15.5) Hematocrit 32.1 % (36.0-47.0) Mean Corpuscular Volume 87 fL (79-100) Mean Corpuscular Hemoglobin 29 pg (25-35) Mean Corpuscular Hemoglobin Concent 34 g/dL (31-37) Red Cell Distribution Width 17.7 % (11.5-14.5) Platelet Count 152 x10^3/uL (140-400) Neutrophils (%) (Auto) 70 % (31-73) Lymphocytes (%) (Auto) 18 % (24-48) Monocytes (%) (Auto) 12 % (0-9) Eosinophils (%) (Auto) 0 % (0-3) Basophils (%) (Auto) 0 % (0-3) Neutrophils # (Auto) 3.7 x10^3/uL (1.8-7.7) Lymphocytes # (Auto) 1.0 x10^3/uL (1.0-4.8) Monocytes # (Auto) 0.6 x10^3/uL (0.0-1.1) Eosinophils # (Auto) 0.0 x10^3/uL (0.0-0.7) Basophils # (Auto) 0.0 x10^3/uL (0.0-0.2) Prothrombin Time 13.4 SEC (11.7-14.0) Prothromb Time International Ratio 1.1 (0.8-1.1) Activated Partial Thromboplast Time 27 SEC (24-38) Sodium Level 141 mmol/L (136-145) Potassium Level 3.2 mmol/L (3.5-5.1) Chloride Level 105 mmol/L (98-107) Carbon Dioxide Level 28 mmol/L (21-32) Anion Gap 8 (6-14) Blood Urea Nitrogen 26 mg/dL (7-20) Creatinine 0.7 mg/dL (0.6-1.0) Estimated GFR (Cockcroft-Gault) 80.1 BUN/Creatinine Ratio 37 (6-20) Glucose Level 141 mg/dL (70-99) Calcium Level 9.1 mg/dL (8.5-10.1) Total Bilirubin 0.4 mg/dL (0.2-1.0) Aspartate Amino Transf (AST/SGOT) 15 U/L (15-37) Alanine Aminotransferase (ALT/SGPT) 18 U/L (14-59) Alkaline Phosphatase 76 U/L (46-116) Troponin I Quantitative < 0.017 ng/mL (0.000-0.055) LU-Ugr-F-Type Natriuretic Peptide 2450 pg/mL (0-449) Total Protein 6.8 g/dL (6.4-8.2) Albumin 3.5 g/dL (3.4-5.0) Albumin/Globulin Ratio 1.1 (1.0-1.7) Thyroid Stimulating Hormone (TSH) 0.666 uIU/mL (0.358-3.74) Images Images CXR: Lungs: Normal lung volume. No pulmonary mass or consolidation. The tracheobronchial tree and hilar structures are normal. Pleura: No pleural effusion or pneumothorax. Heart and Mediastinum: Cardiomegaly. Atherosclerosis of the thoracic aorta. CABG. IMPRESSION: No focal airspace disease. VTE Prophylaxis Ordered VTE Prophylaxis Devices: Yes VTE Pharmacological Prophylaxi: Yes Assessment/Plan Assessment/Plan A/P: Atrial fibrillation with RVR - initiated on diltiazem gtt. Metoprolol outpatient is XL. Eliquis in lieu of coumadin per d/w cardiology deviously, unclear as to why she stopped Eliquis therapy. CAD s/p CABG 2003 - stable on meds Hypokalemia -likely secondary to poor p.o. intake with concomitant Lasix therapy, needs to increase her outpatient potassium replacement. Check mag Hypertension - will cont on BB Hyperlipidemia - Statin Arthritis - voltaren gel Anxiety with depression - cont meds chronic diastolic CHF - appears currently compensated COPD - nebs prn H/o stroke Legally blind Peripheral neuropathy - stable. Based on age, likely should decrease her gabapentin dosing. herniated disk FEN - Cardiac diet PPX - eliquis FULL CODE Dispo - inpatient for afib with RVR Justicifation of Admission Dx: Justifications for Admission: Justification of Admission Dx: N/A DANE VILLASEÑOR MD Nov 25, 2019 07:27
[2019-11-25 07:28] LABS: BACTERIA,URINE 0 /HPF (0-FEW); WBC,URINE OCC /HPF (0-4)
[2019-11-25 07:29] LABS: AMORPHOUS SEDIMENT,UR PRESENT /HPF
[2019-11-25] MEDS ORDERED: METO-239 PO (08:13)
[2019-11-25] MEDS ORDERED: ACETAMINOPHEN 325 MG TABLET. PO PRN (08:30)
[2019-11-25] MEDS ORDERED: APIXABAN 2.5 MG TABLET. PO SCH (09:00)
[2019-11-25] MEDS: DICLOFENAC SODIUM 1% TOPICAL GEL 100GM TUBE. TP SCH ×4 (09:26→22:35)
[2019-11-25] MEDS: POLYETHYLENE GLYCOL 3350 17 GM PACKET. PO SCH (09:26)
[2019-11-25] MEDS: POTASSIUM CHLORIDE 20 MEQ TABLET.ER. PO SCH (09:27)
[2019-11-25] MEDS: GABAPENTIN 100 MG CAPSULE. PO SCH ×3 (09:27→22:33)
[2019-11-25] MEDS: CHOLECALCIFEROL (VITAMIN D3) 1,000 UNIT TABLET PO SCH (09:27)
[2019-11-25] MEDS: ASPIRIN ENTERIC COATED 81 MG TABLET.DR. PO SCH (09:27)
[2019-11-25] MEDS: LOSARTAN POTASSIUM 50 MG TABLET. PO SCH (09:27)
[2019-11-25] MEDS: FAMOTIDINE 20 MG TABLET. PO SCH (09:27)
[2019-11-25] MEDS: HYDROcodone/APAP 5/325MG 1 TAB TABLET PO PRN ×2 (09:27→22:34)
[2019-11-25] MEDS: METOPROLOL SUCC 24HR ER 25 MG TAB.ER.24H. PO SCH (09:28)
[2019-11-25] MEDS: ISOSORBIDE MONONITRATE ER 30 MG TAB.ER.24H PO SCH (09:28)
--- NOTE | 2019-11-25 11:03 | PDOC2 ---
KASH RUSS ORCHARD HAND 11/25/19 1102: CARDIAC CONSULT DATE OF CONSULT Date of Consult DATE: 11/25/19 TIME: 10:48 REASON FOR CONSULT Reason for Consult: AFIB with RVR REFERRING PHYSICIAN Referring Physician: Dr. Castro SOURCE Source: Chart review, Patient HISTORY OF PRESENT ILLNESS HISTORY OF PRESENT ILLNESS This is an 83 yo female, known well to us from outpatient clinic, who presented secondary to chest pain, palpitations, and shortness of breath. Patient reports sudden onset of pain in her central chest. Radiated down both arms. Could tell that her heart was beating very rapidly. [place] short of breath. Pain persisted so she came to the ED for further evaluation and treatment. Was noted in AFIB with RVR, which prompted this consult. PAST MEDICAL HISTORY Past Medical History Cardiovascular: CAD, CHF, HTN, Hyperlipidemia, PAFIB s/p CV Pulmonary: COPD CENTRAL NERVOUS SYSTEM: CVA, Dementia GI: GERD Psych: Anxiety, Depression Musculoskeletal: Osteoarthritis PAST SURGICAL HISTORY Past Surgical History CABG (2001), Tonsillectomy, Hysterectomy FAMILY HISTORY Family History Coronary Artery Disease (mother ) SOCIAL HISTORY Social History Smoke: No ALCOHOL: none Drugs: None Lives: Alone CURRENT MEDICATIONS CURRENT MEDICATIONS Current Medications Medications (Trade) Dose Ordered Sig/Conrad Route PRN Reason Start Time Stop Time Status Last Admin Dose Admin Diltiazem HCl (Cardizem Iv Push) 16 mg 1X ONCE IVP 11/25/19 06:00 11/25/19 06:01 DC 11/25/19 06:10 Fentanyl Citrate (Fentanyl 2ml Vial) 50 mcg 1X ONCE IV 11/25/19 06:30 11/25/19 06:31 DC 11/25/19 06:10 Sodium Chloride 500 ml @ 500 mls/hr 1X ONCE IV 11/25/19 06:30 11/25/19 07:29 DC 11/25/19 06:33 Diltiazem HCl 125 mg/Sodium Chloride 125 ml @ 5 mls/hr CONT PRN IV SEE I/O RECORD 11/25/19 06:30 11/25/19 06:48 Aspirin (Ecotrin) 81 mg DAILY PO 11/25/19 09:00 11/25/19 09:27 Vitamin D (Vitamin D3) 2,000 unit DAILY PO 11/25/19 09:00 11/25/19 09:27 Diclofenac Sodium (Voltaren) 1 elissa QID TP 11/25/19 09:00 11/25/19 09:26 Gabapentin (Neurontin) 100 mg TID PO 11/25/19 09:00 11/25/19 09:27 Isosorbide Mononitrate (Imdur) 30 mg DAILY PO 11/25/19 09:00 11/25/19 09:28 Potassium Chloride (Klor-Con) 20 meq DAILY PO 11/25/19 09:00 11/25/19 09:27 Losartan Potassium (Cozaar) 100 mg DAILY PO 11/25/19 09:00 11/25/19 09:27 Polyethylene Glycol (miraLAX PACKET) 17 gm DAILY PO 11/25/19 09:00 11/25/19 09:26 Acetaminophen/ Hydrocodone Bitart (Lortab 5/325) 1 tab PRN Q6HRS PRN PO pain 11/25/19 08:15 11/25/19 09:27 Metoprolol Succinate (Toprol Xl) 25 mg DAILY PO 11/25/19 09:00 11/25/19 09:28 Apixaban (Eliquis) 2.5 mg BID PO 11/25/19 09:00 11/25/19 09:27 Famotidine (Pepcid) 20 mg DAILY PO 11/25/19 09:00 11/25/19 09:27 ALLERGIES ALLERGIES: Coded Allergies: MIGUEL ANGEL Inhibitors (Verified Allergy, Intermediate, 05/28/19) Penicillins (Verified Allergy, Intermediate, 05/28/19) TOLERATES ROCEPHIN Sulfa (Sulfonamide Antibiotics) (Verified Allergy, Intermediate, 05/28/19) adhesive (Verified Allergy, Intermediate, 05/28/19) influenza virus vaccine, specific (Verified Allergy, Intermediate, 05/28/19) mercury (elemental) (Verified Allergy, Intermediate, 05/28/19) methadone (Verified Allergy, Intermediate, 05/28/19) methylprednisolone (Verified Allergy, Intermediate, 05/28/19) theophylline (Verified Allergy, Intermediate, 05/28/19) trazodone (Verified Allergy, Intermediate, 05/28/19) zolpidem (Verified Allergy, Intermediate, 05/28/19) albuterol (Verified Adverse Reaction, Intermediate, 05/28/19) Shaking estradiol (Verified Adverse Reaction, Intermediate, 09/02/19) oxycodone (Verified Adverse Reaction, Intermediate, 09/02/19) ROS Review of System 14 point ROS conducted with pertinent positives noted above in HPI PHYSICAL EXAM PHYSICAL EXAM General: Alert, Oriented X3, Cooperative, No acute distress HEENT: Atraumatic, Mucous membr. moist/pink Lungs: Clear to auscultation Heart: AFIB rate 100-130, Other (2/6 systolic murmur ) Abdomen: Soft, No tenderness Extremities: No edema, Normal pulses Skin: No significant lesion Neuro: Normal speech, Sensation intact Psych/Mental Status: Mental status NL, Mood NL MUSCULOSKELETAL: Osteoarthritic changes both hands VITALS/I&O VITALS/I&O: Vital Signs Date Time Temp Pulse Resp B/P (MAP) Pulse Ox O2 Delivery O2 Flow Rate FiO2 11/25/19 10:13 Room Air 11/25/19 09:28 116 125/68 11/25/19 08:15 97.9 18 99 97.9 LABS Lab: Laboratory Tests Test 11/25/19 05:56 11/25/19 06:43 11/25/19 09:48 White Blood Count 5.2 x10^3/uL (4.0-11.0) Red Blood Count 3.70 x10^6/uL (3.50-5.40) Hemoglobin 10.8 g/dL (12.0-15.5) L Hematocrit 32.1 % (36.0-47.0) L Mean Corpuscular Volume 87 fL (79-100) Mean Corpuscular Hemoglobin 29 pg (25-35) Mean Corpuscular Hemoglobin Concent 34 g/dL (31-37) Red Cell Distribution Width 17.7 % (11.5-14.5) H Platelet Count 152 x10^3/uL (140-400) Neutrophils (%) (Auto) 70 % (31-73) Lymphocytes (%) (Auto) 18 % (24-48) L Monocytes (%) (Auto) 12 % (0-9) H Eosinophils (%) (Auto) 0 % (0-3) Basophils (%) (Auto) 0 % (0-3) Neutrophils # (Auto) 3.7 x10^3/uL (1.8-7.7) Lymphocytes # (Auto) 1.0 x10^3/uL (1.0-4.8) Monocytes # (Auto) 0.6 x10^3/uL (0.0-1.1) Eosinophils # (Auto) 0.0 x10^3/uL (0.0-0.7) Basophils # (Auto) 0.0 x10^3/uL (0.0-0.2) Prothrombin Time 13.4 SEC (11.7-14.0) Prothrombin Time INR 1.1 (0.8-1.1) Activated Partial Thromboplast Time 27 SEC (24-38) Sodium Level 141 mmol/L (136-145) Potassium Level 3.2 mmol/L (3.5-5.1) L Chloride Level 105 mmol/L (98-107) Carbon Dioxide Level 28 mmol/L (21-32) Anion Gap 8 (6-14) Blood Urea Nitrogen 26 mg/dL (7-20) H Creatinine 0.7 mg/dL (0.6-1.0) Estimated GFR (Cockcroft-Gault) 80.1 BUN/Creatinine Ratio 37 (6-20) H Glucose Level 141 mg/dL (70-99) H Calcium Level 9.1 mg/dL (8.5-10.1) Magnesium Level 2.3 mg/dL (1.8-2.4) Total Bilirubin 0.4 mg/dL (0.2-1.0) Aspartate Amino Transferase (AST) 15 U/L (15-37) Alanine Aminotransferase (ALT) 18 U/L (14-59) Alkaline Phosphatase 76 U/L (46-116) Troponin I Quantitative < 0.017 ng/mL (0.000-0.055) 0.813 ng/mL (0.000-0.055) AA-Xxf-D-Type Natriuretic Peptide 2450 pg/mL (0-449) H Total Protein 6.8 g/dL (6.4-8.2) Albumin 3.5 g/dL (3.4-5.0) Albumin/Globulin Ratio 1.1 (1.0-1.7) Thyroid Stimulating Hormone (TSH) 0.666 uIU/mL (0.358-3.74) Urine Collection Type Unknown Urine Color Yellow Urine Clarity Clear Urine pH 6.0 (<5.0-8.0) Urine Specific [place] 1.025 (1.000-1.030) Urine Protein Negative mg/dL (NEG-TRACE) Urine Glucose (UA) Negative mg/dL (NEG) Urine Ketones (Stick) Trace mg/dL (NEG) Urine Blood Negative (NEG) Urine Nitrite Negative (NEG) Urine Bilirubin Negative (NEG) Urine Urobilinogen Dipstick 0.2 mg/dL (0.2 mg/dL) Urine Leukocyte Esterase Negative (NEG) Urine RBC 1-2 /HPF (0-2) Urine WBC Occ /HPF (0-4) Urine Squamous Epithelial Cells None /LPF Urine Transitional Epithelial Cells Occ /LPF Urine Amorphous Sediment Present /HPF Urine Bacteria 0 /HPF (0-FEW) Urine Mucus Slight /LPF Laboratory Tests 11/25/19 05:56 Laboratory Tests 11/25/19 05:56 ECHOCARDIOGRAM ECHOCARDIOGRAM <Conclusion> The left ventricular systolic function is normal and the ejection fraction is within normal range. The Ejection Fraction is 55-60%. Septal motion consistent with conduction abnormality. Otherwise, grossly normal wall motion. The left atrium is severely dilated. DATE: 07/09/19 1406 STRESS TEST STRESS TEST Conclusion 1. Regadenoson cardioisotope stress test showed small apical wall infarct with very small amount of brisa-infarct ischemia. 2. Normal left ventricular systolic function with ejection fraction calculated at 72%. 3. Low risk for cardiac events. DATE: 12/01/17 1226 Conclusion 1. Regadenoson cardioisotope stress test showed small apical wall infarct with very small amount of brisa-infarct ischemia. 2. Normal left ventricular systolic function with ejection fraction calculated at 70%. 3. Low risk for cardiac events. DATE: 01/23/19 1001 HEART CATH HEART CATH Coronary Angiography The patient's coronary anatomy is right dominant. The left main coronary artery is a large size vessel free of disease. The left main trifurcates to the left anterior descending, circumflex, and ramus. The left anterior descending artery is a medium size vessel with stenosis. There is a 100% stenosis in the proximal segment. The first diagonal branch is a small size vessel with mild diffused disease. The second diagonal branch is a small size vessel with mild-moderate diffused disease. The circumflex artery is a medium size vessel with stenosis. There is a 50% stenosis in the proximal segment. The first obtuse marginal branch is a medium size vessel free of disease. The second obtuse marginal branch is a small size vessel free of disease. The ramus intermedius artery is a small size vessel with mild diffused disease. The right coronary artery is a medium size vessel with stenosis. There is a 100% stenosis in the proximal segment. The right posterior descending artery is a medium size vessel with mild diffused disease. The right posterolateral branch is a small size vessel with mild diffused disease. The left internal mammary artery to the mid left anterior descending artery segm ent is patent . The saphenous vein graft to the distal right coronary artery is patent there is a 50% mid third stenosis. The saphenous vein graft to the first obtuse marginal branch segment is occluded . Left Ventriculography The left ventricle is mildly dilated in size with decreased contractility. The left ventricular ejection fraction is estimated to be 35%. The left ventricular end diastolic pressure is 22 mmHg. There was no gradient across the aortic valve upon pullback. Valves The LA is dilated and it looks like moderate MR but may need to do a DMITRIY to verify Conclusion This pt with severe [place] vessel CAD and an ischemic cardiomyopathy has disease of small vessels and I would recommend medical treatment Recommendations Medical Therapy DATE: 01/25/161811 ASSESSMENT/PLAN ASSESSMENT/PLAN 1. Chest pain in the setting of RVR. Prior recent hospitalization due to CP. Imdur initiated 2. PAFIB with RVR. On Cardizem gtt. Remains in AFIB. Prior CV. 3. Probable tachy-rakesh. Recent event monitor with predominantly SR. Burst of SVT noted along with 4.3 second pause. AFIB burden < 1%. Has h/o SB as well. 4. Mild troponin elevation; highest 0.8. Possibly type II, in the setting of RVR 5. CAD s/p remote CABG. Cath in 2015 with small vessel disease as noted above. Stress test 01/26 without significant reversible ischemia as noted above. LHC planned last week, but post-posted due to respiratory illness, for which she has since recovered 6. Hypertension; controlled 7. Chronic diastolic CHF; appears compensated. Echo 06/27 with LVEF 55-60% 8. Hyperlipidemia; statin 9. H/o CVA Recommendations Has had recurrent CP despite addition of Imudr. Will plan to proceed with C later today. R/b/a discussed and she is agreeable Continue metoprolol for rate control Add Amiodarone gtt for rhythm control Titrate off Cardizem gtt as able Given recurrent AFIB with RVR and recent event monitor findings s/o tachy/rakesh, recommend PPM implantation. R/b/a discussed with patient and she is agreeable to proceed Eliquis for stroke prophylaxis; hold for now for [facility], PPM Secondary prevention measures Resume home antiHTN therapy. Supportive care TG MAGALLON MD 11/25/19 9487: CARDIAC CONSULT ASSESSMENT/PLAN ASSESSMENT/PLAN Patient seen and examined. Agree with above nurse practitioner note. Cardiac catheterization did not demonstrate any critical lesions needing acute intervention. She does have moderate to severe coronary artery disease I suspect that most of her symptoms are related to atrial fibrillation with a rapid ventricular response and she does have evidence of tachybradycardia syndrome. In an effort to minimize short-term risk of bleeding with respect to pacemaker implantation and given that the likely source of her dyspnea and troponin elevation is atrial fibrillation with a rapid ventricular response we will first focus on treatment of the A. fib with RVR. Plan for pacemaker placement tomorrow and reinitiation of anticoagulation with continue rate control. If necessary we could consider cardioversion in 2 to 4 weeks. If afte r stabilization of her heart rate and tachybradycardia syndrome she continues to have symptoms of dyspnea could then consider PCI of the saphenous vein graft to the RCA PETRONAKASH BAILEY APRN Nov 25, 2019 11:02 TG MAGALLON MD Nov 25, 2019 17:37
[2019-11-25] MEDS ORDERED: POTASSIUM CHLORIDE 20 MEQ TABLET.ER. PO ONE (11:30)
[2019-11-25] MEDS ORDERED: AMIODARONE 150 MG in IV DEXTROSE 5% 100ML 100 ML IV ONE (12:15)
[2019-11-25] MEDS ORDERED: AMIODARONE 450 MG in IV DEXTROSE 5% 250 ML IV PRN (12:15)
[2019-11-25] MEDS ORDERED: LIDOCAINE 1% Multi-Dose 20 ML VIAL. ONE (14:53)
[2019-11-25] MEDS ORDERED: fentaNYL PF VIAL 100 MCG/2 ML VIAL ONE (15:07)
[2019-11-25] MEDS ORDERED: MIDAZOLAM HCL/PF 2 MG/2 ML VIAL. ONE (15:08)
[2019-11-25] MEDS ORDERED: IODIXANOL 320 MG/ML 100 ML VIAL. ONE (15:18)
[2019-11-25] MEDS ORDERED: LIDOCAINE 1% Multi-Dose 20 ML VIAL. INJ ONE (15:30)
[2019-11-25] MEDS ORDERED: IODIXANOL 320 MG/ML 100 ML VIAL. IART ONE (15:30)
[2019-11-25] MEDS ORDERED: MIDAZOLAM HCL/PF 2 MG/2 ML VIAL. IV ONE (15:30)
--- NOTE | 2019-11-25 17:27 | CARD ---
MR#: [id number] Date of Study: 11/25/2019 Ordering Physician: KASH RUSS, Referring Physician: KASH RUSS, Tech: RT Raj (R) APPROVED REPORT Technologist: RT Raj (R) Nurse: Rajni Simpson Procedure(s) performed: fl time: 3.6 mins dose: 25 gycm2 contrast: 44 ml moderate sedation: 39 MIN LHC, Coronary angiography, Bypass angiography HISTORY The patient is a 83 year-old female with a history of : coronary artery disease, hypertension, dyslip idemia. INDICATION The indication(s) include : non-STEMI , dyspnea. [facility] Clinical Frailty Scale [facility] Clinical Frailty Scale: Moderately Frail Heart Failure Heart Failure: Yes If Yes, Newly Diagnosed: No If Yes, HF Type: Diastolic If Yes, NYHA Class: Class III PROCEDURE NARRATIVE After explaining the risks and benefits of the procedure and alternatives, informed consent was obtai steve. The patient was brought electively to the cardiac catheterization lab in a fasting state. A dion eout was performed confirming the patient's name, date of , procedure, and site of procedure. A ll necessary personnel were wearing the appropriate protective equipment and radiation monitor device s. (See nursing notes for medications administered). The right groin was sterilely prepped and drap ed in the usual fashion. The right groin was infiltrated with 10 mL of 2% lidocaine for subcutaneous anesthesia. A 6 F sheath was inserted into the right femoral artery without difficulty. Right and left coronary angiography was performed using a JR4 and JL4 catheter. Left ventricular end diastolic pressure was obtained with a pigtail catheter and pullback was performed. Bypass angiography was per formed with an TI catheter. All catheter exchanges and advancements were performed over a guidewire . At case completion the right femoral sheath was removed and hemostasis was achieved with manual co mpression. There were no acute complications. HEMODYNAMICS: AO: 136/88 LVEDP 18 mm Hg No gradient on LV to aortic pullback. LEFT VENTRICULOGRAM: Deferred due to known normal EF. CORONARY ANGIOGRAPHY: LM is a large caliber vessel with normal angiographic appearance. LAD is a large caliber vessel with an ostial 100% occlusion. The distal vessel is seen to fill via a patent VENTURA graft. Ramus is a small caliber vessel with normal angiographic appearance. LCx is a moderate caliber non-dominant vessel with a proximal 30% stenosis. OM1 is a moderate caliber vessel with normal angiographic appearance. RCA is a large caliber dominant vessel with prior known 100% occlusion and was not injected. RPDA is a moderate caliber vessels with normal angiographic appearance. BYPASS ANGIOGRAPHY: VENTURA to LAD is widely patent without anastomotic stenosis. SVG to LCx is occluded SVG to RCA has a mid body eccentrc 70-80% stenosis. Conclusion 1. Acute on chronic diastolic HF 2. Severe three vessel coronary disease with 2/3 grafts patent. Recommendations 1. Plan for rate control of atrial fibrillation and pacemaker placement for tachybrady syndrome. If a fter stabilization of afib, she has continued symptoms of dyspnea, will plan for PCI of the SVG to RC A in 2-4 weeks after pacemaker placement and cardioversion. Signed by : Taj Blankenship, Electronically Approved : 11/25/2019 17:26:53
[2019-11-25] MEDS: ATORVASTATIN CALCIUM 20 MG TABLET PO SCH (22:33)
[2019-11-25] MEDS: FLUTICASONE 50MCG/NASAL SPRAY 16GM BOTTLE. NS SCH (22:35)
[2019-11-26] VITALS (15 sets, daily range): BP systolic 146–204; BP diastolic 60–111
[2019-11-26 06:17] LABS: BASO % 0 % (0-3); EOS # 0.1 x10^3/uL (0.0-0.7); EOS % 1 % (0-3); HEMATOCRIT 34.1 % (36.0-47.0); HEMOGLOBIN 11.3 g/dL (12.0-15.5); LYMPH # 2.7 x10^3/uL (1.0-4.8); LYMPH % 34 % (24-48); MEAN CORPUSCULAR HEMOGLOBIN 29 pg (25-35); MEAN CORPUSCULAR HGB CONC 33 g/dL (31-37); MEAN CORPUSCULAR VOLUME 89 fL (79-100); MONO # 0.6 x10^3/uL (0.0-1.1); MONO % 8 % (0-9); NEUT # 4.5 x10^3/uL (1.8-7.7); NEUT % 57 % (31-73); PLATELET COUNT 168 x10^3/uL (140-400); RED BLOOD COUNT 3.84 x10^6/uL (3.50-5.40); RED CELL DISTRIBUTION WIDTH 18.2 % (11.5-14.5); WHITE BLOOD COUNT 7.9 x10^3/uL (4.0-11.0)
[2019-11-26 06:49] LABS: ALBUMIN 3.2 g/dL (3.4-5.0); CALCIUM 8.7 mg/dL (8.5-10.1); CREATININE 0.7 mg/dL (0.6-1.0); GFR 80.1; POTASSIUM 4.4 mmol/L (3.5-5.1); TOTAL BILIRUBIN 0.2 mg/dL (0.2-1.0); TOTAL PROTEIN 6.4 g/dL (6.4-8.2)
--- NOTE | 2019-11-26 08:03 | EKG ---
[facility] [address] [place] [address] Test Date: 2019-11-25 Test Time: 05:31:59 Pat Name: PRUDENCE SALINAS Department: Room: Gender: F Entry Level Administrative Assistant: : 1935 Requested By: DAVE EDMONDSON Order Number: [id number] Reading MD: Measurements Intervals [place] Rate: 134 P: CA: QRS: -77 QRSD: 130 T: 73 QT: 328 QTc: 497 Interpretive Statements IRREGULAR RHYTHM, NO P-WAVE FOUND ABNORMAL LEFT AXIS DEVIATION S1,S2,S3 PATTERN LEFT ANTERIOR FASCICULAR BLOCK NON SPECIFIC INTRAVENTRICULAR BLOCK RVH WITH REPOLARIZATION ABNORMALITY ABNORMAL ECG RI6.01 No previous ECG available for comparison
[2019-11-26] MEDS: POLYETHYLENE GLYCOL 3350 17 GM PACKET. PO SCH (09:00)
[2019-11-26] MEDS: DICLOFENAC SODIUM 1% TOPICAL GEL 100GM TUBE. TP SCH ×5 (09:14→19:49)
[2019-11-26] MEDS: METOPROLOL SUCC 24HR ER 25 MG TAB.ER.24H. PO SCH (09:15)
[2019-11-26] MEDS: LOSARTAN POTASSIUM 50 MG TABLET. PO SCH (09:15)
[2019-11-26] MEDS: ASPIRIN ENTERIC COATED 81 MG TABLET.DR. PO SCH (09:15)
[2019-11-26] MEDS: CHOLECALCIFEROL (VITAMIN D3) 1,000 UNIT TABLET PO SCH (09:15)
[2019-11-26] MEDS: FAMOTIDINE 20 MG TABLET. PO SCH (09:15)
[2019-11-26] MEDS: ISOSORBIDE MONONITRATE ER 30 MG TAB.ER.24H PO SCH (09:16)
[2019-11-26] MEDS: POTASSIUM CHLORIDE 20 MEQ TABLET.ER. PO SCH (09:16)
[2019-11-26] MEDS: GABAPENTIN 100 MG CAPSULE. PO SCH ×3 (09:16→19:28)
[2019-11-26] MEDS: ATORVASTATIN CALCIUM 20 MG TABLET PO SCH (09:16)
--- NOTE | 2019-11-26 10:32 | NUR ---
SS following for discharge planning. SS reviewed pt chart and discussed with pt RN. Pt is from home and is currently on room air. Pt had heart cath on 11/25/2019. Pt having pacemaker placed today. PT/OT ordered. SS will continue to follow for discharge planning.
--- NOTE | 2019-11-26 11:37 | PDOC ---
[employer] PROGRESS NOTE Date of Service DOS: DATE: 11/26/19 TIME: 11:31 Chief Complaint Chief Complaint Sudden onset of chest pain History of Present Illness History of Present Illness 11/26/19 Patient seen and examined Chart reviewed Discussed with RN Discussed with case management Patient was awake, in NAD. Patient was not able to sleep all night. Patient is on O2. 11/25/19 Patient is an 83-year-old female with multiple medical problems including known coronary disease status post remote CABG in 2001 who presents with a relatively sudden onset of chest pain sometime after midnight. She describes the pain is heavy in her chest. She describes shortness of breath. She also states she feels like her heart is racing. She denies any fever chills or sweats. She is had no cough or congestion. She has had some nausea but no vomiting. She was unable to make the pain stop with her medication at home.] Vitals/I&O Vitals/I&O: Vital Signs Date Time Temp Pulse Resp B/P (MAP) Pulse Ox O2 Delivery O2 Flow Rate FiO2 11/26/19 11:00 97.7 60 18 179/71 (107) 99 Nasal Cannula 2.0 97.7 I & O0 11/25/19 11/25/19 11/26/19 15:00 23:00 07:00 Intake Total 550 ml 300 ml 400 ml Output Total 1000 ml 300 ml Balance 550 ml -700 ml 100 ml Physical Exam General: Alert, Oriented X3, Cooperative, mild distress Heart: Regular rate Lungs: Clear Abdomen: Normal bowel sounds, Soft, No tenderness, No hepatosplenomegaly, No masses Extremities: No clubbing, No cyanosis, No edema, Normal pulses, No tenderness/swelling Skin: No rashes, No breakdown, No significant lesion Labs Labs: Laboratory Tests Test 11/25/19 12:40 11/26/19 05:20 Troponin I Quantitative 1.754 ng/mL (0.000-0.055) White Blood Count 7.9 x10^3/uL (4.0-11.0) Red Blood Count 3.84 x10^6/uL (3.50-5.40) Hemoglobin 11.3 g/dL (12.0-15.5) Hematocrit 34.1 % (36.0-47.0) Mean Corpuscular Volume 89 fL (79-100) Mean Corpuscular Hemoglobin 29 pg (25-35) Mean Corpuscular Hemoglobin Concent 33 g/dL (31-37) Red Cell Distribution Width 18.2 % (11.5-14.5) Platelet Count 168 x10^3/uL (140-400) Neutrophils (%) (Auto) 57 % (31-73) Lymphocytes (%) (Auto) 34 % (24-48) Monocytes (%) (Auto) 8 % (0-9) Eosinophils (%) (Auto) 1 % (0-3) Basophils (%) (Auto) 0 % (0-3) Neutrophils # (Auto) 4.5 x10^3/uL (1.8-7.7) Lymphocytes # (Auto) 2.7 x10^3/uL (1.0-4.8) Monocytes # (Auto) 0.6 x10^3/uL (0.0-1.1) Eosinophils # (Auto) 0.1 x10^3/uL (0.0-0.7) Basophils # (Auto) 0.0 x10^3/uL (0.0-0.2) Sodium Level 144 mmol/L (136-145) Potassium Level 4.4 mmol/L (3.5-5.1) Chloride Level 110 mmol/L (98-107) Carbon Dioxide Level 27 mmol/L (21-32) Anion Gap 7 (6-14) Blood Urea Nitrogen 19 mg/dL (7-20) Creatinine 0.7 mg/dL (0.6-1.0) Estimated GFR (Cockcroft-Gault) 80.1 BUN/Creatinine Ratio 27 (6-20) Glucose Level 100 mg/dL (70-99) Calcium Level 8.7 mg/dL (8.5-10.1) Total Bilirubin 0.2 mg/dL (0.2-1.0) Aspartate Amino Transf (AST/SGOT) 18 U/L (15-37) Alanine Aminotransferase (ALT/SGPT) 21 U/L (14-59) Alkaline Phosphatase 77 U/L (46-116) Total Protein 6.4 g/dL (6.4-8.2) Albumin 3.2 g/dL (3.4-5.0) Albumin/Globulin Ratio 1.0 (1.0-1.7) Review of Systems Review of Systems: Patient does not complain of weakness. Patient endorses insomnia. Assessment and Plan Assessmemt and Plan Atrial fibrillation with RVR CAD s/p CABG 2003 Hypokalemia Hypertension Hyperlipidemia Arthritis Anxiety with depression chronic diastolic CHF COPD H/o stroke Legally blind Peripheral neuropathy - stable. herniated disk Plan Cardiac monitoring Rate control Trend labs Home meds DVT prophylaxis Full code Serial enzymes Serial EKGs Appreciate cardiology input We ordered some as needed Benadryl for her insomnia Comment Review of Relevant I have reviewed the following items saji (where applicable) has been applied. Medications: Current Medications Medications (Trade) Dose Ordered Sig/Conrad Route PRN Reason Start Time Stop Time Status Last Admin Dose Admin Atorvastatin Calcium (Lipitor) 20 mg HS PO 11/25/19 21:00 11/26/19 09:16 Fluticasone Propionate (Flonase) 1 spray HS NS 11/25/19 21:00 11/25/19 22:35 Amiodarone HCl 150 mg/Dextrose 103 ml @ 600 mls/hr 1X ONCE IV 11/25/19 12:15 11/25/19 12:25 DC 11/25/19 12:15 Amiodarone HCl 450 mg/Dextrose 259 ml @ 0 mls/hr CONT PRN IV SEE I/O RECORD 11/25/19 12:15 11/26/19 12:14 11/25/19 14:00 Heparin Sodium/ Sodium Chloride (HEPARIN for ARTERIAL LINE FLUSH) 1,000 unit 1X ONCE IART 11/25/19 15:30 11/25/19 15:37 DC 11/25/19 15:30 Heparin Sodium/ Sodium Chloride (HEPARIN for ARTERIAL LINE FLUSH) 1,000 unit 1X ONCE IART 11/25/19 15:30 11/25/19 15:37 DC 11/25/19 15:30 Midazolam HCl (Versed) 2 mg 1X ONCE IV 11/25/19 15:30 11/25/19 15:37 DC 11/25/19 15:30 Fentanyl Citrate (Fentanyl 2ml Vial) 100 mcg 1X ONCE IV 11/25/19 15:30 11/25/19 15:37 DC 11/25/19 15:30 Iodixanol (Visipaque 320) 100 ml 1X ONCE IART 11/25/19 15:30 11/25/19 15:37 DC 11/25/19 15:30 Lidocaine HCl (Lidocaine 1% 20ml Vial) 20 ml 1X ONCE INJ 11/25/19 15:30 11/25/19 15:37 DC 11/25/19 15:30 Justicifation of Admission Dx: Justifications for Admission: Justification of Admission Dx: N/A SHARONA MARTI III DO Nov 26, 2019 11:36
[2019-11-26] MEDS ORDERED: LIDOCAINE 2%/EPI 1:100,000 20 ML VIAL. ONE ×2 (13:19→13:30)
[2019-11-26] MEDS ORDERED: MIDAZOLAM HCL/PF 2 MG/2 ML VIAL. IV ONE (13:30)
[2019-11-26] MEDS ORDERED: fentaNYL PF VIAL 100 MCG/2 ML VIAL IV ONE (13:30)
[2019-11-26] MEDS ORDERED: BACITRACIN 50,000 UNIT in IV NORMAL SALINE 250ML 250 ML IRR ONE (13:30)
[2019-11-26] MEDS ORDERED: LIDOCAINE 2%/EPI 1:100,000 20 ML VIAL. IJ ONE (13:30)
[2019-11-26] MEDS ORDERED: ceFAZolin SODIUM IV Push 1 GM VIAL. IVP ONE (13:30)
[2019-11-26] MEDS ORDERED: MIDAZOLAM HCL/PF 2 MG/2 ML VIAL. ONE ×2 (13:31→14:46)
[2019-11-26] MEDS ORDERED: fentaNYL PF VIAL 100 MCG/2 ML VIAL ONE ×2 (13:31→14:39)
[2019-11-26] MEDS ORDERED: VANCOMYCIN 1GM IVPB FOR OMNI 250 ML ONE (13:44)
[2019-11-26] MEDS ORDERED: VANCOMYCIN 1GM IVPB FOR OMNI 250 ML IRR ONE (13:45)
[2019-11-26] MEDS ORDERED: IODIXANOL 320 MG/ML 100 ML VIAL. ONE (14:23)
[2019-11-26] MEDS ORDERED: CONTRAST GIVEN. MC PRN (14:45)
[2019-11-26] MEDS ORDERED: IODIXANOL 320 MG/ML 100 ML VIAL. IART ONE (14:45)
--- NOTE | 2019-11-26 16:41 | NUR ---
SS following up with discharge planning. SS reviewed pt chart and discussed with pt RN. PT/OT recommending [facility] unit. SS met with pt and spoke with pt's daughter via phone. Pt declining [facility] unit stating that she will return to home and her daughter, Bernie, will stay with her. Pt agreeable to home healthcare. Pt and pt's daughter reported no preference of company at this time. SS will continue to follow for discharge planning.
[2019-11-26] MEDS ORDERED: hydrALAZINE 20 MG/ML VIAL. IVP PRN (17:15)
[2019-11-26] MEDS: FLUTICASONE 50MCG/NASAL SPRAY 16GM BOTTLE. NS SCH (19:28)
[2019-11-26] MEDS: HYDROcodone/APAP 5/325MG 1 TAB TABLET PO PRN (19:29)
[2019-11-26] MEDS: diphenhydrAMINE HCL 25 MG CAPSULE PO PRN (20:49)
[2019-11-27 03:00] VITALS: BP 157/69
[2019-11-27] MEDS: HYDROcodone/APAP 5/325MG 1 TAB TABLET PO PRN ×2 (05:54→09:33)
[2019-11-27 07:00] VITALS: BP 184/99
--- NOTE | 2019-11-27 09:28 | RAD ---
Single AP view of the chest. Comparison: 11/25/2019. Indication: Post pacemaker placement Findings: Sternotomy wires and CABG clips are identified. There is a new left clavian pacemaker with leads positioned over the right atrium and right ventricle. The heart is not enlarged. Enlarged but stable No air space or interstitial disease. Findings suggest right rotator cuff injury. Impression: 1. Stable cardiac pulmonary findings. New pacemaker seen. No pneumothorax. Electronically signed by: Nicolás Wooten MD (11/27/2019 9:25 AM) [id number]
[2019-11-27] MEDS: DICLOFENAC SODIUM 1% TOPICAL GEL 100GM TUBE. TP SCH ×4 (09:32→23:05)
[2019-11-27] MEDS: POLYETHYLENE GLYCOL 3350 17 GM PACKET. PO SCH (09:32)
[2019-11-27] MEDS: ISOSORBIDE MONONITRATE ER 30 MG TAB.ER.24H PO SCH (09:33)
[2019-11-27] MEDS: CHOLECALCIFEROL (VITAMIN D3) 1,000 UNIT TABLET PO SCH (09:33)
[2019-11-27] MEDS: ASPIRIN ENTERIC COATED 81 MG TABLET.DR. PO SCH (09:33)
[2019-11-27] MEDS: POTASSIUM CHLORIDE 20 MEQ TABLET.ER. PO SCH (09:33)
[2019-11-27] MEDS: GABAPENTIN 100 MG CAPSULE. PO SCH ×3 (09:33→23:00)
[2019-11-27] MEDS: FAMOTIDINE 20 MG TABLET. PO SCH (09:34)
[2019-11-27] MEDS: LOSARTAN POTASSIUM 50 MG TABLET. PO SCH (09:34)
[2019-11-27] MEDS: METOPROLOL SUCC 24HR ER 25 MG TAB.ER.24H. PO SCH (09:37)
[2019-11-27 11:00] VITALS: BP 168/77
[2019-11-27] MEDS ORDERED: METOPROLOL SUCC 24HR ER 25 MG TAB.ER.24H. PO ONE (11:15)
--- NOTE | 2019-11-27 11:27 | PDOC ---
KASH RUSS TOOL SHAPER SET UP OPERATOR 11/27/19 1127: CARDIO Progress Notes Date and Time Date of Service 11/27/19 Time of Evaluation 1100 Subjective Subjective: No Chest Pain, No shortness of breath, No Palpitations Vitals Vitals Vital Signs Date Time Temp Pulse Resp B/P (MAP) Pulse Ox O2 Delivery O2 Flow Rate FiO2 11/27/19 09:37 76 157/69 11/27/19 08:00 Room Air 11/27/19 07:00 97.9 18 100 97.9 11/26/19 20:00 2.0 Weight Weight [ ] Input and Output Intake and Output Intake and Output 11/27/19 07:00 Intake Total 800 ml Output Total 0 ml Balance 800 ml Intake Oral 800 ml Output Urine Total 0 ml # Voids 3 Physical Exam HEENT: Neck Supple W Full Motion Chest: Symmetric, Other (left chest pectoral PPM site soft. No hematoma present. Incision well approximated. Steri-strips intact ) LUNGS: Clear to Auscultation Heart: RRR, irregularly irregular Abdomen: Soft N/T Extremities: No Edema Neurology: alert, oriented, other (forgetful this am) Assessment Assessment 1. Chest pain in the setting of RVR. 2. PAFIB; RVR upon arrival. Mostly maintaining SR. Few burst of SVT noted this morning on tele. 3. Tachy-rakesh syndrome; s/p successful PPM implantation. Post of device with normal function. CXR WNL 4. Mild troponin elevation; highest 0.8. Most probably type II, demand ischemia in the setting of RVR 5. CAD s/p remote CABG. Cath noted with severe three vessel coronary disease with 2/3 grafts patent. 6. Hypertension; controlled 7. Chronic diastolic CHF; appears compensated. Echo 06/27 with LVEF 55-60% 8. Hyperlipidemia; statin 9. H/o CVA 10. Trunk, facial rash; ? allergy to antibiotic therapy. Multiple allergies noted. Recommendations Increase metoprolol for rate control Add Amiodarone for rhythm maintenance Resume Eliquis therapy tomorrow Secondary prevention measures If she has recurrent chest pain, dyspnea, will plan for PCI of the SVG to RCA on an outpatient basis Will give Benadryl for rash Follow up in our office with RN for wound check 12/10/19 at 1:00pm. Justicifation of Admission Dx: Justifications for Admission: Justification of Admission Dx: N/A TG MAGALLON MD 11/27/19 1711: CARDIO Progress Notes Plan Plan Patient seen and examined. Agree with above nurse practitioner note with the following changes Due to the patient's age, more than expected bleeding during the pacemaker procedure we will hold the Eliquis for another few days, plan to restart on 12/01/2019 at a lower dose of 2.5 mg p.o. twice daily until seen in the office at her wound check at which point if everything looks okay we will plan for increasing into the 5 mg twice daily dose. Device check within normal limits. Chest x-ray reviewed. KASH RUSS APRN Nov 27, 2019 11:27 TG MAGALLON MD Nov 27, 2019 17:11
[2019-11-27] MEDS ORDERED: diphenhydrAMINE HCL 25 MG CAPSULE PO ONE (12:15)
--- NOTE | 2019-11-27 14:44 | PDOC ---
PROGRESS NOTES Date of Service: DATE: 11/27/19 TIME: 14:43 Chief Complaint Chief Complaint Atrial fibrillation with RVR - initiated on diltiazem gtt. Metoprolol outpatient is XL. Eliquis in lieu of coumadin per d/w cardiology deviously, unclear as to why she stopped Eliquis therapy. CAD s/p CABG 2003 - stable on meds Hypokalemia -likely secondary to poor p.o. intake with concomitant Lasix therapy, needs to increase her outpatient potassium replacement. Check mag Hypertension - will cont on BB Hyperlipidemia - Statin Arthritis - voltaren gel Anxiety with depression - cont meds chronic diastolic CHF - appears currently compensated COPD - nebs prn H/o stroke Legally blind Peripheral neuropathy - stable. Based on age, likely should decrease her gabapentin dosing. herniated disk FEN - Cardiac diet PPX - eliquis FULL CODE Dispo - inpatient for afib with RVR History of Present Illness History of Present Illness 11/25/19 Patient is an 83-year-old female with multiple medical problems including known coronary disease status post remote CABG in 2001 who presents with a relatively sudden onset of chest pain sometime after midnight. She describes the pain is heavy in her chest. She describes shortness of breath. She also states she feels like her heart is racing. She denies any fever chills or sweats. She is had no cough or congestion. She has had some nausea but no vomiting. She was unable to make the pain stop with her medication at home.] 11/26/19 Patient seen and examined Chart reviewed Discussed with RN Discussed with case management Patient was awake, in NAD. Patient was not able to sleep all night. Patient is on O2. 11/27/2019 No acute events reported overnight, case discussed with nursing staff patient in no acute distress no complaints during my visit somewhat confused today zhao rush will continue to monitor for next 24 hours hopefully discharge in the a.m. Vitals Vitals Vital Signs Date Time Temp Pulse Resp B/P (MAP) Pulse Ox O2 Delivery O2 Flow Rate FiO2 11/27/19 11:35 76 157/69 11/27/19 11:00 97.8 18 100 Nasal Cannula 97.8 11/26/19 20:00 2.0 Physical Exam General: Alert, Oriented X3, Cooperative, mild distress Heart: Regular rate Lungs: Clear Abdomen: Normal bowel sounds, Soft, No tenderness, No hepatosplenomegaly, No masses Extremities: No clubbing, No cyanosis, No edema, Normal pulses, No tenderness/swelling Skin: No rashes, No breakdown, No significant lesion Comment Review of Relevant I have reviewed the following items saji (where applicable) has been applied. Labs Laboratory Tests Test 11/26/19 05:20 White Blood Count 7.9 x10^3/uL (4.0-11.0) Red Blood Count 3.84 x10^6/uL (3.50-5.40) Hemoglobin 11.3 g/dL (12.0-15.5) Hematocrit 34.1 % (36.0-47.0) Mean Corpuscular Volume 89 fL (79-100) Mean Corpuscular Hemoglobin 29 pg (25-35) Mean Corpuscular Hemoglobin Concent 33 g/dL (31-37) Red Cell Distribution Width 18.2 % (11.5-14.5) Platelet Count 168 x10^3/uL (140-400) Neutrophils (%) (Auto) 57 % (31-73) Lymphocytes (%) (Auto) 34 % (24-48) Monocytes (%) (Auto) 8 % (0-9) Eosinophils (%) (Auto) 1 % (0-3) Basophils (%) (Auto) 0 % (0-3) Neutrophils # (Auto) 4.5 x10^3/uL (1.8-7.7) Lymphocytes # (Auto) 2.7 x10^3/uL (1.0-4.8) Monocytes # (Auto) 0.6 x10^3/uL (0.0-1.1) Eosinophils # (Auto) 0.1 x10^3/uL (0.0-0.7) Basophils # (Auto) 0.0 x10^3/uL (0.0-0.2) Sodium Level 144 mmol/L (136-145) Potassium Level 4.4 mmol/L (3.5-5.1) Chloride Level 110 mmol/L (98-107) Carbon Dioxide Level 27 mmol/L (21-32) Anion Gap 7 (6-14) Blood Urea Nitrogen 19 mg/dL (7-20) Creatinine 0.7 mg/dL (0.6-1.0) Estimated GFR (Cockcroft-Gault) 80.1 BUN/Creatinine Ratio 27 (6-20) Glucose Level 100 mg/dL (70-99) Calcium Level 8.7 mg/dL (8.5-10.1) Total Bilirubin 0.2 mg/dL (0.2-1.0) Aspartate Amino Transf (AST/SGOT) 18 U/L (15-37) Alanine Aminotransferase (ALT/SGPT) 21 U/L (14-59) Alkaline Phosphatase 77 U/L (46-116) Total Protein 6.4 g/dL (6.4-8.2) Albumin 3.2 g/dL (3.4-5.0) Albumin/Globulin Ratio 1.0 (1.0-1.7) Medications Current Medications Diltiazem HCl (Cardizem Iv Push) 16 mg 1X ONCE IVP Last administered on 11/25/19at 06:10; Start 11/25/19 at 06:00; Stop 11/25/19 at 06:01; Status DC Fentanyl Citrate (Fentanyl 2ml Vial) 50 mcg 1X ONCE IV Last administered on 11/25/19at 06:10; Start 11/25/19 at 06:30; Stop 11/25/19 at 06:31; Status DC Sodium Chloride 500 ml @ 500 mls/hr 1X ONCE IV Last administered on 11/25/19at 06:33; Start 11/25/19 at 06:30; Stop 11/25/19 at 07:29; Status DC Diltiazem HCl 125 mg/Sodium Chloride 125 ml @ 5 mls/hr CONT PRN IV SEE I/O RECORD Last administered on 11/25/19at 06:48; Start 11/25/19 at 06:30; Stop 11/27/19 at 11:14; Status DC Ondansetron HCl (Zofran) 4 mg PRN Q8HRS PRN IV NAUSEA/VOMITING 1ST CHOICE; St art 11/25/19 at 06:45; Stop 11/26/19 at 06:44; Status DC Fentanyl Citrate (Fentanyl 2ml Vial) 50 mcg PRN Q1HR PRN IV SEVERE PAIN 7-10; Start 11/25/19 at 06:45; Stop 11/26/19 at 06:44; Status DC Nitroglycerin (Nitrostat) 0.4 mg PRN Q5MIN PRN SL CHEST PAIN; Start 11/25/19 at 06:45; Stop 11/26/19 at 06:44; Status DC Aspirin (Ecotrin) 81 mg DAILY PO Last administered on 11/27/19 09:33; Start 11/25/19 at 09:00 Atorvastatin Calcium (Lipitor) 20 mg HS PO Last administered on 11/26/19 09:16; Start 11/25/19 at 21:00 Vitamin D (Vitamin D3) 2,000 unit DAILY PO Last administered on 11/27/19 09:33; Start 11/25/19 at 09:00 Diclofenac Sodium (Voltaren) 1 rajesh QID TP Last administered on 11/27/19 11:37; Start 11/25/19 at 09:00 Fluticasone Propionate (Flonase) 1 spray HS NS Last administered on 11/26/19 19:28; Start 11/25/19 at 21:00 Gabapentin (Neurontin) 100 mg TID PO Last administered on 11/27/19 09:33; Start 11/25/19 at 09:00 Isosorbide Mononitrate (Imdur) 30 mg DAILY PO Last administered on 11/27/19 09:33; Start 11/25/19 at 09:00 Potassium Chloride (Klor-Con) 20 meq DAILY PO Last administered on 11/27/19 09:33; Start 11/25/19 at 09:00 Losartan Potassium (Cozaar) 100 mg DAILY PO Last administered on 11/27/19 09:34; Start 11/25/19 at 09:00 Polyethylene Glycol (miraLAX PACKET) 17 gm DAILY PO Last administered on 11/27/19 09:32; Start 11/25/19 at 09:00 Acetaminophen/ Hydrocodone Bitart (Lortab 5/325) 1 tab PRN Q6HRS PRN PO MODERATE-SEVERE PAIN Last administered on 11/27/19 09:33; Start 11/25/19 at 08:15 Metoprolol Succinate (Toprol Xl) 25 mg DAILY PO Last administered on 11/27/19 09:37; Start 11/25/19 at 09:00; Stop 11/27/19 at 11:14; Status DC Ondansetron HCl (Zofran) 4 mg PRN Q4HRS PRN IV NAUSEA/VOMITING; Start 11/25/19 at 08:30 Acetaminophen (Tylenol) 650 mg PRN Q4HRS PRN PO TEMP OVER 100.4F OR MILD PAIN Last administered on 11/26/19at 20:49; Start 11/25/19 at 08:30 Apixaban (Eliquis) 2.5 mg BID PO Last administered on 11/25/19at 09:27; Start 11/25/19 at 09:00; Stop 11/25/19 at 12:07; Status DC Famotidine (Pepcid) 20 mg DAILY PO Last administered on 11/27/19at 09:34; Start 11/25/19 at 09:00 Potassium Chloride (Klor-Con) 40 meq 1X ONCE PO Last administered on 11/25/19at 12:16; Start 11/25/19 at 11:30; Stop 11/25/19 at 11:31; Status DC Amiodarone HCl 150 mg/Dextrose 103 ml @ 600 mls/hr 1X ONCE IV Last administered on 11/25/19at 12:15; Start 11/25/19 at 12:15; Stop 11/25/19 at 12:25; Status DC Amiodarone HCl 450 mg/Dextrose 259 ml @ 0 mls/hr CONT PRN IV SEE I/O RECORD Last administered on 11/25/19at 14:00; Start 11/25/19 at 12:15; Stop 11/26/19 at 12:14; Status DC Lidocaine HCl (Lidocaine 1% 20ml Vial) 20 ml STK-MED ONCE .ROUTE ; Start 11/25/19 at 14:53; Stop 11/25/19 at 14:53; Status DC Heparin Sodium/ Sodium Chloride 1,000 ml @ As Directed STK-MED ONCE .ROUTE ; Start 11/25/19 at 14:53; Stop 11/25/19 at 14:53; Status DC Fentanyl Citrate (Fentanyl 2ml Vial) 100 mcg STK-MED ONCE .ROUTE ; Start 11/25/19 at 15:07; Stop 11/25/19 at 15:08; Status DC Midazolam HCl (Versed) 2 mg STK-MED ONCE .ROUTE ; Start 11/25/19 at 15:08; Stop 11/25/19 at 15:08; Status DC Iodixanol (Visipaque 320) 100 ml STK-MED ONCE .ROUTE ; Start 11/25/19 at 15:18; Stop 11/25/19 at 15:18; Status DC Heparin Sodium/ Sodium Chloride (HEPARIN for ARTERIAL LINE FLUSH) 1,000 unit 1X ONCE IART Last administered on 11/25/19at 15:30; Start 11/25/19 at 15:30; Stop 11/25/19 at 15:37; Status DC Heparin Sodium/ Sodium Chloride (HEPARIN for ARTERIAL LINE FLUSH) 1,000 unit 1X ONCE IART Last administered on 11/25/19at 15:30; Start 11/25/19 at 15:30; Stop 11/25/19 at 15:37; Status DC Midazolam HCl (Versed) 2 mg 1X ONCE IV Last administered on 11/25/19at 15:30; Start 11/25/19 at 15:30; Stop 11/25/19 at 15:37; Status DC Fentanyl Citrate (Fentanyl 2ml Vial) 100 mcg 1X ONCE IV Last administered on 11/25/19at 15:30; Start 11/25/19 at 15:30; Stop 11/25/19 at 15:37; Status DC Iodixanol (Visipaque 320) 100 ml 1X ONCE IART Last administered on 11/25/19at 15:30; Start 11/25/19 at 15:30; Stop 11/25/19 at 15:37; Status DC Lidocaine HCl (Lidocaine 1% 20ml Vial) 20 ml 1X ONCE INJ Last administered on 11/25/19at 15:30; Start 11/25/19 at 15:30; Stop 11/25/19 at 15:37; Status DC Diphenhydramine HCl (Benadryl) 25 mg PRN QHS PRN PO INSOMNIA Last administered on 11/26/19at 20:49; Start 11/26/19 at 09:30 Lidocaine/ Epinephrine (LIDOCAINE 2%-EPI 1:100,000 multi-dose) 20 ml STK-MED ONCE .ROUTE ; Start 11/26/19 at 13:19; Stop 11/26/19 at 13:20; Status DC Lidocaine/ Epinephrine (LIDOCAINE 2%-EPI 1:100,000 multi-dose) 20 ml STK-MED ONCE .ROUTE ; Start 11/26/19 at 13:30; Stop 11/26/19 at 13:31; Status DC Midazolam HCl (Versed) 2 mg STK-MED ONCE .ROUTE ; Start 11/26/19 at 13:31; Stop 11/26/19 at 13:31; Status DC Fentanyl Citrate (Fentanyl 2ml Vial) 100 mcg STK-MED ONCE .ROUTE ; Start 11/26/19 at 13:31; Stop 11/26/19 at 13:31; Status DC Midazolam HCl (Versed) 2 mg 1X ONCE IV Last administered on 11/26/19at 13:48; Start 11/26/19 at 13:30; Stop 11/26/19 at 13:51; Status DC Fentanyl Citrate (Fentanyl 2ml Vial) 100 mcg 1X ONCE IV Last administered on 11/26/19at 13:48; Start 11/26/19 at 13:30; Stop 11/26/19 at 13:51; Status DC Lidocaine/ Epinephrine (LIDOCAINE 2%-EPI 1:100,000 multi-dose) 20 ml 1X ONCE IJ Last administered on 11/26/19at 14:13; Start 11/26/19 at 13:30; Stop 11/26/19 at 13:51; Status DC Bacitracin 23153 unit/Sodium Chloride 250 ml @ 0 mls/hr 1X ONCE IRR Last administered on 11/26/19at 15:26; Start 11/26/19 at 13:30; Stop 11/26/19 at 13:43; Status DC Cefazolin Sodium (Ancef) 1 gm 1X ONCE IVP ; Start 11/26/19 at 13:30; Stop 11/26/19 at 13:31; Status UNV Vancomycin HCl 250 ml @ 250 mls/hr 1X ONCE IRR Last administered on 11/26/19at 13:45; Start 11/26/19 at 13:45; Stop 11/26/19 at 14:44; Status DC Vancomycin HCl 250 ml @ As Directed STK-MED ONCE .ROUTE ; Start 11/26/19 at 13:44; Stop 11/26/19 at 13:45; Status DC Iodixanol (Visipaque 320) 100 ml STK-MED ONCE .ROUTE ; Start 11/26/19 at 14:23; Stop 11/26/19 at 14:24; Status DC Iodixanol (Visipaque 320) 100 ml 1X ONCE IART Last administered on 11/26/19at 14:45; Start 11/26/19 at 14:45; Stop 11/26/19 at 14:46; Status DC Fentanyl Citrate (Fentanyl 2ml Vial) 100 mcg STK-MED ONCE .ROUTE ; Start 11/26/19 at 14:39; Stop 11/26/19 at 14:39; Status DC Info (CONTRAST GIVEN -- Rx MONITORING) 1 each PRN DAILY PRN MC SEE COMMENTS; Start 11/26/19 at 14:45; Stop 11/28/19 at 14:44 Midazolam HCl (Versed) 2 mg STK-MED ONCE .ROUTE ; Start 11/26/19 at 14:46; Stop 11/26/19 at 14:46; Status DC Hydralazine HCl (Apresoline Inj) 10 mg PRN Q4HRS PRN IVP ELEVATED BP, SEE COMMENTS; Start 11/26/19 at 17:15 Metoprolol Succinate (Toprol Xl) 50 mg DAILY PO ; Start 11/28/19 at 09:00 Metoprolol Succinate (Toprol Xl) 25 mg 1X ONCE PO Last administered on 11/27/19at 11:35; Start 11/27/19 at 11:15; Stop 11/27/19 at 11:19; Status DC Diphenhydramine HCl (Benadryl) 25 mg 1X ONCE PO Last administered on 11/27/19at 12:21; Start 11/27/19 at 12:15; Stop 11/27/19 at 12:16; Status DC Active Scripts Active Naproxen 375 Mg Tablet 375 Mg PO TID PRN PRN Isosorbide Mononitrate Er (Isosorbide Mononitrate) 30 Mg Tab.er.24h 30 Mg PO DAILY 30 Days Voltaren (Diclofenac Sodium) 100 Gm Gel..gram. 1 Rajesh TP QID 30 Days [place] 5-325 Tablet (Acetaminophen/Hydrocodone Bitart) 1 Each Tablet 1-2 Tab PO Q4-6HRS Reported Metoprolol Succinate ( Xl ) (Metoprolol Succinate) 25 Mg Tab.er.24h 25 Mg PO DAILY 30 Days Fluticasone Propionate Nasal [place] (Fluticasone Propionate) 16 Gm [place].susp 1 [place] NS HS Polyethylene Glycol 3350 2,500 Gm Powder 17 Gm PO DAILY 30 Days Melatonin 10 Mg Tablet 10 Mg PO QHS Gabapentin (Gabapentin) 300 Mg Capsule 600 Mg PO TID Vitamin D3 (Cholecalciferol (Vitamin D3)) 1,000 Unit Tablet 2,000 Unit PO DAILY Potassium Chloride (Potassium Chloride) 20 Meq Tablet.er 20 Meq PO DAILY Atorvastatin Calcium 20 Mg Tablet 1 Tab PO HS Lasix (Furosemide) 40 Mg Tablet 1 Tab PO DAILY Losartan Potassium 100 Mg Tablet 1 Tab PO DAILY Aspir-Low (Aspirin) 81 Mg Tablet. 1 Tab PO DAILY Vitals/I & O Vital Sign - Last 24 Hours 11/26/19 11/26/19 11/26/19 11/26/19 15:57 16:15 16:30 16:45 Pulse 69 66 63 62 Resp 17 Pulse Ox 100 100 99 100 O2 Delivery Nasal Cannula Nasal Cannula Nasal Cannula Nasal Cannula O2 Flow Rate 2.0 2.0 2.0 2.0 11/26/19 11/26/19 11/26/19 11/26/19 17:00 17:30 18:00 18:59 Temp 97.8 97.8 Pulse 67 60 67 66 Resp 16 B/P (MAP) 150/62 (91) Pulse Ox 100 100 100 100 O2 Delivery Nasal Cannula Nasal Cannula Nasal Cannula Nasal Cannula O2 Flow Rate 2.0 2.0 2.0 2.0 11/26/19 11/26/19 11/26/19 11/26/19 20:00 20:00 20:30 22:45 Temp 98.3 98.3 Pulse 72 68 62 Resp 18 B/P (MAP) 204/111 (142) 194/86 (122) 156/68 (97) Pulse Ox 99 O2 Delivery Nasal Cannula Room Air O2 Flow Rate 2.0 11/26/19 11/26/19 11/27/19 11/27/19 22:53 22:57 03:00 05:54 Temp 98.2 98.2 Pulse 69 60 76 Resp 18 B/P (MAP) 161/71 (101) 157/69 (98) Pulse Ox 96 94 O2 Delivery Room Air Nasal Cannula Nasal Cannula 11/27/19 11/27/19 11/27/19 11/27/19 07:00 08:00 09:33 09:34 Temp 97.9 97.9 Pulse 64 76 76 Resp 18 B/P (MAP) 184/99 (127) 157/69 157/69 Pulse Ox 100 O2 Delivery Nasal Cannula Room Air 8/19/20 8/19/20 8/19/20 09:37 11:00 11:35 Temp 97.8 97.8 Pulse 76 67 76 Resp 18 B/P (MAP) 157/69 168/77 (107) 157/69 Pulse Ox 100 O2 Delivery Nasal Cannula Intake and Output 11/26/19 11/26/19 11/27/19 15:00 23:00 07:00 Intake Total 0 ml 300 ml 500 ml Output Total 0 ml Balance 0 ml 300 ml 500 ml Justicifation of Admission Dx: Justifications for Admission: Justification of Admission Dx: N/A ARACELI AMIN MD Nov 27, 2019 14:44
[2019-11-27 15:00] VITALS: BP 155/79
[2019-11-27] MEDS: AMIODARONE HCL 200 MG TABLET. PO SCH (18:02)
[2019-11-27 19:00] VITALS: BP 136/56
[2019-11-27] MEDS: FLUTICASONE 50MCG/NASAL SPRAY 16GM BOTTLE. NS SCH (21:00)
[2019-11-27 23:00] VITALS: BP 144/63
[2019-11-27] MEDS: diphenhydrAMINE HCL 25 MG CAPSULE PO PRN (23:00)
[2019-11-27] MEDS: ATORVASTATIN CALCIUM 20 MG TABLET PO SCH (23:00)
[2019-11-28 03:18] VITALS: BP 197/76
[2019-11-28] MEDS: HYDROcodone/APAP 5/325MG 1 TAB TABLET PO PRN ×2 (03:35→10:45)
[2019-11-28 03:51] VITALS: BP 167/80
--- NOTE | 2019-11-28 04:00 | NUR ---
BP is 167/80. Pt is refusing hydralazine d/t was not ordered by doctor Pattie. Blood pressure medicines on JUN discussed including increase in metoprolol dose from 25 to 50 daily, losartan, imdur, and amiodarone also on JUN for morning shift. Pt continues to refuse hydralazine.
--- NOTE | 2019-11-28 04:09 | NUR ---
Patient has changed her mind about the hydralazine and has agreed to take it. Hydralazine administered per JUN. will continue to monitor.
[2019-11-28 04:42] VITALS: BP 131/47
[2019-11-28 07:00] VITALS: BP 126/63
--- NOTE | 2019-11-28 08:49 | CARD ---
MR#: [id number] Date of Study: 11/26/2019 Ordering Physician: TG MAGALLON, Referring Physician: TG MAGALLON, Tech: APPROVED REPORT HISTORY The Patient is a 83 year-old female with a history of atrial fibrillation, tachy-rakesh syndrome and p auses PROCEDURES fl time: 13.8 mins dose: 25 gycm2 moderate sedation: 120 min contrast: 3 ml INDICATIONS 30 mL of 2% lidocaine was infiltrated into the skin and subcutaneous tissues for local anesthesia. A n incision was made over the left infraclavicular fossa and using blunt dissection and cautery a pock et was created. Venous access was obtained in the left subclavian vein with significant difficulty a s multiple initial attempts to obtain access using fluoroscopic landmarks were unsucessful and due to inability to obtain an IV in the left arm, a venogram could not be performed and ultrasound guidance was also unsuccessful initially. Ultimately, after IV access was obtained, a retained wire technique was used for the second access. Subsequently, a Biotronik bipolar active fixation right ventricular lead model Solia S 53, SN [id number] was advanced under fluoroscopic guidance and the tip was positioned in the right ventricular apex. Following this, a Biotronik bipolar active fixation right atrial lead model Solia S 45, SN [id number] was placed in the right atrial appendage under fluoroscopy guidance. The leads were secured into janine ce and were attached to a Biotronik dual-chamber permanent pacemaker generator model Edora 8 DR-T, SN [id number]. This was placed in the pocket that was subsequently closed in 3 layers. Hemostasis was s ecured. At the end of procedure, the right ventricular lead showed sensing amplitude of 12.3 mV, impedance o f 643 ohms and a threshold of 0.6volts at 0.4 ms. The right atrial lead showed a sensing amplitude o f 3.3 millivolts, impedance of 468 ohms and a threshold of 1.0 volts at 0.4 ms. Patient tolerated the procedure well. There were no immediate complications. CONCLUSION 1. Successful insertion of a Biotronik Dual Chamber pacemaker for tachy-rakesh syndrome. Signed by : Tg Magallon, Electronically Approved : 11/28/2019 08:49:05
[2019-11-28] MEDS ORDERED: METOPROLOL SUCC 24HR ER 50 MG TAB.ER.24H. PO SCH (09:00)
[2019-11-28] MEDS: POLYETHYLENE GLYCOL 3350 17 GM PACKET. PO SCH (09:49)
[2019-11-28] MEDS: FAMOTIDINE 20 MG TABLET. PO SCH (09:50)
[2019-11-28] MEDS: CHOLECALCIFEROL (VITAMIN D3) 1,000 UNIT TABLET PO SCH (09:50)
[2019-11-28] MEDS: ASPIRIN ENTERIC COATED 81 MG TABLET.DR. PO SCH (09:50)
[2019-11-28] MEDS: LOSARTAN POTASSIUM 50 MG TABLET. PO SCH (09:50)
[2019-11-28] MEDS: ISOSORBIDE MONONITRATE ER 30 MG TAB.ER.24H PO SCH (09:51)
[2019-11-28] MEDS: GABAPENTIN 100 MG CAPSULE. PO SCH ×2 (09:51→14:00)
[2019-11-28] MEDS: POTASSIUM CHLORIDE 20 MEQ TABLET.ER. PO SCH (09:51)
[2019-11-28] MEDS: AMIODARONE HCL 200 MG TABLET. PO SCH (09:51)
[2019-11-28] MEDS: DICLOFENAC SODIUM 1% TOPICAL GEL 100GM TUBE. TP SCH ×3 (09:53→17:00)
--- NOTE | 2019-11-28 10:41 | PDOC ---
KASH RUSS CUSTODIAL SERVICES MANAGER 11/28/19 1041: CARDIO Progress Notes Date and Time Date of Service 11/28/19 Time of Evaluation 1020 Subjective Subjective: No Chest Pain, No shortness of breath, No Palpitations Vitals Vitals Vital Signs Date Time Temp Pulse Resp B/P (MAP) Pulse Ox O2 Delivery O2 Flow Rate FiO2 11/28/19 09:52 65 11/28/19 07:00 97.5 18 126/63 (84) 98 Nasal Cannula 97.5 Weight Weight [ ] Input and Output Intake and Output Intake and Output 11/28/19 07:00 Intake Total 1250 ml Output Total 425 ml Balance 825 ml Intake Oral 1250 ml Output Urine Total 425 ml # Voids 3 Physical Exam HEENT: Neck Supple W Full Motion Chest: Symmetric, Other (left chest pectoral PPM site soft. No hematoma present. Incision well approximated. Steri-strips intact ) LUNGS: Clear to Auscultation Heart: RRR, irregularly irregular Abdomen: Soft N/T Extremities: No Edema Neurology: alert, oriented, follow commands Assessment Assessment 1. Chest pain in the setting of RVR. 2. PAFIB; RVR upon arrival. SR 3. Tachy-rakesh syndrome; s/p successful PPM implantation. Post of device with normal function. CXR WNL 4. Mild troponin elevation; highest 0.8. Most probably type II, demand ischemia in the setting of RVR 5. CAD s/p remote CABG. Cath noted with severe three vessel coronary disease with 2/3 grafts patent. 6. Hypertension; controlled 7. Chronic diastolic CHF; appears compensated. Echo 06/27 with LVEF 55-60% 8. Hyperlipidemia; statin 9. H/o CVA 10. Trunk, facial rash; improved Recommendations Metoprolol, Amiodarone for rhythm, rate control Resume Eliquis on 12/01/2019 at 2.5 mg BID until seen in the office at her wound check. If everything looks okay at that point, we will increase back to 5mg BID. Secondary prevention measures Follow up in our office with RN for wound check 12/10/19 at 1:00pm. Justicifation of Admission Dx: Justifications for Admission: Justification of Admission Dx: N/A TG MAGALLON MD 11/28/19 1624: CARDIO Progress Notes Plan Plan Patient seen and examined. Agree with above nurse practitioner note. Left sided pacemaker site is clean, dry and intact. No other acute issues. Okay to discharge home KASH RUSS APRN Nov 28, 2019 10:41 TG MAGALLON MD Nov 28, 2019 16:24
[2019-11-28 11:00] VITALS: BP 174/61
[2019-11-28] MEDS ORDERED: AMIO200T7 PO (13:34)
[2019-11-28] MEDS ORDERED: APIX2.5T PO (13:34)
[2019-11-28] MEDS ORDERED: METO50TA4 PO (13:34)
[2019-11-28 15:00] VITALS: BP 137/54
--- NOTE | 2019-11-28 15:42 | SNU/HH DC ---
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 Condition on Discharge: Stable CODE STATUS: Code Status: DNR/DNI HOME HEALTH: Face to Face: I certify this patient is under my care and that I, or a nurse practitioner or physician's ophthalmic surgical assistant working with me, had a face to face encounter that meets the physician face to face encounter requirements with this patient on []. RN For Eval/Treatment: Yes Physical Therapy For: Evalulation/Treatment Occupational Therapy For: Evaluation/Treatment Pt Meets Homebound Status: Extreme weakness w/ amb., Limited distance walking POST DISCHARGE ORDERS: Activity Instructions for Disc: Activity as tolerated Weight Bearing Status after Di: As tolerated Bathing Instructions: Shower-keep dressing dry, No Tub Bath until see Dr. MELO AFTER DISCHARGE: Cardiac Wound/Incision Care: No wound care needed CHECKS AFTER DISCHARGE: Checks after discharge: Check blood press - daily, Check your Temp as needed, Weigh Yourself Daily TREATMENT/EQUIPMENT ORDERS: Adaptive Equipment Issued: Walker CERTIFICATION STATEMENT: Certification Statement: Certification Statement: Based on the above finding, I certify that this patient is confined to the home and needs intermittent fdc care, physical therapy and/or speech therapy, or continues to need occupational therapy.~ This patient is under my care, and I have initiated the establishment of the plan of care.~ This patient will be followed by myself or a community physician who will periodically review the plan of care. Home Meds Active Scripts Apixaban (ELIQUIS) 2.5 Mg Tablet, 2.5 MG PO BID for blood thinner for AFIB for 30 Days, #60 TAB Start 12/01/19. Prov:KASH RUSS APRN 11/28/19 Amiodarone Hcl (PACERONE) 200 Mg Tablet, 200 MG PO DAILY for AFIB for 30 Days, #30 TAB 2 Refills Prov:KASH RUSS APRN 11/28/19 Metoprolol Succinate (Toprol XL) 50 Mg Tab.er.24h, 50 MG PO DAILY for heart rate control for 30 Days, #30 TAB.SR 2 Refills Prov:KASH RUSS APRN 11/28/19 Naproxen (NAPROXEN) 375 Mg Tablet, 375 MG PO TID PRN PRN for PAIN, #30 TAB Prov:LEWISTJ Feliberto PARR 10/20/19 Isosorbide Mononitrate (ISOSORBIDE MONONITRATE ER) 30 Mg Tab.er.24h, 30 MG PO DAILY for coronary artery disease for 30 Days, #30 TAB.SR 2 Refills Prov:KASH RUSS BUSHING PRESS OPERATOR 09/03/19 Diclofenac Sodium (VOLTAREN) 100 Gm Gel..gram., 1 PIOTR TP QID for pain for 30 Days, #120 EACH Prov:ARACELI AMIN MD 07/12/19 Hydrocodone/Apap 5-325 (NOR[place] 5-325 TABLET) 1 Each Tablet, 1-2 TAB PO Q4-6HRS for pain, #100 TAB Prov:BELLE HUDSON MD 05/31/19 Reported Medications Fluticasone Propionate (FLUTICASONE PROPIONATE NASAL SPRAY) 16 Gm [place].susp, 1 SPRAY NS HS for SOB, #1 INHALER 11 Refills 09/03/19 Polyethylene Glycol 3350 (POLYETHYLENE GLYCOL 3350) 2,500 Gm Powder, 17 GM PO DAILY for constipation for 30 Days, #527 GM 0 Refills 05/15/19 Melatonin (MELATONIN) 10 Mg Tablet, 10 MG PO QHS for insomnia, TAB 05/15/19 Gabapentin (GABAPENTIN ) 300 Mg Capsule, 600 MG PO TID for NEUROGENIC PAIN, CAP 01/21/19 Cholecalciferol (Vitamin D3) (VITAMIN D3) 1,000 Unit Tablet, 2000 UNIT PO DAILY for supplement, TAB 12/26/18 Potassium Chloride (POTASSIUM CHLORIDE ) 20 Meq Tablet.er, 20 MEQ PO DAILY for low pot, TAB.SR 12/26/18 Atorvastatin Calcium (ATORVASTATIN CALCIUM) 20 Mg Tablet, 1 TAB PO HS for chol, #30 TAB 5 Refills 04/30/18 Furosemide (LASIX) 40 Mg Tablet, 1 TAB PO DAILY for water pill, #90 TAB 1 Refill 01/25/16 Losartan Potassium (LOSARTAN POTASSIUM) 100 Mg Tablet, 1 TAB PO DAILY for htn, #30 TAB 5 Refills 04/25/14 Aspirin (ASPIR-LOW) 81 Mg Tablet.dr, 1 TAB PO DAILY for supplement, #30 TAB 3 Refills 04/25/14 Discontinued Reported Medications Metoprolol Succinate (METOPROLOL SUCCINATE ( XL )) 25 Mg Tab.er.24h, 25 MG PO DAILY for AFIB/CHF for 30 Days, #30 11/25/19 ARACELI AMIN MD Nov 28, 2019 15:42
--- NOTE | 2019-11-28 15:49 | PDOC3 ---
Discharge Summary Visit Information Date of Admission: Nov 25, 2019 Date of Discharge: Nov 28, 2019 Admitting Diagnosis Comment: Atrial fibrillation with RVR - initiated on diltiazem gtt. Metoprolol outpatient is XL. Eliquis in lieu of coumadin per d/w cardiology deviously, unclear as to why she stopped Eliquis therapy. CAD s/p CABG 2003 - stable on meds Hypokalemia -likely secondary to poor p.o. intake with concomitant Lasix therapy, needs to increase her outpatient potassium replacement. Check mag Hypertension - will cont on BB Hyperlipidemia - Statin Arthritis - voltaren gel Anxiety with depression - cont meds chronic diastolic CHF - appears currently compensated COPD - nebs prn H/o stroke Legally blind Peripheral neuropathy - stable. Based on age, likely should decrease her gabapentin dosing. herniated disk Final Diagnosis Atrial fibrillation with RVR - CAD s/p CABG 2003 - Hypokalemia -likely secondary to poor p.o. intake with concomitant Lasix therapy, Hypertension - Hyperlipidemia - Arthritis - Anxiety with depression - chronic diastolic CHF - COPD - H/o stroke Legally blind Peripheral neuropathy - stable. Based on age, likely should decrease her gabapentin dosing. herniated disk Brief Hospital Course Allergies Allergies Coded Allergies Type Severity Reaction Last Updated Verified MIGUEL ANGEL Inhibitors Allergy Intermediate 05/28/19 Yes Penicillins Allergy Intermediate 05/28/19 Yes Sulfa (Sulfonamide Antibiotics) Allergy Intermediate 05/28/19 Yes adhesive Allergy Intermediate 05/28/19 Yes influenza virus vaccine, specific Allergy Intermediate 05/28/19 Yes mercury (elemental) Allergy Intermediate 05/28/19 Yes methadone Allergy Intermediate 05/28/19 Yes methylprednisolone Allergy Intermediate 05/28/19 Yes theophylline Allergy Intermediate 05/28/19 Yes trazodone Allergy Intermediate 05/28/19 Yes zolpidem Allergy Intermediate 05/28/19 Yes albuterol Adverse Reaction Intermediate 05/28/19 Yes estradiol Adverse Reaction Intermediate 09/02/19 Yes oxycodone Adverse Reaction Intermediate 09/02/19 Yes Vital Signs Vital Signs Date Time Temp Pulse Resp B/P (MAP) Pulse Ox O2 Delivery O2 Flow Rate FiO2 11/28/19 11:00 97.8 65 18 174/61 (98) 97 Nasal Cannula 97.8 Brief Hospital Course 11/25/19 Patient is an 83-year-old female with multiple medical problems including known coronary disease status post remote CABG in 2001 who presents with a relatively sudden onset of chest pain sometime after midnight. She describes the pain is heavy in her chest. She describes shortness of breath. She also states she feels like her heart is racing. She denies any fever chills or sweats. She is had no cough or congestion. She has had some nausea but no vomiting. She was unable to make the pain stop with her medication at home.] 11/26/19 Patient seen and examined Chart reviewed Discussed with RN Discussed with case management Patient was awake, in NAD. Patient was not able to sleep all night. Patient is on O2. 11/27/2019 No acute events reported overnight, case discussed with nursing staff patient in no acute distress no complaints during my visit somewhat confused today sfdc consultant will continue to monitor for next 24 hours hopefully discharge in the a.m. 11/28/2019 Patient with a quite uneventful hospital stay despite her atrial fibrillation rapid ventricular response. She was started on amiodarone and metoprolol XL. The patient also underwent a permanent pacemaker placement her Eliquis has been held until November 30. She was seen by cardiology and deemed appropriate for discharge, patient had most likely a type II demand ischemia in the setting of rapid ventricular response. 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 Home health services have been found necessary at this point and they have been arranged by her classification case manager. Greater than 35 minutes were spent in [id number] encounter at bedside and the process of counseling coordination of care and arrangements for a safe discharge Recommendations from cardiology as follows: Recommendations Metoprolol, Amiodarone for rhythm, rate control Resume Eliquis on 12/01/2019 at 2.5 mg BID until seen in the office at her wound check. If everything looks okay at that point, we will increase back to 5mg BID. Secondary prevention measures Follow up in our office with RN for wound check 12/10/19 at 1:00pm. Physical Exam HEENT: Neck Supple W Full Motion Chest: Symmetric, Other (left chest pectoral PPM site soft. No hematoma present. Incision well approximated. Steri-strips intact ) LUNGS: Clear to Auscultation Heart: RRR, irregularly irregular Abdomen: Soft N/T Extremities: No Edema Neurology: alert, oriented, follow commands Assessment Assessment [facility] [address] [place] [address] IMAGING REPORT Signed PATIENT: PRUDENCE SALINASCOUNT: [id number] : 1935 LOCATION: [address] [place] [address] AGE: 83 SEX: F EXAM STATUS: ADM IN ORD. PHYSICIAN: TG MAGALLON MD REASON: POST pacemaker PROCEDURE: PORTABLE CHEST 1V Single AP view of the chest. Comparison: 11/25/2019. Indication: Post pacemaker placement Findings: Sternotomy wires and CABG clips are identified. There is a new left clavian pacemaker with leads positioned over the right atrium and right ventricle. The heart is not enlarged. Enlarged but stable No air space or interstitial disease. Findings suggest right rotator cuff injury. Impression: 1. Stable cardiac pulmonary findings. New pacemaker seen. No pneumothorax. Electronically signed by: Nicolás Wooten MD (11/27/2019 9:25 AM) [id number] DICTATED and SIGNED BY: NICOLÁS WOOTEN MD DATE: 11/27/19924 Discharge Information Condition at Discharge: Improved Follow Up: Weeks Disposition/Orders: D/C to Home w/ HH Scheduled Amiodarone Hcl (Pacerone) 200 Mg Tablet, 200 MG PO DAILY for AFIB for 30 Days, #30 Ref 2 Prescribed by: KASH RUSS APRN on 11/28/19 1334 Apixaban (Eliquis) 2.5 Mg Tablet, 2.5 MG PO BID for blood thinner for AFIB for 30 Days, #60 Start 12/01/19. Prescribed by: KASH RUSS APRN on 11/28/19 1334 Aspirin (Aspir-Low) 81 Mg Tablet., 1 TAB PO DAILY for supplement, #30 Ref 3 (Reported) Entered as Reported by: CELE RAHMAN on 04/25/14 0918 Last Action: Continued on 11/25/19 0735 by DANE VILLASEÑOR MD Atorvastatin Calcium (Atorvastatin Calcium) 20 Mg Tablet, 1 TAB PO HS for chol, #30 Ref 5 (Reported) Entered as Reported by: AMERICO HERBERT on 04/30/18 1118 Last Action: Continued on 11/25/19734 by DANE VILLASEÑOR MD Cholecalciferol (Vitamin D3) (Vitamin D3) 1,000 Unit Tablet, 2,000 UNIT PO DAILY for supplement, (Reported) Entered as Reported by: AMERICO HERBERT on 12/26/18 1638 Last Action: Continued on 11/25/19734 by DANE VILLASEÑOR MD Diclofenac Sodium (Voltaren) 100 Gm Gel..gram., 1 PIOTR TP QID for pain for 30 Days, #120 Prescribed by: ARACELI AMIN MD on 07/12/19 1247 Last Action: Continued on 11/25/19734 by DANE VILLASEÑOR MD Fluticasone Propionate (Fluticasone Propionate Nasal [place]) 16 Gm [place].susp, 1 SPRAY NS HS for SOB, #1 Ref 11 (Reported) Entered as Reported by: LISANDRA OROZCO on 09/03/19 0541 Last Action: Continued on 11/25/19734 by DANE VILLASEÑOR MD Furosemide (Lasix) 40 Mg Tablet, 1 TAB PO DAILY for water pill, #90 Ref 1 (Reported) Entered as Reported by: Yolanda Figueroa on 01/25/16 1129 Gabapentin (Gabapentin ) 300 Mg Capsule, 600 MG PO TID for NEUROGENIC PAIN, (Reported) Entered as Reported by: GERMÁN RAINEY on 01/21/19 2204 Last Action: Continued on 11/25/19734 by DANE VILLASEÑOR MD Hydrocodone/Apap 5-325 ([place] 5-325 Tablet) 1 Each Tablet, 1-2 TAB PO Q4-6HRS for pain, #100 Prescribed by: BELLE HUDSON on 05/31/19 1338 Last Action: Continued on 11/25/19 0815 by DANE VILLASEÑOR MD Isosorbide Mononitrate (Isosorbide Mononitrate Er) 30 Mg Tab.er.24h, 30 MG PO DAILY for coronary artery disease for 30 Days, #30 Ref 2 Prescribed by: KASH RUSS APRN on 09/03/19 1619 Last Action: Continued on 11/25/19734 by DANE VILLASEÑOR MD Losartan Potassium (Losartan Potassium) 100 Mg Tablet, 1 TAB PO DAILY for htn, #30 Ref 5 (Reported) Entered as Reported by: CELE RAHMAN on 04/25/14 0919 Last Action: Converted on 11/25/19734 by DANE VILLASEÑOR MD Melatonin (Melatonin) 10 Mg Tablet, 10 MG PO QHS for insomnia, (Reported) Entered as Reported by: ROC FELDMAN on 05/15/19 1408 Metoprolol Succinate (Toprol XL) 50 Mg Tab.er.24h, 50 MG PO DAILY for heart rate control for 30 Days, #30 Ref 2 Prescribed by: KASH RUSS APRN on 11/28/19 1334 Polyethylene Glycol 3350 (Polyethylene Glycol 3350) 2,500 Gm Powder, 17 GM PO DAILY for constipation for 30 Days, #527 Ref 0 (Reported) Entered as Reported by: ROC FELDMAN on 05/15/19 1408 Last Action: Converted on 11/25/19734 by DANE VILLASEÑOR MD Potassium Chloride (Potassium Chloride ) 20 Meq Tablet.er, 20 MEQ PO DAILY for low pot, (Reported) Entered as Reported by: AMERICO HERBERT on 12/26/18 1638 Last Action: Continued on 11/25/19734 by DANE VILLASEÑOR MD Scheduled PRN Naproxen (Naproxen) 375 Mg Tablet, 375 MG PO TID PRN PRN for PAIN, #30 Prescribed by: TJ LEWIS D.O. on 10/20/19 0657 Discontinued Medications Metoprolol Succinate (Metoprolol Succinate ( Xl )) 25 Mg Tab.er.24h, 25 MG PO DAILY for AFIB/CHF for 30 Days, #30 (Reported) Entered as Reported by: DANE VILLASEÑOR MD on 11/25/19 0813 Last Action: Continued on 11/25/19814 by DANE VILLASEÑOR MD Justicifation of Admission Dx: Justifications for Admission: Justification of Admission Dx: N/A ARACELI AMIN MD Nov 28, 2019 15:49
--- NOTE | 2019-11-28 18:34 | NUR ---
Discharge: Teaching verbal and written. Reviewed medication, follow-up, pacemaker, cardiac cath, ect. Extensive verbal education. Patient and daughter verbilized understanding. IV removed without complications, catheter tip in-tact. All belongings with patient.
== END 2019-11-28 18:31 | disposition home health service (06) | DRG 242 ==
LOC: ER 05:16 → ED HOLD 06:40 → 2 NORTH 08:17
PROVIDERS: ADMIT Internal Medicine; ATTEND Internal Medicine
PROC: B2111ZZ Fluoroscopy of Multiple Coronary Arteries using Low Osmolar Contrast (ICD-10-PCS; principal; 2019-11-25)
PROC: B2121ZZ Fluoroscopy of Single Coronary Artery Bypass Graft using Low Osmolar Contrast (ICD-10-PCS; 2019-11-25)
PROC: B2181ZZ Fluoroscopy of Left Internal Mammary Bypass Graft using Low Osmolar Contrast (ICD-10-PCS; 2019-11-25)
PROC: B2151ZZ Fluoroscopy of Left Heart using Low Osmolar Contrast (ICD-10-PCS; 2019-11-25)
PROC: 4A023N7 Measurement of Cardiac Sampling and Pressure, Left Heart, Percutaneous Approach (ICD-10-PCS; 2019-11-25)
PROC: 0JH606Z Insertion of Pacemaker, Dual Chamber into Chest Subcutaneous Tissue and Fascia, Open Approach (ICD-10-PCS; 2019-11-26)
PROC: 02H63JZ Insertion of Pacemaker Lead into Right Atrium, Percutaneous Approach (ICD-10-PCS; 2019-11-26)
PROC: 02HK3JZ Insertion of Pacemaker Lead into Right Ventricle, Percutaneous Approach (ICD-10-PCS; 2019-11-26)
DX: I49.5 Sick sinus syndrome (principal); I50.33 Acute on chronic diastolic (congestive) heart failure; I24.8 Other forms of acute ischemic heart disease; I48.0 Paroxysmal atrial fibrillation; E78.5 Hyperlipidemia, unspecified; E87.6 Hypokalemia; F03.90 Unspecified dementia, unspecified severity, without behavioral disturbance, psychotic disturbance, mood disturbance, and anxiety; F41.8 Other specified anxiety disorders; G47.00 Insomnia, unspecified; G62.9 Polyneuropathy, unspecified; H54.8 Legal blindness, as defined in USA; I11.0 Hypertensive heart disease with heart failure; I25.10 Atherosclerotic heart disease of native coronary artery without angina pectoris; J44.9 Chronic obstructive pulmonary disease, unspecified; M19.90 Unspecified osteoarthritis, unspecified site; Z82.49 Family history of ischemic heart disease and other diseases of the circulatory system; Z86.73 Personal history of transient ischemic attack (TIA), and cerebral infarction without residual deficits; Z90.710 Acquired absence of both cervix and uterus; Z95.0 Presence of cardiac pacemaker; Z95.1 Presence of aortocoronary bypass graft; F32.9 Major depressive disorder, single episode, unspecified; F41.9 Anxiety disorder, unspecified; K21.9 Gastro-esophageal reflux disease without esophagitis; I25.2 Old myocardial infarction; Z88.5 Allergy status to narcotic agent; Z88.0 Allergy status to penicillin; Z88.7 Allergy status to serum and vaccine; Z88.8 Allergy status to other drugs, medicaments and biological substances; Z91.041 Radiographic dye allergy status
CPT/HCPCS: 33208; 36415; 71045; 76937; 80053; 81001; 83735; 83880; 84443; 84484; 85025; 85610; 85730; 93005; 93459; 96365; 96366; 96375; 99152; 99153; 99291; C1769; C1785; C1892; C1898; J0282; J0360; J1644; J2250; J3010; J3370; J3490; J7040; J7050; J7060; Q9967; 97116-GP; 97530-GO; 97530-GP; 97535-GO; G0378; J7030; Q0163

== ENCOUNTER → 2020-01-16 | Outpatient (CLI) | payer MEDICARE ==
[~2020-01-16] MED LIST changes: +AMIO200T7 PO; +APIX2.5T PO; +METO-239 PO; +METO50TA4 PO
[2020-01-16 15:56] LABS: BASO % 0 % (0-3); EOS # 0.1 x10^3/uL (0.0-0.7); EOS % 1 % (0-3); HEMATOCRIT 33.7 % (36.0-47.0); HEMOGLOBIN 11.2 g/dL (12.0-15.5); LYMPH # 2.2 x10^3/uL (1.0-4.8); LYMPH % 47 % (24-48); MEAN CORPUSCULAR HEMOGLOBIN 30 pg (25-35); MEAN CORPUSCULAR HGB CONC 33 g/dL (31-37); MEAN CORPUSCULAR VOLUME 89 fL (79-100); MONO # 0.4 x10^3/uL (0.0-1.1); MONO % 9 % (0-9); NEUT % 43 % (31-73); PLATELET COUNT 152 x10^3/uL (140-400); RED BLOOD COUNT 3.79 x10^6/uL (3.50-5.40); WHITE BLOOD COUNT 4.7 x10^3/uL (4.0-11.0)
--- NOTE | 2020-01-16 16:12 | RAD ---
AP and Lateral Views of the Chest 01/16/2020 3:10 PM Indication: Reason: DYSPNEA / Spl. Instructions: / History: Comparison: Chest radiograph November 27, 2019 Findings: Dual-lead pacemaking device from a left subclavian approach is similar. Heart size is mildly enlarged but unchanged. Prior median sternotomy noted. Coronary stent noted. There is diffuse interstitial coarsening, unchanged. No pleural effusion or pneumothorax is seen. No focal consolidative infiltrate is seen. Osteopenia and degenerative changes of the thoracic spine noted. Degenerative changes of the right shoulder again noted. Definitively acute osseous abnormality is not identified. IMPRESSION: Stable radiographic appearance of the chest. Electronically signed by: Skip Benton MD (01/16/2020 4:10 PM) [id number]
[2020-01-16 16:16] LABS: ALBUMIN 3.8 g/dL (3.4-5.0); ALBUMIN/GLOBULIN RATIO 1.3 (1.0-1.7); CALCIUM 8.8 mg/dL (8.5-10.1); CREATININE 0.9 mg/dL (0.6-1.0); GFR 59.8; TOTAL BILIRUBIN 0.4 mg/dL (0.2-1.0); TOTAL PROTEIN 6.7 g/dL (6.4-8.2)
== END ==
LOC: LAB 15:29
PROVIDERS: ATTEND Internal Medicine Cardiovascular Disease
DX: R06.00 Dyspnea, unspecified (principal)
CPT/HCPCS: 36415; 71046; 80053; 83880; 85025

== ENCOUNTER → 2020-01-28 | Outpatient (CLI) | payer MEDICARE ==
[~2020-01-28] MED LIST changes: +AMLO-186 PO; +AMLO-187 PO; -AMLO10TA8 PO; -AMLO5TAB10 PO; +CETI10TA16 PO; +CLOP75TA PO; +PREG50CA91 PO; +VENTOLIN HFA18 GM INH
== END ==
LOC: LAB 13:42
PROVIDERS: ATTEND Internal Medicine Cardiovascular Disease
DX: Z01.812 Encounter for preprocedural laboratory examination (principal); Z20.828 Contact with and (suspected) exposure to other viral communicable diseases
CPT/HCPCS: U0003

== ENCOUNTER → 2020-04-23 | Outpatient (CLI) | payer MEDICARE ==
[2020-02-14 11:00] VITALS: BP 144/58
[~2020-04-23] MED LIST changes: +DULO30CA44 PO; +GABA300C9 PO; +METO5TAB4 PO
--- NOTE | 2020-04-23 13:18 | PDOC ---
Progress Note - Pain Clinic Date of Service: DOS: DATE: 04/23/20 TIME: 13:13 Diagnosis: Dx: Lumbar radiculopathy with lumbar degenerative disease lumbar spinal stenosis Cervical radiculopathy with cervical degenerative disc disease Left sacroiliitis History or Present Illness: HPI: 84-year-old female returns for follow-up last seen February 2019 had lumbar epidural steroid injection with very good results approximately 75% improvement but now returns reporting significant pain in the left "hip" for about 2 months or so. Patient reports no specific injury or accident but had increased pain in the posterior aspect of the left hip she had seen her orthopedist who did a lateral trochanteric bursa injection without significant relief of pain. Patient ports pain is in the posterior aspect of the hip radiating into the gluteus as well. Patient reports a 10 on scale 10 is worse over the past week 9 on average 7 its least is a 9 today patient ports that sharp and shooting in the hip posteriorly and into the gluteus with a stabbing sensation with walking standing changing position especially getting up from seated position or standing on her left leg. Patient has had total hip replacement on the left side reports that that is feeling good but the pain in the posterior aspect of the hip and gluteus is much more painful now. Patient reports no new motor or sensory deficits no bowel or bladder incontinence. Physical Exam: VS: Blood pressure is 171/84 pulse 76 respirations are 18 temperature 98.2 F height is 4 foot 11 inches weight 142 pounds PE: PHYSICAL EXAMINATION: GENERAL: The patient is awake, alert, oriented, appropriate, very pleasant demeanor HEENT: Shows normocephalic, atraumatic. Extraocular movements are intact and sy mmetrical. Oral cavity: Mucous membranes moist and pink. NECK: Shows anterior throat supple without palpable lymphadenopathy noted. Swallow reflex symmetrical. CHEST: Shows normal on inspection. Breath sounds are clear bilaterally, no rales rhonchi or wheezes auscultated. HEART: Shows S1, S2 clear. No murmurs auscultated. ABDOMEN: Soft, nontender, nondistended obese. No palpable organomegaly is noted. BACK: Shows spine grossly in the midline. Normal-appearing cervical lordotic curvature. Cervical paraspinous but shows symmetrical inspection, on palpation some moderate tenderness diffusely bilaterally in the low cervical paraspinous musculature but without radiation without trigger points. There is slightly increased thoracic kyphosis, some minor flattening of the lumbar lordotic curvature. Lumbar paraspinous muscles show symmetrical on inspection, on palpation shows some moderate tenderness diffusely throughout the upper, middle and lower distribution of the paraspinous muscles bilaterally and also into the lower thoracic paraspinous musculature, firm and tender, but without specific trigger points, without radiation of pain. The patient has good rotational motion of the lumbar spine, both laterally as well as extension and flexion without significant difficulty. With palpation over the sacroiliac region the patient has significant tenderness over the left posterior superior iliac spine and not the right also with palpation in the superior middle aspect of the left sacroiliac joint very tender without radiation. Right side is only very minimally tender with palpation. EXTREMITIES: Lower extremities show deep tendon reflexes 1+ in the patellar and tendo calcaneus tendons. Motor exam is 4 on a scale of 5 with right dorsiflexion, extension, quadriceps and hamstring flexion and 4/5 on the left. Peripheral pulses are 1+ posterior tibial. No peripheral edema is noted bilaterally. Patient has positive Gaenslen sign on the left only. Lower extremities are warm and dry to touch, equal in color and appearance. SKIN: Shows warm and dry, good turgor. No edema. No sores, rashes or bruising throughout. Procedure: Procedure: Discussed with the patient. Patient's old chart was reviewed as her current medication regimen updated current review of systems updated today as well. Patient with clinical signs of sacroiliitis and significant pain in the left sacroiliac region. We will preauthorize patient for left sacral iliac joint injection with fluoroscopic guidance. Once preauthorization is obtained we will have patient return and plan on left sacroiliac joint injection at that time. Patient will be given Medrol Dosepak and this was called into her local pharmacy with instructions and side effects to be aware of discussed. Medication Injected: Med Injected: None Condition at Discharge: Condition at Discharge: Condition at discharge is stable. JAK RO MD Apr 23, 2020 13:18
== END | disposition home or self-care (01) ==
LOC: PNCL 12:18
PROVIDERS: ATTEND Anesthesiology
DX: M51.16 Intervertebral disc disorders with radiculopathy, lumbar region (principal); M48.061 Spinal stenosis, lumbar region without neurogenic claudication; M50.10 Cervical disc disorder with radiculopathy, unspecified cervical region; M46.1 Sacroiliitis, not elsewhere classified; I25.10 Atherosclerotic heart disease of native coronary artery without angina pectoris; I10 Essential (primary) hypertension; J44.9 Chronic obstructive pulmonary disease, unspecified; K21.9 Gastro-esophageal reflux disease without esophagitis; M19.90 Unspecified osteoarthritis, unspecified site; F41.9 Anxiety disorder, unspecified; F32.9 Major depressive disorder, single episode, unspecified; Z87.440 Personal history of urinary (tract) infections; Z79.899 Other long term (current) drug therapy; Z98.890 Other specified postprocedural states; Z88.0 Allergy status to penicillin; Z88.1 Allergy status to other antibiotic agents; Z88.2 Allergy status to sulfonamides; Z88.8 Allergy status to other drugs, medicaments and biological substances
CPT/HCPCS: 99214; G0463

== ENCOUNTER → 2020-05-07 | Outpatient (CLI) | payer MEDICARE ==
[2020-02-14 11:00] VITALS: BP 144/58
[~2020-05-07] MED LIST changes: +BUPIVACAINE MPF 0.25% 10 ML VIAL. ONE; +IOHEXOL 180 MG/ML 10 ML VIAL. ONE; -ISOS30TA4 PO; +ISOS30TA68 PO; +SERT-267 PO; -SERT50TA8 PO; +methylPREDNISolone ACETATE 80 MG/ML VIAL. ONE
--- NOTE | 2020-05-07 13:30 | PDOC ---
Progress Note - Pain Clinic Date of Service: DOS: DATE: 05/07/20 TIME: 13:26 Diagnosis: Dx: Left sacroiliitis Lumbar radiculopathy with lumbar degenerative disease and lumbar spinal stenosis Cervical radiculopathy with cervical degenerative disc disease History or Present Illness: HPI: 84-year-old female returns follow-up status post initial evaluation and preauthorization for left sacroiliac joint injection. 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 Patient reports still significant pain in the low back left side in the posterior hip radiating into the posterior and lateral gluteus and into the pelvis area anteriorly at times. Patient reports it is radiating constant severe unbearable worse with standing walking changing position especially getting up from seated position twisting and better bending with the low back and legs. Patient rates her pain is a 10 on scale 10 is worse over the past week 9 on average 8 its least and is an 8 today. Patient reports no new motor or sensory deficits no new bowel or bladder incontinence or other complaints. Patient reports better with sitting or laying down generally is not awakening from sleep at night. Patient reports no significant pain on the right side. Physical Exam: VS: Blood pressure is 160/79 pulse 73 respirations 18 temperature is 98.7 F height is 4 feet 11 inches weight is 133 pounds PE: PHYSICAL EXAMINATION: GENERAL: The patient is awake, alert, oriented, appropriate, very pleasant demeanor HEENT: Shows normocephalic, atraumatic. Extraocular movements are intact and symmetrical. Oral cavity: Mucous membranes moist and pink. NECK: Shows anterior throat supple without palpable lymphadenopathy noted. Swallow reflex symmetrical. CHEST: Shows normal on inspection. Breath sounds are clear bilaterally. HEART: Shows S1, S2 clear. No murmurs auscultated. ABDOMEN: Soft, nontender, nondistended. No palpable organomegaly is noted. No rebound or guarding demonstrated. BACK: Shows spine grossly in the midline. Normal-appearing cervical lordotic curvature. There is increased thoracic kyphosis, some flattening of the lumbar lordotic curvature. Lumbar paraspinous muscles show symmetrical on inspection, on palpation shows some moderate tenderness diffusely throughout the upper, midd le and lower distribution of the paraspinous muscles without specific trigger points, without radiation of pain. The patient has good rotational motion of the lumbar spine, both laterally as well as extension and flexion without significant difficulty. Patient has significant tenderness over the left posterior superior iliac spine compared to the right as well as over the left sa croiliac region very tender with withdrawal from the examining hand even on moderate palpation. EXTREMITIES: Lower extremities show deep tendon reflexes 1+ in the patellar and tendo calcaneus tendons. Motor exam is 4 on a scale of 5 with right dorsiflexio n, extension, quadriceps and hamstring flexion and 4/5 on the left. Peripheral pulses are 1+ posterior tibial. No peripheral edema is noted bilaterally. Lower extremities are warm and dry to touch, equal in color and appearance. Patient has positive Gaenslen's maneuver on the left only. SKIN: Shows warm and dry, good turgor. No edema. No sores, rashes or bruising throughout. Procedure: Procedure: Options were discussed with the patient. Patient old chart was reviewed as was her current medication regimen updated, current review of systems updated today as well. We will proceed with a left sacroiliac joint injection using fluoroscopic guidance. Discussed including but not limited to bleeding infection possibility of intravascular injection sequelae spread of local anesthetic and numbness side effects of steroid medication exposure to fluorosco py and poor results regarding pain control. Patient understands and wishes to proceed. Patient will return to clinic in approximately 3 weeks for follow-up. Patient will restart her Eliquis and Plavix on May 08, 2020. Medication Injected: Med Injected: Under sterile prep and drape using C-arm fluoroscopic guidance, left sacroiliac joint injected using 22-gauge Quincke he needle with stylette, using 3 cc 0.25% bupivacaine +80 mg Depo-Medrol +2 cc contrast. Condition at discharge is stable, patient tolerated procedure well and had no complications. Condition at Discharge: Condition at Discharge: Condition at discharge is stable. Patient tolerated the procedure well and had no complications. JAK RO MD May 07, 2020 13:30
--- NOTE | 2020-05-07 13:31 | PDOC4 ---
PROCEDURE Procedure Patient was consented for left sacroiliac joint injection. Risks were discussed including not limited to bleeding infection possibility of intravascular injection and sequelae spread of local anesthetic and numbness side effects of steroid medication exposure to fluoroscopy and poor results regarding pain control. Under sterile prep and drape using C-arm fluoroscopic guidance, left sacroiliac joint injected using 22-gauge quickie needle with stylette, using 3 cc 0.25% bupivacaine +80 mg Depo-Medrol +2 cc contrast. Condition at discharge is stable, patient tolerated procedure well and had no complications. JAK RO MD May 07, 2020 13:31
== END | disposition home or self-care (01) ==
LOC: PNCL 12:49
PROVIDERS: ATTEND Anesthesiology
DX: M46.1 Sacroiliitis, not elsewhere classified (principal); M51.16 Intervertebral disc disorders with radiculopathy, lumbar region; M48.061 Spinal stenosis, lumbar region without neurogenic claudication; M50.10 Cervical disc disorder with radiculopathy, unspecified cervical region; I25.10 Atherosclerotic heart disease of native coronary artery without angina pectoris; I10 Essential (primary) hypertension; M19.90 Unspecified osteoarthritis, unspecified site; K21.9 Gastro-esophageal reflux disease without esophagitis; J44.9 Chronic obstructive pulmonary disease, unspecified; F41.9 Anxiety disorder, unspecified; F32.9 Major depressive disorder, single episode, unspecified; Z90.710 Acquired absence of both cervix and uterus; Z98.890 Other specified postprocedural states; Z79.899 Other long term (current) drug therapy; Z82.49 Family history of ischemic heart disease and other diseases of the circulatory system; Z83.3 Family history of diabetes mellitus; Z80.3 Family history of malignant neoplasm of breast; Z88.0 Allergy status to penicillin; Z88.1 Allergy status to other antibiotic agents; Z88.2 Allergy status to sulfonamides; Z88.8 Allergy status to other drugs, medicaments and biological substances
CPT/HCPCS: G0260; J1040; J3490; Q9965; 27096

== ENCOUNTER → 2020-06-04 | Outpatient (CLI) | payer MEDICARE ==
[2020-02-14 11:00] VITALS: BP 144/58
[~2020-06-04] MED LIST changes: -BUPIVACAINE MPF 0.25% 10 ML VIAL. ONE; +HYDR-2761 PO; +methylPREDNISolone ACETATE 40 MG/ML VIAL. ONE
--- NOTE | 2020-06-04 12:40 | PDOC ---
Progress Note - Pain Clinic Date of Service: DOS: DATE: 06/04/20 TIME: 12:36 Diagnosis: Dx: Lumbar radiculopathy with lumbar degenerative disc disease and lumbar spinal stenosis Cervical radiculopathy with cervical degenerative disc disease Left sacroiliitis History or Present Illness: HPI: 84-year-old female returns for follow-up status post left sacroiliac joint injection with only minimal decrease in pain over the left hip patient reports still significant pain in the low back and left lower extremity rating the posterior gluteus posterior thigh lateral thigh anterior thigh anteromedial thigh medial lower leg and posterior lower leg to the foot involving the entire leg foot and across the low back. Patient reports is a 10 on scale 10 at all times average worst and least is a 10 today patient ports radiating stabbing unbearable at times sharp and shooting in the leg none on the right side specifi tara the all on the left at this time patient reports much worse with standing and weightbearing better with sitting or laying down generally awakens her from sleep about once every 4 hours she is not sleeping well at night. Patient also reports that she has been decreased with her oxycodone to twice daily instead of 3 times daily which she was taking previously and had a much better analgesic control of her pain. Patient reports no new motor or sensory deficits no new bowel or bladder incontinence or other complaints. Physical Exam: VS: Blood pressure 133/75 pulse 60 respirations 18 temperature 99.0 F height is 4 foot 11 inches weight 139 pounds PE: PHYSICAL EXAMINATION: GENERAL: The patient is awake, alert, oriented, appropriate, very pleasant demeanor HEENT: Shows normocephalic, atraumatic. Extraocular movements are intact and symmetrical. Oral cavity: Mucous membranes moist and pink. NECK: Shows anterior throat supple without palpable lymphadenopathy noted. Swallow reflex symmetrical. CHEST: Shows normal on inspection. Breath sounds are clear bilaterally, no rales or rhonchi bilaterally. HEART: Shows S1, S2 clear. No murmurs auscultated. ABDOMEN: Soft, nontender, nondistended, obese. No palpable organomegaly is noted. BACK: Shows spine grossly in the midline. Normal-appearing cervical lordotic curvature. There is slightly increased thoracic kyphosis, some minor flattening of the lumbar lordotic curvature. Lumbar paraspinous muscles show symmetrical on inspection, on palpation shows some moderate tenderness diffusely throughout the upper, middle and lower distribution of the paraspinous muscles without specific trigger points, without radiation of pain. The patient has good rotational motion of the lumbar spine, both laterally as well as extension and flexion without significant difficulty. Patient has mild tenderness over the left posterior superior iliac spine and mildly on the left sacroiliac joint itself but not on the right. EXTREMITIES: Lower extremities show deep tendon reflexes 1+ in the patellar and tendo calcaneus tendons. Motor exam is 4 on a scale of 5 with right dorsiflexion, extension, quadriceps and hamstring flexion and 4/5 on the left. Peripheral pulses are 1+ posterior tibial. No peripheral edema is noted bilaterally. Lower extremities are warm and dry to touch, equal in color and appearance. SKIN: Shows warm and dry, good turgor. No edema. No sores, rashes or bruising throughout. Procedure: Procedure: Options were discussed with the patient. Patient will chart reviews her current medication regimen updated current review of systems updated today as well. We will proceed with a lumbar epidural steroid injection today with fluoroscopic guidance risks were discussed including but not limited to: Bleeding, infection, possibility of epidural hematoma and subsequent neurological compromise, dural puncture, headaches, spinal cord and/or nerve damage, side effects of steroid medication, and poor results regarding pain control. Patient understands and wished to proceed. Patient return to clinic in approximate 2 weeks for follow- up, was counseled as return appointment activity level and side effects to be aware of. Medication Injected: Med Injected: Procedure is lumbar epidural steroid injection under local anesthetic using sterile prep and drape at the L4-5 level using C-arm fluoroscopic guidance in both AP and lateral views medications injected is 120 mg Depo-Medrol + 10 mL preservative-free normal saline and 2 mL contrast- condition at discharge is stable patient tolerated procedure well had no complications. Condition at Discharge: Condition at Discharge: Condition at discharge is stable, patient tolerated the procedure well and had no complications. JAK RO MD Jun 04, 2020 12:40
--- NOTE | 2020-06-04 12:40 | PDOC4 ---
PROCEDURE Procedure Patient was consented for lumbar epidural steroid injection. Risks were dis cussed including but not limited to: Bleeding, infection, possibility of epidural hematoma and subsequent neurological compromise, dural puncture, headaches, spinal cord and/or nerve damage, side effects of steroid medication, and poor results regarding pain control. Patient understands and wished to proceed. Procedure is lumbar epidural steroid injection under local anesthetic using sterile prep and drape at the L4-5 level using C-arm fluoroscopic guidance in both AP and lateral views medications injected is 120 mg Depo-Medrol + 10 mL preservative-free normal saline and 2 mL contrast- condition at discharge is stable patient tolerated procedure well had no complications. JAK RO MD Jun 04, 2020 12:40
== END | disposition home or self-care (01) ==
LOC: PNCL 10:59
PROVIDERS: ATTEND Anesthesiology
DX: M51.16 Intervertebral disc disorders with radiculopathy, lumbar region (principal); M48.061 Spinal stenosis, lumbar region without neurogenic claudication; M50.10 Cervical disc disorder with radiculopathy, unspecified cervical region; M46.1 Sacroiliitis, not elsewhere classified; I25.10 Atherosclerotic heart disease of native coronary artery without angina pectoris; I10 Essential (primary) hypertension; J44.9 Chronic obstructive pulmonary disease, unspecified; M19.90 Unspecified osteoarthritis, unspecified site; F41.9 Anxiety disorder, unspecified; F32.9 Major depressive disorder, single episode, unspecified; Z90.710 Acquired absence of both cervix and uterus; Z98.890 Other specified postprocedural states; Z79.899 Other long term (current) drug therapy; Z88.0 Allergy status to penicillin; Z88.1 Allergy status to other antibiotic agents; Z88.2 Allergy status to sulfonamides; Z88.8 Allergy status to other drugs, medicaments and biological substances; Z88.5 Allergy status to narcotic agent; Z82.49 Family history of ischemic heart disease and other diseases of the circulatory system; Z83.3 Family history of diabetes mellitus
CPT/HCPCS: 62323; J1030; J1040; Q9965

== ENCOUNTER → 2020-06-18 | Outpatient (CLI) | payer MEDICARE ==
[2020-02-14 11:00] VITALS: BP 144/58
[~2020-06-18] MED LIST changes: +HYDR-2769 PO; -IOHEXOL 180 MG/ML 10 ML VIAL. ONE; -methylPREDNISolone ACETATE 40 MG/ML VIAL. ONE; -methylPREDNISolone ACETATE 80 MG/ML VIAL. ONE
--- NOTE | 2020-06-18 13:26 | PDOC ---
Progress Note - Pain Clinic Date of Service: DOS: DATE: 06/18/20 TIME: 13:22 Diagnosis: Dx: Lumbar radiculopathy with lumbar degenerative disease and lumbar spinal stenosis Cervical radiculopathy with cervical degenerative disc disease Left sacroiliitis History or Present Illness: HPI: 84-year-old female returns follow-up status post lumbar epidural steroid injection x1. Patient last seen June 04, 2020 patient reports she did very well with about 75% improvement in the low back and left lower extremity pain but the pain is returning now over the past few days now closed about 50 to 60% improvement overall but is returning and she feels that it is getting worse in the low back and left leg patient reports pain is radiating across the low back and the bilateral hips and the posterior gluteus posterior left thigh posterior left calf to the ankle and foot on the left side also in the lateral aspect of the thigh and calf patient reports is an 8 on scale 10 is worse over the past week 8 on average 8 at its least is an 8 today. Patient reports no new motor or sensory deficits initially she was doing much better with walking standing changing positions still sleeping well at night does not awaken her from sleep better with sitting or laying down. Patient reports pain is radiating severe unbearable at times sharp and shooting and increasing as time goes on. Patient continues to do some stretching and is taking hydrocodone 10 mg 3 times daily. Patient reports that she had a misunderstanding with her primary care physician regarding the hydrocodone regimen and the offered to take over writing that for her with narcotic contract and urinalysis pending today as well. Physical Exam: VS: Blood pressure is 142/57 pulse 67 respirations 18 temperature 97.9 F height is 4 feet 11 inches weight 141 pounds PE: PHYSICAL EXAMINATION: GENERAL: The patient is awake, alert, oriented, appropriate, very pleasant demeanor HEENT: Shows normocephalic, atraumatic. Extraocular movements are intact and symmetrical. Oral cavity: Mucous membranes moist and pink. NECK: Shows anterior throat supple without palpable lymphadenopathy noted. Swallow reflex symmetrical. CHEST: Shows normal on inspection. Breath sounds are clear bilaterally, no rales or rhonchi bilateral. HEART: Shows S1, S2 clear. No murmurs auscultated. ABDOMEN: Soft, nontender, nondistended, obese. No palpable organomegaly is noted. No rebound or guarding demonstrated. BACK: Shows spine grossly in the midline. Normal-appearing cervical lordotic curvature. There is increased thoracic kyphosis, some flattening of the lumbar lordotic curvature. Lumbar paraspinous muscles show symmetrical on inspection, on palpation shows some moderate tenderness diffusely throughout the upper, midd le and lower distribution of the paraspinous muscles without specific trigger points, without radiation of pain. The patient has good rotational motion of the lumbar spine, both laterally as well as extension and flexion without significant difficulty. No tenderness over the spinous processes, sacrum or sacroiliac regions. EXTREMITIES: Lower extremities show deep tendon reflexes 1+ in the patellar and tendo calcaneus tendons. Motor exam is 4 on a scale of 5 with right dorsiflexion, extension, quadriceps and hamstring flexion and 4/5 on the left. Peripheral pulses are 1+ posterior tibial. No peripheral edema is noted bilaterally. Lower extremities are warm and dry to touch, equal in color and appearance. SKIN: Shows warm and dry, good turgor. No edema. No sores, rashes or bruising throughout. Procedure: Procedure: Options were discussed with the patient. Patient chart reviews her current medication regimen updated current review of systems updated today as well. We will preauthorize patient for second lumbar epidural steroid injection with fluoroscopic guidance. Patient will wait for preauthorization in the meantime we will refill patient's hydrocodone 10 mg to take up to 3 tablets daily for total of 90/month patient was given 1 prescription with no refills. This will be called into her pharmacy electronically and they will deliver it to her as standard. 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 Medication Injected: Med Injected: None Condition at Discharge: Condition at Discharge: Condition at discharge is stable. Patient was given instructions well side effects beware with the medications. JAK RO MD Jun 18, 2020 13:26
== END | disposition home or self-care (01) ==
LOC: PNCL 12:56
PROVIDERS: ATTEND Anesthesiology
DX: M51.16 Intervertebral disc disorders with radiculopathy, lumbar region (principal); M48.061 Spinal stenosis, lumbar region without neurogenic claudication; M46.1 Sacroiliitis, not elsewhere classified; M50.10 Cervical disc disorder with radiculopathy, unspecified cervical region; Z88.8 Allergy status to other drugs, medicaments and biological substances; Z88.0 Allergy status to penicillin; Z88.1 Allergy status to other antibiotic agents; Z91.048 Other nonmedicinal substance allergy status
CPT/HCPCS: G0463

== ENCOUNTER → 2020-07-07 | Outpatient (CLI) | payer MEDICARE ==
[2020-02-14 11:00] VITALS: BP 144/58
[~2020-07-07] MED LIST changes: +IOHEXOL 180 MG/ML 10 ML VIAL. ONE; +methylPREDNISolone ACETATE 40 MG/ML VIAL. ONE; +methylPREDNISolone ACETATE 80 MG/ML VIAL. ONE
--- NOTE | 2020-07-07 13:59 | PDOC ---
Progress Note - Pain Clinic Date of Service: DOS: DATE: 07/07/20 TIME: 13:55 Diagnosis: Dx: Lumbar radiculopathy with lumbar degenerative disease and lumbar spinal stenosis Cervical radiculopathy with cervical degenerative disc disease Left sacroiliitis History or Present Illness: HPI: 84-year-old female returns for follow-up status post clearance to hold her Plavix and Eliquis for 7 days on the Plavix 3 days on the Eliquis she has done that now with still significant pain the low back and left lower extremity in a radicular fashion. Patient reports after last injection she did fairly well but said 5% improvement for a few weeks after the injection but the pain returned and now she is off of blood thinners again we will have her proceed with lumbar epidurals or injection #2 today. Patient rates the pain as a 9 on scale 10 is worse over the past week 7 on average 3 at its least and is a 7 today patient describes a stabbing in the back sharp and shooting in the leg on the left side radiating across the back bilaterally and in the left lower extremity mostly the posterior gluteus posterior lateral thigh anterior thigh medial thigh anterior medial lower leg in the calf and the entire foot. Patient reports no new motor or sensory deficits no new bowel or bladder incontinence patient reports she still has difficulty sleeping and is taking melatonin which is helpful. Physical Exam: VS: Blood pressure is 137/73 pulse 76 respirations 18 temperature 98.2 F height is 4 feet 11 inches weight 140 PE: PHYSICAL EXAMINATION: GENERAL: The patient is awake, alert, oriented, appropriate, very pleasant demeanor HEENT: Shows normocephalic, atraumatic. Extraocular movements are intact and symmetrical. Oral cavity: Mucous membranes moist and pink. Dentition is intact. NECK: Shows anterior throat supple without palpable lymphadenopathy noted. Swallow reflex symmetrical. CHEST: Shows normal on inspection. Breath sounds are clear bilaterally, no rales or rhonchi bilaterally. HEART: Shows S1, S2 clear. No murmurs auscultated. ABDOMEN: Soft, nontender, nondistended, obese. No palpable organomegaly is noted. No rebound or guarding demonstrated. BACK: Shows spine grossly in the midline. Normal-appearing cervical lordotic curvature. There is slightly increased thoracic kyphosis, some minor flattening of the lumbar lordotic curvature. Lumbar paraspinous muscles show symmetrical on inspection, on palpation shows some moderate tenderness diffusely throughout the upper, middle and lower distribution of the paraspinous muscles, but without specific trigger points, without radiation of pain. The patient has good rotational motion of the lumbar spine, both laterally as well as extension and flexion without significant difficulty. EXTREMITIES: Lower extremities show deep tendon reflexes 1+ in the patellar and tendo calcaneus tendons. Motor exam is 4 on a scale of 5 with right dorsiflexion, extension, quadriceps and hamstring flexion and 4/5 on the left. Peripheral pulses are 1+ posterior tibial. No peripheral edema is noted bilaterally. Lower extremities are warm and dry to touch, equal in color and appearance. SKIN: Shows warm and dry, good turgor. No edema. No sores, rashes or bruising throughout. Procedure: Procedure: Options discussed with the patient. Patient will chart reviews her current medication regimen updated current review of systems updated today as well. We will proceed with a lumbar epidural steroid injection as a second in the series today with fluoroscopic guidance. Risks were discussed including but not limited to: Bleeding, infection, possibility of epidural hematoma and subsequent neurological compromise, dural puncture, headaches, spinal cord and/or nerve damage, side effects of steroid medication, and poor results regarding pain control. Patient understands and wished to proceed. Patient will return to clinic in [place] 2 weeks for follow-up, was counseled as return appointment, activity level, and side effects to be aware of. Patient will restart her Plavix and Eliquis tomorrow July 09, 2019. Medication Injected: Med Injected: Procedure is lumbar epidural steroid injection under local anesthetic using sterile prep and drape at the L4-5 level using C-arm fluoroscopic guidance in both AP and lateral views medications injected is 120 mg Depo-Medrol + 10 mL preservative-free normal saline and 2 mL contrast- condition at discharge is stable patient tolerated procedure well had no complications. Condition at Discharge: Condition at Discharge: Condition at discharge is stable, patient tolerated the procedure well and had no complications. JAK RO MD Jul 07, 2020 13:58
--- NOTE | 2020-07-07 13:59 | PDOC4 ---
PROCEDURE Procedure Patient was consented for lumbar epidural steroid injection. Risks were dis cussed including but not limited to: Bleeding, infection, possibility of epidural hematoma and subsequent neurological compromise, dural puncture, headaches, spinal cord and/or nerve damage, side effects of steroid medication, and poor results regarding pain control. Patient understands and wished to proceed. Procedure is lumbar epidural steroid injection under local anesthetic using sterile prep and drape at the L4-5 level using C-arm fluoroscopic guidance in both AP and lateral views medications injected is 120 mg Depo-Medrol + 10 mL preservative-free normal saline and 2 mL contrast- condition at discharge is stable patient tolerated procedure well had no complications. JAK RO MD Jul 07, 2020 13:59
== END | disposition home or self-care (01) ==
LOC: PNCL 13:24
PROVIDERS: ATTEND Anesthesiology
DX: M51.16 Intervertebral disc disorders with radiculopathy, lumbar region (principal); M50.10 Cervical disc disorder with radiculopathy, unspecified cervical region; M48.061 Spinal stenosis, lumbar region without neurogenic claudication; M46.1 Sacroiliitis, not elsewhere classified; I25.10 Atherosclerotic heart disease of native coronary artery without angina pectoris; I10 Essential (primary) hypertension; J44.9 Chronic obstructive pulmonary disease, unspecified; K21.9 Gastro-esophageal reflux disease without esophagitis; M19.90 Unspecified osteoarthritis, unspecified site; F41.9 Anxiety disorder, unspecified; F32.9 Major depressive disorder, single episode, unspecified; Z90.710 Acquired absence of both cervix and uterus; Z98.890 Other specified postprocedural states; Z79.899 Other long term (current) drug therapy; Z88.0 Allergy status to penicillin; Z88.1 Allergy status to other antibiotic agents; Z88.8 Allergy status to other drugs, medicaments and biological substances
CPT/HCPCS: 62323; J1030; J1040; Q9965; 77002

== ENCOUNTER → 2020-07-22 | Outpatient (CLI) | payer MEDICARE ==
[2020-02-14 11:00] VITALS: BP 144/58
[~2020-07-22] MED LIST changes: -IOHEXOL 180 MG/ML 10 ML VIAL. ONE; -methylPREDNISolone ACETATE 40 MG/ML VIAL. ONE; -methylPREDNISolone ACETATE 80 MG/ML VIAL. ONE
--- NOTE | 2020-07-22 14:04 | PDOC ---
Progress Note - Pain Clinic Date of Service: DOS: DATE: 07/22/20 TIME: 13:57 Diagnosis: Dx: Lumbar radiculopathy with lumbar degenerative disease and lumbar spinal stenosis Cervical radiculopathy with cervical degenerative disc disease Left sacroiliitis History or Present Illness: HPI: 84-year-old female returns for follow-up status post lumbar epidural steroid injection x2 as well as sacroiliac joint injection on the left most recent injections not helped the pain significantly and she has had chronic low back and left lower extremity pain worse in the morning when she first gets out of bed and then gets better as the morning progresses a day goes by patient reports it does awaken her from sleep about every 3-4 hours however. Patient reports that her pain is a 7-8 on scale 10 is average worst and least over the past week and is a 7-8 today patient reports that shooting in the left leg especially in the morning on and off in intensity dull aching and burning and stabbing in the low back itself. Patient reports no new motor or sensory deficits to using a walker to ambulate but no significant decrease in pain after the last injection. Patient reports she is currently looking for a new primary care physician and we will give her some options to explore that are covered with her insurance as well. Patient taking hydrocodone and doing well with this without any side effects reports her pain is fairly well controlled with the hydrocodone at about a 70% level without any side effects as noted. Physical Exam: VS: Blood pressure is 151/77 pulse 77 respirations 18 temperature 98.9 F height is 4 feet 1 inches weight is 139 pounds PE: PHYSICAL EXAMINATION: GENERAL: The patient is awake, alert, oriented, appropriate, very pleasant demeanor HEENT: Shows normocephalic, atraumatic. Extraocular movements are intact and symmetrical. Oral cavity: Mucous membranes moist and pink. NECK: Shows anterior throat supple without palpable lymphadenopathy noted. Swallow reflex symmetrical. CHEST: Shows normal on inspection. Breath sounds are clear bilaterally. HEART: Shows S1, S2 clear. No murmurs auscultated. ABDOMEN: Soft, nontender, nondistended. No palpable organomegaly is noted. BACK: Shows spine grossly in the midline. Normal-appearing cervical lordotic curvature. There is slightly increased thoracic kyphosis, some minor flattening of the lumbar lordotic curvature. Lumbar paraspinous muscles show symmetrical on inspection, on palpation shows some moderate tenderness diffusely throughout the upper, middle and lower distribution of the paraspinous muscles, but without specific trigger points, without radiation of pain. The patient has good rotational motion of the lumbar spine, both laterally as well as extension and flexion without significant difficulty. No tenderness over the spinous processes, but moderate tenderness over the left posterior superior iliac spine and sacroiliac region but not the right. EXTREMITIES: Lower extremities show deep tendon reflexes 1+ in the patellar and tendo calcaneus tendons. Motor exam is 4 on a scale of 5 with right dorsiflexion, extension, quadriceps and hamstring flexion and 4/5 on the left. Peripheral pulses are 1+ posterior tibial. No peripheral edema is noted bilaterally. Lower extremities are warm and dry to touch, equal in color and appearance. SKIN: Shows warm and dry, good turgor. No edema. No sores, rashes or bruising throughout. Procedure: Procedure: Options were discussed with the patient. Patient chart reviews her current medication regimen updated current review of systems updated today as well. We will hold any further injections at this time as she is not getting any substantial benefit from them to this point and maintain her hydrocodone as well as add meloxicam once daily and Medrol Dosepak. Patient is given instructions well side effects aware of each of the medications. Patient to follow-up in approximate 4 weeks as scheduled. Medication Injected: Med Injected: None Condition at Discharge: Condition at Discharge: Condition at discharge is stable. JAK RO MD Jul 22, 2020 14:04
== END | disposition home or self-care (01) ==
LOC: PNCL 13:24
PROVIDERS: ATTEND Anesthesiology
DX: M51.16 Intervertebral disc disorders with radiculopathy, lumbar region (principal); M48.061 Spinal stenosis, lumbar region without neurogenic claudication; M50.10 Cervical disc disorder with radiculopathy, unspecified cervical region; M46.1 Sacroiliitis, not elsewhere classified; I25.10 Atherosclerotic heart disease of native coronary artery without angina pectoris; I10 Essential (primary) hypertension; J44.9 Chronic obstructive pulmonary disease, unspecified; K21.9 Gastro-esophageal reflux disease without esophagitis; M19.90 Unspecified osteoarthritis, unspecified site; F32.9 Major depressive disorder, single episode, unspecified; F41.9 Anxiety disorder, unspecified; Z90.49 Acquired absence of other specified parts of digestive tract; Z98.890 Other specified postprocedural states; Z90.710 Acquired absence of both cervix and uterus; Z79.899 Other long term (current) drug therapy; Z88.0 Allergy status to penicillin; Z88.1 Allergy status to other antibiotic agents; Z88.2 Allergy status to sulfonamides; Z88.8 Allergy status to other drugs, medicaments and biological substances; Z82.49 Family history of ischemic heart disease and other diseases of the circulatory system; Z83.3 Family history of diabetes mellitus
CPT/HCPCS: G0463

== ENCOUNTER → 2020-08-19 | Outpatient (CLI) | payer MEDICARE ==
[2020-02-14 11:00] VITALS: BP 144/58
[~2020-08-19] MED LIST changes: +CALC-71 PO; +GUAI600T47 PO; +LIDO700A21 TP; +MONT10TA49 PO; +MULT-647 PO
--- NOTE | 2020-08-19 14:09 | PDOC ---
Progress Note - Pain Clinic Date of Service: DOS: DATE: 08/19/20 TIME: 14:06 Diagnosis: Dx: Lumbar radiculopathy with lumbar degenerative disc disease and lumbar spinal stenosis Cervical radiculopathy with cervical degenerative disc disease Left sacroiliitis History or Present Illness: HPI: 84-year-old female returns for follow-up status post lumbar epidural steroid injections x2 with only minimal decrease in pain long-term management with hydrocodone 10 mg. Patient reports her medication is doing very well she is taking it 3 times daily and except for some mild constipation which she uses MiraLAX to reverse is doing very well without any other side effects patient reports still pain low back and left lower extremity but much better than it has been without the medication. Patient reports is not interested in any other injections and is doing well on her medication regimen at this time patient has had appropriate K tracts reporting to date. Patient ports pain is sharp and stabbing in the low back left lower extremity radiating mostly the posterior gluteus posterior lateral thigh lateral anterior thigh and posterior calf worse with walking and standing on hard floors. Patient reports she still does not sleep well at night but it is not from the pain that started her she just has insomnia. Patient rates her pain as 8 on scale 10 at all times average worst least is 8.8. Patient reports no new motor or sensory deficits or other complaints. Physical Exam: VS: Blood pressure is 123/57 pulse 66 respirations 16 temperature 98.5 F weight is 141 pounds PE: PHYSICAL EXAMINATION: GENERAL: The patient is awake, alert, oriented, appropriate, very pleasant demeanor HEENT: Shows normocephalic, atraumatic. Extraocular movements are intact and symmetrical. Oral cavity: Mucous membranes moist and pink. . NECK: Shows anterior throat supple without palpable lymphadenopathy noted. Swallow reflex symmetrical. CHEST: Shows normal on inspection. Breath sounds are clear bilaterally. HEART: Shows S1, S2 clear. No murmurs auscultated. ABDOMEN: Soft, nontender, nondistended, obese. No palpable organomegaly is not ed. No rebound or guarding demonstrated. BACK: Shows spine grossly in the midline. Normal-appearing cervical lordotic curvature. There is slightly increased thoracic kyphosis, some minor flattening of the lumbar lordotic curvature. Lumbar paraspinous muscles show symmetrical on inspection, on palpation shows some moderate tenderness diffusely throughout the upper, middle and lower distribution of the paraspinous muscles, but without specific trigger points, without radiation of pain. The patient has good rotational motion of the lumbar spine, both laterally as well as extension and flexion without significant difficulty. EXTREMITIES: Lower extremities show deep tendon reflexes 1+ in the patellar and tendo calcaneus tendons. Motor exam is 4 on a scale of 5 with right dorsiflexion, extension, quadriceps and hamstring flexion and 4/5 on the left. Peripheral pulses are 1+ posterior tibial. No peripheral edema is noted bilaterally. Lower extremities are warm and dry to touch, equal in color and appearance. SKIN: Shows warm and dry, good turgor. No edema. No sores, rashes or bruising throughout. Procedure: Procedure: Options were discussed with the patient. Patient chart reviews her current medication regimen updated current review of systems updated today as well. We will ref[facility] patient's medication [facility] from hydrocodone 10 mg #90 to be taken 3 times daily as needed. Patient is given instructions well side effects aware with the medication will follow-up in approximate 4 weeks as scheduled. Medication Injected: Med Injected: None Condition at Discharge: Condition at Discharge: Condition at discharge is stable. JAK RO MD August 19, 2020 14:09
== END | disposition home or self-care (01) ==
LOC: PNCL 13:09
PROVIDERS: ATTEND Anesthesiology
DX: M51.16 Intervertebral disc disorders with radiculopathy, lumbar region (principal); M48.061 Spinal stenosis, lumbar region without neurogenic claudication; M50.10 Cervical disc disorder with radiculopathy, unspecified cervical region; M46.1 Sacroiliitis, not elsewhere classified; I25.10 Atherosclerotic heart disease of native coronary artery without angina pectoris; I10 Essential (primary) hypertension; J44.9 Chronic obstructive pulmonary disease, unspecified; K21.9 Gastro-esophageal reflux disease without esophagitis; M19.90 Unspecified osteoarthritis, unspecified site; F41.9 Anxiety disorder, unspecified; F32.9 Major depressive disorder, single episode, unspecified; Z90.710 Acquired absence of both cervix and uterus; Z98.890 Other specified postprocedural states; Z79.899 Other long term (current) drug therapy; Z88.0 Allergy status to penicillin; Z88.1 Allergy status to other antibiotic agents; Z88.2 Allergy status to sulfonamides; Z88.8 Allergy status to other drugs, medicaments and biological substances
CPT/HCPCS: G0463

== ENCOUNTER → 2020-10-01 | Outpatient (CLI) | payer MEDICARE ==
[2020-09-24 11:00] VITALS: BP 152/71
[~2020-10-01] MED LIST changes: +DICL100G28 TP; +FURO40TA4 PO; +HYDR-2767 PO; +LIDO1ADH63 TP; +MELA10CA PO; +MELO15TA23 PO; +MONT10TA20 PO
--- NOTE | 2020-10-01 15:18 | PDOC ---
Progress Note - Pain Clinic Date of Service: DOS: DATE: 10/01/20 TIME: 15:13 Diagnosis: Dx: Lumbar radiculopathy with lumbar degenerative disc disease lumbar spinal stenosis Cervical radiculopathy with cervical degenerative disc disease Left sacroiliitis History or Present Illness: HPI: 84-year-old female returns for follow-up status post medication management with hydrocodone as well as previous lumbar epidural steroid injections which were helpful but only for a limited time patient reports about 75% improvement with the medication without side effects patient reports pain still in the low back and now traveling in the lateral aspect of the posterior gluteus posterior thigh lateral thigh anterior thigh medial thigh and lateral calf and medial calf as well patient reports is a 5 on a scale of 10 at all times least worst and average is a 5 today patient describes a sharp and aching on and off in int ensity dull and stabbing in the back with shooting pain radiating in the left lower extremity to the ankle patient reports is worse with walking standing changing positions although fairly well controlled with medication without side effects is becoming more noticeable with walking and standing. Patient is preparing to travel to [place] to see her great great grandchild in approximately 6 days. Patient reports no new motor or sensory deficits no new bowel or bladder incontinence or other complaints. Physical Exam: VS: Blood pressure is 137/62 pulse 69 respirations 18 temperature 98.3 F weight is 141 pounds PE: PHYSICAL EXAMINATION: GENERAL: The patient is awake, alert, oriented, appropriate, very pleasant in demeanor HEENT: Shows normocephalic, atraumatic. Extraocular movements are intact and symmetrical. Oral cavity: Mucous membranes moist and pink. NECK: Shows anterior throat supple without palpable lymphadenopathy noted. Swallow reflex symmetrical. CHEST: Shows normal on inspection. Breath sounds are clear bilaterally. HEART: Shows S1, S2 clear. No murmurs auscultated. ABDOMEN: Soft, nontender, nondistended, obese. BACK: Shows spine grossly in the midline. Normal-appearing cervical lordotic curvature. There is slightly increased thoracic kyphosis, some minor flattening of the lumbar lordotic curvature. Lumbar paraspinous muscles show symmetrical on inspection, on palpation shows some moderate tenderness diffusely throughout the upper, middle and lower distribution of the paraspinous muscles, but without specific trigger points, without radiation of pain. The patient has good rotational motion of the lumbar spine, both laterally as well as extension and flexion without significant difficulty. Mild tenderness over the left sacraoiliac joint and posterior superior iliac spine without radiation. EXTREMITIES: Lower extremities show deep tendon reflexes 1 in the patellar and tendo calcaneus tendons. Motor exam is 4 on a scale of 5 with right do rsiflexion, extension, quadriceps and hamstring flexion and 4/5 on the left. Peripheral pulses are 1+ posterior tibial. No peripheral edema is noted bilaterally. Lower extremities are warm and dry. SKIN: Shows warm and dry, good turgor. No edema. No sores, rashes or bruising throughout. Procedure: Procedure: Options discussed with the patient. Patient chart reviews her current medication regimen updated current review of systems updated today as well. We will proceed with preauthorization for a left transforaminal approach lumbar epidural steroid injection at the L4-5 level. Patient has clinical left L4-5 radiculopathy. Also refill patient's hydrocodone which will be electronically transferred to her [facility] pharmacy. Medication Injected: Med Injected: None Condition at Discharge: Condition at Discharge: Condition at discharge is stable JAK RO MD Oct 01, 2020 15:18
== END | disposition home or self-care (01) ==
LOC: PNCL 14:10
PROVIDERS: ATTEND Anesthesiology
DX: M51.16 Intervertebral disc disorders with radiculopathy, lumbar region (principal); M48.061 Spinal stenosis, lumbar region without neurogenic claudication; M50.10 Cervical disc disorder with radiculopathy, unspecified cervical region; M46.1 Sacroiliitis, not elsewhere classified; I25.10 Atherosclerotic heart disease of native coronary artery without angina pectoris; I10 Essential (primary) hypertension; J44.9 Chronic obstructive pulmonary disease, unspecified; K21.9 Gastro-esophageal reflux disease without esophagitis; M19.90 Unspecified osteoarthritis, unspecified site; M81.0 Age-related osteoporosis without current pathological fracture; F41.9 Anxiety disorder, unspecified; F32.9 Major depressive disorder, single episode, unspecified; Z90.710 Acquired absence of both cervix and uterus; Z98.890 Other specified postprocedural states; Z79.899 Other long term (current) drug therapy; Z88.0 Allergy status to penicillin; Z88.1 Allergy status to other antibiotic agents; Z88.2 Allergy status to sulfonamides; Z88.5 Allergy status to narcotic agent; Z88.8 Allergy status to other drugs, medicaments and biological substances
CPT/HCPCS: 99212; G0463

== ENCOUNTER → 2020-11-18 | Outpatient (CLI) | payer MEDICARE ==
[2020-09-24 11:00] VITALS: BP 152/71
[~2020-11-18] MED LIST changes: +BUPIVACAINE MPF 0.25% 10 ML VIAL. ONE; +IOHEXOL 180 MG/ML 10 ML VIAL. ONE; +methylPREDNISolone ACETATE 80 MG/ML VIAL. ONE
--- NOTE | 2020-11-18 14:49 | PDOC ---
Progress Note - Pain Clinic Date of Service: DOS: DATE: 11/18/20 TIME: 14:45 Diagnosis: Dx: Lumbar radiculopathy with lumbar degenerative disease lumbar spinal stenosis Cervical radiculopathy with cervical degenerative disc disease Left sacroiliitis History or Present Illness: HPI: 84-year-old female returns for follow-up status post evaluation and clearance to hold her blood thinners patient is been off these now Plavix for 7 days and Eliquis for 3 days after clearance from her prescribing physician. Patient reports still significant pain in the low back left lower extremity posterior gluteus posterior thigh lateral thigh anterior thigh medial thigh medial lower leg and ankle on the left side worse with walking is worse with standing worse with changing positions, waking her from sleep at least twice a night patient reports the pain is a 9 on scale 10 at all times worst least and average is a 9 today. Patient scribes pain is sharp and shooting stabbing can be radiating and severe in the left leg in the low back as well. Patient reports no new motor or sensory deficits no new bowel or bladder incontinence. Physical Exam: VS: Blood pressure is 170/88 pulse 79 respirations 18 temperature 99.0 F height is 4 foot 11 inches weight is 138 pounds PE: PHYSICAL EXAMINATION: GENERAL: The patient is awake, alert, oriented, appropriate, very pleasant in demeanor, patient companied by her son and daughter. HEENT: Shows normocephalic, atraumatic. Extraocular movements are intact and symmetrical. Oral cavity: Mucous membranes moist and pink. NECK: Shows anterior throat supple without palpable lymphadenopathy noted. Swallow reflex is symmetrical. CHEST: Shows normal on inspection. Breath sounds are clear bilaterally, distant no rales rhonchi or wheezes auscultated. HEART: Shows S1, S2 clear. No murmurs auscultated. ABDOMEN: Soft, nontender, nondistended, obese. No palpable organomegaly is noted. BACK: Shows spine grossly in the midline. Normal-appearing cervical lordotic curvature. There is increased thoracic kyphosis, some moderate flattening of the lumbar lordotic curvature. Lumbar paraspinous muscles show symmetrical on inspection, on palpation shows some moderate tenderness diffusely throughout the upper, middle and lower distribution of the paraspinous muscles without specific trigger points, without radiation of pain. The patient has good rotational motion of the lumbar spine, both laterally as well as extension and flexion without significant difficulty. EXTREMITIES: Lower extremities show deep tendon reflexes 1 in the patellar and tendo calcaneus tendons. Motor exam is 4 on a scale of 5 with right dorsiflexion, extension, quadriceps and hamstring flexion and 4/5 on the left. Peripheral pulses are 1+ posterior tibial. No peripheral edema is noted bilaterally. Lower extremities are warm and dry to touch, equal in color and appearance. SKIN: Shows warm and dry, good turgor. No edema. No sores, rashes or bruising throughout. Procedure: Procedure: Options discussed with the patient. Patient chart reviews her current medication regimen updated current review of systems updated today as well. We will proceed with a left-sided L4-5 transforaminal epidural steroid injection with fluoroscopic guidance. Risks were discussed including but not limited to: Bleeding, infection, possibility of epidural hematoma and subsequent neurological compromise, dural puncture, headaches, spinal cord and/or nerve damage, potential injection into vertebral artery at that level with permanent ischemic damage, side effects of steroid medication, and poor results regarding pain control. Patient understands and wished to proceed. Patient will return to the clinic in approximately 4 weeks for follow-up, was counseled as to return appointment activity level and side effects to be aware of. Patient will restart her Plavix and Eliquis tomorrow November 19, 2020. This was discussed with both the patient and her son and daughter today. Medication Injected: Med Injected: Under sterile prep and drape patient was placed in prone position using C-arm fluoroscopic guidance to identify the L4-5 distribution oblique and slightly cephalad angled C arm. The left L4-5 target was identified and using lidocaine for anesthetizing the skin 22-gauge Best pencil point needle was then used to enter the skin and into the subcutaneous tissues using direct C-arm fluoroscopic guidance to guide the needle into the transforaminal aspect of the left L4-5 vertebrae this was confirmed with lateral views showing the needle tip in the superior aspect of the paravertebral region. Aspiration was noted to be negative, -1.5 cc of contrast was then injected with good spread both medially into the epidural space as well as laterally along the nerve root without uptake and without distribution and uptake on digital subtraction. At this time, a solution containing 2 cc of 0.25% bupivacaine and 80 mg of Depo-Medrol was then injected. Needle was withdrawn and sterile bandage was applied. Patient tolerated procedure well had no immediate complications Condition at Discharge: Condition at Discharge: Condition at discharge stable, patient alert the procedure well and had no complications. JAK RO MD Nov 18, 2020 14:49
--- NOTE | 2020-11-18 14:50 | PDOC4 ---
Procedure Note: ICD 10 Code: ICD 10 Code: M 54.16 M 48.07 M 51.36 Procedure Note: Patient was consented for left L4-5 lumbar transforaminal lumbar epidural steroid injection with fluoroscopic guidance. Risks were discussed including but not limited to: Bleeding, infection, possibility of epidural hematoma and subsequent neurological compromise, dural puncture, headaches, spinal cord and/or nerve damage, side effects of steroid medication, possible injection into the vertebral artery at that level and permanent ischemic damage, and poor results regarding pain control. Patient understands and wished to proceed. Under sterile prep and drape patient was placed in prone position using C-arm fluoroscopic guidance to identify the L4-5 distribution oblique and slightly cephalad angled C arm. The left L4-5 target was identified and using lidocaine for anesthetizing the skin 22-gauge Best pencil point needle was then used to enter the skin and into the subcutaneous tissues using direct C-arm fluoroscopic guidance to guide the needle into the transforaminal aspect of the left L4-5 vertebrae this was confirmed with lateral views showing the needle tip in the superior aspect of the paravertebral region. Aspiration was noted to be negative, -1.5 cc of contrast was then injected with good spread both medially into the epidural space as well as laterally along the nerve root without uptake and without distribution and uptake on digital subtraction. At this time, a solution containing 2 cc of 0.25% bupivacaine and 80 mg of Depo-Medrol was then injected. Needle was withdrawn and sterile bandage was applied. Patient tolerated procedure well had no immediate complications JAK RO MD Nov 18, 2020 14:50
== END ==
LOC: PNCL 13:47
PROVIDERS: ATTEND Anesthesiology
DX: M51.16 Intervertebral disc disorders with radiculopathy, lumbar region (principal); M48.061 Spinal stenosis, lumbar region without neurogenic claudication; I10 Essential (primary) hypertension; J44.9 Chronic obstructive pulmonary disease, unspecified; K21.9 Gastro-esophageal reflux disease without esophagitis; F41.9 Anxiety disorder, unspecified; F32.9 Major depressive disorder, single episode, unspecified; M19.90 Unspecified osteoarthritis, unspecified site; I25.2 Old myocardial infarction; I25.10 Atherosclerotic heart disease of native coronary artery without angina pectoris; Z79.899 Other long term (current) drug therapy; Z95.1 Presence of aortocoronary bypass graft; Z90.710 Acquired absence of both cervix and uterus; Z95.5 Presence of coronary angioplasty implant and graft; Z90.721 Acquired absence of ovaries, unilateral; Z98.41 Cataract extraction status, right eye; Z98.42 Cataract extraction status, left eye; Z98.890 Other specified postprocedural states
CPT/HCPCS: 64483; J1040; J3490; Q9965

== ENCOUNTER → 2020-12-23 | Outpatient (CLI) | payer MEDICARE ==
[2020-09-24 11:00] VITALS: BP 152/71
[~2020-12-23] MED LIST changes: -BUPIVACAINE MPF 0.25% 10 ML VIAL. ONE; -IOHEXOL 180 MG/ML 10 ML VIAL. ONE; +LOSA-73 PO; -methylPREDNISolone ACETATE 80 MG/ML VIAL. ONE
--- NOTE | 2020-12-23 10:48 | NUR ---
Pt called states she needs a refill on her Hydrocodone 10mg, Discussed proper taking, patient denies any new side effects states med is working well. Dr Pagan notifed.
--- NOTE | 2020-12-23 10:52 | NUR ---
Pt called states she needs a refill on her Hydrocodone 10mg, Discussed proper taking, patient denies any new side effects states med is working well. Dr Pagan notified.
--- NOTE | 2020-12-23 13:02 | PDOC ---
Progress Note - Pain Clinic Date of Service: DOS: DATE: 12/23/20 TIME: 12:59 Diagnosis: Dx: Lumbar radiculopathy with lumbar degenerative disease and lumbar spinal stenosis Cervical radiculopathy with cervical degenerative disease Left sacroiliitis History or Present Illness: HPI: Telemedicine visit today for patient with verification of identification using full name and date of . Total time spent 14 minutes 85-year-old for telemedicine visit today regarding patient's medication hydrocodone which she is requesting refill and did very well after her last injection with her left lower extremity feeling much better. Patient reports doing well with medication with about 80% improvement overall between the shot and the medication without side effects. Patient reports has been increasing her activity with greater ease and comfort walking better and sleeping better at night as well. Patient reports still some pain low back and left leg but much improved although is starting to come back more over the past few days. Patient reports no bowel or bladder incontinence no new motor or sensory deficits. Patient has had appropriate K tracks report as well as appropriate urinalyses to date and we will refill patient's hydrocodone 10mg via electronic prescription. Patient given instructions well side effects beware with the medication and will follow up in approximate 1 week as scheduled. Physical Exam: PE: JAK RO MD Dec 23, 2020 13:02
== END ==
LOC: PNCL 09:34
PROVIDERS: ATTEND Anesthesiology
DX: M51.16 Intervertebral disc disorders with radiculopathy, lumbar region (principal); M96.1 Postlaminectomy syndrome, not elsewhere classified; M50.10 Cervical disc disorder with radiculopathy, unspecified cervical region; M46.1 Sacroiliitis, not elsewhere classified
CPT/HCPCS: G0463

== ENCOUNTER 2020-12-25 13:26 | Observation (INO) | payer MEDICARE ==
[~2020-12-25] VITALS: Ht 149.9 cm; Wt 64.0 kg
[~2020-12-25 13:26] MED LIST changes: -LOSA-73 PO
--- NOTE | 2020-12-25 13:42 | PHYS DOC ---
Past Medical History Past Medical History: Anxiety, Arthritis, Bronchitis, CAD, CHF, COPD, CVA, Depression, Heart Disease, Hypertension, MT, Stroke, Other Additional Past Medical Histor: LEGALLY BLIND, NEUROPATHY, HERNIATED DISC, SPURS NECK, DDD Past Surgical History: Angioplasty, Coronary Bypass Surgery, Hysterectomy, Pacemaker, Tonsillectomy, Other Additional Past Surgical Histo: cysts and tumors removed from stomach, SINUS,left hip Smoking Status: Never Smoker Alcohol Use: None Drug Use: None General Adult EDM: Chief Complaint: MECHANICAL FALL HPI: HPI: 85-year-old female presents to the emergency department after a fall off the toilet earlier today approximately 1 hour ago. She reports that she was sitting on the toilet and then leaned forward and fell, striking her head on a cabinet. She reports swelling to the left side of her forehead. She denies endorses loss of consciousness. She takes Plavix and Eliquis at home. She took her blood pressure medicines this morning. She does admit to some facial tenderness and pain. She denies any further pain or symptoms today. The patient denies nausea, vomiting, fever, chills, chest pain, shortness of breath, abdominal pain, urinary symptoms, cough, or any other complaints. Review of Systems: Review of Systems: ROS otherwise negative except for what was mentioned in HPI Heart Score: C/O Chest Pain: No Allergies: Allergies: Allergies Coded Allergies Type Severity Reaction Last Updated Verified MIGUEL ANGEL Inhibitors Allergy Intermediate 05/28/19 Yes Penicillins Allergy Intermediate 05/28/19 Yes Sulfa (Sulfonamide Antibiotics) Allergy Intermediate 05/28/19 Yes adhesive Allergy Intermediate 05/28/19 Yes influenza virus vaccine, specific Allergy Intermediate 05/28/19 Yes mercury (elemental) Allergy Intermediate 05/28/19 Yes methadone Allergy Intermediate 05/28/19 Yes methylprednisolone Allergy Intermediate 05/28/19 Yes theophylline Allergy Intermediate 05/28/19 Yes trazodone Allergy Intermediate 05/28/19 Yes zolpidem Allergy Intermediate 05/28/19 Yes estradiol Adverse Reaction Intermediate 09/02/19 Yes oxycodone Adverse Reaction Intermediate 09/02/19 Yes Physical Exam: PE: A: Airway intact. B: Bialteral breath sounds present and equal bilaterally. C: Radial pulses 2+ bilaterally. D: GCS 15 E: Patient fully exposed. Large left forehead hematoma was noted. Head: Large hematoma on the left side of the forehead, approximately golf ball sized, no overlying laceration, no further scalp lacerations, head is largely nontender except for the area around the hematoma. There is facial tenderness is appreciated along the ethmoid sinus, orbits bilaterally Ear: No blood in ear canals, pinnae intact. Eyes: Pupils 3 mm equal and reactive, opens eyes spontaneously, no lacerations. Nose: No gross deformities, no fluid or blood from nares. Mouth: No lacerations or soft tissue deformities, teeth intact, airway intact, mucosa moist, no blood in oropharynx. Respiratory: Breath sounds equal bilaterally. Chest Wall: No obvious deformity. No lacerations, ecchymoses, or abrasion of the chest. Cardiovascular: Radial and dorsalis pedis 2+ and equal, extremities well perfused. Neck: No cervical spine tenderness. No bony step offs. Trachea midline. No soft tissue swelling. Back: No gross deformity or bony step-offs, no abrasions. Abdomen/Pelvis: Soft, non-tender, non-distended. No laxity in pelvis, nontender to palpation. Extremities: LUE: Moves independently and sensation intact, no deformities, lacerations or abrasions. RUE: Moves independently and sensation intact, no deformities, lacerations or abrasions. LLE: Moves independently and sensation intact, no deformities, lacerations or abrasions. RLE: Moves independently and sensation intact, no deformities, lacerations or abrasions. Current Patient Data: Labs: Laboratory Tests Test 12/25/20 14:00 White Blood Count 3.5 x10^3/uL (4.0-11.0) Red Blood Count 3.91 x10^6/uL (3.50-5.40) Hemoglobin 12.2 g/dL (12.0-15.5) Hematocrit 35.3 % (36.0-47.0) Mean Corpuscular Volume 90 fL (79-100) Mean Corpuscular Hemoglobin 31 pg (25-35) Mean Corpuscular Hemoglobin Concent 35 g/dL (31-37) Red Cell Distribution Width 14.3 % (11.5-14.5) Platelet Count 157 x10^3/uL (140-400) Neutrophils (%) (Auto) 52 % (31-73) Lymphocytes (%) (Auto) 35 % (24-48) Monocytes (%) (Auto) 10 % (0-9) Eosinophils (%) (Auto) 3 % (0-3) Basophils (%) (Auto) 1 % (0-3) Neutrophils # (Auto) 1.8 x10^3/uL (1.8-7.7) Lymphocytes # (Auto) 1.2 x10^3/uL (1.0-4.8) Monocytes # (Auto) 0.4 x10^3/uL (0.0-1.1) Eosinophils # (Auto) 0.1 x10^3/uL (0.0-0.7) Basophils # (Auto) 0.0 x10^3/uL (0.0-0.2) Prothrombin Time 13.3 SEC (11.7-14.0) Prothromb Time International Ratio 1.0 (0.8-1.1) Activated Partial Thromboplast Time 38 SEC (24-38) Sodium Level 140 mmol/L (136-145) Potassium Level 4.6 mmol/L (3.5-5.1) Chloride Level 101 mmol/L (98-107) Carbon Dioxide Level 33 mmol/L (21-32) Anion Gap 6 (6-14) Blood Urea Nitrogen 18 mg/dL (7-20) Creatinine 0.7 mg/dL (0.6-1.0) Estimated GFR (Cockcroft-Gault) 79.7 Glucose Level 95 mg/dL (70-99) Calcium Level 9.0 mg/dL (8.5-10.1) Vital Signs: Vital Signs Date Time Temp Pulse Resp B/P (MAP) Pulse Ox O2 Delivery O2 Flow Rate FiO2 12/25/20 13:35 98.4 78 18 215/96 (135) 98 Room Air 98.4 Radiology/Procedures: Radiology/Procedures: Pelvis one view. HISTORY: Trauma, fall Single view was taken of the pelvis. Upper pelvis is incompletely evaluated. An acute pubic ramus fracture or pelvic fracture is not identified. There is no acute right hip fracture noted. There is a total joint prosthesis on the left which appears in good position. IMPRESSION: 1. No acute pelvic fracture noted. Electronically signed by: Jens Walter MD (12/25/2020 2:09 PM) CT HEAD, MAXILLOFACIAL, AND CERVICAL SPINE WITHOUT CONTRAST History: Reason: facial tenderness and hematoma on forehead / Spl. Instructions: / History: Comparison: CT head and cervical spine without contrast February 12, 2020. Procedure: Axial images are obtained of the head from the skull base through the vertex without IV contrast. Noncontrast helical CT of the cervical spine was performed. Axial, sagittal, and coronal reconstructions were obtained. Helical CT imaging of the facial bones is performed without IV contrast. Findings: The ventricles and sulci are prominent, consistent with age-related cerebral atrophy. There is mild periventricular white matter hypoattenuation. This is a nonspecific finding but is commonly due to chronic small vessel ischemic disease in a patient of this age. No mass-effect, midline shift, hemorrhage or obvious acute infarction is identified. Basilar cisterns are patent. Bone windows demonstrate no significant calvarial abnormality. There is moderate left frontal scalp hematoma. No acute facial bone fracture. Patient is edentulous. The globes and orbits are intact. Moderate mucosal thickening left maxillary sinus. The bilateral frontal sinuses are opacified. No air-fluid level is seen. Mastoid air cells are well aerated. There is no evidence of acute fracture or acute malalignment of the cervical spine. There is multilevel facet hypertrophy. There is grade 1 anterolisthesis of C2 on C3 and C3 on C4 and C4 on C5. Alignment is otherwise maintained. There is disc space narrowing and degenerative endplate spurring and uncinate process hypertrophy of C5/C6 and C6/C7. There are bilateral carotid artery calcifications. The visualized lung apices are clear. Median sternotomy wires and cardiac pacer leads are partially seen. IMPRESSION: 1. No acute intracranial abnormality. 2. No acute fracture of the cervical spine. 3. No acute facial bone fracture. Electronically signed by: Dharmesh Forrest MD (12/25/2020 2:38 PM) AP chest. HISTORY: Trauma, fall AP view was taken of the chest. Heart is upper normal in size. Left pacemaker is unchanged. There are no acute infiltrates. There is no pleural effusion. There is arthritis in both shoulders. There are changes from previous coronary bypass. IMPRESSION: 1. No acute infiltrates. Electronically signed by: Jens Walter MD (12/25/2020 2:12 PM) Course & Med Decision Making: Course & Med Decision Making Patient with no evidence of bleed on initial CT scan of the head. Patient will be admitted for observation due to her episode of blunt head trauma and anticoagulated status on Eliquis and also Plavix. Patient is GCS 15 and is hypertensive in the emergency department. She was given morphine for pain, she otherwise appears to be appropriate on her secondary survey. My Orders - ELIAZAR JOHNS DO Procedure Category Date Status Time Cardiac Monitoring ER 12/25/20 Transmitted 13:37 Cbc W Autodiff LAB 12/25/20 Complete 13:37 Basic Metabolic Panel LAB 12/25/20 Complete 13:37 Protime With Inr LAB 12/25/20 Complete 13:37 Partial LAB 12/25/20 Complete Thromboplastin Time 13:37 Portable Chest 1v RAD 12/25/20 Resulted 13:37 Pelvis RAD 12/25/20 Resulted 13:37 Vital Signs MALCOLM 12/25/20 In Process 13:37 Type And Screen BBK 12/25/20 Logged 13:37 Ct Head [address] C[address]ical CT 12/25/20 Resulted Spine Wo 13:[address] 12/25/20 Resulted Contrast 13:37 Morphine Sulfate PHA 12/25/20 Complete (Morphine Sulfate) 15:00 Labetalol Iv Push PHA 12/25/20 Transmitted (Normodyne Iv Push) 15:00 Departure Departure Impression: Primary Impression: Blunt head trauma Additional Impression: Hypertension Disposition: ADMITTED INPATIENT Admitting Physician: TIERA ([facility]) Condition: STABLE Referrals: TJ BANEGAS MD (PCP) ELIAZAR JOHNS DO Dec 25, 2020 13:42
--- NOTE | 2020-12-25 14:11 | RAD ---
Pelvis one view. HISTORY: Trauma, fall Single view was taken of the pelvis. Upper pelvis is incompletely evaluated. An acute pubic ramus fra cture or pelvic fracture is not identified. There is no acute right hip fracture noted. There is a to carlo joint prosthesis on the left which appears in good position. IMPRESSION: 1. No acute pelvic fracture noted. Electronically signed by: Jens Walter MD (12/25/2020 2:09 PM) [id number]
--- NOTE | 2020-12-25 14:14 | RAD ---
AP chest. HISTORY: Trauma, fall AP view was taken of the chest. Heart is upper normal in size. Left pacemaker is unchanged. There are no acute infiltrates. There is no pleural effusion. There is arthritis in both shoulders. There are changes from previous coronary bypass. IMPRESSION: 1. No acute infiltrates. Electronically signed by: Jens Walter MD (12/25/2020 2:12 PM) [id number]
[2020-12-25 14:32] LABS: BASO % 1 % (0-3); EOS # 0.1 x10^3/uL (0.0-0.7); EOS % 3 % (0-3); HEMATOCRIT 35.3 % (36.0-47.0); HEMOGLOBIN 12.2 g/dL (12.0-15.5); LYMPH # 1.2 x10^3/uL (1.0-4.8); LYMPH % 35 % (24-48); MEAN CORPUSCULAR HEMOGLOBIN 31 pg (25-35); MEAN CORPUSCULAR HGB CONC 35 g/dL (31-37); MEAN CORPUSCULAR VOLUME 90 fL (79-100); MONO # 0.4 x10^3/uL (0.0-1.1); MONO % 10 % (0-9); NEUT # 1.8 x10^3/uL (1.8-7.7); NEUT % 52 % (31-73); PLATELET COUNT 157 x10^3/uL (140-400); RED BLOOD COUNT 3.91 x10^6/uL (3.50-5.40); RED CELL DISTRIBUTION WIDTH 14.3 % (11.5-14.5); WHITE BLOOD COUNT 3.5 x10^3/uL (4.0-11.0)
[2020-12-25 14:41] LABS: CREATININE 0.7 mg/dL (0.6-1.0); GFR 79.7; POTASSIUM 4.6 mmol/L (3.5-5.1)
--- NOTE | 2020-12-25 14:41 | RAD ---
PQRS Compliance Statement: One or more of the following individualized dose reduction techniques were utilized for this examinat ion: 1. Automated exposure control 2. Adjustment of the mA and/or kV according to patient size 3. Use of iterative reconstruction technique CT HEAD, MAXILLOFACIAL, AND CERVICAL SPINE WITHOUT CONTRAST History: Reason: facial tenderness and hematoma on forehead / Spl. Instructions: / History: Comparison: CT head and cervical spine without contrast February 12, 2020. Procedure: Axial images are obtained of the head from the skull base through the vertex without IV co ntrast. Noncontrast helical CT of the cervical spine was performed. Axial, sagittal, and coronal rec onstructions were obtained. Helical CT imaging of the facial bones is performed without IV contrast. Findings: The ventricles and sulci are prominent, consistent with age-related cerebral atrophy. There is mild periventricular white matter hypoattenuation. This is a nonspecific finding but is commonly due to c hronic small vessel ischemic disease in a patient of this age. No mass-effect, midline shift, hemorrhage or obvious acute infarction is identified. Basilar cistern s are patent. Bone windows demonstrate no significant calvarial abnormality. There is moderate left frontal scalp h ematoma. No acute facial bone fracture. Patient is edentulous. The globes and orbits are intact. Moderate mucosal thickening left maxillary sinus. The bilateral frontal sinuses are opacified. No air -fluid level is seen. Mastoid air cells are well aerated. There is no evidence of acute fracture or acute malalignment of the cervical spine. There is multilevel facet hypertrophy. There is grade 1 anterolisthesis of C2 on C3 and C3 on C4 and C4 on C5. Alignment is otherwise maintained. There is disc space narrowing and degenerative endplate spurring and uncinate process hypertrophy of C5/C6 and C6/C7. There are bilateral carotid artery calcifications. The visualized lung apices are clear. Median noel otomy wires and cardiac pacer leads are partially seen. IMPRESSION: 1. No acute intracranial abnormality. 2. No acute fracture of the cervical spine. 3. No acute facial bone fracture. Electronically signed by: Dharmesh Forrest MD (12/25/2020 2:38 PM) [id number]
[2020-12-25 14:47] LABS: PROTHROMBIN TIME PATIENT 13.3 SEC (11.7-14.0)
[2020-12-25] MEDS ORDERED: MORPHINE SULFATE 4 MG/ML INJ. IVP ONE (15:00)
--- NOTE | 2020-12-25 15:02 | PDOC1 ---
History and Physical Date of Admission Date of Admission DATE: 12/25/20 TIME: 15:00 Identification/Chief Complaint Chief Complaint fall with head contusion today History of Present Illness History of Present Illness VERY PLEASANT 85-year-old female presented to the emergency department after a fall off the toilet earlier today approximately 1 hour ago. bp 215/95 in ER GLUCOSE 95 'fell asleep on the toilet," leaned forward and fell, striking her head on a cabinet. now c/o headache She reports swelling to the left side of her forehead. no loss of consciousness. takes Plavix and Eliquis at home. She took her blood pressure medicines this morning. / some facial tenderness and pain. denies nausea, vomiting, fever, chills, chest pain, shortness of breath, abdominal pain, urinary symptoms, cough, or any other complaints. CT HEAD No acute intracranial abnormality./ No acute fracture of the cervical spine./No acute facial bone fracture. does complain of headache, one dose iv labetalol given in er 10 mg grade 1 anterolisthesis of C2 on C3 and C3 on C4 and C4 on C5. Alignment is otherwise maintained. There is disc space narrowing and degenerative endplate spurring and uncinate process hypertrophy of C5/C6 and C6/C7. WILL plan to hold eliquis and plavix x 24 hrs , repeat CT HEAD AT 9 PM TONIGHT Past Medical History Past Medical History Past Medical History Past Medical History Past Medical History: Anxiety, Arthritis, Bronchitis, CAD, CHF, COPD, CVA, Depression, Heart Disease, Hypertension, UT, Stroke, Other Additional Past Medical Histor: LEGALLY BLIND, NEUROPATHY, HERNIATED DISC, SPURS NECK, DDD Past Surgical History: Angioplasty, Coronary Bypass Surgery, Hysterectomy, Pacemaker, Tonsillectomy, Other Additional Past Surgical Histo: cysts and tumors removed from stomach, SINUS,left hip Smoking Status: Never Smoker Alcohol Use: None Drug Use: None anxiety, arthritis, depression, bronchitis, coronary artery disease, chronic obstructive pulmonary disease, previous strokes, hypertension, myocardial infarction, legally blind, neuropathy, herniated disk, spurs in her neck, degenerative joint disease, degenerative disk disease, hysterectomy, pacemaker, tonsillectomy, cyst and tumors removed from her stomach, sinus surgery and left hip surgery, chronic anticoagulation. fhx htn Cardiovascular: AFIB, CAD, CHF, HTN Pulmonary: Bronchitis, COPD CENTRAL NERVOUS SYSTEM: CVA, Periperal neuropathy GI: Constipation Heme/Onc: Other Hepatobiliary: No pertinent hx Psych: Anxiety Musculoskeletal: low back pain, Osteoarthritis Rheumatologic: Fibromyalgia Infectious disease: No pertinent hx ENT: Allergic Rhinitis Renal/: Urinary Incontinence Endocrine: No pertinent hx Past Surgical History Past Surgical History: Pacemaker, CABG, Tonsillectomy, Hysterectomy, Other Family History Family History: Heart Disease, Hypertension Social History Smoke: No ALCOHOL: none Drugs: None Current Medications Current Medications Current Medications Morphine Sulfate (Morphine Sulfate) 4 mg 1X ONCE IVP ; Start 12/25/20 at 15:00; Stop 12/25/20 at 15:01 Active Scripts Active Hydrocodone-Apap 10-325 (Hydrocodone Bit/Acetaminophen) 1 Tab Tablet 1 Tab PO PRN Q6HRS PRN 30 Days Hydrocodone-Apap 10-325 (Hydrocodone Bit/Acetaminophen) 1 Tab Tablet 1 Tab PO PRN Q6HRS PRN 30 Days Clopidogrel (Clopidogrel Bisulfate) 75 Mg Tablet 75 Mg PO DAILYWBKFT 30 Days Eliquis (Apixaban) 5 Mg Tablet 5 Mg PO BID 30 Days Toprol XL (Metoprolol Succinate) 50 Mg Tab.er.24h 50 Mg PO DAILY 30 Days Reported Melatonin 10 Mg Capsule 1 Cap PO QHS 30 Days Furosemide 40 Mg Tablet 1 Tab PO DAILY Hydrocodone-Acetamin 10-325 mg (Hydrocodone/Acetaminophen) 1 Each Tablet 1 Tab PO PRN Q6HRS PRN Meloxicam 15 Mg Tablet 1 Tab PO DAILY Lidocaine 1 Each Adh..patch 1 Patch TP DAILY Diclofenac Sodium 100 Gm Gel..gram. 2 TP PRN Q3HRS PRN Mucinex (Guaifenesin) 600 Mg Tablet.er 2 Tab PO BID 10 Days Hair, Skin & Nails Caplet (Multivits-Min/Folic Acid/Biot) 1 Each Tablet 3 Tab PO DAILY 30 Days Calcium 600 + Vit D Caplet (Calcium Carbonate/Vitamin D3) 1 Each Tablet 1 Tab PO BID 30 Days Lidocaine PATCH (Lidocaine) 1 Each Adh..patch 1 Each TP DAILY REMOVE AFTER 12 HOURS Montelukast Sodium Tablet (Montelukast Sodium) 10 Mg Tablet 10 Mg PO HS Gabapentin 600 Mg Tablet 600 Mg PO QID Ventolin Hfa Inhaler (Albuterol Sulfate) 18 Gm Hfa.aer.ad 2 Puff INH QID Cetirizine Hcl 10 Mg Tablet 1 Tab PO DAILY PRN Fluticasone Propionate Nasal [place] (Fluticasone Propionate) 16 Gm [place].susp 1 [place] NS HS Polyethylene Glycol 3350 2,500 Gm Powder 17 Gm PO DAILY 30 Days Vitamin D3 (Cholecalciferol (Vitamin D3)) 1,000 Unit Tablet 2,000 Unit PO DAILY Potassium Chloride (Potassium Chloride) 20 Meq Tablet.er 20 Meq PO DAILY Atorvastatin Calcium 20 Mg Tablet 1 Tab PO HS Lasix (Furosemide) 40 Mg Tablet 1 Tab PO DAILY Allergies Allergies: Coded Allergies: MIGUEL ANGEL Inhibitors (Verified Allergy, Intermediate, 05/28/19) Penicillins (Verified Allergy, Intermediate, 05/28/19) TOLERATES ROCEPHIN Sulfa (Sulfonamide Antibiotics) (Verified Allergy, Intermediate, 05/28/19) adhesive (Verified Allergy, Intermediate, 05/28/19) influenza virus vaccine, specific (Verified Allergy, Intermediate, 05/28/19) mercury (elemental) (Verified Allergy, Intermediate, 05/28/19) methadone (Verified Allergy, Intermediate, 05/28/19) methylprednisolone (Verified Allergy, Intermediate, 05/28/19) theophylline (Verified Allergy, Intermediate, 05/28/19) trazodone (Verified Allergy, Intermediate, 05/28/19) zolpidem (Verified Allergy, Intermediate, 05/28/19) estradiol (Verified Adverse Reaction, Intermediate, 09/02/19) oxycodone (Verified Adverse Reaction, Intermediate, 09/02/19) ROS Review of System 14 pt ros otherwise neg General: No: Chills, Night Sweats, Fatigue, Malaise, Appetite, Other PSYCHOLOGICAL ROS: YES: Anxiety; No: Behavioral Disorder, Concentration difficultie, Decreased libido, Depression, Disorientation, Hallucinations, Hostility, Irritablity, Memory difficulties, Mood Swings, Obsessive thoughts, Physical abuse, Sexual abuse, Sleep disturbances, Suicidal ideation, Other Eyes: Yes Decreased vision; No Blurry vision, No Double vision, No Dry eyes, No Excessive tearing, No Eye Pain, No Itchy Eyes, No Loss of vision, No Photophobia, No Scotomata, No Uses contacts, No Uses glasses, No Other HEENT: YES: Heacaches; No: Visual Changes, Hearing change, Nasal congestion, Nasal discharge, Oral lesions, Sinus pain, Sore Throat, Epistaxis, Sneezing, Snoring, Tinnitus, Vertigo, Vocal changes, Other ALLERGY AND IMMUNOLOGY: YES: Hives; No: Insect Bite Sensitivity, Itchy/Watery Eyes, Nasal Congestion, Post Nasal Drip, Seasonal Allergies, Other Hematological and Lymphatic: No: Bleeding Problems, Blood Clots, Blood Trans fusions, Brusing, Night Sweats, Pallor, Swollen Lymph Nodes, Other ENDOCRINE: No: Breast Changes, Galactorrhea, Hair Pattern Changes, Hot Flashes, Malaise/lethargy, Mood Swings, Palpitations, Polydipsia/polyuria, Skin Changes, Temperature Intolerance, Unexpected Weight Changes, Other Breast: No New/Changing Breast Lumps, No Nipple changes, No Nipple discharge, No Other Respiratory: No: Cough, Hemoptysis, Orthopnea, Pleuritic Pain, Shortness of breath, SOB with excertion, Sputum Changes, Stridor, Tachypnea, Wheezing, Other Cardiovascular: No Chest Pain, No Palpitations, No Orthopnea, No Paroxysmal Noc. Dyspnea, No Edema, No Lt Headedness, No Other Gastrointestinal: No Nausea, No Vomiting, No Abdominal Pain, No Diarrhea, No Constipation, No Melena, No Hematochezia, No Other Genitourinary: No Dysuria, No Frequency, No Incontinence, No Hematuria, No Retention, No Discharge, No Urgency, No Pain, No Flank Pain, No Other, No , No , No , No , No , No , No Musculoskeletal: Yes Joint Stiffness; No Gait Disturbance, No Joint Pain, No Joint Swelling, No Muscle Pain, No Muscular Weakness, No Pain In:, No Swelling In:, No Other Neurological: No Behavorial Changes, No Bowel/Bladder ControlChng, No Confus ion, No Dizziness, No Gait Disturbance, No Headaches, No Impaired Coord/balance, No Memory Loss, No Numbness/Tingling, No Seizures, No Speech Problems, No Tremors, No Visual Changes, No Weakness, No Other Skin: Yes Skin Lesion Changes; No Dry Skin, No Eczema, No Hair Changes, No Lumps, No Mole Changes, No Mottling, No Nail Changes, No Pruritus, No Rash, No Other, No Acne Physical Exam Physical Exam Large hematoma on the left side of the forehead, approximately golf ball sized, no overlying laceration, no further scalp lacerations, head is largely nontender except for the area around the hematoma. General: Alert, Oriented X3, Cooperative, No acute distress HEENT: PERRLA, EOMI, Mucous membr. moist/pink Lungs: Clear to auscultation, Normal air movement Heart: no thrills, no gallops, no jug vein distention Breasts: Not examined Abdomen: Normal bowel sounds, Soft Rectal Exam: not examined PELVIC: Examination not indicated Extremities: No cyanosis, No edema Neuro: Normal speech, Strength at 5/5 X4 ext, Sensation intact, Cranial nerves 3-12 NL Psych/Mental Status: Mental status NL, Mood NL Vitals Vitals Vital Signs Date Time Temp Pulse Resp B/P (MAP) Pulse Ox O2 Delivery O2 Flow Rate FiO2 12/25/20 13:35 98.4 78 18 215/96 (135) 98 Room Air 98.4 Labs Labs Laboratory Tests Test 12/25/20 14:00 White Blood Count 3.5 x10^3/uL (4.0-11.0) Red Blood Count 3.91 x10^6/uL (3.50-5.40) Hemoglobin 12.2 g/dL (12.0-15.5) Hematocrit 35.3 % (36.0-47.0) Mean Corpuscular Volume 90 fL (79-100) Mean Corpuscular Hemoglobin 31 pg (25-35) Mean Corpuscular Hemoglobin Concent 35 g/dL (31-37) Red Cell Distribution Width 14.3 % (11.5-14.5) Platelet Count 157 x10^3/uL (140-400) Neutrophils (%) (Auto) 52 % (31-73) Lymphocytes (%) (Auto) 35 % (24-48) Monocytes (%) (Auto) 10 % (0-9) Eosinophils (%) (Auto) 3 % (0-3) Basophils (%) (Auto) 1 % (0-3) Neutrophils # (Auto) 1.8 x10^3/uL (1.8-7.7) Lymphocytes # (Auto) 1.2 x10^3/uL (1.0-4.8) Monocytes # (Auto) 0.4 x10^3/uL (0.0-1.1) Eosinophils # (Auto) 0.1 x10^3/uL (0.0-0.7) Basophils # (Auto) 0.0 x10^3/uL (0.0-0.2) Prothrombin Time 13.3 SEC (11.7-14.0) Prothromb Time International Ratio 1.0 (0.8-1.1) Activated Partial Thromboplast Time 38 SEC (24-38) Sodium Level 140 mmol/L (136-145) Potassium Level 4.6 mmol/L (3.5-5.1) Chloride Level 101 mmol/L (98-107) Carbon Dioxide Level 33 mmol/L (21-32) Anion Gap 6 (6-14) Blood Urea Nitrogen 18 mg/dL (7-20) Creatinine 0.7 mg/dL (0.6-1.0) Estimated GFR (Cockcroft-Gault) 79.7 Glucose Level 95 mg/dL (70-99) Calcium Level 9.0 mg/dL (8.5-10.1) Laboratory Tests Test 12/25/20 14:00 White Blood Count 3.5 x10^3/uL (4.0-11.0) Red Blood Count 3.91 x10^6/uL (3.50-5.40) Hemoglobin 12.2 g/dL (12.0-15.5) Hematocrit 35.3 % (36.0-47.0) Mean Corpuscular Volume 90 fL (79-100) Mean Corpuscular Hemoglobin 31 pg (25-35) Mean Corpuscular Hemoglobin Concent 35 g/dL (31-37) Red Cell Distribution Width 14.3 % (11.5-14.5) Platelet Count 157 x10^3/uL (140-400) Neutrophils (%) (Auto) 52 % (31-73) Lymphocytes (%) (Auto) 35 % (24-48) Monocytes (%) (Auto) 10 % (0-9) Eosinophils (%) (Auto) 3 % (0-3) Basophils (%) (Auto) 1 % (0-3) Neutrophils # (Auto) 1.8 x10^3/uL (1.8-7.7) Lymphocytes # (Auto) 1.2 x10^3/uL (1.0-4.8) Monocytes # (Auto) 0.4 x10^3/uL (0.0-1.1) Eosinophils # (Auto) 0.1 x10^3/uL (0.0-0.7) Basophils # (Auto) 0.0 x10^3/uL (0.0-0.2) Prothrombin Time 13.3 SEC (11.7-14.0) Prothromb Time International Ratio 1.0 (0.8-1.1) Activated Partial Thromboplast Time 38 SEC (24-38) Sodium Level 140 mmol/L (136-145) Potassium Level 4.6 mmol/L (3.5-5.1) Chloride Level 101 mmol/L (98-107) Carbon Dioxide Level 33 mmol/L (21-32) Anion Gap 6 (6-14) Blood Urea Nitrogen 18 mg/dL (7-20) Creatinine 0.7 mg/dL (0.6-1.0) Estimated GFR (Cockcroft-Gault) 79.7 Glucose Level 95 mg/dL (70-99) Calcium Level 9.0 mg/dL (8.5-10.1) Images Images HISTORY The patient is a 83 year-old female with a history of : coronary artery disease, hypertension, dyslipidemia. INDICATION The indication(s) include : non-STEMI , dyspnea. CSHA Clinical Frailty Scale [facility] Clinical Frailty Scale: Moderately Frail Heart Failure Heart Failure: Yes If Yes, Newly Diagnosed: No If Yes, HF Type: Diastolic If Yes, NYHA Class: Class III PROCEDURE NARRATIVE After explaining the risks and benefits of the procedure and alternatives, informed consent was obtained. The patient was brought electively to the cardiac catheterization lab in a fasting state. A timeout was performed confirming the patient's name, date of , procedure, and site of procedure. All necessary personnel were wearing the appropriate protective equipment and radiation monitor devices. (See nursing notes for medications administered). The right groin was sterilely prepped and draped in the usual fashion. The right groin was infiltrated with 10 mL of 2% lidocaine for subcutaneous anesthesia. A 6 F sheath was inserted into the right femoral artery without difficulty. Right and left coronary angiography was performed using a JR4 and JL4 catheter. Left ventricular end diastolic pressure was obtained with a pigtail catheter and pullback was performed. Bypass angiography was performed with an TI catheter. All catheter exchanges and advancements were performed over a guidewire. At case completion the right femoral sheath was removed and hemostasis was achieved with manual compression. There were no acute complications. HEMODYNAMICS: AO: 136/88 LVEDP 18 mm Hg No gradient on LV to aortic pullback. LEFT VENTRICULOGRAM: Deferred due to known normal EF. CORONARY ANGIOGRAPHY: LM is a large caliber vessel with normal angiographic appearance. LAD is a large caliber vessel with an ostial 100% occlusion. The distal vessel is seen to fill via a patent VENTURA graft. Ramus is a small caliber vessel with normal angiographic appearance. LCx is a moderate caliber non-dominant vessel with a proximal 30% stenosis. OM1 is a moderate caliber vessel with normal angiographic appearance. RCA is a large caliber dominant vessel with prior known 100% occlusion and was not injected. RPDA is a moderate caliber vessels with normal angiographic appearance. BYPASS ANGIOGRAPHY: VENTURA to LAD is widely patent without anastomotic stenosis. SVG to LCx is occluded SVG to RCA has a mid body eccentrc 70-80% stenosis. Conclusion 1. Acute on chronic diastolic HF 2. Severe three vessel coronary disease with 2/3 grafts patent. Recommendations 1. Plan for rate control of atrial fibrillation and pacemaker placement for tachybrady syndrome. If after stabilization of afib, she has continued symptoms of dyspnea, will plan for PCI of the SVG to RCA in 2-4 weeks after pacemaker placement and cardioversion. Signed by : Taj Blankenship, Electronically Approved : 11/25/2019 17:26:53 Signed PATIENT: PRUDENCE SALINAS MACCOUNT: [id number] : 1935 LOCATION: ER AGE: 85 SEX: F EXAM STATUS: PRE ER ORD. PHYSICIAN: ELIAZAR JOHNS DO REASON: trauma, fall PROCEDURE: PORTABLE CHEST 1V AP chest. HISTORY: Trauma, fall AP view was taken of the chest. Heart is upper normal in size. Left pacemaker is unchanged. There are no acute infiltrates. There is no pleural effusion. There is arthritis in both shoulders. There are changes from previous coronary bypass. IMPRESSION: 1. No acute infiltrates. Electronically signed by: Jens Walter MD (12/25/2020 2:12 PM) [id number] DICTATED and SIGNED BY: JENS WALTER MD DATE: 12/25/20 [id number] PQRS Compliance Statement: One or more of the following individualized dose reduction techniques were utilized for this examination: 1. Automated exposure control 2. Adjustment of the mA and/or kV according to patient size 3. Use of iterative reconstruction technique CT HEAD, MAXILLOFACIAL, AND CERVICAL SPINE WITHOUT CONTRAST History: Reason: facial tenderness and hematoma on forehead / Spl. Instructions: / History: Comparison: CT head and cervical spine without contrast February 12, 2020. Procedure: Axial images are obtained of the head from the skull base through the vertex without IV contrast. Noncontrast helical CT of the cervical spine was performed. Axial, sagittal, and coronal reconstructions were obtained. Helical CT imaging of the facial bones is performed without IV contrast. Findings: The ventricles and sulci are prominent, consistent with age-related cerebral atrophy. There is mild periventricular white matter hypoattenuation. This is a nonspecific finding but is commonly due to chronic small vessel ischemic disease in a patient of this age. No mass-effect, midline shift, hemorrhage or obvious acute infarction is id entified. Basilar cisterns are patent. Bone windows demonstrate no significant calvarial abnormality. There is moderate left frontal scalp hematoma. No acute facial bone fracture. Patient is edentulous. The globes and orbits are intact. Moderate mucosal thickening left maxillary sinus. The bilateral frontal sinuses are opacified. No air-fluid level is seen. Mastoid air cells are well aerated. There is no evidence of acute fracture or acute malalignment of the cervical spine. There is multilevel facet hypertrophy. There is grade 1 anterolisthesis of C2 on C3 and C3 on C4 and C4 on C5. Alignment is otherwise maintained. There is disc space narrowing and degenerative endplate spurring and uncinate process hypertrophy of C5/C6 and C6/C7. There are bilateral carotid artery calcifications. The visualized lung apices are clear. Median sternotomy wires and cardiac pacer leads are partially seen. IMPRESSION: 1. No acute intracranial abnormality. 2. No acute fracture of the cervical spine. 3. No acute facial bone fracture. Electronically signed by: Dharmesh Forrest MD (12/25/2020 2:38 PM) [id number] VTE Prophylaxis Ordered VTE Prophylaxis Devices: Yes VTE Pharmacological Prophylaxi: Yes Assessment/Plan Assessment/Plan impression Fall with closed head injury, contusion on blood thinners NO LOC Severe three vessel coronary disease with 2/3 grafts patent.recent cath HX Angioplasty, REMOTE Coronary Bypass Surgery, Hysterectomy, Pacemaker grade 1 anterolisthesis of C2 on C3 and C3 on C4 and C4 on C5. Alignment is otherwise maintained. There is disc space narrowing and degenerative endplate spurring and uncinate process hypertrophy of C5/C6 and C6/C7. plan admit consult cardiology d/w Junne in ER neurochecks q 4 hrs Consult neurology TELE BED BEDREST Consider repeat CT HEAD IN 4-6 HRS, defer to neurology NPO HOME MEDS HOLD ELIQUIS, PLAVIX X 24 HRS D/W ER DR Justifications for Admission Other Justification OWEN MOORE MD Dec 25, 2020 15:02
[2020-12-25] MEDS ORDERED: ONDANSETRON PF 4 MG/2 ML VIAL. IVP PRN (15:15)
[2020-12-25] MEDS ORDERED: ACETAMINOPHEN 325 MG TABLET. PO PRN ×2 (15:15→15:45)
[2020-12-25] MEDS ORDERED: LABETALOL 20 MG/4 ML DISP.SYRIN. IVP ONE (15:15)
[2020-12-25] MEDS ORDERED: ONDANSETRON PF 4 MG/2 ML VIAL. IV PRN (15:45)
[2020-12-25] MEDS ORDERED: ALBUTEROL SULFATE 2.5 MG/3 ML NEBU. NEB PRN (15:45)
[2020-12-25] MEDS ORDERED: 0.9 % SODIUM CHLORIDE 10 ML DISP.SYRIN. IV PRN (15:45)
[2020-12-25] MEDS ORDERED: MAG HYDROX/ALUMINUM HYD/SIMETH 30 ML ORAL.SUSP PO PRN (15:45)
[2020-12-25] MEDS ORDERED: CETIRIZINE HCL 10 MG TABLET. PO PRN (15:45)
[2020-12-25] MEDS ORDERED: DOCUSATE SODIUM 100 MG CAPSULE. PO PRN (15:45)
[2020-12-25] MEDS ORDERED: guaiFENesin ORAL 200 MG/10 ML LIQUID. PO PRN (15:45)
[2020-12-25] MEDS ORDERED: METOPROLOL SUCC 24HR ER 50 MG TAB.ER.24H. PO SCH (16:00)
[2020-12-25] MEDS ORDERED: fentaNYL PF VIAL 100 MCG/2 ML VIAL IVP ONE (16:00)
[2020-12-25] MEDS ORDERED: IPRATRPIUM/ALBUTEROL 0.5/2.5MG 3 ML NEBU. NEB SCH (16:00)
[2020-12-25] MEDS: IV NORMAL SALINE 1000ML BAG 1,000 ML IV SCH (16:03)
--- NOTE | 2020-12-25 16:11 | PDOC2 ---
DIANNA SCOTT LEHR ATTENDANT 12/25/20 1611: CARDIAC CONSULT DATE OF CONSULT Date of Consult DATE: 12/25/20 TIME: 15:44 REASON FOR CONSULT Reason for Consult: CAD, HTN, Fall REFERRING PHYSICIAN Referring Physician: Fullbright SOURCE Source: Chart review, Patient HISTORY OF PRESENT ILLNESS HISTORY OF PRESENT ILLNESS This is an 85 yo female admitted for complains of fall. She fell while leaning forward off the toilet. No chest pain, palpitations, SOA. No passing out or getting dizzy. So far no acute injury. She has issues with insomnia and was sitting on the toilet and urinated and just dozed off on the toilet and fell forward and thinking she may have hit the handle of the cabinet in front of her and sustained a contusion to her left forehead. Again no lost of consciousness. PAST MEDICAL HISTORY Past Medical History Cardiovascular: AFIB (CVN on 07/2019), CAD, HTN, Hyperlipidemia, Other (tachy rakesh syndrome) Pulmonary: COPD CENTRAL NERVOUS SYSTEM: Peripheral neuropathy GI: Constipation Heme/Onc: Other (chronic eliquis use) Hepatobiliary: No pertinent hx Psych: Anxiety, Depression, insomnia Musculoskeletal: low back pain, Osteoarthritis Rheumatologic: Fibromyalgia Infectious disease: No pertinent hx ENT: Allergic Rhinitis, Other (TMJ syndrome; left eye hyalosis) Renal/: Urinary Incontinence Endocrine: No pertinent hx Dermatology: No pertinent hx PAST SURGICAL HISTORY Past Surgical History Pacemaker (biotronik), Appendectomy, CABG, Cataract Removal, Total hip replacement (left), Tonsillectomy, Hysterectomy, Other (PCIs, sinus surgery) FAMILY HISTORY Family History: Heart Disease SOCIAL HISTORY Smoke: No ALCOHOL: none Drugs: None Lives: with Family CURRENT MEDICATIONS CURRENT MEDICATIONS Current Medications Medications (Trade) Dose Ordered Sig/Conrad Route PRN Reason Start Time Stop Time Status Last Admin Dose Admin Morphine Sulfate (Morphine Sulfate) 4 mg 1X ONCE IVP 12/25/20 15:00 12/25/20 15:01 DC 12/25/20 15:23 ALLERGIES ALLERGIES: Coded Allergies: MIGUEL ANGEL Inhibitors (Verified Allergy, Intermediate, 05/28/19) Penicillins (Verified Allergy, Intermediate, 05/28/19) TOLERATES ROCEPHIN Sulfa (Sulfonamide Antibiotics) (Verified Allergy, Intermediate, 05/28/19) adhesive (Verified Allergy, Intermediate, 05/28/19) influenza virus vaccine, specific (Verified Allergy, Intermediate, 05/28/19) mercury (elemental) (Verified Allergy, Intermediate, 05/28/19) methadone (Verified Allergy, Intermediate, 05/28/19) methylprednisolone (Verified Allergy, Intermediate, 05/28/19) theophylline (Verified Allergy, Intermediate, 05/28/19) trazodone (Verified Allergy, Intermediate, 05/28/19) zolpidem (Verified Allergy, Intermediate, 05/28/19) estradiol (Verified Adverse Reaction, Intermediate, 09/02/19) oxycodone (Verified Adverse Reaction, Intermediate, 09/02/19) ROS Review of System 14 point ROS evaluated with pertinent positives noted per HPI PHYSICAL EXAM General: Alert, Oriented X3, Cooperative, No acute distress HEENT: Atraumatic, Mucous membr. moist/pink Lungs: Clear to auscultation, Normal air movement Heart: Regular rate, Normal S1, Normal S2, No murmurs Abdomen: Soft, No tenderness Extremities: No cyanosis, No edema Skin: Other (left forehead contusion) Neuro: Normal speech, Sensation intact Psych/Mental Status: Mental status NL, Mood NL MUSCULOSKELETAL: Osteoarthritic changes both hands VITALS/I&O VITALS/I&O: Vital Signs Date Time Temp Pulse Resp B/P (MAP) Pulse Ox O2 Delivery O2 Flow Rate FiO2 12/25/20 15:23 18 98 Room Air 12/25/20 13:35 98.4 78 215/96 (135) 98.4 LABS Lab: Laboratory Tests Test 12/25/20 14:00 White Blood Count 3.5 x10^3/uL (4.0-11.0) L Red Blood Count 3.91 x10^6/uL (3.50-5.40) Hemoglobin 12.2 g/dL (12.0-15.5) Hematocrit 35.3 % (36.0-47.0) L Mean Corpuscular Volume 90 fL (79-100) Mean Corpuscular Hemoglobin 31 pg (25-35) Mean Corpuscular Hemoglobin Concent 35 g/dL (31-37) Red Cell Distribution Width 14.3 % (11.5-14.5) Platelet Count 157 x10^3/uL (140-400) Neutrophils (%) (Auto) 52 % (31-73) Lymphocytes (%) (Auto) 35 % (24-48) Monocytes (%) (Auto) 10 % (0-9) H Eosinophils (%) (Auto) 3 % (0-3) Basophils (%) (Auto) 1 % (0-3) Neutrophils # (Auto) 1.8 x10^3/uL (1.8-7.7) Lymphocytes # (Auto) 1.2 x10^3/uL (1.0-4.8) Monocytes # (Auto) 0.4 x10^3/uL (0.0-1.1) Eosinophils # (Auto) 0.1 x10^3/uL (0.0-0.7) Basophils # (Auto) 0.0 x10^3/uL (0.0-0.2) Prothrombin Time 13.3 SEC (11.7-14.0) Prothrombin Time INR 1.0 (0.8-1.1) Activated Partial Thromboplast Time 38 SEC (24-38) Sodium Level 140 mmol/L (136-145) Potassium Level 4.6 mmol/L (3.5-5.1) Chloride Level 101 mmol/L (98-107) Carbon Dioxide Level 33 mmol/L (21-32) H Anion Gap 6 (6-14) Blood Urea Nitrogen 18 mg/dL (7-20) Creatinine 0.7 mg/dL (0.6-1.0) Estimated GFR (Cockcroft-Gault) 79.7 Glucose Level 95 mg/dL (70-99) Calcium Level 9.0 mg/dL (8.5-10.1) Laboratory Tests 12/25/20 14:00 Laboratory Tests 12/25/20 14:00 ECHOCARDIOGRAM ECHOCARDIOGRAM <Conclusion> The left ventricular systolic function is normal and the ejection fraction is within normal range. The Ejection Fraction is 55-60%. Septal motion consistent with conduction abnormality. Otherwise, grossly normal wall motion. The left atrium is severely dilated. DATE: 07/09/19 140 HEART CATH HEART CATH Conclusion 1. Acute on chronic diastolic heart failure with an LVEDP of 26 mmHg 2. Successful PCI of the saphenous vein graft to the RCA with sequential 4.0 x 12 and 4.0 x 18 mm everolimus eluting stents. Recommendations 1. Plavix 75 mg daily and restart Eliquis 5 mg p.o. twice daily tomorrow for known atrial fibrillation 2. Continue risk factor modification and treatment of COPD. DATE: 01/30/20 1334 ASSESSMENT/PLAN ASSESSMENT/PLAN 1. Nontraumatic mechanical fall but sustained left forehead contusion. Not related to syncope 2. Chronic diastolic compensated 3. PAFIB: maintaining SR 4. 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 Device check noted with nml function, no events 5. HLP 6. CAD: past CABG with prior stent as noted above. Clinically stable 7. HLP 8. Gait instability and hx of insomnia: seen by neurology as an outpt 9. HTN urgency Recommendations 1. Eliquis for stroke prevention at lower dose. May need referral for LAAO given her age and risk for bleeding/fall 2. Continue secondary prevention measures 3. Restart home BP meds. Continue plavix. 4. Hydralazine PRN 5. May need adjustment of her opioids and also reevaluate her insomnia as this may have contributed to her falling asleep while on the toilet. Will defer to PCP 6. Check TSH TG MAGALLON MD 12/25/20 1708: CARDIAC CONSULT ASSESSMENT/PLAN ASSESSMENT/PLAN Pt. seen and examined. Agree with above CHEMICAL MILLING PROCESSOR note. Supportive care. DIANNA SCOTT APRN Dec 25, 2020 16:11 TG MAGALLON MD Dec 25, 2020 17:08
[2020-12-25] MEDS ORDERED: hydrALAZINE 20 MG/ML VIAL. IVP PRN (16:15)
[2020-12-25] MEDS: METOPROLOL SUCC 24HR ER 50 MG TAB.ER.24H. PO SCH (17:00)
[2020-12-25] MEDS: CALCIUM CARB/VIT D3 500/200 TABLET. PO SCH (17:00)
[2020-12-25] MEDS ORDERED: NON FORMULARY ITEM (Albuterol Sulfate (Ventolin Hfa Inhaler) 2 PUFF) INH SCH (17:00)
[2020-12-25] MEDS: LOSARTAN POTASSIUM 50 MG TABLET. PO SCH (17:00)
[2020-12-25] MEDS: hydrALAZINE 20 MG/ML VIAL. IVP PRN (17:15)
[2020-12-25] MEDS: HYDROcodone/APAP 10/325 1 TAB TABLET PO PRN (19:24)
[2020-12-25 19:40] VITALS: BP 131/49
[2020-12-25] MEDS ORDERED: MONTELUKAST SODIUM 10 MG TABLET. PO SCH (21:00)
[2020-12-25] MEDS ORDERED: FLUTICASONE 50MCG/NASAL SPRAY 16GM BOTTLE. NS SCH (21:00)
[2020-12-25] MEDS ORDERED: ATORVASTATIN CALCIUM 20 MG TABLET PO SCH (21:00)
[2020-12-25] MEDS: APIXABAN 2.5 MG TABLET. PO SCH (21:00)
[2020-12-25] MEDS: ALBUTEROL SULFATE 2.5 MG/3 ML NEBU. NEB SCH (21:04)
--- NOTE | 2020-12-25 21:38 | RAD ---
CT head without contrast PQRS statement: CT scans at this facility use dose reduction including either automated exposure cont rol, iterative reconstructions, and /or weight based radiation dosing via mA and kV modification when appropriate to reduce radiation dose to as low as reasonably achievable. HISTORY: Head trauma. Anticoagulated. COMPARISON: CT head February 12, 2020 FINDINGS: Mild generalized brain atrophy. 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 Cerebr al periventricular white matter hypoattenuation of the frontal lobes likely changes of chronic microv ascular ischemic disease. No new infarct or acute ischemic changes evident. No intracranial hemorrhag e, mass or hydrocephalus. Subcentimeter in thickness left anterior frontal scalp hematoma. Left maxil vikas sinus polyp or cyst extends outside the [id number]. Orbits, mastoids and bones are unremarkab le. IMPRESSION: No acute intracranial CT abnormality. Subcentimeter in thickness left anterior frontal sc alp hematoma. No skull fracture. Electronically signed by: Puneet Mcclain MD (12/25/2020 9:36 PM) [facility]
[2020-12-25 23:00] VITALS: BP 130/43
[2020-12-26 03:00] VITALS: BP 160/94
[2020-12-26] MEDS: HYDROcodone/APAP 10/325 1 TAB TABLET PO PRN ×2 (03:01→09:24)
--- NOTE | 2020-12-26 06:13 | EKG ---
[facility] [address] [place] [address] Test Date: 2020-12-25 Test Time: 17:44:15 Pat Name: PRUDENCE SALINAS Department: Room: [facility] Gender: F Rural [facility] Consultant: : 1935 Requested By: DIANNA SCOTT Order Number: [id number] Reading MD: Taj Blankenship MD Measurements Intervals [place] Rate: 62 P: 90 [place]: 156 QRS: -62 QRSD: 128 T: 38 QT: 440 QTc: 449 Interpretive Statements SINUS RHYTHM RBBB PVC Electronically Signed On 12-26-2020 13:39:55 CDT by Taj Blankenship MD
[2020-12-26] MEDS: ALBUTEROL SULFATE 2.5 MG/3 ML NEBU. NEB SCH ×2 (06:59→11:19)
[2020-12-26 07:00] VITALS: BP 169/67
[2020-12-26] MEDS ORDERED: CLOPIDOGREL BISULFATE 75 MG TABLET PO SCH (08:00)
[2020-12-26] MEDS ORDERED: LIDOCAINE (700MG/PATCH) PATCH. TP SCH (09:00)
[2020-12-26] MEDS ORDERED: METOPROLOL SUCC 24HR ER 100 MG TAB.ER.24H. PO ONE (09:00)
[2020-12-26] MEDS ORDERED: POTASSIUM CHLORIDE 20 MEQ TABLET.ER. PO SCH (09:00)
[2020-12-26] MEDS ORDERED: MULTIVITAMIN with MINERAL TABLET. PO SCH (09:00)
[2020-12-26] MEDS ORDERED: CHOLECALCIFEROL (VITAMIN D3) 1,000 UNIT TABLET PO SCH (09:00)
[2020-12-26] MEDS ORDERED: POLYETHYLENE GLYCOL 3350 17 GM PACKET. PO SCH (09:00)
[2020-12-26] MEDS ORDERED: FUROSEMIDE 40 MG TABLET. PO SCH (09:00)
[2020-12-26] MEDS: IV NORMAL SALINE 1000ML BAG 1,000 ML IV SCH (09:22)
[2020-12-26] MEDS: APIXABAN 2.5 MG TABLET. PO SCH (09:25)
[2020-12-26] MEDS: CALCIUM CARB/VIT D3 500/200 TABLET. PO SCH (09:25)
[2020-12-26] MEDS: LOSARTAN POTASSIUM 50 MG TABLET. PO SCH (09:27)
[2020-12-26] MEDS: METOPROLOL SUCC 24HR ER 50 MG TAB.ER.24H. PO SCH (09:28)
[2020-12-26 11:00] VITALS: BP 202/75
[2020-12-26] MEDS ORDERED: NITROGLYCERIN SUBLINGUAL 0.4 MG BOTTLE OF 25. SL PRN (11:45)
[2020-12-26] MEDS: hydrALAZINE 20 MG/ML VIAL. IVP PRN (12:06)
[2020-12-26] MEDS ORDERED: SERTRALINE 50 MG TABLET. PO SCH (12:15)
--- NOTE | 2020-12-26 12:26 | PDOC ---
GENERAL General: Patient examined chart reviewed today is hospital day 2 for this patient with chronic atrial fibrillation, pacemaker for sick sinus syndrome, chronic pain, COPD, anxiety, persistent insomnia, admitted after a fall off of the toilet in which she struck her left forehead against the wall. She believes she just fell asleep but did not have any loss of consciousness otherwise. She is extremely frustrated this morning tells me that she just wants to go home but unfortunately is having angina currently. She has a number of complaints including that her medications have not been distributed appropriately. She lives in a [facility] facility apartment in [place]. Her continuity team is Dr. Yang and Dr. Blankenship. She says she just wants to be discharged to see them. I told her I am fine to discharge her later on today as long as s he is feeling up to it. I have spoken with nursing who has spoken with the patient's daughter. She did say that patient had stopped her Zoloft several months ago and her anxiety has escalated. She had just tired of being on so many medications. We will restart her Zoloft check a 12-lead EKG and reassess for discharge later on today. We appreciate cardiology input. I agree that polypharmacy may have led to this fall along with her general debility which has been an ongoing issue. Time spent today is 30 minutes with greater than 50% in counseling and coordination of care most of which in discussion with patient. Problems: (1) Fall (2) Blunt head trauma (3) CHF (congestive heart failure) VITAL SIGNS Vital Signs/I&O: Vital Signs Date Time Temp Pulse Resp B/P (MAP) Pulse Ox O2 Delivery O2 Flow Rate FiO2 12/26/20 12:06 77 160/94 12/26/20 11:19 98 Room Air 12/26/20 07:00 97.8 18 97.8 I & O 12/25/20 12/25/20 12/26/20 15:00 23:00 07:00 Intake Total 0 ml 100 ml Balance 0 ml 100 ml Patient is awake alert somewhat cranky in no acute distress HEENT exam is notable for left forehead hematoma Neck is soft and supple no adenopathy or thyromegaly noted Chest is clear to auscultation Heart S1-S2 normal regular rate and rhythm no murmurs or gallops are noted Abdomen soft nontender nondistended no masses organomegaly noted Extremity exam is unremarkable for acute abnormality ALLERGIES Allergies: Allergies Coded Allergies Type Severity Reaction Last Updated Verified MIGUEL ANGEL Inhibitors Allergy Intermediate 05/28/19 Yes Penicillins Allergy Intermediate 05/28/19 Yes Sulfa (Sulfonamide Antibiotics) Allergy Intermediate 05/28/19 Yes adhesive Allergy Intermediate 05/28/19 Yes influenza virus vaccine, specific Allergy Intermediate 05/28/19 Yes mercury (elemental) Allergy Intermediate 05/28/19 Yes methadone Allergy Intermediate 05/28/19 Yes methylprednisolone Allergy Intermediate 05/28/19 Yes theophylline Allergy Intermediate 05/28/19 Yes trazodone Allergy Intermediate 05/28/19 Yes zolpidem Allergy Intermediate 05/28/19 Yes estradiol Adverse Reaction Intermediate 09/02/19 Yes oxycodone Adverse Reaction Intermediate 09/02/19 Yes MEDS Medications: Current Medications Medications (Trade) Dose Ordered Sig/Conrad Start Time Stop Time Status Last Admin Dose Admin Acetaminophen (Tylenol) 650 mg PRN Q4HRS PRN 12/25/20 15:45 Acetaminophen/ Hydrocodone Bitart (Lortab 10/325) 1 tab PRN Q6HRS PRN 12/25/20 18:30 12/26/20 09:24 Al Hydroxide/Mg Hydroxide (Mylanta Plus Xs) 30 ml PRN DAILY PRN 12/25/20 15:45 Albuterol Sulfate (Ventolin Neb Soln) 2.5 mg RTQID 12/25/20 20:00 12/26/20 11:19 Albuterol/ Ipratropium (Duoneb) 3 ml RTQID 12/25/20 16:00 12/25/20 21:11 DC 12/25/20 16:00 Apixaban (Eliquis) 2.5 mg BID 12/25/20 21:00 12/26/20 09:25 Atorvastatin Calcium (Lipitor) 20 mg HS 12/25/20 21:00 Calcium/Vitamin D (Oscal D 500mg/ 200uts) 1 tab BIDWMEALS 12/25/20 17:00 12/26/20 09:25 Cetirizine HCl (ZyrTEC) 10 mg DAILY PRN 12/25/20 15:45 Clopidogrel Bisulfate (Plavix) 75 mg DAILYWBKFT 12/26/20 08:00 12/26/20 09:26 Docusate Sodium (Colace) 100 mg PRN BID PRN 12/25/20 15:45 Fentanyl Citrate (Fentanyl 2ml Vial) 50 mcg 1X ONCE 12/25/20 16:00 12/25/20 16:01 DC 12/25/20 16:03 Fluticasone Propionate (Flonase) 1 spray HS 12/25/20 21:00 12/25/20 21:00 Furosemide (Lasix) 40 mg DAILY 12/26/20 09:00 12/26/20 09:27 Guaifenesin (Robitussin) 200 mg PRN Q4HRS PRN 12/25/20 15:45 Hydralazine HCl (Apresoline Inj) 10 mg PRN Q4HRS PRN 12/25/20 16:45 12/26/20 12:06 Labetalol HCl (Normodyne Iv Push) 10 mg 1X ONCE 12/25/20 15:15 12/25/20 15:16 DC Lidocaine (Lidoderm) 1 patch DAILY 12/26/20 09:00 12/26/20 09:27 Losartan Potassium (Cozaar) 50 mg DAILY 12/25/20 17:00 12/26/20 09:27 Metoprolol Succinate (Toprol Xl) 50 mg DAILY 12/25/20 17:00 12/26/20 09:28 Montelukast Sodium (Singulair) 10 mg HS 12/25/20 21:00 Morphine Sulfate (Morphine Sulfate) 4 mg 1X ONCE 12/25/20 15:00 12/25/20 15:01 DC 12/25/20 15:23 Multivitamins (Thera M Plus) 1 tab DAILY 12/26/20 09:00 12/26/20 09:25 Nitroglycerin (Nitrostat) 0.4 mg PRN Q5MIN PRN 12/26/20 11:45 Non-Formulary Medication (Albuterol Sulfate (Ventolin Hfa Inhaler)) 2 puff QID 12/25/20 17:00 UNV Ondansetron HCl (Zofran) 4 mg PRN Q4HRS PRN 12/25/20 15:45 Polyethylene Glycol (miraLAX PACKET) 17 gm DAILY 12/26/20 09:00 Potassium Chloride (Klor-Con) 20 meq DAILY 12/26/20 09:00 12/26/20 09:24 Sertraline HCl (Zoloft) 50 mg DAILY 12/26/20 12:15 Sodium Chloride 1,000 ml @ 65 mls/hr [id number] 12/25/20 16:00 12/26/20 09:22 Sodium Chloride (Normal Saline Flush) 3 ml QSHIFT PRN 12/25/20 15:45 Vitamin D (Vitamin D3) 2,000 unit DAILY 12/26/20 09:00 12/26/20 09:25 Current Medications Medications (Trade) Dose Ordered Sig/Conrad Route PRN Reason Start Time Stop Time Status Last Admin Dose Admin Morphine Sulfate (Morphine Sulfate) 4 mg 1X ONCE IVP 12/25/20 15:00 12/25/20 15:01 DC 12/25/20 15:23 Albuterol/ Ipratropium (Duoneb) 3 ml RTQID NEB 12/25/20 16:00 12/25/20 21:11 DC 12/25/20 16:00 Sodium Chloride 1,000 ml @ 65 mls/hr [id number] IV 12/25/20 16:00 12/26/20 09:22 Vitamin D (Vitamin D3) 2,000 unit DAILY PO 12/26/20 09:00 12/26/20 09:25 Fluticasone Propionate (Flonase) 1 spray HS NS 12/25/20 21:00 12/25/20 21:00 Lidocaine (Lidoderm) 1 patch DAILY TP 12/26/20 09:00 12/26/20 09:27 Potassium Chloride (Klor-Con) 20 meq DAILY PO 12/26/20 09:00 12/26/20 09:24 Calcium/Vitamin D (Oscal D 500mg/ 200uts) 1 tab BIDWMEALS PO 12/25/20 17:00 12/26/20 09:25 Multivitamins (Thera M Plus) 1 tab DAILY PO 12/26/20 09:00 12/26/20 09:25 Fentanyl Citrate (Fentanyl 2ml Vial) 50 mcg 1X ONCE IVP 12/25/20 16:00 12/25/20 16:01 DC 12/25/20 16:03 Clopidogrel Bisulfate (Plavix) 75 mg DAILYWBKFT PO 12/26/20 08:00 12/26/20 09:26 Furosemide (Lasix) 40 mg DAILY PO 12/26/20 09:00 12/26/20 09:27 Losartan Potassium (Cozaar) 50 mg DAILY PO 12/25/20 17:00 12/26/20 09:27 Apixaban (Eliquis) 2.5 mg BID PO 12/25/20 21:00 12/26/20 09:25 Metoprolol Succinate (Toprol Xl) 50 mg DAILY PO 12/25/20 17:00 12/26/20 09:28 Albuterol Sulfate (Ventolin Neb Soln) 2.5 mg RTQID NEB 12/25/20 20:00 12/26/20 11:19 Hydralazine HCl (Apresoline Inj) 10 mg PRN Q4HRS PRN IVP ELEVATED BP, SEE COMMENTS 12/25/20 16:45 12/26/20 12:06 Acetaminophen/ Hydrocodone Bitart (Lortab 10/325) 1 tab PRN Q6HRS PRN PO MODERATE-SEVERE PAIN 12/25/20 18:30 12/26/20 09:24 LAB Lab: Laboratory Tests Test 12/25/20 14:00 White Blood Count 3.5 x10^3/uL (4.0-11.0) L Red Blood Count 3.91 x10^6/uL (3.50-5.40) Hemoglobin 12.2 g/dL (12.0-15.5) Hematocrit 35.3 % (36.0-47.0) L Mean Corpuscular Volume 90 fL (79-100) Mean Corpuscular Hemoglobin 31 pg (25-35) Mean Corpuscular Hemoglobin Concent 35 g/dL (31-37) Red Cell Distribution Width 14.3 % (11.5-14.5) Platelet Count 157 x10^3/uL (140-400) Neutrophils (%) (Auto) 52 % (31-73) Lymphocytes (%) (Auto) 35 % (24-48) Monocytes (%) (Auto) 10 % (0-9) H Eosinophils (%) (Auto) 3 % (0-3) Basophils (%) (Auto) 1 % (0-3) Neutrophils # (Auto) 1.8 x10^3/uL (1.8-7.7) Lymphocytes # (Auto) 1.2 x10^3/uL (1.0-4.8) Monocytes # (Auto) 0.4 x10^3/uL (0.0-1.1) Eosinophils # (Auto) 0.1 x10^3/uL (0.0-0.7) Basophils # (Auto) 0.0 x10^3/uL (0.0-0.2) Prothrombin Time 13.3 SEC (11.7-14.0) Prothrombin Time INR 1.0 (0.8-1.1) Activated Partial Thromboplast Time 38 SEC (24-38) Sodium Level 140 mmol/L (136-145) Potassium Level 4.6 mmol/L (3.5-5.1) Chloride Level 101 mmol/L (98-107) Carbon Dioxide Level 33 mmol/L (21-32) H Anion Gap 6 (6-14) Blood Urea Nitrogen 18 mg/dL (7-20) Creatinine 0.7 mg/dL (0.6-1.0) Estimated GFR (Cockcroft-Gault) 79.7 Glucose Level 95 mg/dL (70-99) Calcium Level 9.0 mg/dL (8.5-10.1) Thyroid Stimulating Hormone (TSH) 2.139 uIU/mL (0.358-3.74) Laboratory Tests 12/25/20 14:00 Laboratory Tests 12/25/20 14:00 ASSESSMENT & PLAN A&P Plan as noted above This note was created using [employer] and may have omissions and/or errors due to the nature of real-time voice executive director of marketing. Justifications for Admission General Conditions Other justification for admit: CLOSED HEAD TRAUMA Other Justification PINO KOHLER MD Dec 26, 2020 12:26
--- NOTE | 2020-12-26 13:11 | PDOC2 ---
NEUROLOGY CONSULT Date of Service DOS: DATE: 12/26/20 TIME: 13:10 Reason for Consult Reason for Consult: Head injury on anticoagulation Referring Physician Referring Physician: Dr. Yanes Source Source: Chart review, Patient History of Present Illness History of Present Illness The patient is an 85-year-old right-handed female who fell asleep on a stool in her bedroom and fell and hit her head. She is on Eliquis. I have seen her in the past for syncope, psychophysiologic insomnia, gait disorder, and polyneuropathy with pain. I had increased her gabapentin dose and she was doing well on it. When I saw her last month, we agreed that there is no need for further follow-up. We talked about cognitive behavioral therapy for insomnia but she does not have access to a computer Past Medical History Cardiovascular: AFIB, CAD, CHF, HTN, AR, Other (Edema, sick sinus syndrome) Pulmonary: COPD Musculoskeletal: low back pain (Herniated disks), Osteoarthritis (Shoulder) Rheumatologic: Fibromyalgia ENT: Other (Temporomandibular joint syndrome, asteroid Hyalosis left eye) Past Surgical History Past Surgical History: Pacemaker, Appendectomy, CABG, Cataract Removal, Total hip replacement (Left), Tonsillectomy (Adenoids), Other (epidurals, coronary stents, sinus) Family History Family History: No pertinent hx Social History Social History , no tobacco or alcohol Current Medications Current Medications Current Medications Morphine Sulfate (Morphine Sulfate) 4 mg 1X ONCE IVP Last administered on 12/25/20at 15:23; Start 12/25/20 at 15:00; Stop 12/25/20 at 15:01; Status DC Labetalol HCl (Normodyne Iv Push) 10 mg 1X ONCE IVP ; Start 12/25/20 at 15:15; Stop 12/25/20 at 15:16; Status DC Ondansetron HCl (Zofran) 4 mg PRN Q8HRS PRN IVP NAUSEA/VOMITING; Start 12/25/20 at 15:15; Stop 12/26/20 at 15:14 Acetaminophen (Tylenol) 650 mg PRN Q4HRS PRN PO FEVER > 100.3'F; Start 12/25/20 at 15:15; Stop 12/26/20 at 15:14 Albuterol/ Ipratropium (Duoneb) 3 ml RTQID NEB Last administered on 12/25/20at 16:00; Start 12/25/20 at 16:00; Stop 12/25/20 at 21:11; Status DC Sodium Chloride (Normal Saline Flush) 3 ml QSHIFT PRN IV AFTER MEDS AND BLOOD DRAWS; Start 12/25/20 at 15:45 Sodium Chloride 1,000 ml @ 65 mls/hr [id number] IV Last administered on 12/26/20at 09:22; Start 12/25/20 at 16:00 Ondansetron HCl (Zofran) 4 mg PRN Q4HRS PRN IV NAUSEA/VOMITING Last administered on 12/26/20at 12:32; Start 12/25/20 at 15:45 Acetaminophen (Tylenol) 650 mg PRN Q4HRS PRN PO TEMP OVER 100.4F OR MILD PAIN; Start 12/25/20 at 15:45 Al Hydroxide/Mg Hydroxide (Mylanta Plus Xs) 30 ml PRN DAILY PRN PO HEARTBURN / GAS; Start 12/25/20 at 15:45 Docusate Sodium (Colace) 100 mg PRN BID PRN PO HARD STOOLS; Start 12/25/20 at 15:45 Albuterol Sulfate (Ventolin Neb Soln) 2.5 mg PRN Q4HRS PRN NEB SHORTNESS OF BREATH; Start 12/25/20 at 15:45 Guaifenesin (Robitussin) 200 mg PRN Q4HRS PRN PO COUGH; Start 12/25/20 at 15:45 Atorvastatin Calcium (Lipitor) 20 mg HS PO ; Start 12/25/20 at 21:00 Cetirizine HCl (ZyrTEC) 10 mg DAILY PRN PO ALLERGIES; Start 12/25/20 at 15:45 Vitamin D (Vitamin D3) 2,000 unit DAILY PO Last administered on 12/26/20at 09:25; Start 12/26/20 at 09:00 Fluticasone Propionate (Flonase) 1 spray HS NS Last administered on 12/25/20at 21:00; Start 12/25/20 at 21:00 Lidocaine (Lidoderm) 1 patch DAILY TP Last administered on 12/26/20at 09:27; Start 12/26/20 at 09:00 Metoprolol Succinate (Toprol Xl) 50 mg DAILY PO ; Start 12/25/20 at 16:00; Status Cancel Montelukast Sodium (Singulair) 10 mg HS PO ; Start 12/25/20 at 21:00 Potassium Chloride (Klor-Con) 20 meq DAILY PO Last administered on 12/26/20at 09:24; Start 12/26/20 at 09:00 Non-Formulary Medication (Albuterol Sulfate (Ventolin Hfa Inhaler)) 2 puff QID INH ; Start 12/25/20 at 17:00; Status UNV Calcium/Vitamin D (Oscal D 500mg/ 200uts) 1 tab BIDWMEALS PO Last administered on 12/26/20at 09:25; Start 12/25/20 at 17:00 Multivitamins (Thera M Plus) 1 tab DAILY PO Last administered on 12/26/20at 09:25; Start 12/26/20 at 09:00 Polyethylene Glycol (miraLAX PACKET) 17 gm DAILY PO ; Start 12/26/20 at 09:00 Fentanyl Citrate (Fentanyl 2ml Vial) 50 mcg 1X ONCE IVP Last administered on 12/25/20at 16:03; Start 12/25/20 at 16:00; Stop 12/25/20 at 16:01; Status DC Clopidogrel Bisulfate (Plavix) 75 mg DAILYWBKFT PO Last administered on 12/26/20at 09:26; Start 12/26/20 at 08:00 Furosemide (Lasix) 40 mg DAILY PO Last administered on 12/26/20at 09:27; Start 12/26/20 at 09:00 Metoprolol Succinate (Toprol Xl) 50 mg DAILY ONCE PO ; Start 12/26/20 at 09:00; Stop 12/26/20 at 09:01; Status UNV Losartan Potassium (Cozaar) 50 mg DAILY PO Last administered on 12/26/20at 09:27; Start 12/25/20 at 17:00 Apixaban (Eliquis) 2.5 mg BID PO Last administered on 12/26/20at 09:25; Start 12/25/20 at 21:00 Hydralazine HCl (Apresoline Inj) 10 mg PRN Q4HRS PRN IVP ELEVATED BP, SEE COMMENTS; Start 12/25/20 at 16:15; Stop 12/25/20 at 16:41; Status DC Metoprolol Succinate (Toprol Xl) 50 mg DAILY PO Last administered on 12/26/20at 09:28; Start 12/25/20 at 17:00 Albuterol Sulfate (Ventolin Neb Soln) 2.5 mg RTQID NEB Last administered on 12/26/20at 11:19; Start 12/25/20 at 20:00 Hydralazine HCl (Apresoline Inj) 10 mg PRN Q4HRS PRN IVP ELEVATED BP, SEE COMMENTS Last administered on 12/26/20at 12:06; Start 12/25/20 at 16:45 Acetaminophen/ Hydrocodone Bitart (Lortab 10/325) 1 tab PRN Q6HRS PRN PO MODERATE-SEVERE PAIN Last administered on 12/26/20at 09:24; Start 12/25/20 at 18:30 Nitroglycerin (Nitrostat) 0.4 mg PRN Q5MIN PRN SL CHEST PAIN; Start 12/26/20 at 11:45 Sertraline HCl (Zoloft) 50 mg DAILY PO Last administered on 12/26/20at 12:31; Start 12/26/20 at 12:15 Active Scripts Active Hydrocodone-Apap 10-325 (Hydrocodone Bit/Acetaminophen) 1 Tab Tablet 1 Tab PO PRN Q6HRS PRN 30 Days Hydrocodone-Apap 10-325 (Hydrocodone Bit/Acetaminophen) 1 Tab Tablet 1 Tab PO PRN Q6HRS PRN 30 Days Clopidogrel (Clopidogrel Bisulfate) 75 Mg Tablet 75 Mg PO DAILYWBKFT 30 Days Toprol XL (Metoprolol Succinate) 50 Mg Tab.er.24h 50 Mg PO DAILY 30 Days Reported Melatonin 10 Mg Capsule 1 Cap PO QHS 30 Days Furosemide 40 Mg Tablet 1 Tab PO DAILY Hydrocodone-Acetamin 10-325 mg (Hydrocodone/Acetaminophen) 1 Each Tablet 1 Tab PO PRN Q6HRS PRN Meloxicam 15 Mg Tablet 1 Tab PO DAILY Lidocaine 1 Each Adh..patch 1 Patch TP DAILY Diclofenac Sodium 100 Gm Gel..gram. 2 TP PRN Q3HRS PRN Mucinex (Guaifenesin) 600 Mg Tablet.er 2 Tab PO BID 10 Days Hair, Skin & Nails Caplet (Multivits-Min/Folic Acid/Biot) 1 Each Tablet 3 Tab PO DAILY 30 Days Calcium 600 + Vit D Caplet (Calcium Carbonate/Vitamin D3) 1 Each Tablet 1 Tab PO BID 30 Days Lidocaine PATCH (Lidocaine) 1 Each Adh..patch 1 Each TP DAILY REMOVE AFTER 12 HOURS Montelukast Sodium Tablet (Montelukast Sodium) 10 Mg Tablet 10 Mg PO HS Gabapentin 600 Mg Tablet 600 Mg PO QID Ventolin Hfa Inhaler (Albuterol Sulfate) 18 Gm Hfa.aer.ad 2 Puff INH QID Cetirizine Hcl 10 Mg Tablet 1 Tab PO DAILY PRN Fluticasone Propionate Nasal [place] (Fluticasone Propionate) 16 Gm [place].susp 1 [place] NS HS Polyethylene Glycol 3350 2,500 Gm Powder 17 Gm PO DAILY 30 Days Vitamin D3 (Cholecalciferol (Vitamin D3)) 1,000 Unit Tablet 2,000 Unit PO DAILY Potassium Chloride (Potassium Chloride) 20 Meq Tablet.er 20 Meq PO DAILY Atorvastatin Calcium 20 Mg Tablet 1 Tab PO HS Lasix (Furosemide) 40 Mg Tablet 1 Tab PO DAILY Allergies Allergies: Coded Allergies: MIGUEL ANGEL Inhibitors (Verified Allergy, Intermediate, 05/28/19) Penicillins (Verified Allergy, Intermediate, 05/28/19) TOLERATES ROCEPHIN Sulfa (Sulfonamide Antibiotics) (Verified Allergy, Intermediate, 05/28/19) adhesive (Verified Allergy, Intermediate, 05/28/19) influenza virus vaccine, specific (Verified Allergy, Intermediate, 05/28/19) mercury (elemental) (Verified Allergy, Intermediate, 05/28/19) methadone (Verified Allergy, Intermediate, 05/28/19) methylprednisolone (Verified Allergy, Intermediate, 05/28/19) theophylline (Verified Allergy, Intermediate, 05/28/19) trazodone (Verified Allergy, Intermediate, 05/28/19) zolpidem (Verified Allergy, Intermediate, 05/28/19) estradiol (Verified Adverse Reaction, Intermediate, 09/02/19) oxycodone (Verified Adverse Reaction, Intermediate, 09/02/19) ROS Review of System Negative for fever, chills, weight loss, shortness of breath, chest pain, indigestion, hematochezia, melena, and dysuria. Full 14-point review of systems is negative. Physical Exam Physical Examination General: General Appearance: well-developed, well-nourished, white female, in no acute distress. HEENT: Head: normocephalic. Contusions and abrasions left forehead. Temporal arteries pulsatile and nontender. Neck: General: supple. Carotid bruit: none. Musculoskeletal: Stability see neurologic gait exam. Tone see neurologic. Strength see neurologic. Neurological: Mental Status: intact, orientation, memory, attentionspan/concentration, language, fund of knowledge normal. Cranial Nerves: Pupils equal and reactive to light, extraocular movements are intact, visual dinh are full to confrontation. Facial sensation is normal. There is no facial asymmetry. Vestibulo-ocular reflex is intact. Palate elvates and tongue protrudes in midline. All other cranial related problems are negative except as mentioned before. Reflexes: 1+ and symmetric with flexor plantar responses. Motor: 5/5 strength with normal tone and bulk. Coordination: Finger-nose finger and [id number] testing are normal. Rapid alternating movements and fine finger movements are intact. Gait: usually uses a roller walker, transferred for wa without one. Sensory: Stocking loss. Vitals VITALS Vital Signs Date Time Temp Pulse Resp B/P (MAP) Pulse Ox O2 Delivery O2 Flow Rate FiO2 12/26/20 12:06 77 160/94 12/26/20 11:19 98 Room Air 12/26/20 11:00 99.0 20 99.0 Labs Labs Laboratory Tests Test 12/25/20 14:00 White Blood Count 3.5 x10^3/uL (4.0-11.0) Red Blood Count 3.91 x10^6/uL (3.50-5.40) Hemoglobin 12.2 g/dL (12.0-15.5) Hematocrit 35.3 % (36.0-47.0) Mean Corpuscular Volume 90 fL (79-100) Mean Corpuscular Hemoglobin 31 pg (25-35) Mean Corpuscular Hemoglobin Concent 35 g/dL (31-37) Red Cell Distribution Width 14.3 % (11.5-14.5) Platelet Count 157 x10^3/uL (140-400) Neutrophils (%) (Auto) 52 % (31-73) Lymphocytes (%) (Auto) 35 % (24-48) Monocytes (%) (Auto) 10 % (0-9) Eosinophils (%) (Auto) 3 % (0-3) Basophils (%) (Auto) 1 % (0-3) Neutrophils # (Auto) 1.8 x10^3/uL (1.8-7.7) Lymphocytes # (Auto) 1.2 x10^3/uL (1.0-4.8) Monocytes # (Auto) 0.4 x10^3/uL (0.0-1.1) Eosinophils # (Auto) 0.1 x10^3/uL (0.0-0.7) Basophils # (Auto) 0.0 x10^3/uL (0.0-0.2) Prothrombin Time 13.3 SEC (11.7-14.0) Prothromb Time International Ratio 1.0 (0.8-1.1) Activated Partial Thromboplast Time 38 SEC (24-38) Sodium Level 140 mmol/L (136-145) Potassium Level 4.6 mmol/L (3.5-5.1) Chloride Level 101 mmol/L (98-107) Carbon Dioxide Level 33 mmol/L (21-32) Anion Gap 6 (6-14) Blood Urea Nitrogen 18 mg/dL (7-20) Creatinine 0.7 mg/dL (0.6-1.0) Estimated GFR (Cockcroft-Gault) 79.7 Glucose Level 95 mg/dL (70-99) Calcium Level 9.0 mg/dL (8.5-10.1) Thyroid Stimulating Hormone (TSH) 2.139 uIU/mL (0.358-3.74) Laboratory Tests Test 12/25/20 14:00 White Blood Count 3.5 x10^3/uL (4.0-11.0) Red Blood Count 3.91 x10^6/uL (3.50-5.40) Hemoglobin 12.2 g/dL (12.0-15.5) Hematocrit 35.3 % (36.0-47.0) Mean Corpuscular Volume 90 fL (79-100) Mean Corpuscular Hemoglobin 31 pg (25-35) Mean Corpuscular Hemoglobin Concent 35 g/dL (31-37) Red Cell Distribution Width 14.3 % (11.5-14.5) Platelet Count 157 x10^3/uL (140-400) Neutrophils (%) (Auto) 52 % (31-73) Lymphocytes (%) (Auto) 35 % (24-48) Monocytes (%) (Auto) 10 % (0-9) Eosinophils (%) (Auto) 3 % (0-3) Basophils (%) (Auto) 1 % (0-3) Neutrophils # (Auto) 1.8 x10^3/uL (1.8-7.7) Lymphocytes # (Auto) 1.2 x10^3/uL (1.0-4.8) Monocytes # (Auto) 0.4 x10^3/uL (0.0-1.1) Eosinophils # (Auto) 0.1 x10^3/uL (0.0-0.7) Basophils # (Auto) 0.0 x10^3/uL (0.0-0.2) Prothrombin Time 13.3 SEC (11.7-14.0) Prothromb Time International Ratio 1.0 (0.8-1.1) Activated Partial Thromboplast Time 38 SEC (24-38) Sodium Level 140 mmol/L (136-145) Potassium Level 4.6 mmol/L (3.5-5.1) Chloride Level 101 mmol/L (98-107) Carbon Dioxide Level 33 mmol/L (21-32) Anion Gap 6 (6-14) Blood Urea Nitrogen 18 mg/dL (7-20) Creatinine 0.7 mg/dL (0.6-1.0) Estimated GFR (Cockcroft-Gault) 79.7 Glucose Level 95 mg/dL (70-99) Calcium Level 9.0 mg/dL (8.5-10.1) Thyroid Stimulating Hormone (TSH) 2.139 uIU/mL (0.358-3.74) Images Images CT head without contrast, 12/25/2020 9:36 PM PQRS statement: CT scans at this facility use dose reduction including either automated exposure control, iterative reconstructions, and /or weight based radiation dosing via mA and kV modification when appropriate to reduce radiation dose to as low as reasonably achievable. HISTORY: Head trauma. Anticoagulated. COMPARISON: CT head February 12, 2020 FINDINGS: Mild generalized brain atrophy. 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 Cerebral periventricular white matter hypoattenuation of the frontal lobes likely changes of chronic microvascular ischemic disease. No new infarct or acute ischemic changes evident. No intracranial hemorrhage, mass or hydrocephalus. Subcentimeter in thickness left anterior frontal scalp hematoma. Left maxillary sinus polyp or cyst extends outside the [id number]. Orbits, mastoids and bones are unremarkable. IMPRESSION: No acute intracranial CT abnormality. Subcentimeter in thickness left anterior frontal scalp hematoma. No skull fracture. CT HEAD, MAXILLOFACIAL, AND CERVICAL SPINE WITHOUT CONTRAST, 12/25/2020 2:38 PM History: Reason: facial tenderness and hematoma on forehead / Spl. Instructions: / History: Comparison: CT head and cervical spine without contrast February 12, 2020. Procedure: Axial images are obtained of the head from the skull base through the vertex without IV contrast. Noncontrast helical CT of the cervical spine was performed. Axial, sagittal, and coronal reconstructions were obtained. Helical CT imaging of the facial bones is performed without IV contrast. Findings: The ventricles and sulci are prominent, consistent with age-related cerebral atrophy. There is mild periventricular white matter hypoattenuation. This is a nonspecific finding but is commonly due to chronic small vessel ischemic disease in a patient of this age. No mass-effect, midline shift, hemorrhage or obvious acute infarction is iden tified. Basilar cisterns are patent. Bone windows demonstrate no significant calvarial abnormality. There is moderate left frontal scalp hematoma. No acute facial bone fracture. Patient is edentulous. The globes and orbits are intact. Moderate mucosal thickening left maxillary sinus. The bilateral frontal sinuses are opacified. No air-fluid level is seen. Mastoid air cells are well aerated. There is no evidence of acute fracture or acute malalignment of the cervical spine. There is multilevel facet hypertrophy. There is grade 1 anterolisthesis of C2 on C3 and C3 on C4 and C4 on C5. Alignment is otherwise maintained. There is disc space narrowing and degenerative endplate spurring and uncinate process hypertrophy of C5/C6 and C6/C7. There are bilateral carotid artery calcifications. The visualized lung apices are clear. Median sternotomy wires and cardiac pacer leads are partially seen. IMPRESSION: 1. No acute intracranial abnormality. 2. No acute fracture of the cervical spine. 3. No acute facial bone fracture. Assessment/Plan Assessment/Plan Impression: Fall with head injury in a patient on anticoagulation, she denies loss of consciousness, she has had serial CT scans showing no abnormality History of syncope, psychophysiologic insomnia, gait disorder, and polyneuropathy with pain Recommendations: Okay for discharge As I left the room, the patient stated that "both you and Dr. Pagan know nothing that is going on with me and did nothing for me." I told the patient that I had seen her and evaluated her for neuropathy, help with the titration of her gabapentin, gotten her pain under control, I offered her treatment for her insomnia, and also evaluated regarding her syncope. I told her that I resented her implication I did nothing for her and she apologized. As I agreed with the patient last month, no need for neurological follow-up. Thank you for letting me help with the patient's care. MALCOM GUZMAN MD Dec 26, 2020 13:11
--- NOTE | 2020-12-26 13:45 | PDOC ---
CARDIOLOGY PROGRESS NOTE SUBJECTIVE: No new events overnight. No telemetry abnormalities noted. The patient complained of chest pain and nausea this morning. OBJECTIVE: Vital Signs/I&O: Vital Signs Date Time Temp Pulse Resp B/P (MAP) Pulse Ox O2 Delivery O2 Flow Rate FiO2 12/26/20 12:06 77 160/94 12/26/20 11:19 98 Room Air 12/26/20 11:00 99.0 20 99.0 I & O 12/25/20 12/25/20 12/26/20 15:00 23:00 07:00 Intake Total 0 ml 100 ml Balance 0 ml 100 ml Objective: The patient appeared well nourished and normally developed. Head exam is unremarkable. No scleral icterus or corneal arcus noted. Neck is without jugular venous distension, thyromegaly, or carotid bruits. Carotid upstrokes are brisk bilaterally. Lungs are clear to auscultation and percussion. Cardiac exam reveals the PMI to be normally sized and situated. Rhythm is regular. First and second heart sounds normal. No murmurs, rubs or gallops. Abdominal exam reveals normal bowel sounds, no masses, no organomegaly and no aortic enlargement. Extremities are nonedematous and both femoral and pedal pulses are normal. Msk: No traumua Neuro: No focal deficits CURRENT MEDICATIONS: Current Medications Medications (Trade) Dose Ordered Sig/Conrad Route PRN Reason Start Time Stop Time Status Last Admin Dose Admin Morphine Sulfate (Morphine Sulfate) 4 mg 1X ONCE IVP 12/25/20 15:00 12/25/20 15:01 DC 12/25/20 15:23 Albuterol/ Ipratropium (Duoneb) 3 ml RTQID NEB 12/25/20 16:00 12/25/20 21:11 DC 12/25/20 16:00 Sodium Chloride 1,000 ml @ 65 mls/hr [id number] IV 12/25/20 16:00 12/26/20 09:22 Ondansetron HCl (Zofran) 4 mg PRN Q4HRS PRN IV NAUSEA/VOMITING 12/25/20 15:45 12/26/20 12:32 Vitamin D (Vitamin D3) 2,000 unit DAILY PO 12/26/20 09:00 12/26/20 09:25 Fluticasone Propionate (Flonase) 1 spray HS NS 12/25/20 21:00 12/25/20 21:00 Lidocaine (Lidoderm) 1 patch DAILY TP 12/26/20 09:00 12/26/20 09:27 Potassium Chloride (Klor-Con) 20 meq DAILY PO 12/26/20 09:00 12/26/20 09:24 Calcium/Vitamin D (Oscal D 500mg/ 200uts) 1 tab BIDWMEALS PO 12/25/20 17:00 12/26/20 09:25 Multivitamins (Thera M Plus) 1 tab DAILY PO 12/26/20 09:00 12/26/20 09:25 Fentanyl Citrate (Fentanyl 2ml Vial) 50 mcg 1X ONCE IVP 12/25/20 16:00 12/25/20 16:01 DC 12/25/20 16:03 Clopidogrel Bisulfate (Plavix) 75 mg DAILYWBKFT PO 12/26/20 08:00 12/26/20 09:26 Furosemide (Lasix) 40 mg DAILY PO 12/26/20 09:00 12/26/20 09:27 Losartan Potassium (Cozaar) 50 mg DAILY PO 12/25/20 17:00 12/26/20 09:27 Apixaban (Eliquis) 2.5 mg BID PO 12/25/20 21:00 12/26/20 09:25 Metoprolol Succinate (Toprol Xl) 50 mg DAILY PO 12/25/20 17:00 12/26/20 09:28 Albuterol Sulfate (Ventolin Neb Soln) 2.5 mg RTQID NEB 12/25/20 20:00 12/26/20 11:19 Hydralazine HCl (Apresoline Inj) 10 mg PRN Q4HRS PRN IVP ELEVATED BP, SEE COMMENTS 12/25/20 16:45 12/26/20 12:06 Acetaminophen/ Hydrocodone Bitart (Lortab 10/325) 1 tab PRN Q6HRS PRN PO MODERATE-SEVERE PAIN 12/25/20 18:30 12/26/20 09:24 Sertraline HCl (Zoloft) 50 mg DAILY PO 12/26/20 12:15 12/26/20 12:31 DIAGNOSTIC TESTING: Labs reviewed. Neurology notes reviewed. Labs: Laboratory Tests 12/25/20 14:00 Laboratory Tests Test 12/25/20 14:00 White Blood Count 3.5 x10^3/uL (4.0-11.0) L Red Blood Count 3.91 x10^6/uL (3.50-5.40) Hemoglobin 12.2 g/dL (12.0-15.5) Hematocrit 35.3 % (36.0-47.0) L Mean Corpuscular Volume 90 fL (79-100) Mean Corpuscular Hemoglobin 31 pg (25-35) Mean Corpuscular Hemoglobin Concent 35 g/dL (31-37) Red Cell Distribution Width 14.3 % (11.5-14.5) Platelet Count 157 x10^3/uL (140-400) Neutrophils (%) (Auto) 52 % (31-73) Lymphocytes (%) (Auto) 35 % (24-48) Monocytes (%) (Auto) 10 % (0-9) H Eosinophils (%) (Auto) 3 % (0-3) Basophils (%) (Auto) 1 % (0-3) Neutrophils # (Auto) 1.8 x10^3/uL (1.8-7.7) Lymphocytes # (Auto) 1.2 x10^3/uL (1.0-4.8) Monocytes # (Auto) 0.4 x10^3/uL (0.0-1.1) Eosinophils # (Auto) 0.1 x10^3/uL (0.0-0.7) Basophils # (Auto) 0.0 x10^3/uL (0.0-0.2) Prothrombin Time 13.3 SEC (11.7-14.0) Prothromb Time International Ratio 1.0 (0.8-1.1) Activated Partial Thromboplast Time 38 SEC (24-38) Sodium Level 140 mmol/L (136-145) Potassium Level 4.6 mmol/L (3.5-5.1) Chloride Level 101 mmol/L (98-107) Carbon Dioxide Level 33 mmol/L (21-32) H Anion Gap 6 (6-14) Blood Urea Nitrogen 18 mg/dL (7-20) Creatinine 0.7 mg/dL (0.6-1.0) Estimated GFR (Cockcroft-Gault) 79.7 Glucose Level 95 mg/dL (70-99) Calcium Level 9.0 mg/dL (8.5-10.1) Thyroid Stimulating Hormone (TSH) 2.139 uIU/mL (0.358-3.74) ASSESSMENT: 1. Syncope, etiology unclear. Presumably vasovagal versus medication side effects no clear cardiac source noted 2. Hypertension 3. Chronic pain syndrome 4. Paroxysmal atrial fibrillation PLAN: 1. From a purely cardiovascular standpoint no further aggressive testing is necessary. She had a cardiac cath approximately less than a year ago. Her chest pain this morning appears to be MSK in nature. Her EKG is unremarkable. -Will obtain labs just to rule out occult ischemia. -Continue BP mgmt. We will add imdur 30mg daily to her regimen here along with Toprol XL and losartan. -Continue pain mgmt per primary team. -Stop eliquis at discharge until seen in f/u in the office to decrease risk of intracranial bleed from falls. Thanks. Ok to DC home later today if BP less than 160 systolic and cardiac enzymes are negative. Justicifation of Admission Dx: Justifications for Admission: Justification of Admission Dx: N/A TG MAGALLON MD Dec 26, 2020 13:44
[2020-12-26] MEDS ORDERED: LOSA-73 PO (13:52)
[2020-12-26] MEDS ORDERED: SERT-267 PO (13:52)
[2020-12-26] MEDS ORDERED: ISOS30TA68 PO (13:52)
--- NOTE | 2020-12-26 13:52 | DISCH ---
DISCHARGE INSTRUCTIONS Condition on Discharge Condition on Discharge: Stable Activity After Discharge Activity Instructions for Disc: Resume previous activity, Activity as tolerated Bathing Instructions: Shower-keep dressing dry, No Tub Bath until see Lifting Instructions after Dis: No heavy lifting, No pulling or pushing, Do not lift >10 pounds Exercise Instruction after Dis: Exercise per therapy Driving Instructions after Dis: Do not drive Weight Bearing Status after Di: As tolerated Diet after Discharge Diet after Discharge: Cardiac Diet Texture: Regular Liquid Texture: Thin Liquid Swallowing Supervision: None needed Wound Incision Care Wound/Incision Care: No wound care needed Checks after Discharge Checks after discharge: Check blood press - daily Contacting the DRAnthony after DC Call your doctor for: Concerns you may have Treatment/Equipment after DC Adaptive Equipment Issued: None PINO KOHLER MD Dec 26, 2020 13:52
[2020-12-26 14:17] VITALS: BP 143/54
--- NOTE | 2020-12-26 14:25 | DS ---
DATE OF DISCHARGE: 12/26/2020 HOSPITAL COURSE: This patient is an 85-year-old woman who is a continuity outpatient of Dr. Yang and Dr. Magallon who use the [facility] hospitalist here at [facility] and I am rounding for them this weekend. I have visited with this patient earlier today and the details of her stay can be found in my progress note this morning. The patient has since been seen by Dr. Magallon which I am sure made her very happy because that was her biggest issue this morning as that she was very anxious and wanted to see her patrol man. I have spoken with nursing and she tells me that the plan is to discharge this patient later on today as long as she continues to improve clinically. Dr. Magallon has added Imdur 30 mg daily and is holding her Eliquis given her high risk for falls. She will need close outpatient followup. He has advised that she stay on her Plavix. He is cycling cardiac enzymes as she is having angina today, which she has attributed mostly to her anxiety around her hospital stay. We will also re-add sertraline to her regimen, which she self discontinued several months ago. Greater than 30 minutes were spent on coordinating this discharge with greater than 50% in counseling and coordination of care, most of which in discussion with nursing and the patient. PHYSICAL EXAMINATION: Is found in my progress note earlier today. FINAL DIAGNOSES: 1. Fall off of the toilet, most likely secondary to drowsiness. It does not appear that the patient had a syncopal event. 2. Severe anxiety. 3. Atypical chest pain. 4. Chronic multimorbidity otherwise as outlined in the history and physical. MIGUEL ANGEL/VIS DR: MIGUEL ANGEL/cathryn TID: [id number] CC: TJ YANG MD, TG MAGALLON [facility]
--- NOTE | 2020-12-26 18:25 | NUR ---
pt was discharged home with self care, daughter came to pick her up at the ED entrance at 1505. She was wheeled down to the exit by [employer]. Jered Ledezma RN
[2020-12-27] MEDS ORDERED: ISOSORBIDE MONONITRATE ER 30 MG TAB.ER.24H PO SCH (09:00)
== END 2020-12-26 15:05 | disposition home or self-care (01) ==
LOC: ER 13:26 → ED HOLD 14:56 → 5 NORTH 16:09
PROVIDERS: ADMIT Family Medicine; ATTEND Family Medicine
DX: S00.03XA Contusion of scalp, initial encounter (principal); F41.9 Anxiety disorder, unspecified; G47.00 Insomnia, unspecified; G89.4 Chronic pain syndrome; H54.8 Legal blindness, as defined in USA; E78.5 Hyperlipidemia, unspecified; I11.0 Hypertensive heart disease with heart failure; I50.33 Acute on chronic diastolic (congestive) heart failure; I16.0 Hypertensive urgency; I21.4 Non-ST elevation (NSTEMI) myocardial infarction; I25.2 Old myocardial infarction; I48.0 Paroxysmal atrial fibrillation; I25.810 Atherosclerosis of coronary artery bypass graft(s) without angina pectoris; G62.9 Polyneuropathy, unspecified; F32.9 Major depressive disorder, single episode, unspecified; R32 Unspecified urinary incontinence; J30.9 Allergic rhinitis, unspecified; R55 Syncope and collapse; M19.011 Primary osteoarthritis, right shoulder; I25.119 Atherosclerotic heart disease of native coronary artery with unspecified angina pectoris; M19.012 Primary osteoarthritis, left shoulder; R90.82 White matter disease, unspecified; K59.00 Constipation, unspecified; M79.7 Fibromyalgia; I49.5 Sick sinus syndrome; J44.9 Chronic obstructive pulmonary disease, unspecified; W18.11XA Fall from or off toilet without subsequent striking against object, initial encounter; Y93.89 Activity, other specified; Y92.89 Other specified places as the place of occurrence of the external cause; Y99.8 Other external cause status; Z96.642 Presence of left artificial hip joint; Z91.81 History of falling; Z86.73 Personal history of transient ischemic attack (TIA), and cerebral infarction without residual deficits; Z82.49 Family history of ischemic heart disease and other diseases of the circulatory system; Z90.710 Acquired absence of both cervix and uterus; Z79.01 Long term (current) use of anticoagulants; Z79.02 Long term (current) use of antithrombotics/antiplatelets; Z95.5 Presence of coronary angioplasty implant and graft; Z98.890 Other specified postprocedural states
CPT/HCPCS: 36415; 70450; 70486; 71045; 72125; 72170; 80048; 84443; 85025; 85610; 85730; 86850; 86900; 86901; 93005; 94640; 94760; 96361; 96374; 96375; 96376; 97162; 99285; G0378; J0360; J2270; J2405; J3010; J7030; J7613; G0379

== ENCOUNTER → 2021-02-03 | Outpatient (CLI) | payer MEDICARE ==
[~2021-02-03] MED LIST changes: -LEVO250T7 PO; +LEVO250T8 PO; +LOSA-73 PO; +MONT-38 PO; -MONT10TA20 PO; +SERT50TA PO
--- NOTE | 2021-02-05 09:02 | CARD ---
MR#: [id number] Date of Study: 02/03/2021 Ordering Physician: TG BLANKENSHIP, Referring Physician: TG BLANKENSHIP, Tech: Florence Kendalltrellvalerie [facility] APPROVED REPORT EXAM: Two-dimensional and M-mode echocardiogram with Doppler and color Doppler. Other Information Quality : GoodHR: 79bpm Rhythm : Pacemaker INDICATION Cardiac Disease: CAD Surgery/Intervention Pacemaker: Date: 2019 CABG: Date: 2001 Site: [place] RISK FACTORS Hypertension Hyperlipidemia 2D DIMENSIONS RVDd3.5 (2.9-3.5cm)Left Atrium(2D)3.7 (1.6-4.0cm) IVSd1.0 (0.7-1.1cm)Aortic Root(2D)2.9 (2.0-3.7cm) LVDd4.3 (3.9-5.9cm)LVOT Diameter1.9 (1.8-2.4cm) PWd1.0 (0.7-1.1cm)LVDs3.2 (2.5-4.0cm) FS (%) 25.0 %SV40.7 ml LVEF(%)49.8 (>50%) Aortic Valve AoV Peak Ramesh.143.6cm/sAoV VTI30.2cm AO Peak GR.8.2mmHgLVOT Peak Ramesh.88.5cm/s LVOT VTI 19.17cmAO Mean GR.5mmHg ANAYELI (VMAX)1.43iq9JXA (VTI)1.76cm2 Mitral Valve MV E Lkxxdtqb31.3cm/sMV DECEL [id number] MV A Awroykza62.6cm/sMV E Mean Gr.2mmHg MV DNM43knG/A Ratio1.1 MVA (PHT)4.05cm2 TDI E/Lateral E'10.4E/Medial E'14.9 Pulmonary Valve PV Peak Fuutaqdc39.6cm/sPV Peak Grad.3mmHg Tricuspid Valve TR P. Aobviwlv670mg/sRAP LNNRCQFZ3fkKc TR Peak Gr.00uwIoHVGJ43mpUr Pulmonary Vein S1 Avzogdhq48.7cm/sD2 Tvcdeluc39.8cm/s LEFT VENTRICLE The left ventricle is normal size. There is normal left ventricular wall thickness. The left ventricu lar systolic function is normal and the ejection fraction is within normal range. The Ejection Fracti on is 50-55%. Septal motion suggestive of prior CABG. Otherwise, grossly normal wall motion. Transmit ral Doppler flow pattern is Grade II-pseudonormal filling dynamics. RIGHT VENTRICLE The right ventricle is normal size. There is normal right ventricular wall thickness. The right ventr icular systolic function is normal. There is a pacing lead in the RA/RV. ATRIA The left atrium is moderately dilated. The right atrium size is normal. The interatrial septum is int act with no evidence for an atrial septal defect or patent foramen ovale as noted on 2-D or Doppler i maging. AORTIC VALVE The aortic valve is normal in structure and function. Doppler and Color Flow revealed trace aortic re gurgitation. There is no significant aortic valvular stenosis. Calculated aortic valve area is 1.58 c m2 with maximum pressure gradient of 10 mmHg and mean pressure gradient of 5 mmHg. MITRAL VALVE The mitral valve is normal in structure and function. There is no evidence of mitral valve prolapse. There is no mitral valve stenosis. Doppler and Color Flow revealed no mitral valve regurgitation note d. TRICUSPID VALVE The tricuspid valve is normal in structure and function. Doppler and Color Flow revealed trace tricus pid regurgitation with an estimated PAP of 31 mmHg. There is no tricuspid valve stenosis. PULMONIC VALVE The pulmonic valve is not well visualized. Doppler and Color Flow revealed trace pulmonic valvular re gurgitation. There is no pulmonic valvular stenosis. GREAT VESSELS The aortic root is normal in size. The IVC is normal in size and collapses >50% with inspiration. PERICARDIAL EFFUSION There is no evidence of significant pericardial effusion. Critical Notification Critical Value: No <Conclusion> The left ventricular systolic function is normal and the ejection fraction is within normal range. Th e Ejection Fraction is 50-55%. Septal motion suggestive of prior CABG. Otherwise, grossly normal wall motion. There is a pacing lead in the RA/RV. Signed by : Tg Blankenship, Electronically Approved : 02/05/2021 09:02:00
== END ==
LOC: ECHO 13:35
PROVIDERS: ATTEND Internal Medicine Cardiovascular Disease
DX: I25.10 Atherosclerotic heart disease of native coronary artery without angina pectoris (principal); I10 Essential (primary) hypertension; E78.5 Hyperlipidemia, unspecified; Z95.0 Presence of cardiac pacemaker
CPT/HCPCS: 93306

== ENCOUNTER → 2021-02-05 | Outpatient (CLI) | payer MEDICARE ==
--- NOTE | 2021-02-05 12:54 | PDOC ---
Progress Note - Pain Clinic Date of Service: DOS: DATE: 02/05/21 TIME: 12:50 Diagnosis: Dx: Lumbar radiculopathy with lumbar degenerative disease lumbar spinal stenosis Cervical radiculopathy with cervical degenerative disc disease Left sacroiliitis History or Present Illness: HPI: 85-year-old female returns for follow-up status post left L4-5 transforaminal injection on November 18, 2020. Patient reports she did fairly well with this about 75% improvement for about 4 weeks following the injection patient reports pain is returning now in the low back and left lower extremity mostly the posterior gluteus posterior lateral thigh low anterior thigh anteromedial thigh medial lower leg into the foot. Patient reports initially though she is doing much better with distance walking doing household activities travel with greater ease and comfort and sleeping better at night patient reports over the past week or so the pain began to return in the low back and left leg describes radiating constant can be severe unbearable on and off in intensity sharp shooting rate is a nine on a scale of ten at its worst nine on average and seven at its least and is a nine today patient reports is beginning awaken her from sleep a bit now but not every night. Patient still doing well with her hydrocodone which she has been taking for extended period time without any side effects reports he takes is about every 5 hours instead of six but is still getting by with the medication without side effects. Patient reports no new motor or sensory deficits no bowel or bladder incontinence. Physical Exam: VS: Blood pressure is 140/69 pulse seventy-nine respirations twenty temperature 98.3 F weight is 138 pounds PE: PHYSICAL EXAMINATION: GENERAL: The patient is awake, alert, oriented, appropriate, very pleasant in demeanor HEENT: Shows normocephalic, atraumatic. Extraocular movements are intact and symmetrical. Oral cavity: Mucous membranes moist and pink. NECK: Shows anterior throat supple without palpable lymphadenopathy noted. Swallow reflex symmetrical. CHEST: Shows normal on inspection. Breath sounds are clear bilaterally. HEART: Shows S1, S2 clear. No murmurs auscultated. ABDOMEN: Soft, nontender, nondistended, obese. No palpable organomegaly is noted. BACK: Shows spine grossly in the midline. Normal-appearing cervical lordotic curvature. There is increased thoracic kyphosis, some flattening of the lumbar lordotic curvature. Lumbar paraspinous muscles show symmetrical on inspection, on palpation shows some moderate tenderness diffusely throughout the upper, middle and lower distribution of the paraspinous muscles, but without specific trigger points, without radiation of pain. The patient has good rotational motion of the lumbar spine, both laterally as well as extension and flexion without significant difficulty. EXTREMITIES: Lower extremities show deep tendon reflexes one in the patellar and tendo calcaneus tendons. Motor exam is full on a scale of 5 with right dorsiflexion, extension, quadriceps and hamstring flexion and four/5 on the left. Peripheral pulses are 1+ posterior tibial. No peripheral edema is noted bilaterally. Lower extremities are warm and dry to touch, equal in color and appearance. SKIN: Shows warm and dry, good turgor. No edema. No sores, rashes or bruising throughout. Procedure: Procedure: Options discussed with patient. Patient chart reviews her current medication regimen updated current review of systems updated today as well. We will have patient hold her Eliquis for 3 days prior to return as the pain is returning in the low back and left lower extremity for L for five transforaminal epidural steroid injection with fluoroscopic guidance. Patient medication will be refilled is due 21 February we will have her come in prior to that for medication refill potentially at that time as well. Medication Injected: Med Injected: None Condition at Discharge: Condition at Discharge: Condition at discharge is stable. JAK RO MD Feb 05, 2021 12:54
== END | disposition home or self-care (01) ==
LOC: PNCL 12:17
PROVIDERS: ATTEND Anesthesiology
DX: M51.16 Intervertebral disc disorders with radiculopathy, lumbar region (principal); M48.061 Spinal stenosis, lumbar region without neurogenic claudication; M50.10 Cervical disc disorder with radiculopathy, unspecified cervical region; M46.1 Sacroiliitis, not elsewhere classified; I25.10 Atherosclerotic heart disease of native coronary artery without angina pectoris; I10 Essential (primary) hypertension; J44.9 Chronic obstructive pulmonary disease, unspecified; K21.9 Gastro-esophageal reflux disease without esophagitis; M19.90 Unspecified osteoarthritis, unspecified site; F41.9 Anxiety disorder, unspecified; F32.9 Major depressive disorder, single episode, unspecified; Z79.899 Other long term (current) drug therapy; Z90.710 Acquired absence of both cervix and uterus; Z98.890 Other specified postprocedural states; Z88.0 Allergy status to penicillin; Z88.1 Allergy status to other antibiotic agents; Z88.8 Allergy status to other drugs, medicaments and biological substances; Z80.3 Family history of malignant neoplasm of breast; Z82.49 Family history of ischemic heart disease and other diseases of the circulatory system
CPT/HCPCS: 99212; G0463

== ENCOUNTER → 2021-02-22 | Outpatient (CLI) | payer MEDICARE ==
[~2021-02-22] MED LIST changes: +BUPIVACAINE MPF 0.25% 10 ML VIAL. ONE; +IOHEXOL 180 MG/ML 10 ML VIAL. ONE; +methylPREDNISolone ACETATE 80 MG/ML VIAL. ONE
--- NOTE | 2021-02-22 14:42 | PDOC ---
Progress Note - Pain Clinic Date of Service: DOS: DATE: 02/22/21 TIME: 14:36 Diagnosis: Dx: Lumbar radiculopathy with lumbar degenerative disc disease and lumbar spinal stenosis Cervical radiculopathy with cervical degenerative disc disease Left sacroiliitis History or Present Illness: HPI: 85-year-old female returns for follow-up status post medication management with hydrocodone with pain in the low back and left lower extremity patient reports is getting worse with time posterior gluteus lateral thigh anterior thigh medial thigh medial lower leg anterior foot as well as the posterior calf patient reports a 9 and scale 10 at all times worst least and average over the past week it is a 9 on scale 10 today patient reports is worse with walking standing change positions putting all her weight on her left leg describes as sharp and shooting in the leg aching and stabbing in the back radiating the left leg can be severe and unbearable with weightbearing and movement patient reports it is generally better with sitting or laying down she does not generally have awaken her from sleep at night but when she puts weight on it at all it is excruciating. Patient reports no loss of motor function but she is unstable with fatigability in the left leg, patient reports no bowel or bladder incontinence. Patient has held her Plavix for 7 days now and this was confirmed with her daughter as well. Physical Exam: VS: Blood pressure is 140/99 pulse 84 respirations 18 temperature 98.7 F height is 4 feet 11 inches weight is 136 pounds PE: PHYSICAL EXAMINATION: GENERAL: The patient is awake, alert, oriented, appropriate, very pleasant in demeanor HEENT: Shows normocephalic, atraumatic. Extraocular movements are intact and symmetrical. NECK: Shows anterior throat supple without palpable lymphadenopathy noted. Swallow reflex symmetrical. CHEST: Shows normal on inspection. Breath sounds are clear bilaterally, distant but no rales or rhonchi. HEART: Shows S1, S2 clear. No murmurs auscultated. ABDOMEN: Soft, nontender, nondistended, obese. No palpable organomegaly is noted. BACK: Shows spine grossly in the midline. Normal-appearing cervical lordotic curvature. There is moderately increased thoracic kyphosis, some flattening of the lumbar lordotic curvature. Lumbar paraspinous muscles show symmetrical on inspection, on palpation shows some moderate tenderness diffusely throughout the upper, middle and lower distribution of the paraspinous muscles without specific trigger points, without radiation of pain. The patient has good rotational motion of the lumbar spine, both laterally as well as extension and flexion without significant difficulty. EXTREMITIES: Lower extremities show deep tendon reflexes 1 in the patellar and tendo calcaneus tendons. Motor exam is 4 on a scale of 5 with right dorsiflexion, extension, quadriceps and hamstring flexion and 4/5 on the left. Peripheral pulses are 1+ posterior tibial. No peripheral edema is noted bilaterally. Lower extremities are warm and dry. SKIN: Shows warm and dry, good turgor. No edema. No sores, rashes or bruising throughout. Procedure: Procedure: Options discussed with the patient. Patient's old chart was reviewed as her current medication regimen updated current review of systems updated today as well. We will proceed with a left L4-5 transforaminal lumbar steroid injection with fluoroscopic guidance. Risks were discussed including but not limited to: Bleeding, infection, possibility of epidural hematoma and subsequent neurological compromise, dural puncture, headaches, spinal cord and/or nerve damage, potential injection of vertebral artery at that level and permanent ischemic damage, side effects of steroid medication, and poor results regarding pain control. Patient understands and wished to proceed. Patient will return to clinic in approximate 4 weeks for follow-up, was counseled as return appointment, activity level, and side effect to be aware of. Patient also will have E scribed hydrocodone 10 mg up to 3 times daily. Patient given instructions well side effects aware with the medication. Patient will restart her Plavix tomorrow February 23, 2021. Medication Injected: Med Injected: Under sterile prep and drape patient was placed in prone position using C-arm fluoroscopic guidance to identify the L4-5 distribution oblique and slightly cephalad angled C arm. The left L4-5 target was identified and using lidocaine for anesthetizing the skin 22-gauge Best pencil point needle was then used to enter the skin and into the subcutaneous tissues using direct C-arm fluoroscopic guidance to guide the needle into the transforaminal aspect of the left L4-5 vertebrae this was confirmed with lateral views showing the needle tip in the superior aspect of the paravertebral region. Aspiration was noted to be negative, -1.5 cc of contrast was then injected with good spread both medially into the epidural space as well as laterally along the nerve root without uptake and without distribution and uptake on digital subtraction. At this time, a solution containing 2 cc of 0.25% bupivacaine and 80 mg of Depo-Medrol was then injected. Needle was withdrawn and sterile bandage was applied. Patient tolerated procedure well had no immediate complications Condition at Discharge: Condition at Discharge: Condition at discharge is stable, patient tolerated the procedure well and had no complications. JAK RO MD Feb 22, 2021 14:42
--- NOTE | 2021-02-22 14:42 | PDOC4 ---
Procedure Note: ICD 10 Code: ICD 10 Code: M54.16 M4 8.06 M51.36 Procedure Note: Patient was consented for left L4-5 transforaminal epidural steroid injection with fluoroscopic guidance. Risks were discussed including but not limited to: Bleeding, infection, possibility of epidural hematoma and subsequent neurologica l compromise, dural puncture, headaches, spinal cord and/or nerve damage, potential injection of the vertebral artery at that level and permanent ischemic damage, side effects of steroid medication, and poor results regarding pain control. Patient understands and wished to proceed. Under sterile prep and drape patient was placed in prone position using C-arm fluoroscopic guidance to identify the L4-5 distribution oblique and slightly cephalad angled C arm. The left L4-5 target was identified and using lidocaine for anesthetizing the skin 22-gauge Best pencil point needle was then used to enter the skin and into the subcutaneous tissues using direct C-arm fluoroscopic guidance to guide the needle into the transforaminal aspect of the left L4-5 vertebrae this was confirmed with lateral views showing the needle tip in the superior aspect of the paravertebral region. Aspiration was noted to be negative, -1.5 cc of contrast was then injected with good spread both medially into the epidural space as well as laterally along the nerve root without uptake and without distribution and uptake on digital subtraction. At this time, a solution containing 2 cc of 0.25% bupivacaine and 80 mg of Depo-Medrol was then injected. Needle was withdrawn and sterile bandage was applied. Patient tolerated procedure well had no immediate complications JAK RO MD Feb 22, 2021 14:42
== END | disposition home or self-care (01) ==
LOC: PNCL 13:21
PROVIDERS: ATTEND Anesthesiology
DX: M51.16 Intervertebral disc disorders with radiculopathy, lumbar region (principal); M48.061 Spinal stenosis, lumbar region without neurogenic claudication; M50.10 Cervical disc disorder with radiculopathy, unspecified cervical region; M46.1 Sacroiliitis, not elsewhere classified; I25.10 Atherosclerotic heart disease of native coronary artery without angina pectoris; I10 Essential (primary) hypertension; J44.9 Chronic obstructive pulmonary disease, unspecified; K21.9 Gastro-esophageal reflux disease without esophagitis; M19.90 Unspecified osteoarthritis, unspecified site; M81.0 Age-related osteoporosis without current pathological fracture; F41.9 Anxiety disorder, unspecified; F32.9 Major depressive disorder, single episode, unspecified; Z90.710 Acquired absence of both cervix and uterus; Z98.890 Other specified postprocedural states; Z79.899 Other long term (current) drug therapy; Z82.49 Family history of ischemic heart disease and other diseases of the circulatory system; Z80.3 Family history of malignant neoplasm of breast; Z88.0 Allergy status to penicillin; Z88.1 Allergy status to other antibiotic agents; Z88.2 Allergy status to sulfonamides; Z88.8 Allergy status to other drugs, medicaments and biological substances
CPT/HCPCS: 64483; J1040; J3490; Q9965

== ENCOUNTER → 2021-03-23 | Outpatient (CLI) | payer MEDICARE ==
[~2021-03-23] MED LIST changes: -BUPIVACAINE MPF 0.25% 10 ML VIAL. ONE; -IOHEXOL 180 MG/ML 10 ML VIAL. ONE; +methylPREDNISolone ACETATE 40 MG/ML VIAL. ONE; -methylPREDNISolone ACETATE 80 MG/ML VIAL. ONE
--- NOTE | 2021-03-23 14:59 | PDOC ---
Progress Note - Pain Clinic Date of Service: DOS: DATE: 03/23/21 TIME: 14:54 Diagnosis: Dx: Lumbar radiculopathy with lumbar degenerative disease and lumbar spinal stenosis Cervical radiculopathy with cervical degenerative disc disease Left sacroiliitis History or Present Illness: HPI: 85-year-old female returns for follow-up status post left L4-5 transforaminal lumbar injection patient reports that 75% improvement in the left lower extremity for several weeks following the injection almost 1 month patient reports pain is returning over the past few days in the low back and left lower extremity posterior gluteus posterior lateral thigh lateral anterior thigh anteromedial thigh medial lower leg and medial foot on the left side only. Patient reports is an 8 on scale 10 is worse over the past week 8 on average 6 its least is an 8 today patient which is sharp and shooting severe and unbearable at times with walking standing but for the first few weeks of doing much better increased distance walking doing household activities travel with greater ease and comfort sleeping much better at night patient reports it does not awaken her from sleep currently. Patient reports no new motor or sensory deficits, no bowel or bladder incontinence. We discussed patient's urinalysis with her as it showed some oxymorphone and metabolites of oxycodone patient does not have any of these on her K tracks report also is been prescribed hydrocodone which she reports not working very well for her currently. We discussed these options and in light of the recent urinalysis we will repeat urinalysis today for some clarification hopefully. Also discussing her medications were changed from hydrocodone to tramadol as she is tolerated this well with good pain relief in the past. Physical Exam: VS: Blood pressure is 148/75 pulse 75 respirations 18 temperature 98.3 F weight for height is 4 foot 11 inches weight is 137 pounds PE: PHYSICAL EXAMINATION: GENERAL: The patient is awake, alert, oriented, appropriate, very pleasant in demeanor HEENT: Shows normocephalic, atraumatic. Extraocular movements are intact and symmetrical. Oral cavity: Mucous membranes moist and pink. NECK: Shows anterior throat supple without palpable lymphadenopathy noted. Swallow reflex symmetrical. CHEST: Shows normal on inspection. Breath sounds are clear bilaterally. HEART: Shows S1, S2 clear. No murmurs auscultated. ABDOMEN: Soft, nontender, nondistended. No palpable organomegaly is noted. No rebound or guarding demonstrated. BACK: Shows spine grossly in the midline. Normal-appearing cervical lordotic curvature. There is increased thoracic kyphosis, some flattening of the lumbar lordotic curvature. Lumbar paraspinous muscles show symmetrical on inspection, on palpation shows some moderate tenderness diffusely throughout the upper, middle and lower distribution of the paraspinous muscles without specific trigger points, without radiation of pain. The patient has good rotational motion of the lumbar spine, both laterally as well as extension and flexion without significant difficulty. EXTREMITIES: Lower extremities show deep tendon reflexes 1+ in the patellar and tendo calcaneus tendons. Motor exam is 4 on a scale of 5 with right dorsiflexion, extension, quadriceps and hamstring flexion and 4/5 on the left. Peripheral pulses are 1+ posterior tibial. No peripheral edema is noted bilaterally. Lower extremities are warm and dry to touch, equal in color and appearance. SKIN: Shows warm and dry, good turgor. No edema. No sores, rashes or bruising throughout. Procedure: Procedure: Options were discussed with patient. Patient's old chart was reviewed as her current medication regimen updated current review of systems updated today as well. We will change patient's hydrocodone to tramadol patient was given instructions well side effects aware with the medication she will take 50 mg up to 3 times daily as needed for pain. Also, patient has radicular pain returning in an L4-5 dermatomal distribution on the left side we will preauthorize patient for an additional lumbar transforaminal injection at the L4-5 level with flu oroscopic guidance. She will continue with stretching think exercises as well as oral analgesics as currently. Patient also will hold Plavix 7 days prior to her return for procedure. Medication Injected: Med Injected: None Condition at Discharge: Condition at Discharge: Condition at discharge is stable. JAK RO MD Mar 23, 2021 14:59
== END | disposition home or self-care (01) ==
LOC: PNCL 14:03
PROVIDERS: ATTEND Anesthesiology
DX: M51.16 Intervertebral disc disorders with radiculopathy, lumbar region (principal); M48.061 Spinal stenosis, lumbar region without neurogenic claudication; M50.10 Cervical disc disorder with radiculopathy, unspecified cervical region; M46.1 Sacroiliitis, not elsewhere classified; I25.10 Atherosclerotic heart disease of native coronary artery without angina pectoris; I10 Essential (primary) hypertension; J44.9 Chronic obstructive pulmonary disease, unspecified; K21.9 Gastro-esophageal reflux disease without esophagitis; M19.90 Unspecified osteoarthritis, unspecified site; F41.9 Anxiety disorder, unspecified; F32.9 Major depressive disorder, single episode, unspecified; Z79.899 Other long term (current) drug therapy; Z90.710 Acquired absence of both cervix and uterus; Z98.890 Other specified postprocedural states; Z88.0 Allergy status to penicillin; Z88.1 Allergy status to other antibiotic agents; Z88.2 Allergy status to sulfonamides; Z88.8 Allergy status to other drugs, medicaments and biological substances
CPT/HCPCS: 99212; J1030; G0463

== ENCOUNTER → 2021-04-08 | Outpatient (CLI) | payer MEDICARE, MEDICAID ==
[~2021-04-08] MED LIST changes: +BUPIVACAINE MPF 0.25% 10 ML VIAL. ONE; +IOHEXOL 180 MG/ML 10 ML VIAL. ONE; -methylPREDNISolone ACETATE 40 MG/ML VIAL. ONE; +methylPREDNISolone ACETATE 80 MG/ML VIAL. ONE
--- NOTE | 2021-04-08 15:00 | PDOC ---
Progress Note - Pain Clinic Date of Service: DOS: DATE: 04/08/21 TIME: 14:56 Diagnosis: Dx: Lumbar radiculopathy with lumbar degenerative disease lumbar spinal stenosis Cervical radiculopathy with cervical degenerative disc disease Left sacroiliitis History or Present Illness: HPI: 85-year-old female returns in follow-up status post lumbar transforaminal injection most recently February 22, 2021 patient did very well but 75% improvement pain now returning in the low back and left lower extremity, radiating posterior gluteus lateral thigh anterior thigh medial thigh medial lower leg as well as in the posterior thigh and calf patient reports is a 9 on scale 10 at all times worst least and average is a 9 today patient reports is radiating constant severe unbearable at times with weightbearing worse with walking standing changing positions with significant fatigability the left leg but no actual motor loss patient reports no bowel or bladder incontinence patient is using a walker to ambulate and has it with her today. Patient reports is waking her from sleep as well also complains of arthritic pain in the left hip patient is having an evaluation with an orthopedic surgeon in approximately 1week. Patient reports no deficits again but significant fatigability depending on the walker with ambulating in any capacity. Patient also taking tramadol currently reports no significant decrease in pain with the medication she was previously taking hydrocodone and we will revert back to the hydrocodone 10 mg up to 3 times daily. Physical Exam: VS: Blood pressure is 142/95 pulse 79 respirations 16 temperature 98.3 F weight is 140 pounds PE: PHYSICAL EXAMINATION: GENERAL: The patient is awake, alert, oriented, appropriate, very pleasant in demeanor HEENT: Shows normocephalic, atraumatic. Extraocular movements are intact and symmetrical. Oral cavity: Mucous membranes moist and pink. NECK: Shows anterior throat supple without palpable lymphadenopathy noted. Swallow reflex symmetrical. CHEST: Shows normal on inspection. Breath sounds are clear bilaterally, no rales or rhonchi. HEART: Shows S1, S2 clear. No murmurs auscultated. ABDOMEN: Soft, nontender, nondistended. No palpable organomegaly is noted. BACK: Shows spine grossly in the midline. Normal-appearing cervical lordotic curvature. There is increased thoracic kyphosis, some flattening of the lumbar lordotic curvature. Lumbar paraspinous muscles show symmetrical on inspection, on palpation shows some moderate tenderness diffusely throughout the upper, middle and lower distribution of the paraspinous muscles without specific trigger points, without radiation of pain. The patient has good rotational motion of the lumbar spine, both laterally as well as extension and flexion wit hout significant difficulty. EXTREMITIES: Lower extremities show deep tendon reflexes 1+ in the patellar and tendo calcaneus tendons. Motor exam is 4 on a scale of 5 with right dorsiflexion, extension, quadriceps and hamstring flexion and 4/5 on the left. Peripheral pulses are 1+ posterior tibial. No peripheral edema is noted bilaterally. Lower extremities are warm and dry to touch, equal in color and appearance. SKIN: Shows warm and dry, good turgor. No edema. No sores, rashes or bruising throughout. Procedure: Procedure: Options were discussed with patient. Patient's old chart was viewed as her current medication regimen updated current review of systems updated today as well. We will proceed with a left L4-5 transforaminal epidural injection today with fluoroscopic guidance risks were discussed including but not limited to: Bleeding, infection, possibility of epidural hematoma and subsequent neurological compromise, dural puncture, headaches, spinal cord and/or nerve damage, potential injection of the vertebral arteries at level and permanent ischemic damage, side effects of steroid medication, and poor results regarding pain control. Patient understands and wished to proceed. Patient return to clinic in approximate 4 weeks for follow-up, was counseled as to return appointment, Activella, and side effects beware. We will also refill patient's hydrocodone 10 mg 3 times daily for 1 month supply. Patient was given instructions well side effects aware with the medica tion. Medication Injected: Med Injected: Under sterile prep and drape patient was placed in prone position using C-arm fluoroscopic guidance to identify the L4-5 distribution oblique and slightly cephalad angled C arm. The left L4-5 target was identified and using lidocaine for anesthetizing the skin 22-gauge Best pencil point needle was then used to enter the skin and into the subcutaneous tissues using direct C-arm fluoroscopic guidance to guide the needle into the transforaminal aspect of the left L4-5 vertebrae this was confirmed with lateral views showing the needle tip in the superior aspect of the paravertebral region. Aspiration was noted to be negative, -1.5 cc of contrast was then injected with good spread both medially into the epidural space as well as laterally along the nerve root without uptake and without distribution and uptake on digital subtraction. At this time, a solution containing 2 cc of 0.25% bupivacaine and 80 mg of Depo-Medrol was then injected. Needle was withdrawn and sterile bandage was applied. Patient tolerated procedure well had no immediate complications Condition at Discharge: Condition at Discharge: Condition at discharge stable, patient tolerated the procedure well and had no complications. JAK RO MD Apr 08, 2021 15:00
--- NOTE | 2021-04-08 15:01 | PDOC4 ---
Procedure Note: ICD 10 Code: ICD 10 Code: M54.16 M51.36 M4 8.06 Procedure Note: Patient was consented for left L4-5 transforaminal lumbar epidural steroid injection with fluoroscopic guidance. Risks were discussed including but not limited to: Bleeding, infection, possibility of epidural hematoma and subsequent neurological compromise, dural puncture, headaches, spinal cord and/or nerve damage, potential injection of vertebral artery at that level and permanent ischemic damage, side effects of steroid medication, and poor results regarding pain control. Patient understands and wished to proceed. Under sterile prep and drape patient was placed in prone position using C-arm fluoroscopic guidance to identify the L4-5 distribution oblique and slightly cephalad angled C arm. The left L4-5 target was identified and using lidocaine for anesthetizing the skin 22-gauge Best pencil point needle was then used to enter the skin and into the subcutaneous tissues using direct C-arm fluoroscopic guidance to guide the needle into the transforaminal aspect of the left L4-5 vertebrae this was confirmed with lateral views showing the needle tip in the superior aspect of the paravertebral region. Aspiration was noted to be negative, -1.5 cc of contrast was then injected with good spread both medially into the epidural space as well as laterally along the nerve root without uptake and without distribution and uptake on digital subtraction. At this time, a so lution containing 2 cc of 0.25% bupivacaine and 80 mg of Depo-Medrol was then injected. Needle was withdrawn and sterile bandage was applied. Patient tolerated procedure well had no immediate complications JAK RO MD Apr 08, 2021 15:01
== END | disposition home or self-care (01) ==
LOC: PNCL 13:59
PROVIDERS: ATTEND Anesthesiology
DX: M51.16 Intervertebral disc disorders with radiculopathy, lumbar region (principal); M48.061 Spinal stenosis, lumbar region without neurogenic claudication; M50.10 Cervical disc disorder with radiculopathy, unspecified cervical region; M46.1 Sacroiliitis, not elsewhere classified; I25.10 Atherosclerotic heart disease of native coronary artery without angina pectoris; I10 Essential (primary) hypertension; J44.9 Chronic obstructive pulmonary disease, unspecified; K21.9 Gastro-esophageal reflux disease without esophagitis; M19.90 Unspecified osteoarthritis, unspecified site; M81.0 Age-related osteoporosis without current pathological fracture; F41.9 Anxiety disorder, unspecified; F32.9 Major depressive disorder, single episode, unspecified; Z90.710 Acquired absence of both cervix and uterus; Z98.890 Other specified postprocedural states; Z79.899 Other long term (current) drug therapy; Z88.0 Allergy status to penicillin; Z88.1 Allergy status to other antibiotic agents; Z88.8 Allergy status to other drugs, medicaments and biological substances; Z88.2 Allergy status to sulfonamides
CPT/HCPCS: 64483; J1040; J3490; Q9965

== ENCOUNTER → 2021-05-10 | Outpatient (CLI) | payer MEDICARE, MEDICAID ==
[~2021-05-10] MED LIST changes: -BUPIVACAINE MPF 0.25% 10 ML VIAL. ONE; -IOHEXOL 180 MG/ML 10 ML VIAL. ONE; -methylPREDNISolone ACETATE 80 MG/ML VIAL. ONE
--- NOTE | 2021-05-10 13:02 | PDOC ---
Progress Note - Pain Clinic Date of Service: DOS: DATE: 05/10/21 TIME: 13:00 Diagnosis: Dx: Lumbar radiculopathy with lumbar degenerative disease and lumbar spinal stenosis Cervical radiculopathy with cervical degenerative disc disease Left sacroiliitis History or Present Illness: HPI: Telemedicine visit today with patient's identity verified with full date of as well as full name, total time spent 11 minutes 85-year-old female via telemedicine visit today requesting refill of hydrocodone. Patient reports she is doing very well with the medication without any side effects still having pain in the low back and bilateral lower extremities especially on the left side but better after last injection although patient reports is somewhat sore on the low back when she sitting on her couch otherwise does fairly well with walking and standing but the pain is still present and patient estimates the medication reduction by about 70 to 75% improvement and again without side effects. Patient has had appropriate K tracks reporting as well as appropriate urinalyses to date as well. We will chronically prescribe patient's hydrocodone 10 mg/325 #90 take up to 3 times daily. Patient was given instructions well side effects beware with medication and will follow-up in approximate 30 days as scheduled. Physical Exam: PE: JAK RO MD May 10, 2021 13:02
== END | disposition home or self-care (01) ==
LOC: PNCL 12:27
PROVIDERS: ATTEND Anesthesiology
DX: M51.16 Intervertebral disc disorders with radiculopathy, lumbar region (principal); M48.061 Spinal stenosis, lumbar region without neurogenic claudication; M50.10 Cervical disc disorder with radiculopathy, unspecified cervical region; M46.1 Sacroiliitis, not elsewhere classified; I25.10 Atherosclerotic heart disease of native coronary artery without angina pectoris; I10 Essential (primary) hypertension; J44.9 Chronic obstructive pulmonary disease, unspecified; K21.9 Gastro-esophageal reflux disease without esophagitis; M19.90 Unspecified osteoarthritis, unspecified site; F41.9 Anxiety disorder, unspecified; F32.9 Major depressive disorder, single episode, unspecified; M81.0 Age-related osteoporosis without current pathological fracture; Z90.710 Acquired absence of both cervix and uterus; Z98.890 Other specified postprocedural states; Z79.899 Other long term (current) drug therapy; Z88.0 Allergy status to penicillin; Z88.1 Allergy status to other antibiotic agents; Z88.8 Allergy status to other drugs, medicaments and biological substances
CPT/HCPCS: 99212; G0463

== ENCOUNTER → 2021-05-26 | Outpatient (CLI) | payer OTHER, MEDICAID ==
[~2021-05-26] MED LIST changes: +ACET500T68 PO; +ALBU2.5V14 NEB; +BIOT10004 PO; +DICL20GE TP; +DOXY-96 PO; +FERR325T14 PO; +FEXO180T81 PO; +PEG15DRO14 EACHEYE; +SODI50SP NS; +TIOT18CA IH
[2021-05-26 14:39] LABS: BASO % 1 % (0-3); EOS # 0.1 x10^3/uL (0.0-0.7); EOS % 2 % (0-3); HEMATOCRIT 35.8 % (36.0-47.0); LYMPH # 1.5 x10^3/uL (1.0-4.8); LYMPH % 33 % (24-48); MEAN CORPUSCULAR HEMOGLOBIN 31 pg (25-35); MEAN CORPUSCULAR HGB CONC 33 g/dL (31-37); MEAN CORPUSCULAR VOLUME 93 fL (79-100); MONO # 0.5 x10^3/uL (0.0-1.1); MONO % 10 % (0-9); NEUT # 2.4 x10^3/uL (1.8-7.7); NEUT % 54 % (31-73); PLATELET COUNT 160 x10^3/uL (140-400); RED BLOOD COUNT 3.87 x10^6/uL (3.50-5.40); RED CELL DISTRIBUTION WIDTH 13.9 % (11.5-14.5); WHITE BLOOD COUNT 4.5 x10^3/uL (4.0-11.0)
[2021-05-26 14:49] LABS: PROTHROMBIN TIME PATIENT 12.1 SEC (11.7-14.0)
[2021-05-26 14:50] LABS: ALBUMIN 3.6 g/dL (3.4-5.0); CALCIUM 9.1 mg/dL (8.5-10.1); CREATININE 0.7 mg/dL (0.6-1.0); GFR 79.7; POTASSIUM 4.4 mmol/L (3.5-5.1)
== END ==
LOC: SURGPAT 13:38
PROVIDERS: ATTEND Orthopaedic Surgery
DX: Z01.812 Encounter for preprocedural laboratory examination (principal); M16.11 Unilateral primary osteoarthritis, right hip; Z79.899 Other long term (current) drug therapy; Z79.01 Long term (current) use of anticoagulants
CPT/HCPCS: 36415; 80048; 82040; 82306; 83036; 85025; 85610; 85651; 85730; 87641

== ENCOUNTER → 2021-06-08 | Outpatient (CLI) | payer OTHER, MEDICAID ==
[~2021-06-08] MED LIST changes: -ACET500T68 PO; -DICL20GE TP; -DOXY-96 PO; -FEXO180T81 PO; -PEG15DRO14 EACHEYE; -SODI50SP NS
--- NOTE | 2021-06-08 13:47 | PDOC ---
Progress Note - Pain Clinic Date of Service: DOS: DATE: 06/08/21 TIME: 13:45 Diagnosis: Dx: Lumbar radiculopathy lumbar degenerative disease lumbar spinal stenosis Cervical radiculopathy cervical degenerative disease Left sacroiliitis History or Present Illness: HPI: Telemedicine visit today with patient with ID verified with full name as well as full date of , total time spent 11 minutes telephone visit with voice only. 85-year-old female via telemedicine visit today with request for refill of hydrocodone. Patient reports has been doing very well with this and has been on a very stable regimen with about a 75% improvement with the medication alone without any specific side effects. Patient reports she has some good days and bad days today is having very good day and is getting ready to prepare for hip surgery and brought 1 week for total hip replacement on the right. Patient reports she is looking forward to this is holding her Plavix patient of the surgery next week. Patient reports no side effects once again with the medication no nausea vomiting constipation no memory issues she reports sore dysphoria or euphoria. Patient has had appropriate K tracks report as well as appropriate urinalyses as well to date. We discussed options, and will refill patient's medication via electronic prescription of hydrocodone 10 mg/325 with 1 tablet 3 times daily as needed for pain. Patient is given instructions well side effects aware with the medication once again will follow up in approximate 30 days as scheduled. Physical Exam: PE: JAK RO MD Jun 08, 2021 13:47
== END | disposition home or self-care (01) ==
LOC: PNCL 13:27
PROVIDERS: ATTEND Anesthesiology
DX: M51.16 Intervertebral disc disorders with radiculopathy, lumbar region (principal); M48.061 Spinal stenosis, lumbar region without neurogenic claudication; M50.10 Cervical disc disorder with radiculopathy, unspecified cervical region; M46.1 Sacroiliitis, not elsewhere classified; I25.10 Atherosclerotic heart disease of native coronary artery without angina pectoris; I10 Essential (primary) hypertension; J44.9 Chronic obstructive pulmonary disease, unspecified; K21.9 Gastro-esophageal reflux disease without esophagitis; M19.90 Unspecified osteoarthritis, unspecified site; F41.9 Anxiety disorder, unspecified; F32.9 Major depressive disorder, single episode, unspecified; M81.0 Age-related osteoporosis without current pathological fracture; Z90.710 Acquired absence of both cervix and uterus; Z98.890 Other specified postprocedural states; Z79.899 Other long term (current) drug therapy; Z88.2 Allergy status to sulfonamides; Z88.8 Allergy status to other drugs, medicaments and biological substances; Z88.0 Allergy status to penicillin
CPT/HCPCS: 99212; G0463

== ENCOUNTER 2021-06-14 06:31 | Observation (INO) | payer MEDICARE, MEDICAID ==
[2021-05-26 14:19] VITALS: BP 173/77
[~2021-06-14] VITALS: Ht 149.9 cm; Wt 66.0 kg
[~2021-06-14 06:31] MED LIST changes: +HYDROmorphone 2 MG/ML INJ. IVP PRN; +IV RINGERS,LACTATED 1000ML 1,000 ML IV SCH; +MORPHINE SULFATE 2 MG/ML INJ. IVP PRN; +MORPHINE SULFATE 5 MG, KETOROLAC 30MG VIAL 30 MG, ROPIVacaine 0.5% PF 60 ML, EPINEPHrin... INT ART ONE; +PROCHLORPERAZINE 10 MG/2 ML VIAL. IVP PRN; +TRANEXAMIC ACID in NS IVPB 50 ML INJ ONE; +fentaNYL PF VIAL 100 MCG/2 ML VIAL IVP PRN
[2021-06-14] MEDS ORDERED: fentaNYL PF VIAL 100 MCG/2 ML VIAL ONE (06:51)
[2021-06-14] MEDS ORDERED: ROCURONIUM 50 MG/5 ML VIAL. ONE (06:51)
[2021-06-14] MEDS ORDERED: SUGAMMADEX SODIUM 200 MG/2 ML VIAL. IVP ONE (07:00)
[2021-06-14] MEDS ORDERED: GABAPENTIN 300 MG CAPSULE. PO ONE (07:00)
[2021-06-14] MEDS ORDERED: MELOXICAM 7.5 MG TABLET PO ONE (07:00)
[2021-06-14] MEDS ORDERED: TRANEXAMIC ACID in NS IVPB 0 ML ONE (07:07)
[2021-06-14] MEDS ORDERED: VANCOMYCIN 1 GM VIAL. ONE (07:07)
[2021-06-14] MEDS ORDERED: ACETAMINOPHEN 500 MG TABLET PO PRN (07:15)
--- NOTE | 2021-06-14 07:30 | EKG ---
[facility] [address] [place] [address] Test Date: 2021-06-14 Test Time: 07:29:35 Pat Name: PRUDENCE SALINAS Department: Room: Gender: F [employer]: : 1935 Requested By: CAITLIN BREWER Order Number: [id number] Reading MD: Robin Kaur Measurements Intervals Kake Rate: 131 P: W[place]: QRS: -76 QRSD: 126 T: 59 QT: 330 QTc: 493 Interpretive Statements ATRIAL FIBRILLATION WITH RVR RIGHT BUNDLE BRANCH BLOCK Electronically Signed On 06-17-2021 8:56:20 BROOMMAKER by Robin Kaur
[2021-06-14] MEDS ORDERED: TRANEXAMIC ACID in NS IVPB 50 ML INJ ONE (08:00)
[2021-06-14] MEDS ORDERED: METOPROLOL IV PUSH 5 MG/5 ML VIAL. IVP ONE (09:30)
--- NOTE | 2021-06-14 09:43 | PREOP HP ---
DATE OF SERVICE: 06/14/2021 PREOPERATIVE HISTORY AND PHYSICAL BRIEF HISTORY: I initially saw the patient. She was evaluated. Unfortunately shortly while I was signing paperwork, she was continuing to have a significantly elevated heart rate anywhere from 130+ to 150+. She was seen by the Department of Anesthesia preoperatively. They did get a 12-lead EKG. She does have a history of coronary artery disease, congestive heart failure, atrial fibrillation, etc. She was not having any significant chest pain, but "pressure" according to her documentation in consultation with Anesthesia. Therefore, obviously today medically, she needs to be seen by Cardiology, which we will have them stop by and see her today either to be admitted to the hospital under their care for definitive treatment or she can be discharged home at their request. We will reschedule the surgery obviously when she is medically and cardiac stable. BRE/SUSANNA/HILARIO DR: Gerry TID: [id number]
[2021-06-14] MEDS ORDERED: DIGOXIN IV 500 MCG/2 ML AMPUL. IV ONE ×2 (12:00→12:30)
[2021-06-14] MEDS: HYDROcodone/APAP 10/325 1 TAB TABLET PO PRN (15:19)
[2021-06-14 15:30] VITALS: BP 152/95
[2021-06-14] MEDS ORDERED: FEXO180T81 PO (16:12)
[2021-06-14] MEDS ORDERED: ACET500T68 PO (16:12)
[2021-06-14] MEDS ORDERED: DICL20GE TP (16:12)
[2021-06-14] MEDS ORDERED: PEG15DRO14 EACHEYE (16:12)
[2021-06-14] MEDS ORDERED: SODI50SP NS (16:12)
[2021-06-14] MEDS ORDERED: DOXY-96 PO (16:32)
--- NOTE | 2021-06-14 16:51 | PDOC2 ---
KASH RUSS STENCIL PRINTER 06/14/21 1651: CARDIAC CONSULT DATE OF CONSULT Date of Consult DATE: 06/14/21 TIME: 16:36 REASON FOR CONSULT Reason for Consult: AFIB REFERRING PHYSICIAN Referring Physician: Dr. Thakkar SOURCE Source: Chart review, Patient HISTORY OF PRESENT ILLNESS HISTORY OF PRESENT ILLNESS This is an 85 yo female who presented for elective right hip replacement. Was noted in AFIB with RVR. Surgery was cancelled and cardiology consult was obtained. Patient does have a history of PAFIB. Reports compliance with her medications and took her metoprolol as scheduled this morning. Patient denies any chest pain, palpitations, dizziness, diaphoresis, or nausea/vomiting. PAST MEDICAL HISTORY Past Medical History Cardiovascular: AFIB (CVN on 07/2019), CAD, HTN, Hyperlipidemia, Other (tachy rakesh syndrome) Pulmonary: COPD CENTRAL NERVOUS SYSTEM: Peripheral neuropathy GI: Constipation Heme/Onc: Other (chronic eliquis use) Hepatobiliary: No pertinent hx Psych: Anxiety, Depression, insomnia Musculoskeletal: low back pain, Osteoarthritis Rheumatologic: Fibromyalgia Infectious disease: No pertinent hx ENT: Allergic Rhinitis, Other (TMJ syndrome; left eye hyalosis) Renal/: Urinary Incontinence Endocrine: No pertinent hx Dermatology: No pertinent hx PAST SURGICAL HISTORY Past Surgical History Pacemaker (biotronik), Appendectomy, CABG, Cataract Removal, Total hip r eplacement (left), Tonsillectomy, Hysterectomy, Other (PCIs, sinus surgery) FAMILY HISTORY Family History: Heart Disease SOCIAL HISTORY Social History Smoke: No ALCOHOL: none Drugs: None Lives: with Family CURRENT MEDICATIONS CURRENT MEDICATIONS Current Medications Medications (Trade) Dose Ordered Sig/Conrad Route PRN Reason Start Time Stop Time Status Last Admin Dose Admin Metoprolol Tartrate (Lopressor Vial) 5 mg 1X ONCE IVP 06/14/21 09:30 06/14/21 09:31 DC 06/14/21 10:02 Digoxin (Lanoxin) 250 mcg 1X ONCE IV 06/14/21 12:00 06/14/21 12:01 DC 06/14/21 12:36 Acetaminophen/ Hydrocodone Bitart (Lortab 10325) 1 tab PRN Q6HRS PRN PO PAIN 06/14/21 15:00 06/14/21 15:19 ALLERGIES ALLERGIES: Coded Allergies: MIGUEL ANGEL Inhibitors (Verified Allergy, Intermediate, 05/28/19) Penicillins (Verified Allergy, Intermediate, 05/28/19) TOLERATES ROCEPHIN Sulfa (Sulfonamide Antibiotics) (Verified Allergy, Intermediate, 05/28/19) adhesive (Verified Allergy, Intermediate, 05/28/19) influenza virus vaccine, specific (Verified Allergy, Intermediate, 05/28/19) mercury (elemental) (Verified Allergy, Intermediate, 05/28/19) methadone (Verified Allergy, Intermediate, 05/28/19) methylprednisolone (Verified Allergy, Intermediate, 05/28/19) montelukast (Verified Allergy, Intermediate, 05/26/21) theophylline (Verified Allergy, Intermediate, 05/28/19) trazodone (Verified Allergy, Intermediate, 05/28/19) zolpidem (Verified Allergy, Intermediate, 05/28/19) estradiol (Verified Adverse Reaction, Intermediate, 09/02/19) oxycodone (Verified Adverse Reaction, Intermediate, 09/02/19) ROS Review of System 14 point ROS conducted with pertinent positives noted above in HPI PHYSICAL EXAM PHYSICAL EXAM General: Alert, Oriented X3, Cooperative, No acute distress HEENT: Atraumatic, Mucous membr. moist/pink Lungs: Clear to auscultation, Normal air movement Heart: IRRR, Normal S1, Normal S2, tele AFIB with RVR Abdomen: Soft, No tenderness Extremities: No cyanosis, No edema Skin: Other (left forehead contusion) Neuro: Normal speech, Sensation intact Psych/Mental Status: Mental status NL, Mood NL MUSCULOSKELETAL: Osteoarthritic changes both hands VITALS/I&O VITALS/I&O: Vital Signs Date Time Temp Pulse Resp B/P (MAP) Pulse Ox O2 Delivery O2 Flow Rate FiO2 06/14/21 15:30 99.7 146 18 152/95 (114) 96 Room Air 99.7 LABS Lab: Laboratory Tests Test 06/14/21 07:58 POC SARS CoV-2 Antigen Negative (NEGATIVE) ECHOCARDIOGRAM ECHOCARDIOGRAM <Conclusion> The left ventricular systolic function is normal and the ejection fraction is within normal range. The Ejection Fraction is 55-60%. Septal motion consistent with conduction abnormality. Otherwise, grossly normal wall motion. The left atrium is severely dilated. DATE: 07/09/19 1406 HEART CATH HEART CATH Conclusion 1. Acute on chronic diastolic heart failure with an LVEDP of 26 mmHg 2. Successful PCI of the saphenous vein graft to the RCA with sequential 4.0 x 12 and 4.0 x 18 mm everolimus eluting stents. Recommendations 1. Plavix 75 mg daily and restart Eliquis 5 mg p.o. twice daily tomorrow for known atrial fibrillation 2. Continue risk factor modification and treatment of COPD. DATE: 01/30/20 1334 ASSESSMENT/PLAN ASSESSMENT/PLAN 1. PAFIB with RVR; patient reports taking metoprolol as scheduled this morning. S/p IV metoprolol without improvement in HR 2. Chronic diastolic CHF; compensated 3. 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 Most recent device check with 1% AFIB burden. normal function, no events 4. HLP 5. CAD: past CABG with prior stent as noted above. Clinically stable 6. HTN; controlled 7. OA with planned right total hip arthroplasty. Surgery postponed due to AFIB with RVR Recommendations Dig IV x1 now Device interrogation Add Amiodarone for rhythm maintenance Resume Eliquis for stroke prevention if surgery not planned in immediate future. Continue secondary prevention measures NPO p MN Will plan for CV in if patient remains in AFIB TG MAGALLON MD 06/14/21 1731: CARDIAC CONSULT ASSESSMENT/PLAN ASSESSMENT/PLAN The patient was seen and interviewed as well as examined at the bedside. The chart was reviewed. The case was discussed. Agree with the plan of care. KASH RUSS APRN Jun 14, 2021 16:51 TG MAGALLON MD Jun 14, 2021 17:31
[2021-06-14 19:10] VITALS: BP 164/74
[2021-06-14] MEDS: AMIODARONE HCL 200 MG TABLET. PO SCH (21:12)
[2021-06-14 22:40] VITALS: BP 162/72
[2021-06-15 03:20] VITALS: BP 198/83
[2021-06-15 07:00] VITALS: BP 192/87
[2021-06-15] MEDS: HYDROcodone/APAP 10/325 1 TAB TABLET PO PRN ×2 (08:48→15:19)
[2021-06-15] MEDS: AMIODARONE HCL 200 MG TABLET. PO SCH (08:48)
--- NOTE | 2021-06-15 09:35 | PDOC ---
KASH RUSS APRN 06/15/21 0935: CARDIO Progress Notes Date and Time Date of Service 06/15/21 Time of Evaluation 1115 Subjective Subjective: No Chest Pain, No shortness of breath, No Palpitations Vitals Vitals Vital Signs Date Time Temp Pulse Resp B/P (MAP) Pulse Ox O2 Delivery O2 Flow Rate FiO2 06/15/21 08:48 64 185/118 06/15/21 08:48 Room Air 06/15/21 07:00 98.1 19 97 98.1 Weight Weight [ ] Input and Output Intake and Output Intake and Output 06/15/21 07:00 Intake Total 360 ml Output Total 250 ml Balance 110 ml Intake Oral 360 ml Output Urine Total 250 ml # Voids 1 Physical Exam HEENT: Neck Supple W Full Motion Chest: Symmetric LUNGS: Clear to Auscultation Heart: RRR Abdomen: Soft N/T Extremities: No Edema Neurology: alert, oriented, follow commands Assessment Assessment 1. PAFIB with RVR; converted back to SR yesterday evening and is maintaining 2. Chronic diastolic CHF; compensated 3. 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 Device check with normal function. Patient went into AFIB 06/14/21 at 5:30am. AFIB burden 1%. 4. HLP 5. CAD: past CABG with prior stent as noted above. Clinically stable 6. HTN; controlled 7. OA with planned right total hip arthroplasty. Surgery postponed due to AFIB with RVR Recommendations Continue metoprolol for rate control Amiodarone for rhythm maintenance Start low-dose Eliquis for stroke prevention Will monitor AFIB burden on an outpatient basis Continue secondary prevention measures Follow up in our office with Dr. Blankenship as scheduled Justicifation of Admission Dx: Justifications for Admission: Justification of Admission Dx: N/A TG BLANKENSHIP MD 06/16/21 1207: CARDIO Progress Notes Plan Plan Late entry 06/15/2021 Patient seen and examined. Agree with above nurse practitioner note KASH RUSS APRN Jun 15, 2021 09:35 TG BLANKENSHIP MD Jun 16, 2021 12:07
[2021-06-15] MEDS ORDERED: CETIRIZINE HCL 10 MG TABLET. PO PRN (10:30)
[2021-06-15] MEDS ORDERED: ACETAMINOPHEN 500 MG TABLET PO PRN (10:30)
[2021-06-15] MEDS ORDERED: NON FORMULARY ITEM (Fexofenadine Hcl (Allegra Allergy) 1 TAB) PO PRN (10:30)
[2021-06-15] MEDS ORDERED: NON FORMULARY ITEM (Biotin 1,000 MCG) PO SCH (10:30)
[2021-06-15 11:00] VITALS: BP 195/81
[2021-06-15] MEDS ORDERED: POLYVINYL ALCOHOL 1.4% OPHTH SOLUTION 15ML BOTTLE. OU PRN (11:00)
[2021-06-15] MEDS ORDERED: ALBUTEROL SULFATE 2.5 MG/3 ML NEBU. NEB PRN (11:00)
[2021-06-15] MEDS ORDERED: ISOSORBIDE MONONITRATE ER 30 MG TAB.ER.24H PO SCH (11:13)
[2021-06-15] MEDS ORDERED: FUROSEMIDE 40 MG TABLET. PO SCH (11:30)
[2021-06-15] MEDS ORDERED: CLOPIDOGREL BISULFATE 75 MG TABLET PO SCH (11:30)
[2021-06-15] MEDS ORDERED: LIDOCAINE (700MG/PATCH) PATCH. TP SCH (11:30)
[2021-06-15] MEDS ORDERED: POTASSIUM CHLORIDE 20 MEQ TABLET.ER. PO SCH (11:30)
[2021-06-15] MEDS ORDERED: MULTIVITAMIN with MINERAL TABLET. PO SCH (11:30)
[2021-06-15] MEDS ORDERED: POLYETHYLENE GLYCOL 3350 17 GM PACKET. PO SCH (11:30)
[2021-06-15] MEDS ORDERED: METOPROLOL SUCC 24HR ER 50 MG TAB.ER.24H. PO SCH (11:30)
[2021-06-15] MEDS ORDERED: SODIUM CHLORIDE 0.65% NASAL SPRAY 45ML BOTTLE. NS PRN (11:30)
[2021-06-15] MEDS ORDERED: DOXYCYCLINE HYCLATE 100 MG TABLET PO SCH (11:30)
[2021-06-15] MEDS ORDERED: CHOLECALCIFEROL (VITAMIN D3) 1,000 UNIT TABLET PO SCH (11:30)
[2021-06-15] MEDS ORDERED: APIXABAN 2.5 MG TABLET. PO SCH (11:30)
[2021-06-15] MEDS ORDERED: IPRATRPIUM/ALBUTEROL 0.5/2.5MG 3 ML NEBU. NEB SCH (12:00)
[2021-06-15] MEDS ORDERED: CALCIUM CARB/VIT D3 500/200 TABLET. PO SCH (12:00)
[2021-06-15] MEDS ORDERED: FERROUS SULFATE 325 MG TABLET. PO SCH (12:00)
--- NOTE | 2021-06-15 12:54 | NUR ---
SS following for discharge planning. SS reviewed pt chart and discussed with pt RN. Pt is from [facility] and is currently on room air. COVID19 negative. Ortho and Cardiology following. SS will continue to follow for discharge planning.
[2021-06-15] MEDS ORDERED: DICLOFENAC SODIUM 1% TOPICAL GEL 100GM TUBE. TP SCH (13:00)
[2021-06-15] MEDS ORDERED: GABAPENTIN 300 MG CAPSULE. PO SCH (13:00)
[2021-06-15] MEDS ORDERED: APIX2.5T PO (13:27)
--- NOTE | 2021-06-15 13:35 | DISCH ---
DISCHARGE INSTRUCTIONS Condition on Discharge Condition on Discharge: Stable Activity After Discharge Activity Instructions for Disc: Resume previous activity, Activity as tolerated Weight Bearing Status after Di: As tolerated Diet after Discharge Diet after Discharge: Cardiac Diet Texture: Regular Liquid Texture: Thin Liquid Swallowing Supervision: None needed Wound Incision Care Wound/Incision Care: No wound care needed Checks after Discharge Checks after discharge: Check blood press - daily Contacting the DR. after DC Call your doctor for: Concerns you may have Treatment/Equipment after DC Adaptive Equipment Issued: None KASH RUSS APRN Jun 15, 2021 13:35
[2021-06-15] MEDS ORDERED: AMIO200T53 PO ×2 (14:12)
--- NOTE | 2021-06-15 14:22 | PDOC3 ---
Discharge Summary Visit Information Date of Admission: Jun 14, 2021 Date of Discharge: Jun 15, 2021 Admitting Diagnosis Comment: 1. PAFIB with RVR 2. Chronic diastolic CHF 3. 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 Hyperlipidemia 5. CAD 6. HTN 7. OA Final Diagnosis 1. PAFIB with RVR 2. Chronic diastolic CHF 3. 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 Hyperlipidemia 5. CAD 6. HTN 7. OA Brief Hospital Course Allergies Allergies Coded Allergies Type Severity Reaction Last Updated Verified MIGUEL ANGEL Inhibitors Allergy Intermediate 05/28/19 Yes Penicillins Allergy Intermediate 05/28/19 Yes Sulfa (Sulfonamide Antibiotics) Allergy Intermediate 05/28/19 Yes adhesive Allergy Intermediate 05/28/19 Yes influenza virus vaccine, specific Allergy Intermediate 05/28/19 Yes mercury (elemental) Allergy Intermediate 05/28/19 Yes methadone Allergy Intermediate 05/28/19 Yes methylprednisolone Allergy Intermediate 05/28/19 Yes montelukast Allergy Intermediate 05/26/21 Yes theophylline Allergy Intermediate 05/28/19 Yes trazodone Allergy Intermediate 05/28/19 Yes zolpidem Allergy Intermediate 05/28/19 Yes estradiol Adverse Reaction Intermediate 09/02/19 Yes oxycodone Adverse Reaction Intermediate 09/02/19 Yes Vital Signs Vital Signs Date Time Temp Pulse Resp B/P (MAP) Pulse Ox O2 Delivery O2 Flow Rate FiO2 06/15/21 11:20 65 203/78 06/15/21 11:00 97.9 20 97 Room Air 97.9 Lab Results Laboratory Tests Test 06/14/21 07:58 POC SARS CoV-2 Antigen Negative (NEGATIVE) Brief Hospital Course Ms. Castro is a 85 old female, with a history of PAFIB, CAD, HTN, HLP, and SSS s/p PPM, who presented for elective right total hip arthroplasty. Was noted in AFIB with RVR is pre-op. Surgery was cancelled and cardiology consult was obtained. Device evaluation showed patient convert to AFIB about 5:30 the morning of arrival. Patient was given IV metoprolol and Digoxin and eventually converted back to SR. Given paroxysms of AFIB and upcoming surgery, patient was initiated on Amiodarone therapy for rhythm maintenance. Low-dose Eliquis was also resumed for stroke prophylaxis. Patient was monitor overnight and continued to maintain sinus rhythm. Patient will follow up in our office and AFIB burden will be monitored. Assessment Assessment A & Ox3 Lung CTA Heart tones regular; tele SR No LE edema Patient seen and examined. Agree with above nurse practitioner note. Late entry for 06/15/2021 Discharge Information Condition at Discharge: Improved Disposition/Orders: D/C to Home Scheduled Albuterol Sulfate (Albuterol Sulfate Conc Neb Soln) 2.5 Mg/0.5 Ml Vial.neb, 2.5 MG NEB QID for FOR ASTHMA, Ref 0 (Reported) Entered as Reported by: PATEL LERMA on 05/26/21 1441 Last Action: Converted on 06/15/211042 by ARLENE HERNANDEZ Amiodarone Hcl (Amiodarone Hcl) 200 Mg Tablet, 200 MG PO DAILY for AFIB for 30 Days, #30 Ref 2 Start on 06/21/21 Prescribed by: KASH RUSS APRN on 06/15/21 1412 Amiodarone Hcl (Amiodarone Hcl) 200 Mg Tablet, 400 MG PO BID for AFIB for 6 Days, #24 Take 400mg twice daily for 6 days. Then 200mg daily thereafter. Prescribed by: KASH RUSS APRN on 06/15/21 1412 Apixaban (Eliquis) 2.5 Mg Tablet, 2.5 MG PO BID for AFIB, stroke prevention for 30 Days, #60 Ref 2 Prescribed by: KASH RUSS APRN on 06/15/21 1327 Atorvastatin Calcium (Atorvastatin Calcium) 20 Mg Tablet, 1 TAB PO HS for chol, #30 Ref 5 (Reported) Entered as Reported by: CELY HERBERT on 04/30/18 1118 Last Action: Continued on 06/15/211042 by ARLENE HERNANDEZ Biotin (Biotin) 1,000 Mcg Tab.chew, 1,000 MCG PO DAILY for hair skin and nail supplement, (Reported) Entered as Reported by: ROC DIAZ on 06/03/21 1113 Last Action: Converted on 06/15/211042 by ARLENE HERNANDEZ Calcium Carbonate/Vitamin D3 (Calcium 600 + Vit D Caplet) 1 Each Tablet, 1 TAB PO BID for supp for 30 Days, #60 Ref 0 (Reported) Entered as Reported by: CELY HERBERT on 08/19/20 1608 Last Action: Converted on 06/15/211042 by Aura XM Cholecalciferol (Vitamin D3) (Vitamin D3) 1,000 Unit Tablet, 2,000 UNIT PO DAILY for supplement, (Reported) Entered as Reported by: CELY HERBERT on 12/26/18 1638 Last Action: Continued on 06/15/211042 by UnowhyHT Clopidogrel Bisulfate (Clopidogrel) 75 Mg Tablet, 1 TAB PO DAILY for heart, #90 Ref 1 (Reported) Entered as Reported by: TALYA CAMARENA on 02/09/21 1152 Last Action: Continued on 06/15/211042 by UnowhyHT Diclofenac Sodium (Voltaren Arthritis Pain) 20 Gm Gel..gram., 20 GM TP QID for pain, (Reported) Entered as Reported by: TORRES HI on 06/14/21 1612 Last Action: Continued on 06/15/211042 by UnowhyHT Doxycycline Hyclate (Doxycycline Hyclate) 100 Mg Tablet.dr, 1 TAB PO BID for respiratory infection for 5 Days, #10 (Reported) Entered as Reported by: TORRES HI on 06/14/21 1632 Last Action: Converted on 06/15/211042 by UnowhyHT Ferrous Sulfate (Ferrous Sulfate) 325 Mg Tablet, 325 MG PO DAILY for supplement, (Reported) Entered as Reported by: ROC DIAZ on 06/03/21 1113 Last Action: Continued on 06/15/211042 by UnowhyHT Furosemide (Furosemide) 40 Mg Tablet, 1 TAB PO DAILY for 1, (Reported) Entered as Reported by: Cely Diaz on 09/21/20 2216 Last Action: Continued on 06/15/211042 by Aura XM Gabapentin (Gabapentin) 600 Mg Tablet, 600 MG PO QID for NEUROGENIC PAIN, (Reported) Entered as Reported by: CELY HERBERT on 08/19/20 1606 Last Action: Converted on 06/15/211042 by UnowhyHT Guaifenesin (Mucinex) 600 Mg Tablet.er, 2 TAB PO BID for cough for 10 Days, #40 Ref 0 (Reported) Entered as Reported by: CELY HERBERT on 08/19/20 1608 Last Action: Continued on 06/15/211042 by UnowhyHT Isosorbide Mononitrate (Isosorbide Mononitrate Er) 30 Mg Tab.er.24h, 30 MG PO DAILY for angina for 30 Days, #30 Prescribed by: PINO KOHLER on 12/26/20 1352 Last Action: Continued on 06/15/211042 by ARLENE HERNANDEZ Lidocaine (Lidocaine) 1 Each Adh..patch, 1 PATCH TP DAILY for pain, (Reported) Entered as Reported by: Cely Diaz on 09/21/20 2216 Last Action: Continued on 06/15/211042 by ARLENE HERNANDEZ Melatonin (Melatonin) 10 Mg Capsule, 1 CAP PO QHS for sleep for 30 Days, #30 Ref 0 (Reported) Entered as Reported by: Cely Diaz on 09/22/20 0518 Last Action: Reviewed on 06/14/21 161 by TORRES HI Metoprolol Succinate (Toprol XL) 50 Mg Tab.er.24h, 50 MG PO DAILY for heart rate control for 30 Days, #30 Ref 2 Prescribed by: KASH RUSS APRN on 11/28/19 1334 Last Action: Continued on 06/15/211042 by ARLENE HERNANDEZ Multivits-Min/Folic Acid/Biot (Hair, Skin & Nails Caplet) 1 Each Tablet, 3 TAB PO DAILY for supp for 30 Days, #90 Ref 0 (Reported) Entered as Reported by: CELY HERBERT on 08/19/20 1608 Last Action: Converted on 06/15/211042 by ARLENE HERNANDEZ Polyethylene Glycol 3350 (Polyethylene Glycol 3350) 2,500 Gm Powder, 17 GM PO DAILY for constipation for 30 Days, #527 Ref 0 (Reported) Entered as Reported by: ROC DIAZ on 05/15/19 1408 Last Action: Converted on 06/15/211042 by ARLENE HERNANDEZ Potassium Chloride (Potassium Chloride ) 20 Meq Tablet.er, 20 MEQ PO DAILY for low pot, (Reported) Entered as Reported by: CELY HERBERT on 12/26/18 1638 Last Action: Continued on 06/15/211042 by ARLENE HERNANDEZ Sodium Chloride (Groom Saline) 50 Ml [place], 1 SPRAY NS PRN Q2-4HRS for dry, #50 Ref 1 (Reported) Entered as Reported by: TORRES HI on 06/14/211611 Last Action: Continued on 06/15/211042 by ARLENE HERNANDEZ Tiotropium [place] (Spiriva) 18 Mcg Cap.w.dev, 1 CAP IH DAILY for ASTHMA, #30 Ref 3 (Reported) Entered as Reported by: PATEL LERMA on 05/26/21 1441 Last Action: Converted on 06/15/211042 by ARLENE HERNANDEZ Scheduled PRN Acetaminophen (Acetaminophen) 500 Mg Tablet, 1 TAB PO PRN Q6HRS PRN for pain or fever for 15 Days, #60 Ref 0 (Reported) Entered as Reported by: TORRES HI on 06/14/211611 Last Action: Continued on 06/15/211042 by ARLENE HERNANDEZ Cetirizine Hcl (Cetirizine Hcl) 10 Mg Tablet, 1 TAB PO DAILY PRN for ALLERGIES, #30 Ref 5 (Reported) Entered as Reported by: RAMU CONKLIN on 01/30/20 0834 Last Action: Continued on 06/15/211042 by ARLENE HERNANDEZ Fexofenadine Hcl (Sophia Allergy) 180 Mg Tablet, 1 TAB PO PRN PRN for ALLERGIES for 14 Days, Ref 0 (Reported) Entered as Reported by: TORRES HI on 06/14/211611 Last Action: Converted on 06/15/211042 by ARLENE HERNANDEZ Hydrocodone Bit/Acetaminophen (Hydrocodone-Apap 10-325 ) 1 Tab Tablet, 1 TAB PO PRN Q6HRS PRN for PAIN for 30 Days, #90 Ref 0 Prescribed by: Jaquan Pagan on 05/10/21 1304 Last Action: Reviewed on 06/14/211611 by TORRES HI Hydrocodone Bit/Acetaminophen (Hydrocodone-Apap 10-325 ) 1 Tab Tablet, 1 TAB PO PRN Q6HRS PRN for PAIN for 30 Days, #90 Ref 0 Prescribed by: Jaquan Pagan on 06/08/21 1348 Hydrocodone Bit/Acetaminophen (Hydrocodone-Apap 10-325 ) 1 Tab Tablet, 1 TAB PO PRN Q6HRS PRN for PAIN for 30 Days, #90 Ref 0 Prescribed by: Jaquan Pagan on 06/11/21 1404 Peg 400/Hypromellose/Glycerin (Artificial Tears Drops) 15 Ml Drops, 1 DROP EACHEYE QIDPRN PRN for DRY EYE for 30 Days, Ref 0 (Reported) Entered as Reported by: TORRES HI on 06/14/21 1612 Last Action: Converted on 06/15/21 1043 by ARLENE HERNANDEZ Justicifation of Admission Dx: Justifications for Admission: Justification of Admission Dx: N/A KASH RUSS APRN Jun 15, 2021 14:22 TG MAGALLON MD Jun 16, 2021 12:08
[2021-06-15 15:00] VITALS: BP 174/79
--- NOTE | 2021-06-15 17:15 | NUR ---
Discharge Note: PRUDENCE SALINAS [address] [place] [address] Discharge instructions and discharge home medications reviewed with Patient and a copy given. All questions have been answered and understanding verbalized. The following instructions and handouts were given: discharge instructions, med list, a fib education, follow ups. Discontinued lines and drains: Peripheral IV intact. Patient discharged to Home or Self Care with [facility] via Wheelchair at 1715. Dr. Thakkar notified & ok with discharge.
[2021-06-15] MEDS ORDERED: ATORVASTATIN CALCIUM 20 MG TABLET PO SCH (21:00)
[2021-06-22] MEDS ORDERED: AMIODARONE HCL 200 MG TABLET. PO SCH (09:00)
== END 2021-06-15 17:15 | disposition home or self-care (01) ==
LOC: SURG 06:31 → 6 SOUTH 14:30 → INTOOBSV 14:30
PROVIDERS: ADMIT Internal Medicine Cardiovascular Disease; ATTEND Orthopaedic Surgery
DX: I48.0 Paroxysmal atrial fibrillation (principal); Z20.822 Contact with and (suspected) exposure to COVID-19; M16.11 Unilateral primary osteoarthritis, right hip; I25.119 Atherosclerotic heart disease of native coronary artery with unspecified angina pectoris; I11.0 Hypertensive heart disease with heart failure; I50.32 Chronic diastolic (congestive) heart failure; I49.5 Sick sinus syndrome; J44.9 Chronic obstructive pulmonary disease, unspecified; K59.00 Constipation, unspecified; E78.5 Hyperlipidemia, unspecified; M19.90 Unspecified osteoarthritis, unspecified site; R00.2 Palpitations; M79.7 Fibromyalgia; Z53.9 Procedure and treatment not carried out, unspecified reason; Z79.01 Long term (current) use of anticoagulants; Z79.02 Long term (current) use of antithrombotics/antiplatelets; Z79.899 Other long term (current) drug therapy; Z90.710 Acquired absence of both cervix and uterus; Z95.0 Presence of cardiac pacemaker; Z95.1 Presence of aortocoronary bypass graft; Z96.643 Presence of artificial hip joint, bilateral
CPT/HCPCS: 93005; G0378; J0171; J1160; J1885; J2270; J2795; J3010; J3490; G0379; J0690; J3370

== ENCOUNTER → 2021-07-05 | Day surgery (SDC) | payer MEDICARE, MEDICAID ==
[~2021-07-05] MED LIST changes: +ACET500T68 PO; +AMIO200T53 PO; +DICL20GE TP; +DOXY-96 PO; +FEXO180T81 PO; -HYDROmorphone 2 MG/ML INJ. IVP PRN; +IV RINGERS,LACTATED 1000ML 1,000 ML IV ONE; -IV RINGERS,LACTATED 1000ML 1,000 ML IV SCH; +LIDOCAINE 2% PF 5 ML VIAL. ONE; -MORPHINE SULFATE 2 MG/ML INJ. IVP PRN; -MORPHINE SULFATE 5 MG, KETOROLAC 30MG VIAL 30 MG, ROPIVacaine 0.5% PF 60 ML, EPINEPHrin... INT ART ONE; +PEG15DRO14 EACHEYE; -PROCHLORPERAZINE 10 MG/2 ML VIAL. IVP PRN; +PROPOFOL 10 MG/ML (20ML) VIAL. IV ONE; +SODI50SP NS; -TRANEXAMIC ACID in NS IVPB 50 ML INJ ONE; -fentaNYL PF VIAL 100 MCG/2 ML VIAL IVP PRN
[2021-07-05 12:40] VITALS: BP 178/78
--- NOTE | 2021-07-05 13:12 | PDOC4 ---
PROCEDURE Procedure EGD/dilation Indication: dysphagia Meds: per anesthesia Findings: E--impression of tortuosity/spasm. GEJ at 35cm. G--Normal D--Normal to second portion. Empirically dilated with 52F kelvin. Cornelius. well. 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 REC: Resume diet, meds. F/u with me in 2 weeks re: response to dilation. TJ MARSHALL MD Jul 05, 2021 13:12
[2021-07-05 13:27] VITALS: BP 131/64
== END | disposition home or self-care (01) ==
LOC: ENDOS 12:06
PROVIDERS: ATTEND Internal Medicine Gastroenterology
DX: R13.10 Dysphagia, unspecified (principal); I25.10 Atherosclerotic heart disease of native coronary artery without angina pectoris; I10 Essential (primary) hypertension; E78.00 Pure hypercholesterolemia, unspecified; J44.9 Chronic obstructive pulmonary disease, unspecified; K21.9 Gastro-esophageal reflux disease without esophagitis; M19.90 Unspecified osteoarthritis, unspecified site; M81.0 Age-related osteoporosis without current pathological fracture; F41.9 Anxiety disorder, unspecified; F32.9 Major depressive disorder, single episode, unspecified; Z90.710 Acquired absence of both cervix and uterus; Z98.890 Other specified postprocedural states; Z79.899 Other long term (current) drug therapy; Z88.0 Allergy status to penicillin; Z88.1 Allergy status to other antibiotic agents; Z88.2 Allergy status to sulfonamides; Z88.8 Allergy status to other drugs, medicaments and biological substances
CPT/HCPCS: 43235; 43450; J2704

== ENCOUNTER 2021-07-10 19:01 | Emergency (ER) | payer MEDICARE, MEDICAID ==
[~2021-07-10] VITALS: Ht 149.9 cm; Wt 63.2 kg
[~2021-07-10 19:01] MED LIST changes: -IV RINGERS,LACTATED 1000ML 1,000 ML IV ONE; -LIDOCAINE 2% PF 5 ML VIAL. ONE; -PROPOFOL 10 MG/ML (20ML) VIAL. IV ONE
[2021-07-10 19:56] LABS: BASO % 1 % (0-3); EOS % 1 % (0-3); HEMATOCRIT 36.7 % (36.0-47.0); HEMOGLOBIN 12.3 g/dL (12.0-15.5); LYMPH % 30 % (24-48); MEAN CORPUSCULAR HEMOGLOBIN 31 pg (25-35); MEAN CORPUSCULAR HGB CONC 34 g/dL (31-37); MEAN CORPUSCULAR VOLUME 92 fL (79-100); MONO # 0.3 x10^3/uL (0.0-1.1); MONO % 10 % (0-9); NEUT % 59 % (31-73); PLATELET COUNT 165 x10^3/uL (140-400); RED BLOOD COUNT 3.98 x10^6/uL (3.50-5.40); RED CELL DISTRIBUTION WIDTH 13.5 % (11.5-14.5); WHITE BLOOD COUNT 3.5 x10^3/uL (4.0-11.0)
[2021-07-10] MEDS ORDERED: IV RINGERS,LACTATED 500ML 500 ML IV ONE (20:00)
[2021-07-10 20:07] LABS: CALCIUM 8.8 mg/dL (8.5-10.1); CREATININE 0.8 mg/dL (0.6-1.0); GFR 68.3; POTASSIUM 3.9 mmol/L (3.5-5.1)
[2021-07-10 20:08] LABS: PROTHROMBIN TIME PATIENT 14.4 SEC (11.7-14.0)
[2021-07-10 20:12] LABS: ALBUMIN 3.9 g/dL (3.4-5.0); ALBUMIN/GLOBULIN RATIO 1.4 (1.0-1.7); MAGNESIUM 2.4 mg/dL (1.8-2.4); TOTAL BILIRUBIN 0.4 mg/dL (0.2-1.0); TOTAL PROTEIN 6.7 g/dL (6.4-8.2)
--- NOTE | 2021-07-10 20:15 | PHYS DOC ---
Past Medical History Past Medical History: Anxiety, Arthritis, Bronchitis, CAD, CHF, COPD, CVA, Depression, Heart Disease, Hypertension, MA, Stroke, Other Additional Past Medical Histor: LEGALLY BLIND, NEUROPATHY, HERNIATED DISC, SPURS NECK, DDD Past Surgical History: Angioplasty, Coronary Bypass Surgery, Hysterectomy, Pacemaker, Tonsillectomy, Other Additional Past Surgical Histo: cysts and tumors removed from stomach, SINUS,left hip Smoking Status: Never Smoker Alcohol Use: None Drug Use: None General Adult EDM: Chief Complaint: MULTIPLE COMPLAINTS HPI: HPI: Patient is a 85 year old female who presents from [facility] via EMS with complaints of foggy vision, ringing in ears, headache, chest heaviness. Patient's complaints given to EMS, nursing staff on triage, and to myself during interview and exam have been different. Patient has been experiencing "fogged" vision since she was discharged from the hospital during an endoscopy, which she reports has been duration of a few days. At one point, she states that she has only had the symptoms for a few hours, but then reverted back to reporting a few days of the symptoms. She states that she woke up this evening, about 3 hours ago, when she noticed the ringing in her ears, chest heaviness and headache. Her headache has worsened since calling EMS from 1/10-5/10 in her forehead. She describes the chest heaviness as a "dull," and originally rated it as 0/10 pain. She now reports 23/10, and still describes it as dull heaviness. She denies any inciting events or injury, exacerbating factors, remitting factors. Patient reports extensive cardiac history, for which she follows with Dr. Blankenship. She also reports that she falls frequently, but she has not fallen "for quite a while." Patient reports medication compliance for all prescribed medications. Review of Systems: Review of Systems: Constitutional: Denies fever, chills or generalized weakness Eyes: See HPI HENT: Denies ear pain, nasal congestion or sore throat Respiratory: Denies cough or shortness of breath Cardiovascular: See HPI GI: Denies abdominal pain, nausea, vomiting, bloody stools or diarrhea : Denies dysuria or hematuria Musculoskeletal: Denies back pain or joint pain Integument: Denies rash or other skin lesion Neurologic: See HPI Heart Score: C/O Chest Pain: Yes HEART Score for Chest Pain: HEART Score for Chest Pain Response (Comments) Value History Moderately Suspicious 1 ECG Nonspecific Repolarizatio 1 Age > 65 2 Risk Factors >3 Risk Factors or Hx CAD 2 Troponin < Normal Limit 0 Total 6 Risk Factors: Risk Factors: HTN, history of CAD Risk Scores: Score 0 - 3: 2.5% MACE over next 6 weeks - Discharge Home Score 4 - 6: 20.3% MACE over next 6 weeks - Admit for Clinical Observation Score 7 - 10: 72.7% MACE over next 6 weeks - Early Invasive Strategies Allergies: Allergies: Allergies Coded Allergies Type Severity Reaction Last Updated Verified MIGUEL ANGEL Inhibitors Allergy Intermediate 07/05/21 Yes Penicillins Allergy Intermediate 07/05/21 Yes Sulfa (Sulfonamide Antibiotics) Allergy Intermediate 07/05/21 Yes adhesive Allergy Intermediate 07/05/21 Yes influenza virus vaccine, specific Allergy Intermediate 07/05/21 Yes mercury (elemental) Allergy Intermediate 07/05/21 Yes methadone Allergy Intermediate 07/05/21 Yes methylprednisolone Allergy Intermediate 07/05/21 Yes montelukast Allergy Intermediate 07/05/21 Yes theophylline Allergy Intermediate 07/05/21 Yes trazodone Allergy Intermediate 07/05/21 Yes zolpidem Allergy Intermediate 07/05/21 Yes estradiol Adverse Reaction Intermediate 07/05/21 Yes oxycodone Adverse Reaction Intermediate 07/05/21 Yes Physical Exam: PE: Constitutional: Well developed, well nourished, well groomed, no acute distress, non-toxic appearance. HENT: Normocephalic, atraumatic, bilateral external ears normal, nose normal. Eyes: EOMI, conjunctiva normal, no discharge. Neck: Normal range of motion, no stridor. Cardiovascular: Heart regular rate and rhythm. No obvious murmurs, rubs or gallops. Lungs & Thorax: Bilateral breath sounds clear to auscultation. Skin: Warm, dry, no erythema, no rash. Extremities: No tenderness, no cyanosis, no clubbing, ROM intact, no edema. Neurologic: Alert and oriented x4, motor and sensory function grossly intact, no focal deficits noted. Current Patient Data: Labs: Laboratory Tests Test 07/10/21 19:43 07/10/21 20:37 White Blood Count 3.5 x10^3/uL (4.0-11.0) Red Blood Count 3.98 x10^6/uL (3.50-5.40) Hemoglobin 12.3 g/dL (12.0-15.5) Hematocrit 36.7 % (36.0-47.0) Mean Corpuscular Volume 92 fL (79-100) Mean Corpuscular Hemoglobin 31 pg (25-35) Mean Corpuscular Hemoglobin Concent 34 g/dL (31-37) Red Cell Distribution Width 13.5 % (11.5-14.5) Platelet Count 165 x10^3/uL (140-400) Neutrophils (%) (Auto) 59 % (31-73) Lymphocytes (%) (Auto) 30 % (24-48) Monocytes (%) (Auto) 10 % (0-9) Eosinophils (%) (Auto) 1 % (0-3) Basophils (%) (Auto) 1 % (0-3) Neutrophils # (Auto) 2.0 x10^3/uL (1.8-7.7) Lymphocytes # (Auto) 1.0 x10^3/uL (1.0-4.8) Monocytes # (Auto) 0.3 x10^3/uL (0.0-1.1) Eosinophils # (Auto) 0.0 x10^3/uL (0.0-0.7) Basophils # (Auto) 0.0 x10^3/uL (0.0-0.2) Prothrombin Time 14.4 SEC (11.7-14.0) Prothromb Time International Ratio 1.2 (0.8-1.1) Activated Partial Thromboplast Time 39 SEC (24-38) Sodium Level 140 mmol/L (136-145) Potassium Level 3.9 mmol/L (3.5-5.1) Chloride Level 101 mmol/L (98-107) Carbon Dioxide Level 30 mmol/L (21-32) Anion Gap 9 (6-14) Blood Urea Nitrogen 23 mg/dL (7-20) Creatinine 0.8 mg/dL (0.6-1.0) Estimated GFR (Cockcroft-Gault) 68.3 BUN/Creatinine Ratio 29 (6-20) Glucose Level 103 mg/dL (70-99) Calcium Level 8.8 mg/dL (8.5-10.1) Magnesium Level 2.4 mg/dL (1.8-2.4) Total Bilirubin 0.4 mg/dL (0.2-1.0) Aspartate Amino Transf (AST/SGOT) 18 U/L (15-37) Alanine Aminotransferase (ALT/SGPT) 23 U/L (14-59) Alkaline Phosphatase 49 U/L (46-116) Troponin I High Sensitivity 11 ng/L (4-50) BK-Zso-D-Type Natriuretic Peptide 988 pg/mL (0-449) Total Protein 6.7 g/dL (6.4-8.2) Albumin 3.9 g/dL (3.4-5.0) Albumin/Globulin Ratio 1.4 (1.0-1.7) Urine Collection Type Unknown Urine Color (Auto) Light yellow Urine Turbidity Clear Urine pH (Auto) 6.5 (<5.0-8.0) Urine Specific [place] 1.012 (1.000-1.030) Urine Protein (Auto) Negative mg/dL (Negative) Urine Glucose (Auto)(UA) Negative mg/dL (Negative) Urine Ketones (Auto) Negative mg/dL (Negative) Urine Blood (Auto) Negative (Negative) Urine Nitrite Negative (Negative) Urine Bilirubin (Auto) Negative (Negative) Urine Urobilinogen (Auto) Normal mg/dL (Normal) Urine Leukocyte Esterase (Auto) Negative (Negative) Urine RBC Occ /HPF (0-2) Urine WBC 0 /HPF (0-4) Urine Squamous Epithelial Cells Few /LPF Urine Bacteria 0 /HPF (0-FEW) Urine Hyaline Casts Occasional /HPF Vital Signs: Vital Signs Date Time Temp Pulse Resp B/P (MAP) Pulse Ox O2 Delivery O2 Flow Rate FiO2 07/10/21 21:46 76 18 201/88 (125) 96 Room Air 07/10/21 20:48 76 14 216/89 (131) 96 Room Air 07/10/21 20:18 79 16 197/88 (124) 98 Room Air 07/10/21 19:58 72 13 195/89 (124) 97 Room Air 07/10/21 19:43 76 20 193/89 (123) 98 Room Air 07/10/21 19:28 78 19 188/74 (112) 98 Room Air 07/10/21 19:01 98.3 71 17 206/91 (129) 98 Room Air 98.3 EKG: EKG: EKG Interpreted by Dr. Manzano at 1916: Regular rate and rhythm 73 bpm with no ectopic beats. Prolonged AK interval 226 ms. QT 432 ms. No STEMI. Radiology/Procedures: Radiology/Procedures: PROCEDURE: CT HEAD AND CERVICAL SPINE WO CT HEAD AND C-SPINE WO Date: 07/10/2021 8:01 PM Clinical Indication: PRASAD, HTN, tinnitus, pain Comparison: 12/25/2020. Technique: 5 mm axial tomographic images were obtained of the head without contrast. These were viewed on brain and bone windows. Noncontrast CT of the cervical spine was performed. Sagittal and coronal reformats were performed and evaluated. One or more of the following dose reduction techniques were utilized: Automated exposure control (AEC), Adjustment of mA and/or kV according to patient size, Use of iterative reconstruction technique such as ASiR, CT scan done according to ALARA and image gently/image wisely HEAD FINDINGS: Mild generalized cerebral and cerebellar volume loss. Mild nonspecific periventricular hypoattenuation, most commonly seen with chronic small vessel ischemic disease. No intra- or extra-axial mass or fluid collection. No acute hemorrhage. The ventricles are normal in size, shape, and morphology. The davenport-white matter junction is normal. The basilar cisterns are patent. The visualized paranasal sinuses are normal. The visualized portions of the orbits and globes are normal. The mastoid air cells are clear. No aggressive osseous lesion or fracture. CERVICAL SPINE FINDINGS: The cervical spine is normally aligned. No acute fracture. No aggressive lytic or blastic osseous lesions. Moderate multilevel degenerative disc space height loss. Multilevel mild spinal canal stenosis secondary to disc protrusions and marginal osteophytes. Multilevel mild and moderate neuroforaminal narrowing secondary to uncovertebral arthrosis. Multilevel mild and moderate facet arthrosis. The thyroid gland is normal. No cervical lymphadenopathy. Bilateral carotid atherosclerosis. The visualized aerodigestive tract is normal. The visualized portions of the lungs are clear. IMPRESSION: 1. No acute intracranial process. 2. No acute cervical spine fracture. Electronically signed by: Tip Reagan MD (07/10/2021 8:43 PM) [facility] PROCEDURE: CHEST AP ONLY EXAMINATION: Chest radiograph. VIEWS: 1 COMPARISON: 12/25/2020 INDICATION:85 years, Female, chest pain. FINDINGS: Normal cardiomediastinal silhouette. Tortuous thoracic aorta with atherosclerotic calcifications. Similar appearance of coarse bilateral pulmonary reticulations, likely chronic changes. Calcified granulomas in the right upper lung. No focal consolidation. No pleural effusion or pneumothorax. No acute oss eous process. Left chest wall pacemaker device remains unchanged in position. Median sternotomy wires. IMPRESSION: No acute cardiopulmonary process. Electronically signed by: Fawn Miranda MD (07/10/2021 8:52 PM) [facility] Course & Med Decision Making: Course & Med Decision Making Pertinent Labs and Imaging studies reviewed. (See chart for details) Patient is an 85-year-old female with extensive past medical history, including several cardiac events and diagnoses, and frequent falls who presents with multiple complaints. Patient is alert and oriented, her reports of frequent falls and alterations in complaint timelines are somewhat concerning. Work-up today will consist of labs that include troponin and BNP, EKG, urinalysis, CT head and neck plain, chest x-ray. Lab work significant for leukopenia at 3.5, which is not entirely abnormal for the patient and comparing prior lab values. Additionally, she has BNP of 988, which is also not significantly different from patient's normal lab values. Spoke to Dr. Manzano, attending in the emergency department, who only further suggest calling patient's wireless watcher. I spoke to Dr. Kaur, cardiology, who is on-call for the patient's normal wireless watcher, Dr. Blankenship. In reviewi ng patient's case with Dr. Kaur, he is comfortable with patient being discharged to home with instruction to follow-up on Monday with their office on an outpatient basis. Patient's questions were answered. She states that she feels "pretty much jasvir l," and just feels a bit tired. Patient states she does feel comfortable ambulating with her walker at home. Strict return precautions were provided to the patient. Patient understands and is agreeable to discharge plan. Hanna Disclaimer: Hanna Disclaimer: This electronic medical record was generated, in whole or in part, using a voice recognition dictation system. Departure Departure Impression: Primary Impression: Chest heaviness Additional Impressions: Hx of chronic congestive heart failure Leukopenia Qualified Codes: D72.810 - Lymphocytopenia CAD (coronary artery disease) Qualified Codes: I25.10 - Atherosclerotic heart disease of [place] coronary artery without angina pectoris Disposition: HOME / SELF CARE / HOMELESS Condition: STABLE Referrals: TJ BANEGAS MD (PCP) KASIA CHAUDHARY MD, PRASHANTH S MD Patient Instructions: Cardiac Diet, [id number], Chest Pain (Nonspecific), [id number] Additional Instructions: EMERGENCY DEPARTMENT GENERAL DISCHARGE INSTRUCTIONS Thank you for coming to [facility] Emergency Department (ED) today and trusting us with you care. We trust that you had a positive experience in our Emergency Department. If you wish to speak to the department management, you may call the director at . YOUR FOLLOW UP INSTRUCTIONS ARE FOLLOWS: 1. Follow up with your primary care doctor. If you do not have a primary doctor, please ask for a resource list of physicians or clinics that may be able to assist you with follow up care. 2. The emergency provider has interpreted your imaging studies, if any were ordered. The radiology medical charge entry specialist also reviewed them. If there is a change in the findings, you will be notified in 48 hours when at all possible. 3. If a lab test or culture has been done, your results will be reviewed and you will be notified if you need a change in treatment. 4. Follow instructions verbalized to you and refer to the printouts if needed. ADDITIONAL INSTRUCTIONS AND INFORMATION: 1. Your care today has been supervised by a physician who is specially trained in emergency care. Many problems require more than one evaluation for a complete diagnosis and treatment. We recommend that you schedule your follow up appointment as recommended to ensure complete treatment of you illness or injury. If you are unable to obtain follow up care and continue to have a problem, or if your condition worsens, we recommend that you return to the ED. 2. We are not able to safely determine your condition over the phone nor are we able to give sound medical advice over the phone. For these safety reasons, if you call for medical advice we will ask you to come to the ED for further evaluation. 3. If you have any questions regarding these discharge instructions please call the ED at . SAFETY INFORMATION: In the interest of safety, wellness, and injury prevention; we encourage you to wear your seat belt, if you smoke; quite smoking, and we encourage family to use a protective helmet for bicycling and other sporting events that present an increased risk for head injury. IF YOUR SYMPTOMS WORSEN OR NEW SYMPTOMS DEVELOP, OR YOU HAVE CONCERNS ABOUT YOUR CONDITION; OR IF YOUR CONDITION WORSENS WHILE YOU ARE WAITING FOR YOUR FOLLOW UP APPOINTMENT; EITHER CONTACT YOUR PRIMARY CARE DOCTOR, THE PHYSICIAN WHOSE NAME AND NUMBER YOU WERE GIVEN, OR RETURN TO THE ED IMMEDIATELY. MANDO CARRILLO Jul 10, 2021 20:15
--- NOTE | 2021-07-10 20:45 | RAD ---
CT HEAD AND C-SPINE WO Date: 07/10/2021 8:01 PM Clinical Indication: PRASAD, HTN, tinnitus, pain Comparison: 12/25/2020. Technique: 5 mm axial tomographic images were obtained of the head without contrast. These were view ed on brain and bone windows. Noncontrast CT of the cervical spine was performed. Sagittal and ocampo l reformats were performed and evaluated. One or more of the following dose reduction techniques were utilized: Automated exposure control (AEC), Adjustment of mA and/or kV according to patient size, Us e of iterative reconstruction technique such as ASiR, CT scan done according to ALARA and image gentl y/image wisely HEAD FINDINGS: Mild generalized cerebral and cerebellar volume loss. Mild nonspecific periventricular hypoattenuatio n, most commonly seen with chronic small vessel ischemic disease. No intra- or extra-axial mass or fluid collection. No acute hemorrhage. The ventricles are normal in size, shape, and morphology. The davenport-white matter junction is normal. The basilar cisterns are paten t. The visualized paranasal sinuses are normal. The visualized portions of the orbits and globes are no rmal. The mastoid air cells are clear. No aggressive osseous lesion or fracture. CERVICAL SPINE FINDINGS: The cervical spine is normally aligned. No acute fracture. No aggressive lytic or blastic osseous les ions. Moderate multilevel degenerative disc space height loss. Multilevel mild spinal canal stenosis second jose ramon to disc protrusions and marginal osteophytes. Multilevel mild and moderate neuroforaminal narrowi ng secondary to uncovertebral arthrosis. Multilevel mild and moderate facet arthrosis. The thyroid gland is normal. No cervical lymphadenopathy. Bilateral carotid atherosclerosis. The visu alized aerodigestive tract is normal. The visualized portions of the lungs are clear. IMPRESSION: 1. No acute intracranial process. 2. No acute cervical spine fracture. Electronically signed by: Tip Reagan MD (07/10/2021 8:43 PM) [facility]
--- NOTE | 2021-07-10 20:54 | RAD ---
EXAMINATION: Chest radiograph. VIEWS: 1 COMPARISON: 12/25/2020 INDICATION:85 years, Female, chest pain. FINDINGS: Normal cardiomediastinal silhouette. Tortuous thoracic aorta with atherosclerotic calcifications. Sim ilar appearance of coarse bilateral pulmonary reticulations, likely chronic changes. Calcified granul omas in the right upper lung. No focal consolidation. No pleural effusion or pneumothorax. No acute o sseous process. Left chest wall pacemaker device remains unchanged in position. Median sternotomy wir es. IMPRESSION: No acute cardiopulmonary process. Electronically signed by: Fawn Miranda MD (07/10/2021 8:52 PM) [facility]
[2021-07-10 20:58] LABS: BACTERIA,URINE 0 /HPF (0-FEW); RBC,URINE OCC /HPF (0-2); WBC,URINE 0 /HPF (0-4)
[2021-07-10 20:59] LABS: HYALINE CASTS, URINE OCCASIONAL /HPF
[2021-07-10 21:46] VITALS: BP 201/88
--- NOTE | 2021-07-11 06:13 | EKG ---
[facility] [address] [place] [address] Test Date: 2021-07-10 Test Time: 19:16:49 Pat Name: PRUDENCE SALINAS Department: Room: Gender: F Hematology Oncology Consultant: : [id number] Requested By: MANDO CARRILLO Order Number: [id number] Reading MD: Measurements Intervals [place] Rate: 73 P: 180 CA: 226 QRS: -66 QRSD: 134 T: 36 QT: 432 QTc: 480 Interpretive Statements SINUS RHYTHM PROLONGED CA INTERVAL ABNORMAL LEFT AXIS DEVIATION LEFT ANTERIOR FASCICULAR BLOCK NON SPECIFIC INTRAVENTRICULAR BLOCK RVH WITH REPOLARIZATION ABNORMALITY QRS(T) CONTOUR ABNORMALITY CONSIDER ANTEROSEPTAL MYOCARDIAL DAMAGE ABNORMAL ECG RI6.02 No previous ECG available for comparison
== END 2021-07-10 22:50 | disposition home or self-care (01) ==
LOC: ER 19:01
DX: R07.89 Other chest pain (principal); R51.9 Headache, unspecified; H93.13 Tinnitus, bilateral; I11.0 Hypertensive heart disease with heart failure; I50.9 Heart failure, unspecified; I25.10 Atherosclerotic heart disease of native coronary artery without angina pectoris; J44.9 Chronic obstructive pulmonary disease, unspecified; Z86.73 Personal history of transient ischemic attack (TIA), and cerebral infarction without residual deficits; Z95.5 Presence of coronary angioplasty implant and graft; Z95.1 Presence of aortocoronary bypass graft; Z95.0 Presence of cardiac pacemaker; I25.2 Old myocardial infarction; Z88.0 Allergy status to penicillin; Z88.2 Allergy status to sulfonamides; Z88.6 Allergy status to analgesic agent; Z88.7 Allergy status to serum and vaccine; Z88.5 Allergy status to narcotic agent; Z88.8 Allergy status to other drugs, medicaments and biological substances
CPT/HCPCS: 36415; 70450; 71045; 72125; 80053; 81001; 83735; 83880; 84484; 85025; 85610; 85730; 93005; 96360; 96361; 99285; J7120

== ENCOUNTER → 2021-07-21 | Outpatient (CLI) | payer MEDICARE, MEDICAID ==
[2021-07-10 21:46] VITALS: BP 201/88
--- NOTE | 2021-07-21 13:17 | NUR ---
Patient called requesting a med refill. Patient stats her asthma has been flaring up lately and has been seeing Dr Yang. Verified name , pharmacy , medications,and requested patient to make a new appointment. Ktracts is correct, level of pain is a 6, denies constipation Call transferred to Dr Pagan. [place] to hold blood thinners sent to Dr Butler .
--- NOTE | 2021-07-21 14:11 | PDOC ---
Progress Note - Pain Clinic Date of Service: DOS: DATE: 07/21/21 TIME: 14:08 Diagnosis: Dx: Lumbar radiculopathy with lumbar degenerative disease lumbar spinal stenosis Cervical radiculopathy cervical degenerative disease Left sacroiliitis History or Present Illness: HPI: Telemedicine visit today with patient with identity verified with full name as well as full date of , total time spent 14 minutes, telephone voice only 85-year-old female via telemedicine visit requesting refill of hydrocodone. Patient reports she did well after her last visit with the transforaminal injection which was April 08, 2021 patient reports the pain is returning however into the left lower extremity to a fairly significant extent patient reports is better than it was but was initially got 7580% better now is about 50% better patient reports no new motor or sensory deficit still significant weakness with extended standing or walking in the left lower extremity and easy fatigue. Patient reports no loss of motor function no bowel or bladder incontinence. Patient has had appropriate K tracks report as well as appropriate urinalyses to date as well. We discussed the options and will refill patient's hydrocodone 10 mg/325 up to 3 times daily. Patient was given instructions well side effects aware with the medication. We discussed holding her blood thinner as well and will check again with her service electrician to obtain clearance for this and inform the patient his response. Patient will follow up in approximate 30 days as scheduled. Physical Exam: PE: JAK RO MD Jul 21, 2021 14:11
== END | disposition home or self-care (01) ==
LOC: PNCL 13:12
PROVIDERS: ATTEND Anesthesiology
DX: M51.16 Intervertebral disc disorders with radiculopathy, lumbar region (principal); M48.061 Spinal stenosis, lumbar region without neurogenic claudication; M50.10 Cervical disc disorder with radiculopathy, unspecified cervical region; M46.1 Sacroiliitis, not elsewhere classified; I25.10 Atherosclerotic heart disease of native coronary artery without angina pectoris; K21.9 Gastro-esophageal reflux disease without esophagitis; I10 Essential (primary) hypertension; E78.00 Pure hypercholesterolemia, unspecified; M19.90 Unspecified osteoarthritis, unspecified site; M81.0 Age-related osteoporosis without current pathological fracture; F41.9 Anxiety disorder, unspecified; F32.9 Major depressive disorder, single episode, unspecified; Z90.710 Acquired absence of both cervix and uterus; Z98.890 Other specified postprocedural states; Z79.899 Other long term (current) drug therapy; Z88.0 Allergy status to penicillin; Z88.1 Allergy status to other antibiotic agents; Z88.8 Allergy status to other drugs, medicaments and biological substances
CPT/HCPCS: 99212; G0463

== ENCOUNTER → 2021-07-22 | Outpatient (CLI) | payer MEDICARE, MEDICAID ==
[2021-07-10 21:46] VITALS: BP 201/88
--- NOTE | 2021-07-22 16:33 | KCIC ---
EXAM: XR CHEST 2V 07/22/2021 2:54 PM CLINICAL INDICATION: Chronic cough, asthma. Nonsmoker COMPARISON: Chest radiograph 07/10/2021 TECHNIQUE: PA and lateral views of the chest FINDINGS: There is a dual-lead pacemaker and median sternotomy wires. A coronary stent is noted. The heart is normal in size. There are calcifications in the thoracic aorta. The lungs are well-expanded . There is a calcified granuloma in the right upper lobe. No consolidation, pleural effusion, or pneu mothorax. No obvious acute osseous abnormality within the limitations of a chest radiograph. IMPRESSION: No acute cardiopulmonary abnormality. Electronically signed by: Anu Pedro MD (07/22/2021 4:31 PM) [id number]
== END ==
LOC: KCIC 14:50
PROVIDERS: ATTEND Family Medicine
DX: J84.10 Pulmonary fibrosis, unspecified (principal); I70.0 Atherosclerosis of aorta; R05.9 Cough, unspecified
CPT/HCPCS: 71046

== ENCOUNTER 2021-07-31 07:09 | Emergency (ER) | payer MEDICARE, MEDICAID ==
[~2021-07-31] VITALS: Ht 149.9 cm; Wt 69.8 kg
[2021-07-31 07:10] VITALS: BP 213/92
[2021-07-31] MEDS ORDERED: ONDANSETRON PF 4 MG/2 ML VIAL. IVP ONE (07:30)
[2021-07-31] MEDS ORDERED: IOHEXOL 300 MG/ML 100ML VIAL. IV ONE (07:30)
[2021-07-31] MEDS ORDERED: fentaNYL PF VIAL 100 MCG/2 ML VIAL IVP ONE (07:30)
[2021-07-31] MEDS ORDERED: CONTRAST GIVEN. MC PRN (07:30)
--- NOTE | 2021-07-31 07:34 | PHYS DOC ---
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 She says that she woke up in a hurry this morning as she needed to go urinate and did not get her walker before trying to walk to the bathroom and she lost her footing as she is supposed to use her walker all the time and fell straight forward striking her head. She does not think that she lost consciousness but she has pain in her head neck abdomen and right knee. Patient has a large left frontal scalp contusion with overlying abrasion and she says that her tetanus is up-to-date. She is on 2 blood thinners with Eliquis and Plavix. It appears that she is on Eliquis for atrial fibrillation and she told me that she is on Plavix to prevent strokes. She is in no acute distress with normal vital signs. (GEOFF BARRIGA DO) Review of Systems Review of Systems Constitutional: Denies fever or chills [] Eyes: Denies change in visual acuity, redness, or eye pain [] HENT: Denies nasal congestion or sore throat [] Respiratory: Denies cough or shortness of breath [] Cardiovascular: No additional information not addressed in HPI [] GI: Denies abdominal pain, nausea, vomiting, bloody stools or diarrhea [] : Denies dysuria or hematuria [] Musculoskeletal: + neck pain, R knee joint pain Integument: Positive left forehead abrasion Neurologic: + headache. No focal weakness or sensory changes [] All other systems were reviewed and found to be within normal limits, except as documented in this note. (GEOFF BARRIGA DO) Current Medications Current Medications Current Medications Medications (Trade) Dose Ordered Sig/Conrad Start Time Stop Time Status Last Admin Dose Admin Acetaminophen/ Hydrocodone Bitart (Lortab 5/325) 1 tab 1X ONCE 07/31/21 10:00 07/31/21 10:01 DC 07/31/21 10:03 1 TAB Fentanyl Citrate (Fentanyl 2ml Vial) 50 mcg 1X ONCE 07/31/21 07:30 07/31/21 07:31 DC 07/31/21 07:51 50 MCG Info (CONTRAST GIVEN -- Rx MONITORING) 1 each PRN DAILY PRN 07/31/21 07:30 08/02/21 07:29 Iohexol (Omnipaque 300 Mg/ml) 75 ml 1X ONCE 07/31/21 07:30 07/31/21 07:31 DC 07/31/21 07:51 75 ML Morphine Sulfate (Morphine Sulfate) 4 mg STK-MED ONCE 07/31/21 09:02 07/31/21 09:02 DC Ondansetron HCl (Zofran) 4 mg 1X ONCE 07/31/21 07:30 07/31/21 07:31 DC 07/31/21 07:50 4 MG (DAO ISBELL MD) Allergies Allergies Allergies Coded Allergies Type Severity Reaction Last Updated Verified MIGUEL ANGEL Inhibitors Allergy Intermediate 07/31/21 Yes Penicillins Allergy Intermediate 07/31/21 Yes Sulfa (Sulfonamide Antibiotics) Allergy Intermediate 07/31/21 Yes adhesive Allergy Intermediate 07/31/21 Yes influenza virus vaccine, specific Allergy Intermediate 07/31/21 Yes mercury (elemental) Allergy Intermediate 07/31/21 Yes methadone Allergy Intermediate 07/31/21 Yes methylprednisolone Allergy Intermediate 07/31/21 Yes montelukast Allergy Intermediate 07/31/21 Yes theophylline Allergy Intermediate 07/31/21 Yes trazodone Allergy Intermediate 07/31/21 Yes zolpidem Allergy Intermediate 07/31/21 Yes estradiol Adverse Reaction Intermediate 07/31/21 Yes oxycodone Adverse Reaction Intermediate 07/31/21 Yes (DAO ISBELL MD) Physical Exam Physical Exam Constitutional: Well developed, well nourished, no acute distress, non-toxic appearance. [] HENT: Normocephalic, atraumatic, bilateral external ears normal, oropharynx moist, no oral exudates, nose normal. [] Eyes: PERRLA, EOMI, conjunctiva normal, no discharge. [] Neck: Normal range of motion, no tenderness, supple, no stridor. [] Cardiovascular:Heart rate regular rhythm, no murmur [] Lungs & Thorax: Bilateral breath sounds clear to auscultation [] Abdomen: Diffuse abdominal tenderness to palpation with no rebound or guarding. Skin: Left forehead contusion with overlying abrasion Back: No midline thoracic or lumbar tenderness to palpation however patient had midline cervical spine tenderness to palpation. Extremities: No pain in upper extremities or bilateral hips however she has pain to palpation and range of motion of right knee distally she is neurovascular intact. Neurologic: Alert and oriented X 3, normal motor function, normal sensory function, no focal deficits noted. [] (GEOFF BARRIGA DO) Current Patient Data Vital Signs Vital Signs Date Time Temp Pulse Resp B/P (MAP) Pulse Ox O2 Delivery O2 Flow Rate FiO2 07/31/21 10:03 17 07/31/21 07:51 99 Room Air 07/31/21 07:10 98.6 64 213/92 (132) 98.6 (DAO ISBELL MD) Lab Values Laboratory Tests Test 07/31/21 09:35 White Blood Count 3.9 x10^3/uL (4.0-11.0) L Red Blood Count 3.95 x10^6/uL (3.50-5.40) Hemoglobin 12.4 g/dL (12.0-15.5) Hematocrit 37.0 % (36.0-47.0) Mean Corpuscular Volume 94 fL (79-100) Mean Corpuscular Hemoglobin 31 pg (25-35) Mean Corpuscular Hemoglobin Concent 34 g/dL (31-37) Red Cell Distribution Width 13.4 % (11.5-14.5) Platelet Count 142 x10^3/uL (140-400) Neutrophils (%) (Auto) 71 % (31-73) Lymphocytes (%) (Auto) 21 % (24-48) L Monocytes (%) (Auto) 7 % (0-9) Eosinophils (%) (Auto) 1 % (0-3) Basophils (%) (Auto) 0 % (0-3) Neutrophils # (Auto) 2.8 x10^3/uL (1.8-7.7) Lymphocytes # (Auto) 0.8 x10^3/uL (1.0-4.8) L Monocytes # (Auto) 0.3 x10^3/uL (0.0-1.1) Eosinophils # (Auto) 0.0 x10^3/uL (0.0-0.7) Basophils # (Auto) 0.0 x10^3/uL (0.0-0.2) Prothrombin Time 14.0 SEC (11.7-14.0) Prothrombin Time INR 1.1 (0.8-1.1) Activated Partial Thromboplast Time 34 SEC (24-38) Sodium Level 138 mmol/L (136-145) Potassium Level 4.1 mmol/L (3.5-5.1) Chloride Level 104 mmol/L (98-107) Carbon Dioxide Level 27 mmol/L (21-32) Anion Gap 7 (6-14) Blood Urea Nitrogen 21 mg/dL (7-20) H Creatinine 0.8 mg/dL (0.6-1.0) Estimated GFR (Cockcroft-Gault) 68.3 BUN/Creatinine Ratio 26 (6-20) H Glucose Level 106 mg/dL (70-99) H Calcium Level 8.4 mg/dL (8.5-10.1) L Total Bilirubin 0.4 mg/dL (0.2-1.0) Aspartate Amino Transferase (AST) 18 U/L (15-37) Alanine Aminotransferase (ALT) 22 U/L (14-59) Alkaline Phosphatase 47 U/L (46-116) Total Protein 6.9 g/dL (6.4-8.2) Albumin 3.5 g/dL (3.4-5.0) Albumin/Globulin Ratio 1.0 (1.0-1.7) Laboratory Tests 07/31/21 09:35 Laboratory Tests 07/31/21 09:35 (DAO ISBELL MD) EKG EKG [] (GEOFF BARRIGA DO) Radiology/Procedures Radiology/Procedures [] (GEOFF BARRIGA DO) Radiology/Procedures [facility] [address] [place], [place] [id number] IMAGING REPORT Signed PATIENT: PRUDENCE SALINAS MACCOUNT: [id number] : 1935 LOCATION: ER AGE: 85 SEX: F EXAM STATUS: PRE ER ORD. PHYSICIAN: GEOFF BARRIGA DO REASON: pain s/p fall PROCEDURE: KNEE RIGHT 3V EXAMINATION: XR KNEE 3 VIEWS_RT CLINICAL HISTORY: Right knee pain following fall. TECHNIQUE: XR KNEE 3 VIEWS_RT COMPARISON: 03/11/2019 FINDINGS/ IMPRESSION: Moderate medial and mild lateral compartment narrowing with chondrocalcinosis. Tricompartmental small marginal osteophytes. No acute fracture. No joint effusion. Electronically signed by: Jordin Gutierrez DO (07/31/2021 8:37 AM) [facility] DICTATED and SIGNED BY: JORDIN GUTIERREZ DO DATE: 07/31/21 0836 [facility] [address] [place] [address] IMAGING REPORT Addendum PATIENT: PRUDENCE SALINAS MACCOUNT: [id number] : 1935 LOCATION: ER AGE: 85 SEX: F EXAM STATUS: PRE ER ORD. PHYSICIAN: GEOFF BARRIGA DO REASON: pain s/p fall ON BLOOD THINNERS PROCEDURE: CT HEAD AND CERVICAL SPINE WO ADDENDUM ADDENDUM #1 Addendum: CT chest abdomen and pelvis with contrast: History: Status post fall on blood thinners, pain Axial helical images of the chest abdomen and pelvis were obtained after the administration of 100 cc IV Isovue-370 contrast. Comparison: none CT OF THE CHEST WITH IV CONTRAST: There is no mediastinal lymphadenopathy or hematoma. Lymphadenopathy: no Thoracic aorta: normal Lungs and pleural margins: Small less than 5 mm pulmonary nodules bilaterally are likely granuloma. There is previous median sternotomy. Impression: No acute findings. End Impression CT OF THE ABDOMEN AND PELVIS WITH IV CONTRAST: Liver: Unremarkable Spleen: Unremarkable Pancreas: Unremarkable Adrenal Glands: Unremarkable Kidneys: Unremarkable Evaluation of stomach and bowel is limited without oral contrast. Lymphadenopathy: no. Free fluid: no. Free air: no. The bladder appears normal. Impression: No acute findings. End impression PQRS Compliance Statement: One or more of the following individualized dose reduction techniques were utilized for this examination: 1. Automated exposure control 2. Adjustment of the mA and/or kV according to patient size 3. Use of iterative reconstruction technique Electronically signed by: Lam Saldana III, MD (07/31/2021 8:34 AM) [id number] ORIG[address]AL REPORT CT Head W/O Contrast: History: Reason: pain s/p fall ON BLOOD THINNERS / Spl. Instructions: / History: Comparison: none Axial images were obtained without contrast. There is a moderate size scalp hematoma above the left orbit. There is mild diffuse atrophy. There is no mass effect, extraaxial fluid collections or hydrocephalus. There is no gross bleed. Mild, patchy periventricular and subcortical white matter hypoattenuation is seen. There is no focal loss of davenport-white matter distinction to suggest acute ischemia, i.e. stroke. Impression: Scalp hematoma anteriorly on the left. No acute intracranial findings. CT C-Spine without contrast: Clinical History: Reason: pain s/p fall ON BLOOD THINNERS / Spl. Instructions: / History: Technique: Axial helical images of the cervical spine were obtained without contrast, axial coronal and sagittal reconstruction was performed. Findings: There is no loss of vertebral body stature. There is no prevertebral soft tissue swelling. The vertebral bodies are well aligned. There is straightening of the normal cervical lordosis which can be positional or could be chronic. The C1-C2 relationship is normal. The visualized osseous structures appear normal. Evaluation of the central canal is limited without contrast. There is multiple posterior disc bulges resulting in flattening of the thecal sac. There does not appear to be gross flattening of the cervical cord. There is moderate narrowing of multiple neuroforamen. Impression: No acute findings. Clinical correlation suggested. PQRS Compliance Statement: One or more of the following individualized dose reduction techniques were utilized for this examination: 1. Automated exposure control 2. Adjustment of the mA and/or kV according to patient size 3. Use of iterative reconstruction technique Electronically signed by: Lam Saldana III, MD (07/31/2021 8:01 AM) [id number] DICTATED AND SIGNED BY: LAM SALDANA III, MD DATE: 07/31/21 0829 CC: DAO ISBELL MD; TJ BANEGAS MD; GEOFF BARRIGA DO ~ CT Head W/O Contrast: History: Reason: pain s/p fall ON BLOOD THINNERS / Spl. Instructions: / History: Comparison: none Axial images were obtained without contrast. There is a moderate size scalp hematoma above the left orbit. There is mild diffuse atrophy. There is no mass effect, extraaxial fluid collections or hydrocephalus. There is no gross bleed. Mild, patchy periventricular and subcortical white matter hypoattenuation is seen. There is no focal loss of davenport-white matter distinction to suggest acute ischemia, i.e. stroke. Impression: Scalp hematoma anteriorly on the left. No acute intracranial findings. CT C-Spine without contrast: Clinical History: Reason: pain s/p fall ON BLOOD THINNERS / Spl. Instructions: / History: Technique: Axial helical images of the cervical spine were obtained without contrast, axial coronal and sagittal reconstruction was performed. Findings: There is no loss of vertebral body stature. There is no prevertebral soft tis rose swelling. The vertebral bodies are well aligned. There is straightening of the normal cervical lordosis which can be positional or could be chronic. The C1-C2 relationship is normal. The visualized osseous structures appear normal. Evaluation of the central canal is limited without contrast. There is multiple posterior disc bulges resulting in flattening of the thecal sac. There does not appear to be gross flattening of the cervical cord. There is moderate narrowing of multiple neuroforamen. Impression: No acute findings. Clinical correlation suggested. PQRS Compliance Statement: One or more of the following individualized dose reduction techniques were utilized for this examination: 1. Automated exposure control 2. Adjustment of the mA and/or kV according to patient size 3. Use of iterative reconstruction technique Electronically signed by: Lam Saldana III, MD (07/31/2021 8:01 AM) [id number] DICTATED and SIGNED BY: LAM SALDANA III, MD DATE: 07/31/21 0756 (DAO ISBELL MD) Course & Med Decision Making Course & Med Decision Making Patient sustained a mechanical fall striking her head and now she has pain in her head neck and abdomen as well as her right knee. I will check labs and imaging treat pain and reassess. Work-up pending at time of shift change for me at 8 AM. I will transfer care to Dr. Isbell, pending work-up and disposition plan. (GEOFF BARRIGA DO) Dragon Disclaimer Dragon Disclaimer This electronic medical record was generated, in whole or in part, using a voice recognition dictation system. (GEOFF BARRIGA DO) Departure Departure Impression: Primary Impression: Forehead contusion Additional Impressions: Forehead abrasion Abdominal pain Disposition: 01 HOME / SELF CARE / HOMELESS Condition: STABLE Referrals: TJ BANEGAS MD (PCP) Patient Instructions: Fall Prevention and Home Safety Scripts Hydrocodone Bit/Acetaminophen (HYDROCODONE-APAP 10-325 ) 1 Tab Tablet 1 TAB PO PRN Q6HRS PRN for PAIN for 3 Days, #10 TAB 0 Refills Prov: DAO ISBELL MD 07/31/21 Problem Qualifiers Primary Impression: Forehead contusion Encounter type: initial encounter Qualified Codes: S00.83XA - Contusion of other part of head, initial encounter Additional Impressions: Forehead abrasion Encounter type: initial encounter Qualified Codes: S00.81XA - Abrasion of other part of head, initial encounter Abdominal pain Abdominal location: generalized Qualified Codes: R10.84 - Generalized abdominal pain GEOFF BARRIGA DO Jul 31, 2021 07:34 DAO ISBELL MD Jul 31, 2021 09:12
--- NOTE | 2021-07-31 08:03 | RAD ---
CT Head W/O Contrast: History: Reason: pain s/p fall ON BLOOD THINNERS / Spl. Instructions: / History: Comparison: none Axial images were obtained without contrast. There is a moderate size scalp hematoma above the left orbit. There is mild diffuse atrophy. There is no mass effect, extraaxial fluid collections or hydrocephalu s. There is no gross bleed. Mild, patchy periventricular and subcortical white matter hypoattenuati on is seen. There is no focal loss of davenport-white matter distinction to suggest acute ischemia, i.e. stroke. Impression: Scalp hematoma anteriorly on the left. No acute intracranial findings. CT C-Spine without contrast: Clinical History: Reason: pain s/p fall ON BLOOD THINNERS / Spl. Instructions: / History: Technique: Axial helical images of the cervical spine were obtained without contrast, axial coronal and sagittal reconstruction was performed. Findings: There is no loss of vertebral body stature. There is no prevertebral soft tissue swelling. The vert ebral bodies are well aligned. There is straightening of the normal cervical lordosis which can be p ositional or could be chronic. The C1-C2 relationship is normal. The visualized osseous structures ap pear normal. Evaluation of the central canal is limited without contrast. There is multiple posterio r disc bulges resulting in flattening of the thecal sac. There does not appear to be gross flattening of the cervical cord. There is moderate narrowing of multiple neuroforamen. Impression: No acute findings. Clinical correlation suggested. PQRS Compliance Statement: One or more of the following individualized dose reduction techniques were utilized for this examinat ion: 1. Automated exposure control 2. Adjustment of the mA and/or kV according to patient size 3. Use of iterative reconstruction technique Electronically signed by: Stevo Capellan III, MD (07/31/2021 8:01 AM) [id number]
--- NOTE | 2021-07-31 08:40 | RAD ---
EXAMINATION: XR KNEE 3 VIEWS_RT CLINICAL HISTORY: Right knee pain following fall. TECHNIQUE: XR KNEE 3 VIEWS_RT COMPARISON: 03/11/2019 FINDINGS/ IMPRESSION: Moderate medial and mild lateral compartment narrowing with chondrocalcinosis. Tricompartmental small marginal osteophytes. No acute fracture. No joint effusion. Electronically signed by: Jordin Ward DO (07/31/2021 8:37 AM) ARTEMIO
[2021-07-31] MEDS ORDERED: MORPHINE SULFATE 4 MG/ML INJ. IV ONE (09:00)
[2021-07-31] MEDS ORDERED: MORPHINE SULFATE 4 MG/ML INJ. ONE (09:02)
[2021-07-31 09:53] LABS: BASO % 0 % (0-3); EOS % 1 % (0-3); HEMOGLOBIN 12.4 g/dL (12.0-15.5); LYMPH # 0.8 x10^3/uL (1.0-4.8); LYMPH % 21 % (24-48); MEAN CORPUSCULAR HEMOGLOBIN 31 pg (25-35); MEAN CORPUSCULAR HGB CONC 34 g/dL (31-37); MEAN CORPUSCULAR VOLUME 94 fL (79-100); MONO # 0.3 x10^3/uL (0.0-1.1); MONO % 7 % (0-9); NEUT # 2.8 x10^3/uL (1.8-7.7); NEUT % 71 % (31-73); PLATELET COUNT 142 x10^3/uL (140-400); RED BLOOD COUNT 3.95 x10^6/uL (3.50-5.40); RED CELL DISTRIBUTION WIDTH 13.4 % (11.5-14.5); WHITE BLOOD COUNT 3.9 x10^3/uL (4.0-11.0)
[2021-07-31] MEDS ORDERED: HYDROcodone/APAP 5/325MG 1 TAB TABLET PO ONE (10:00)
[2021-07-31 10:01] LABS: CALCIUM 8.4 mg/dL (8.5-10.1); CREATININE 0.8 mg/dL (0.6-1.0); GFR 68.3; POTASSIUM 4.1 mmol/L (3.5-5.1)
[2021-07-31 10:06] LABS: ALBUMIN 3.5 g/dL (3.4-5.0); TOTAL BILIRUBIN 0.4 mg/dL (0.2-1.0); TOTAL PROTEIN 6.9 g/dL (6.4-8.2)
[2021-07-31] MEDS ORDERED: HYDR-2769 PO (10:14)
[2021-08-11] MEDS ORDERED: SERT25TA PO (14:07)
[2021-08-11] MEDS ORDERED: HYDR-2769 PO (14:57)
== END 2021-07-31 10:15 | disposition home or self-care (01) ==
LOC: ER 07:09
DX: S00.83XA Contusion of other part of head, initial encounter (principal); R10.84 Generalized abdominal pain; M54.2 Cervicalgia; I25.10 Atherosclerotic heart disease of native coronary artery without angina pectoris; J44.9 Chronic obstructive pulmonary disease, unspecified; I11.0 Hypertensive heart disease with heart failure; I50.9 Heart failure, unspecified; Z86.73 Personal history of transient ischemic attack (TIA), and cerebral infarction without residual deficits; Z95.5 Presence of coronary angioplasty implant and graft; Z95.0 Presence of cardiac pacemaker; Z95.1 Presence of aortocoronary bypass graft; Z88.0 Allergy status to penicillin; Z91.041 Radiographic dye allergy status; Z88.5 Allergy status to narcotic agent; Z88.6 Allergy status to analgesic agent; Z88.8 Allergy status to other drugs, medicaments and biological substances; W18.39XA Other fall on same level, initial encounter; Y93.89 Activity, other specified; Y92.89 Other specified places as the place of occurrence of the external cause; Y99.8 Other external cause status
CPT/HCPCS: 36415; 70450; 71260; 72125; 73562; 74177; 80053; 85025; 85610; 85730; 86850; 86900; 86901; 96374; 96375; 99285; J2270; J2405; J3010; Q9967

== ENCOUNTER → 2021-08-11 | Outpatient (CLI) | payer MEDICARE, MEDICAID ==
[2021-07-31 07:10] VITALS: BP 213/92
[~2021-08-11] MED LIST changes: +SERT25TA PO
--- NOTE | 2021-08-11 14:28 | PDOC ---
Progress Note - Pain Clinic Date of Service: DOS: DATE: 08/11/21 TIME: 14:24 Diagnosis: Dx: Lumbar radiculopathy with lumbar degenerative disease and lumbar spinal stenosis Cervical radiculopathy with cervical degenerative disease Left sacroiliitis History or Present Illness: HPI: 85-year-old female returns for follow-up status post left transforaminal injection at L4-5 April 08, 2021 patient did very well with about a 75% improvement in the back and left lower extremity pain. Patient reports he was increase activity with greater distance walking doing household activities travel with greater ease and comfort sleeping better at night now the pain is beginning to return over the past few weeks in the low back and the left lower extremity posterior gluteus posterior lateral thigh lateral anterior thigh anteromedial thigh medial lower leg into the ankle on the left side. Patient ports no loss of motor function but significant fatigability and she got up from sitting on the toilet about 2 weeks ago and her left leg gave out she fell and hit her face and has some significant bruising there to this today as well. Patient reports wakes her from sleep now about every 3-4 hours returning and left lower extremity rated as a 9 on scale 10 at its worst 8 on average 8 at its least and is an 8 today. Patient reports that sharp and aching on and off in intensity worse with activity standing walking as well. Patient also taking hydrocodone up to 3 times daily and she reports she was able to reduce that significantly after the last injection but the pain is returned now she is back to 3 times a day and is requesting refill for that currently as well. Patient reports no loss of motor function no bowel or bladder incontinence. Patient continues with stretching and strengthening exercises daily, but reports they are becoming less effective as time goes on. Physical Exam: VS: Blood pressure is 141/79 pulse 76 respirations 18 temperature 90.2 F height is 4 feet 11 inches weight is 145 pounds. PE: PHYSICAL EXAMINATION: GENERAL: The patient is awake, alert, oriented, appropriate, very pleasant in demeanor, patient accompanied by her daughter HEENT: Shows normocephalic, atraumatic. Extraocular movements are intact and symmetrical. Oral cavity: Mucous membranes moist and pink. NECK: Shows anterior throat supple without palpable lymphadenopathy noted. Swallow reflex symmetrical. CHEST: Shows normal on inspection. Breath sounds are clear bilaterally, distant but no rales or rhonchi auscultated. HEART: Shows S1, S2 clear. No murmurs auscultated. ABDOMEN: Soft, nontender, nondistended. No palpable organomegaly is noted. BACK: Shows spine grossly in the midline. Normal-appearing cervical lordotic curvature. There is slightly increased thoracic kyphosis, some flattening of the lumbar lordotic curvature. Lumbar paraspinous muscles show symmetrical on inspection, on palpation shows some moderate tenderness diffusely throughout the upper, middle and lower distribution of the paraspinous muscles without specific trigger points, without radiation of pain. The patient has good rotational motion of the lumbar spine, both laterally as well as extension and flexion without significant difficulty. EXTREMITIES: Lower extremities show deep tendon reflexes 1+ in the patellar and tendo calcaneus tendons. Motor exam is 4 on a scale of 5 with right dorsiflexion, extension, quadriceps and hamstring flexion and 4/5 on the left. Peripheral pulses are 1+ posterior tibial. No peripheral edema is noted jigar aterally. Lower extremities are warm and dry to touch, equal in color and appearance. SKIN: Shows warm and dry, good turgor. No edema. No sores, rashes or bruising throughout. Procedure: Procedure: Options discussed with patient. Patient's old chart was reviewed as her current medication regimen updated current review of systems updated today as well. We will preauthorize patient for a left transforaminal injection at the L4-5 level with fluoroscopic guidance. Patient still with clinical radiculopathy in the left L4-5 dermatomal distribution better with last injection now returning from injection, 4 months previously. Patient continue with stretching and strengthening exercises as well as oral analgesics and hydrocodone we will refill medication today as well. Patient has had appropriate K tracks report as well as appropriate urinalyses to date. Patient follow-up in approximate 2 weeks we will plan on left-sided L4-5 transforaminal epidural steroid injection at that time with fluoroscopic guidance. Medication Injected: Med Injected: None Condition at Discharge: Condition at Discharge: Condition at discharge is stable. JAK RO MD August 11, 2021 14:28
== END | disposition home or self-care (01) ==
LOC: PNCL 13:12
PROVIDERS: ATTEND Anesthesiology
DX: M51.16 Intervertebral disc disorders with radiculopathy, lumbar region (principal); M48.061 Spinal stenosis, lumbar region without neurogenic claudication; M50.10 Cervical disc disorder with radiculopathy, unspecified cervical region; M46.1 Sacroiliitis, not elsewhere classified; I25.10 Atherosclerotic heart disease of native coronary artery without angina pectoris; I10 Essential (primary) hypertension; E78.00 Pure hypercholesterolemia, unspecified; J44.9 Chronic obstructive pulmonary disease, unspecified; K21.9 Gastro-esophageal reflux disease without esophagitis; M19.90 Unspecified osteoarthritis, unspecified site; F41.9 Anxiety disorder, unspecified; F32.9 Major depressive disorder, single episode, unspecified; Z90.710 Acquired absence of both cervix and uterus; Z98.890 Other specified postprocedural states; Z88.0 Allergy status to penicillin; Z88.1 Allergy status to other antibiotic agents; Z88.8 Allergy status to other drugs, medicaments and biological substances
CPT/HCPCS: 99212; G0463